=== PATIENT | female | born 1955 | race African-American/Black ===

== ENCOUNTER 2019-09-19 18:47 | Inpatient (IN) | payer OTHER, MEDICAID ==
[~2019-09-19] VITALS: Ht 170.2 cm; Wt 114.4 kg
[~2019-09-19 18:47] MED LIST: ASPI-404 PO; ATOR40TA52 PO; BENA40TA7 PO; CARV6.2551 PO; FURO20TA3 PO; GABA250S2 PO; INSDRIP IV; INSLANTI SC; LEVO50TA7 PO
[2019-09-19 19:46] LABS: Basophils # (auto) 0.1 10 ^3/uL (0-0.2); Basophils % (auto) 1.1 % (0.0-2.0); Eosinophils # (auto) 0.3 10 ^3/uL (0-0.8); Hematocrit 41.2 % (36.0-46.0); Hemoglobin 13.2 g/dL (12.2-16.2); Lymphocytes # (auto) 1.6 10 ^3/uL (0.4-5.4); Lymphocytes % (auto) 18.1 % (10.0-50.0); Mean Corpuscular Hemoglobin 28.4 pg (28.0-32.0); Mean Corpuscular Hgb Conc. 32.1 g/dL (32.0-36.0); Mean Corpuscular Volume 88.5 fL (80.0-100.0); Monocytes # (auto) 0.4 10 ^3/uL (0-1.3); Monocytes % (auto) 4.3 % (0.0-12.0); Neutrophils # (auto) 6.5 10 ^3/uL (1.6-8.6); Neutrophils % (auto) 73.5 % (37.0-80.0); Platelet Count (auto) 215 10^3/uL (140-450); Red Blood Cells 4.65 10^6/uL (4.0-5.20); White Blood Cell 8.9 10^3/uL (4.4-10.8)
[2019-09-19 19:59] LABS: Alanine Aminotransferase 25 U/L (13-56); Anion Gap 7 (5-15); Aspartate Aminotransferase 18 U/L (15-37); BUN/Creatinine Ratio 20.3; Blood Urea Nitrogen 32 mg/dL (7-18); Calcium 9.5 mg/dL (8.5-10.1); Carbon Dioxide 25 mmol/L (21-32); Chloride 105 mmol/L (98-107); GFR African American 42 mL/min; GFR Non-African American 35 mL/min; Glucose 299 mg/dL (74-106); Potassium 4.4 mmol/L (3.5-5.1); Sodium 137 mmol/L (136-145)
[2019-09-19] MEDS ORDERED: cloNIDine HCL 0.1 MG TAB PO ONE (20:00)
[2019-09-19 20:12] LABS: Alkaline Phosphatase 186 U/L (45-117); Bilirubin, Total 0.4 mg/dL (0.2-1.0); Total Protein 7.9 g/dL (6.4-8.2)
[2019-09-19 20:50] LABS: INR 0.97 (0.9-1.15); Partial Thromboplastin Time 27.3 sec (23.64-32.05)
[2019-09-19] MEDS ORDERED: hydrALAZINE HCL 20 MG/ML VL ONE (20:55)
[2019-09-19] MEDS ORDERED: hydrALAZINE HCL 20 MG/ML VL IV ONE (21:00)
[2019-09-19] MEDS ORDERED: ONDANSETRON HCL 4 MG/2 ML VIAL IV ONE (21:30)
[2019-09-19] MEDS ORDERED: dilTIAZem 25 MG/5 ML VIAL IV ONE (21:45)
[2019-09-19] MEDS ORDERED: DEXTROSE (50%) 50ML SYRG IV PRN (22:45)
[2019-09-19] MEDS ORDERED: TEMAZEPAM 15 MG CAP PO PRN (22:45)
[2019-09-19] MEDS ORDERED: ONDANSETRON HCL 4 MG/2 ML VIAL IV PRN (22:45)
[2019-09-19] MEDS ORDERED: FUROSEMIDE 40 MG/4 ML VIAL IV ONE (22:45)
[2019-09-19] MEDS ORDERED: cloNIDine HCL 0.1 MG TAB PO PRN (22:45)
[2019-09-19] MEDS ORDERED: ACETAMINOPHEN 325 MG TAB PO PRN (22:45)
[2019-09-19] MEDS ORDERED: NITROGLYCERIN 0.4 MG SL TAB SL PRN (23:00)
[2019-09-19] MEDS ORDERED: MORPHINE SULF INJ 2 MG/ML SYRINGE 1ML IV PRN (23:00)
[2019-09-20] VITALS (74 sets, daily range): BP systolic 93–180; BP diastolic 54–98
[2019-09-20] MEDS: ACCU-CHEK COMFORT CURVE STRIP VI SCH ×4 (00:18→18:29)
[2019-09-20] MEDS: InsuLIN REG 1unit/0.01ml Soln (100units/ml) SC SCH ×4 (00:24→18:33)
[2019-09-20] MEDS ORDERED: dilTIAZem 125mg/125ml BAG KIT 125 ML IV SCH (00:45)
[2019-09-20] MEDS: FUROSEMIDE 40 MG TAB PO SCH ×2 (06:11→18:32)
[2019-09-20] MEDS ORDERED: LEVOTHYROXINE SODIUM 50 MCG TAB PO SCH (07:00)
[2019-09-20] MEDS ORDERED: NORT25CA PO (08:12)
[2019-09-20] MEDS ORDERED: POTA10TA51 PO (08:12)
[2019-09-20] MEDS ORDERED: FURO20TA3 PO ×2 (08:12→15:24)
[2019-09-20] MEDS ORDERED: ATOR40TA52 PO (08:12)
[2019-09-20] MEDS ORDERED: BENA40TA7 PO ×2 (08:12→13:38)
[2019-09-20] MEDS ORDERED: PANTOPRAZOLE 40 MG TAB PO SCH (10:00)
[2019-09-20] MEDS ORDERED: ASPirin 81 mg TAB PO SCH (10:00)
[2019-09-20] MEDS ORDERED: CARVEDILOL 12.5 MG TAB PO SCH (10:00)
[2019-09-20] MEDS ORDERED: BENAZEPRIL HCL 10 MG TAB PO SCH (10:00)
[2019-09-20] MEDS ORDERED: GABA300C11 GT (13:38)
[2019-09-20] MEDS ORDERED: CLO01T PO (15:24)
[2019-09-20] MEDS ORDERED: CAR125T PO (15:24)
[2019-09-20] MEDS ORDERED: ATORVASTATIN 20 MG TAB PO SCH (22:00)
== END 2019-09-20 19:10 | disposition home health service (06) | DRG 305 ==
LOC: ER 18:47 → EDBD 18:47 → TELE-WESTW 18:48 → ICU WEST 09-20 01:31
PROVIDERS: ADMIT Nurse Practitioner; ATTEND Internal Medicine
DX: I16.0 Hypertensive urgency (principal); I69.354 Hemiplegia and hemiparesis following cerebral infarction affecting left non-dominant side; N18.3 Chronic kidney disease, stage 3 (moderate); I13.0 Hypertensive heart and chronic kidney disease with heart failure and stage 1 through stage 4 chronic kidney disease, or unspecified chronic kidney disease; E11.40 Type 2 diabetes mellitus with diabetic neuropathy, unspecified; E11.22 Type 2 diabetes mellitus with diabetic chronic kidney disease; E78.5 Hyperlipidemia, unspecified; I50.9 Heart failure, unspecified; E03.9 Hypothyroidism, unspecified; Z82.3 Family history of stroke; Z90.710 Acquired absence of both cervix and uterus
CPT/HCPCS: 36415; 71045; 80053; 82962; 83880; 84443; 84484; 85025; 85610; 85730; 87081; 96374; 96375; G0378; J1815; J2405

== ENCOUNTER 2019-10-23 13:01 | Emergency (ER) | payer OTHER, MEDICAID ==
[~2019-10-23] VITALS: Ht 165.1 cm; Wt 136.1 kg
[~2019-10-23 13:01] MED LIST changes: +CAR125T PO; -CARV6.2551 PO; +CLO01T PO; -GABA250S2 PO; +GABA300C11 GT; +NORT25CA PO; +POTA10TA51 PO
[2019-10-23] MEDS ORDERED: SODIUM CHLORIDE 0.9% 1,000 ML IV ONE ×2 (13:04)
[2019-10-23 14:17] LABS: Basophils # (auto) 0.1 10 ^3/uL (0-0.2); Basophils % (auto) 0.8 % (0.0-2.0); Eosinophils # (auto) 0.3 10 ^3/uL (0-0.8); Eosinophils % (auto) 3.1 % (0.0-7.0); Hematocrit 37.6 % (36.0-46.0); Hemoglobin 11.9 g/dL (12.2-16.2); Lymphocytes # (auto) 1.8 10 ^3/uL (0.4-5.4); Lymphocytes % (auto) 21.5 % (10.0-50.0); Mean Corpuscular Hemoglobin 28.3 pg (28.0-32.0); Mean Corpuscular Hgb Conc. 31.7 g/dL (32.0-36.0); Mean Corpuscular Volume 89.2 fL (80.0-100.0); Monocytes # (auto) 0.4 10 ^3/uL (0-1.3); Monocytes % (auto) 5.1 % (0.0-12.0); Neutrophils # (auto) 5.7 10 ^3/uL (1.6-8.6); Neutrophils % (auto) 69.5 % (37.0-80.0); Platelet Count (auto) 235 10^3/uL (140-450); Red Blood Cells 4.21 10^6/uL (4.0-5.20); Red Cell Distribution Width 14.7 % (11.8-14.3); White Blood Cell 8.2 10^3/uL (4.4-10.8)
[2019-10-23 14:39] LABS: Alanine Aminotransferase 14 U/L (13-56); Albumin 2.6 g/dL (3.4-5.0); Anion Gap 9 (5-15); Aspartate Aminotransferase 13 U/L (15-37); BUN/Creatinine Ratio 16.8; Blood Urea Nitrogen 30 mg/dL (7-18); Carbon Dioxide 26 mmol/L (21-32); Chloride 104 mmol/L (98-107); GFR African American 36 mL/min; GFR Non-African American 30 mL/min; Glucose 172 mg/dL (74-106); Sodium 139 mmol/L (136-145)
[2019-10-23 14:43] LABS: Alkaline Phosphatase 160 U/L (45-117); Bilirubin, Total 0.5 mg/dL (0.2-1.0)
[2019-10-23] MEDS ORDERED: cloNIDine HCL 0.1 MG TAB ONE (15:50)
[2019-10-23] MEDS ORDERED: cloNIDine HCL 0.1 MG TAB PO ONE (16:00)
--- NOTE | 2019-10-24 10:00 | NUR ---
Regarding social service for transportation via [email or web address]. 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 Per Sherrie with [facility] the next available time [employer] [phone] is able to picked edge sewing machine operator patient is between 11:00-13:00. Informed ER nurse.
[2019-10-24 10:01] VITALS: BP 139/76
== END 2019-10-24 11:04 | disposition home or self-care (01) ==
LOC: ER 13:01 → EDBD 13:01 → ER 10-24 11:04
DX: N39.0 Urinary tract infection, site not specified (principal); I10 Essential (primary) hypertension; E44.0 Moderate protein-calorie malnutrition; Z68.42 Body mass index [BMI] 45.0-49.9, adult; I11.0 Hypertensive heart disease with heart failure; I50.9 Heart failure, unspecified; E11.9 Type 2 diabetes mellitus without complications; Z87.440 Personal history of urinary (tract) infections; Z79.899 Other long term (current) drug therapy; Z86.73 Personal history of transient ischemic attack (TIA), and cerebral infarction without residual deficits; Z88.8 Allergy status to other drugs, medicaments and biological substances
CPT/HCPCS: 36415; 51702; 71045; 74176; 80053; 84484; 85025; 93005; 99285; J7030

== ENCOUNTER 2020-01-11 10:45 | Inpatient (IN) | payer OTHER, MEDICAID ==
[~2020-01-11] VITALS: Ht 170.2 cm; Wt 120.2 kg
[~2020-01-11 10:45] MED LIST changes: -ASPI-404 PO; +ASPI-543 PO
[2020-01-11] MEDS ORDERED: FUROSEMIDE 40 MG/4 ML VIAL IV ONE (11:00)
[2020-01-11] MEDS ORDERED: ONDANSETRON HCL 4 MG/2 ML VIAL IV ONE (11:00)
[2020-01-11 11:28] LABS: Basophils # (auto) 0.1 10 ^3/uL (0-0.2); Basophils % (auto) 0.6 % (0.0-2.0); Eosinophils # (auto) 0.4 10 ^3/uL (0-0.8); Eosinophils % (auto) 2.9 % (0.0-7.0); Hematocrit 39.6 % (36.0-46.0); Hemoglobin 12.4 g/dL (12.2-16.2); Lymphocytes # (auto) 1.7 10 ^3/uL (0.4-5.4); Lymphocytes % (auto) 11.7 % (10.0-50.0); Mean Corpuscular Hemoglobin 28.9 pg (28.0-32.0); Mean Corpuscular Hgb Conc. 31.2 g/dL (32.0-36.0); Mean Corpuscular Volume 92.6 fL (80.0-100.0); Monocytes # (auto) 0.5 10 ^3/uL (0-1.3); Monocytes % (auto) 3.4 % (0.0-12.0); Neutrophils % (auto) 81.4 % (37.0-80.0); Nucleated Red Blood Cells % 0.2 %; Platelet Count (auto) 228 10^3/uL (140-450); Red Blood Cells 4.28 10^6/uL (4.0-5.20); Red Cell Distribution Width 15.6 % (11.8-14.3); White Blood Cell 14.7 10^3/uL (4.4-10.8)
[2020-01-11] MEDS ORDERED: levoFLOXacin 500MG 100 ML IV ONE (11:30)
[2020-01-11 11:49] LABS: Albumin 2.7 g/dL (3.4-5.0); Anion Gap 3 (5-15); Blood Urea Nitrogen 38 mg/dL (7-18); Calcium 8.8 mg/dL (8.5-10.1); Carbon Dioxide 25 mmol/L (21-32); Chloride 109 mmol/L (98-107); Glucose 302 mg/dL (74-106); Potassium 4.6 mmol/L (3.5-5.1); Sodium 137 mmol/L (136-145)
[2020-01-11 11:55] LABS: Alanine Aminotransferase 19 U/L (13-56); Alkaline Phosphatase 183 U/L (45-117); Aspartate Aminotransferase 14 U/L (15-37); BUN/Creatinine Ratio 21.3; Bilirubin, Total 0.4 mg/dL (0.2-1.0); GFR African American 37 mL/min; GFR Non-African American 30 mL/min; Total Protein 7.1 g/dL (6.4-8.2)
[2020-01-11] MEDS ORDERED: MORPHINE SULF INJ 2 MG/ML SYRINGE 1ML IV PRN ×2 (13:15→14:15)
[2020-01-11] MEDS ORDERED: NITROGLYCERIN 0.4 MG SL TAB SL PRN (13:15)
[2020-01-11] MEDS ORDERED: TEMAZEPAM 15 MG CAP PO PRN (14:15)
[2020-01-11] MEDS ORDERED: traMADol HCL 50 MG TAB PO PRN (14:15)
[2020-01-11] MEDS ORDERED: DEXTROSE (50%) 50ML SYRG IV PRN (14:15)
[2020-01-11] MEDS ORDERED: LACTULOSE 20Gm/30ML SOLN PO PRN (14:15)
[2020-01-11] MEDS ORDERED: PROMETHAZINE HCL 25 MG/ML 1ML IV PRN (14:15)
[2020-01-11] MEDS ORDERED: ACETAMINOPHEN 500 MG TAB PO PRN ×2 (14:15)
[2020-01-11] MEDS: ACCU-CHEK COMFORT CURVE STRIP VI SCH ×2 (16:00→20:39)
[2020-01-11] MEDS ORDERED: POTASSIUM CHL 20 Meq TABLET PO SCH (16:15)
[2020-01-11] MEDS: InsuLIN REG 1unit/0.01ml Soln (100units/ml) SC SCH ×2 (16:38→20:41)
[2020-01-11 18:37] VITALS: BP 159/76
[2020-01-11] MEDS: LABETALOL HCL 5 MG/ML 4ML SYRINGE IV PRN (19:48)
[2020-01-11 22:00] VITALS: BP 184/106
[2020-01-11] MEDS: INSULIN LANTUS (GLARGINE) 1 /0.01ml (100units/ml) SC SCH (22:00)
[2020-01-11] MEDS ORDERED: BUDESONIDE (INHALATION) 180 MCG IH IN SCH (22:00)
[2020-01-11] MEDS ORDERED: CLINDAMYCIN 600MG IV 50 ML IV SCH (22:00)
[2020-01-11] MEDS ORDERED: ALBUTEROL SULF HFA 90MCG INH 200DOSE IN SCH (22:00)
[2020-01-11] MEDS: FUROSEMIDE 40 MG/4 ML VIAL IV SCH (22:05)
[2020-01-11] MEDS: SODIUM CHLOR 0.9% PF (SALINE LOCK) 10ML VIAL/SYR IV SCH (22:05)
[2020-01-11] MEDS: CARVEDILOL 12.5 MG TAB PO SCH (22:06)
[2020-01-11] MEDS: GABAPENTIN 300 MG CAP PO SCH (22:06)
[2020-01-11] MEDS: ATORVASTATIN 20 MG TAB PO SCH (22:06)
[2020-01-11] MEDS: NORTRIPTYLINE HCL 25 MG CAP PO SCH (22:07)
[2020-01-11 23:05] VITALS: BP 164/96
[2020-01-12] MEDS: ACCU-CHEK COMFORT CURVE STRIP VI SCH ×6 (00:03→19:41)
[2020-01-12] MEDS: InsuLIN REG 1unit/0.01ml Soln (100units/ml) SC SCH ×6 (03:39→19:42)
[2020-01-12] MEDS: LABETALOL HCL 5 MG/ML 4ML SYRINGE IV PRN ×2 (04:21→12:37)
[2020-01-12 05:00] VITALS: BP 156/85
[2020-01-12 05:23] VITALS: BP 142/80
[2020-01-12] MEDS: GABAPENTIN 300 MG CAP PO SCH ×4 (06:00→21:30)
[2020-01-12] MEDS: SODIUM CHLOR 0.9% PF (SALINE LOCK) 10ML VIAL/SYR IV SCH ×3 (06:20→21:30)
[2020-01-12] MEDS: FUROSEMIDE 40 MG/4 ML VIAL IV SCH (06:21)
[2020-01-12] MEDS: LEVOTHYROXINE SODIUM 50 MCG TAB PO SCH (06:25)
[2020-01-12 07:17] LABS: Basophils # (auto) 0.1 10 ^3/uL (0-0.2); Basophils % (auto) 0.6 % (0.0-2.0); Eosinophils # (auto) 0.4 10 ^3/uL (0-0.8); Eosinophils % (auto) 3.8 % (0.0-7.0); Hematocrit 32.1 % (36.0-46.0); Hemoglobin 10.7 g/dL (12.2-16.2); Mean Corpuscular Hemoglobin 29.5 pg (28.0-32.0); Mean Corpuscular Hgb Conc. 33.1 g/dL (32.0-36.0); Mean Corpuscular Volume 89.1 fL (80.0-100.0); Monocytes # (auto) 0.5 10 ^3/uL (0-1.3); Monocytes % (auto) 5.5 % (0.0-12.0); Neutrophils # (auto) 6.3 10 ^3/uL (1.6-8.6); Neutrophils % (auto) 68.1 % (37.0-80.0); Nucleated Red Blood Cells % 0.1 %; Platelet Count (auto) 207 10^3/uL (140-450); Red Blood Cells 3.61 10^6/uL (4.0-5.20); Red Cell Distribution Width 15.5 % (11.8-14.3); White Blood Cell 9.2 10^3/uL (4.4-10.8)
[2020-01-12 07:35] LABS: Albumin 2.4 g/dL (3.4-5.0); Calcium 8.7 mg/dL (8.5-10.1); Potassium 4.3 mmol/L (3.5-5.1)
[2020-01-12 07:45] LABS: BUN/Creatinine Ratio 20.6; Bilirubin, Total 0.4 mg/dL (0.2-1.0); Total Protein 6.1 g/dL (6.4-8.2)
[2020-01-12 09:00] VITALS: BP 120/74
[2020-01-12] MEDS: NITROGLYCERIN 0.2MG/HR TOPICAL PATCH TD SCH (10:00)
[2020-01-12] MEDS ORDERED: levoFLOXacin 500MG 100 ML IV SCH (10:00)
[2020-01-12] MEDS ORDERED: ZINC SULFATE 220mg CAP or TAB PO SCH (10:00)
[2020-01-12] MEDS ORDERED: FUROSEMIDE 40 MG/4 ML VIAL IV SCH (10:00)
[2020-01-12] MEDS ORDERED: CHOLECALCIFEROL (VITD3) 2,000 UNIT CAP PO SCH (10:00)
[2020-01-12] MEDS ORDERED: ASCORBIC ACID 1,000 MG TAB PO SCH (10:00)
[2020-01-12] MEDS: ENOXAPARIN SOD 40 MG/0.4 ML SYRINGE SC SCH (10:41)
[2020-01-12] MEDS: BENAZEPRIL HCL 10 MG TAB PO SCH (10:41)
[2020-01-12] MEDS: POTASSIUM CHL 20 Meq TABLET PO SCH (10:41)
[2020-01-12] MEDS: ASPirin 81 mg TAB PO SCH (10:42)
[2020-01-12] MEDS: CARVEDILOL 12.5 MG TAB PO SCH ×2 (10:42→21:52)
[2020-01-12 13:00] VITALS: BP 163/67
[2020-01-12] MEDS ORDERED: LEVO500T21 PO (15:28)
[2020-01-12] MEDS ORDERED: FURO20TA3 PO (15:28)
[2020-01-12] MEDS ORDERED: POTA10TA51 PO (15:28)
[2020-01-12 17:00] VITALS: BP 150/88
[2020-01-12] MEDS: FUROSEMIDE 40 MG TAB PO SCH (18:24)
[2020-01-12] MEDS: ATORVASTATIN 20 MG TAB PO SCH (21:30)
[2020-01-12] MEDS: NORTRIPTYLINE HCL 25 MG CAP PO SCH (21:30)
[2020-01-12] MEDS: INSULIN LANTUS (GLARGINE) 1 /0.01ml (100units/ml) SC SCH (21:52)
[2020-01-12 22:00] VITALS: BP 159/82
[2020-01-13] MEDS: ACCU-CHEK COMFORT CURVE STRIP VI SCH ×6 (00:16→23:42)
[2020-01-13] MEDS: InsuLIN REG 1unit/0.01ml Soln (100units/ml) SC SCH ×6 (00:17→20:00)
[2020-01-13 05:00] VITALS: BP 140/71
[2020-01-13] MEDS: GABAPENTIN 300 MG CAP PO SCH ×3 (05:40→23:43)
[2020-01-13] MEDS: SODIUM CHLOR 0.9% PF (SALINE LOCK) 10ML VIAL/SYR IV SCH ×3 (05:40→23:43)
[2020-01-13] MEDS: FUROSEMIDE 40 MG TAB PO SCH ×2 (05:40→18:06)
[2020-01-13] MEDS: LEVOTHYROXINE SODIUM 50 MCG TAB PO SCH (05:41)
[2020-01-13 08:06] LABS: Basophils # (auto) 0.1 10 ^3/uL (0-0.2); Basophils % (auto) 0.9 % (0.0-2.0); Eosinophils # (auto) 0.3 10 ^3/uL (0-0.8); Eosinophils % (auto) 4.6 % (0.0-7.0); Hematocrit 31.3 % (36.0-46.0); Hemoglobin 10.2 g/dL (12.2-16.2); Lymphocytes # (auto) 2.1 10 ^3/uL (0.4-5.4); Lymphocytes % (auto) 27.1 % (10.0-50.0); Mean Corpuscular Hemoglobin 29.3 pg (28.0-32.0); Mean Corpuscular Hgb Conc. 32.5 g/dL (32.0-36.0); Mean Corpuscular Volume 90.1 fL (80.0-100.0); Monocytes # (auto) 0.4 10 ^3/uL (0-1.3); Monocytes % (auto) 5.4 % (0.0-12.0); Neutrophils # (auto) 4.7 10 ^3/uL (1.6-8.6); Nucleated Red Blood Cells % 0.1 %; Platelet Count (auto) 200 10^3/uL (140-450); Red Blood Cells 3.47 10^6/uL (4.0-5.20); White Blood Cell 7.6 10^3/uL (4.4-10.8)
[2020-01-13 08:27] LABS: Potassium 4.1 mmol/L (3.5-5.1)
[2020-01-13 08:30] VITALS: BP 160/83
[2020-01-13 09:00] VITALS: BP 134/60
[2020-01-13] MEDS ORDERED: levoFLOXacin 500 MG TAB PO SCH (10:00)
[2020-01-13 10:09] LABS: Urine Amorphous Crystal FEW /hpf (None Seen); Urine Bacteria MANY /hpf (None Seen); Urine Blood 1+ /uL (Negative); Urine Mucus FEW (None Seen); Urine Specific Gravity 1.013 (1.001-1.035); Urine WBC 543 /hpf (0 - 5); Urine WBC Clumps PRESENT /hpf (None Seen)
[2020-01-13] MEDS: NITROGLYCERIN 0.2MG/HR TOPICAL PATCH TD SCH (10:41)
[2020-01-13] MEDS: BENAZEPRIL HCL 10 MG TAB PO SCH (10:41)
[2020-01-13] MEDS: POTASSIUM CHL 20 Meq TABLET PO SCH (10:42)
[2020-01-13] MEDS: ASPirin 81 mg TAB PO SCH (10:42)
[2020-01-13] MEDS: CARVEDILOL 12.5 MG TAB PO SCH ×2 (10:42→23:42)
[2020-01-13] MEDS: ENOXAPARIN SOD 40 MG/0.4 ML SYRINGE SC SCH (10:46)
[2020-01-13] MEDS: LABETALOL HCL 5 MG/ML 4ML SYRINGE IV PRN (12:27)
[2020-01-13 13:00] VITALS: BP 160/83
[2020-01-13 16:27] VITALS: BP 144/79
[2020-01-13 21:58] VITALS: BP 138/76
[2020-01-13] MEDS: INSULIN LANTUS (GLARGINE) 1 /0.01ml (100units/ml) SC SCH (22:00)
[2020-01-13] MEDS: ATORVASTATIN 20 MG TAB PO SCH (23:43)
[2020-01-13] MEDS: NORTRIPTYLINE HCL 25 MG CAP PO SCH (23:43)
[2020-01-14] MEDS: ACCU-CHEK COMFORT CURVE STRIP VI SCH ×5 (00:09→20:00)
[2020-01-14] MEDS: InsuLIN REG 1unit/0.01ml Soln (100units/ml) SC SCH ×6 (00:10→20:00)
[2020-01-14 05:03] VITALS: BP 114/60
[2020-01-14] MEDS: FUROSEMIDE 40 MG TAB PO SCH ×2 (06:32→18:39)
[2020-01-14] MEDS: GABAPENTIN 300 MG CAP PO SCH ×3 (06:32→22:35)
[2020-01-14] MEDS: LEVOTHYROXINE SODIUM 50 MCG TAB PO SCH (06:33)
[2020-01-14] MEDS: SODIUM CHLOR 0.9% PF (SALINE LOCK) 10ML VIAL/SYR IV SCH ×3 (06:33→22:31)
[2020-01-14 07:28] LABS: Basophils # (auto) 0 10 ^3/uL (0-0.2); Basophils % (auto) 0.7 % (0.0-2.0); Eosinophils # (auto) 0.4 10 ^3/uL (0-0.8); Eosinophils % (auto) 5.4 % (0.0-7.0); Hematocrit 31.6 % (36.0-46.0); Hemoglobin 9.9 g/dL (12.2-16.2); Lymphocytes # (auto) 1.9 10 ^3/uL (0.4-5.4); Lymphocytes % (auto) 28.7 % (10.0-50.0); Mean Corpuscular Hgb Conc. 31.4 g/dL (32.0-36.0); Mean Corpuscular Volume 89.4 fL (80.0-100.0); Monocytes # (auto) 0.4 10 ^3/uL (0-1.3); Monocytes % (auto) 6.2 % (0.0-12.0); Neutrophils # (auto) 3.8 10 ^3/uL (1.6-8.6); Nucleated Red Blood Cells % 0.1 %; Platelet Count (auto) 195 10^3/uL (140-450); Red Blood Cells 3.53 10^6/uL (4.0-5.20); Red Cell Distribution Width 15.1 % (11.8-14.3); White Blood Cell 6.5 10^3/uL (4.4-10.8)
[2020-01-14 07:47] LABS: Potassium 4.1 mmol/L (3.5-5.1)
[2020-01-14 07:54] LABS: BUN/Creatinine Ratio 18.9; Calcium 8.6 mg/dL (8.5-10.1)
[2020-01-14 08:00] VITALS: BP 132/69
[2020-01-14] MEDS ORDERED: ENOXAPARIN SOD 30 MG/0.3 ML SYRINGE SC SCH (10:00)
[2020-01-14] MEDS: ASPirin 81 mg TAB PO SCH (10:28)
[2020-01-14] MEDS: POTASSIUM CHL 20 Meq TABLET PO SCH (10:31)
[2020-01-14] MEDS: CARVEDILOL 12.5 MG TAB PO SCH ×2 (10:31→22:33)
[2020-01-14] MEDS: levoFLOXacin 250 MG TAB PO SCH (10:31)
[2020-01-14] MEDS: BENAZEPRIL HCL 10 MG TAB PO SCH (10:32)
[2020-01-14] MEDS: NITROGLYCERIN 0.2MG/HR TOPICAL PATCH TD SCH (10:33)
[2020-01-14 12:00] VITALS: BP 154/84
[2020-01-14 17:00] VITALS: BP 129/74
[2020-01-14 22:00] VITALS: BP 143/70
[2020-01-14] MEDS: INSULIN LANTUS (GLARGINE) 1 /0.01ml (100units/ml) SC SCH (22:00)
[2020-01-14] MEDS: ATORVASTATIN 20 MG TAB PO SCH (22:33)
[2020-01-14] MEDS: NORTRIPTYLINE HCL 25 MG CAP PO SCH (22:34)
[2020-01-15] MEDS: InsuLIN REG 1unit/0.01ml Soln (100units/ml) SC SCH ×6 (04:00→20:00)
[2020-01-15] MEDS: ACCU-CHEK COMFORT CURVE STRIP VI SCH ×6 (04:20→20:00)
[2020-01-15 05:00] VITALS: BP 119/64
[2020-01-15] MEDS: SODIUM CHLOR 0.9% PF (SALINE LOCK) 10ML VIAL/SYR IV SCH ×3 (05:40→22:49)
[2020-01-15] MEDS: LEVOTHYROXINE SODIUM 50 MCG TAB PO SCH (05:54)
[2020-01-15] MEDS: GABAPENTIN 300 MG CAP PO SCH ×3 (05:54→22:51)
[2020-01-15] MEDS: FUROSEMIDE 40 MG TAB PO SCH (05:54)
[2020-01-15] MEDS: ASPirin 81 mg TAB PO SCH (08:34)
[2020-01-15] MEDS: POTASSIUM CHL 20 Meq TABLET PO SCH (08:35)
[2020-01-15] MEDS: CARVEDILOL 12.5 MG TAB PO SCH ×2 (08:35→22:50)
[2020-01-15] MEDS: levoFLOXacin 250 MG TAB PO SCH (08:35)
[2020-01-15] MEDS: BENAZEPRIL HCL 10 MG TAB PO SCH (08:36)
[2020-01-15] MEDS: NITROGLYCERIN 0.2MG/HR TOPICAL PATCH TD SCH (08:41)
[2020-01-15 09:00] VITALS: BP 131/76
[2020-01-15 13:00] VITALS: BP 141/79
[2020-01-15] MEDS ORDERED: SODIUM CHLORIDE 0.9% 1,000 ML IV SCH (14:15)
[2020-01-15] MEDS ORDERED: PANTOPRAZOLE 40 MG/10 ML VIAL INJ IV ONE (14:30)
[2020-01-15] MEDS ORDERED: NITR-52 PO (15:51)
[2020-01-15] MEDS ORDERED: NITROFURANTOIN 100 mg CAP PO SCH (16:00)
[2020-01-15 16:38] VITALS: BP 164/100
[2020-01-15 16:43] LABS: Basophils # (auto) 0.1 10 ^3/uL (0-0.2); Basophils % (auto) 0.8 % (0.0-2.0); Eosinophils # (auto) 0.4 10 ^3/uL (0-0.8); Eosinophils % (auto) 4.7 % (0.0-7.0); Hematocrit 31.1 % (36.0-46.0); Lymphocytes # (auto) 1.6 10 ^3/uL (0.4-5.4); Lymphocytes % (auto) 20.1 % (10.0-50.0); Mean Corpuscular Hemoglobin 28.7 pg (28.0-32.0); Mean Corpuscular Hgb Conc. 32.1 g/dL (32.0-36.0); Mean Corpuscular Volume 89.5 fL (80.0-100.0); Monocytes # (auto) 0.5 10 ^3/uL (0-1.3); Monocytes % (auto) 5.8 % (0.0-12.0); Neutrophils # (auto) 5.4 10 ^3/uL (1.6-8.6); Neutrophils % (auto) 68.6 % (37.0-80.0); Nucleated Red Blood Cells % 0.1 %; Platelet Count (auto) 200 10^3/uL (140-450); Red Blood Cells 3.47 10^6/uL (4.0-5.20); Red Cell Distribution Width 15.2 % (11.8-14.3); White Blood Cell 7.9 10^3/uL (4.4-10.8)
[2020-01-15 16:58] LABS: Calcium 8.6 mg/dL (8.5-10.1); Potassium 4.3 mmol/L (3.5-5.1)
[2020-01-15 17:00] LABS: BUN/Creatinine Ratio 20.1
[2020-01-15] MEDS ORDERED: ERTAPENEM SOD INJ 1 GM in SODIUM CHL 0.9% 50 ML IV ONE (18:00)
[2020-01-15] MEDS: INSULIN LANTUS (GLARGINE) 1 /0.01ml (100units/ml) SC SCH (22:00)
[2020-01-15] MEDS: ATORVASTATIN 20 MG TAB PO SCH (22:51)
[2020-01-15] MEDS: NORTRIPTYLINE HCL 25 MG CAP PO SCH (22:51)
[2020-01-15 23:21] VITALS: BP 166/96
[2020-01-16] MEDS: ACCU-CHEK COMFORT CURVE STRIP VI SCH ×5 (00:08→15:58)
[2020-01-16] MEDS: InsuLIN REG 1unit/0.01ml Soln (100units/ml) SC SCH ×5 (04:00→16:02)
[2020-01-16] MEDS: SODIUM CHLOR 0.9% PF (SALINE LOCK) 10ML VIAL/SYR IV SCH ×2 (06:58→16:02)
[2020-01-16] MEDS: GABAPENTIN 300 MG CAP PO SCH ×2 (06:58→16:02)
[2020-01-16] MEDS: LEVOTHYROXINE SODIUM 50 MCG TAB PO SCH (06:59)
[2020-01-16 09:02] VITALS: BP 127/68
[2020-01-16] MEDS ORDERED: PANTOPRAZOLE 40 MG TAB PO SCH (10:00)
[2020-01-16] MEDS: NITROGLYCERIN 0.2MG/HR TOPICAL PATCH TD SCH (10:21)
[2020-01-16] MEDS: BENAZEPRIL HCL 10 MG TAB PO SCH (10:21)
[2020-01-16] MEDS: CARVEDILOL 12.5 MG TAB PO SCH (10:21)
[2020-01-16] MEDS ORDERED: ERTAPENEM SOD INJ 0.5 GM in SODIUM CHL 0.9% 50 ML IV ONE (13:00)
[2020-01-16 14:33] VITALS: BP 130/75
[2020-01-16 16:55] VITALS: BP 163/87
[2020-01-17] MEDS ORDERED: ERTAPENEM SOD INJ 0.5 GM in SODIUM CHL 0.9% 50 ML IV SCH (17:00)
== END 2020-01-16 19:15 | disposition home health service (06) | DRG 291 ==
LOC: EDBD 10:45 → EDUNIT# 10:45 → ER 10:45 → TELE-EAST 10:46 → TELE-CENTR 01-12 04:35
PROVIDERS: ADMIT Internal Medicine; ATTEND Internal Medicine
DX: I13.0 Hypertensive heart and chronic kidney disease with heart failure and stage 1 through stage 4 chronic kidney disease, or unspecified chronic kidney disease (principal); J96.01 Acute respiratory failure with hypoxia; I50.33 Acute on chronic diastolic (congestive) heart failure; Z68.41 Body mass index [BMI] 40.0-44.9, adult; I69.354 Hemiplegia and hemiparesis following cerebral infarction affecting left non-dominant side; N39.0 Urinary tract infection, site not specified; D64.9 Anemia, unspecified; E66.01 Morbid (severe) obesity due to excess calories; E78.5 Hyperlipidemia, unspecified; N18.3 Chronic kidney disease, stage 3 (moderate); Z20.828 Contact with and (suspected) exposure to other viral communicable diseases; E11.22 Type 2 diabetes mellitus with diabetic chronic kidney disease; B96.20 Unspecified Escherichia coli [E. coli] as the cause of diseases classified elsewhere; E11.65 Type 2 diabetes mellitus with hyperglycemia; Z83.3 Family history of diabetes mellitus; Z82.3 Family history of stroke; Z90.710 Acquired absence of both cervix and uterus; Z99.3 Dependence on wheelchair; Z87.440 Personal history of urinary (tract) infections; Z88.8 Allergy status to other drugs, medicaments and biological substances; Z74.01 Bed confinement status; Z79.899 Other long term (current) drug therapy
CPT/HCPCS: 36415; 36600; 71045; 78582; 80048; 80053; 81001; 82270; 82550; 82805; 82962; 83036; 83605; 83880; 84443; 84484; 85025; 85379; 87040; 87086; 87088; 87186; 87426; 93005; 93306; 93970; 97110; 97163; 97530; 99291; C9113; G0378; J1335; J1815; J1956; J2405; J3490

== ENCOUNTER 2020-02-12 21:50 | Inpatient (IN) | payer OTHER, MEDICAID ==
[~2020-02-12] VITALS: Ht 170.2 cm; Wt 116.7 kg
[~2020-02-12 21:50] MED LIST changes: -CLO01T PO
[2020-02-12] MEDS ORDERED: FUROSEMIDE 20 MG/2 ML VIAL IV ONE (22:15)
[2020-02-12 22:43] LABS: Basophils # (auto) 0.1 10 ^3/uL (0-0.2); Eosinophils # (auto) 0.4 10 ^3/uL (0-0.8); Eosinophils % (auto) 3.2 % (0.0-7.0); Hematocrit 40.1 % (36.0-46.0); Hemoglobin 12.7 g/dL (12.2-16.2); Lymphocytes # (auto) 2.1 10 ^3/uL (0.4-5.4); Lymphocytes % (auto) 17.9 % (10.0-50.0); Mean Corpuscular Hgb Conc. 31.7 g/dL (32.0-36.0); Mean Corpuscular Volume 91.5 fL (80.0-100.0); Monocytes # (auto) 0.4 10 ^3/uL (0-1.3); Monocytes % (auto) 3.9 % (0.0-12.0); Neutrophils # (auto) 8.6 10 ^3/uL (1.6-8.6); Platelet Count (auto) 246 10^3/uL (140-450); Red Blood Cells 4.38 10^6/uL (4.0-5.20); Red Cell Distribution Width 15.4 % (11.8-14.3); White Blood Cell 11.6 10^3/uL (4.4-10.8)
[2020-02-12 23:01] LABS: Alanine Aminotransferase 32 U/L (13-56); Albumin 2.6 g/dL (3.4-5.0); Anion Gap 8 (5-15); Aspartate Aminotransferase 22 U/L (15-37); BUN/Creatinine Ratio 18.4; Blood Urea Nitrogen 42 mg/dL (7-18); Calcium 8.9 mg/dL (8.5-10.1); Carbon Dioxide 22 mmol/L (21-32); Chloride 104 mmol/L (98-107); GFR African American 28 mL/min; GFR Non-African American 23 mL/min; Glucose 302 mg/dL (74-106); Potassium 4.6 mmol/L (3.5-5.1); Sodium 134 mmol/L (136-145)
[2020-02-12 23:08] LABS: Alkaline Phosphatase 194 U/L (45-117); Bilirubin, Total 0.2 mg/dL (0.2-1.0); Total Protein 7.3 g/dL (6.4-8.2)
[2020-02-12 23:11] LABS: Urine Bacteria FEW /hpf (None Seen); Urine Blood TRACE /uL (Negative); Urine Specific Gravity 1.011 (1.001-1.035); Urine WBC 1 /hpf (0 - 5)
[2020-02-12 23:20] LABS: Lactic Acid w/Reflex 2.2 mmol/L (0.4-2.0)
[2020-02-12 23:23] LABS: INR 0.96 (0.9-1.15); Partial Thromboplastin Time 23.9 sec (23.0-31.2)
--- NOTE | 2020-02-13 06:05 | NUR ---
Respiratory note: PT FOUND RESTING COMFORTABLY ON 2L O2 SATTING 98%. BREATH SOUNDS ARE CLEAR. PT IN NO RESPIRATORY DISTRESS AT THIS TIME. Addendum: 02/13/20 at 0747 by FREYA VILLALTA RT RT Amended: Links added.
[2020-02-13] MEDS ORDERED: DEXTROSE (50%) 50ML SYRG IV PRN (07:00)
[2020-02-13] MEDS ORDERED: MORPHINE SULF INJ 2 MG/ML SYRINGE 1ML IV PRN (07:00)
[2020-02-13] MEDS ORDERED: ACETAMINOPHEN 325 MG TAB PO PRN (07:00)
[2020-02-13] MEDS ORDERED: NITROGLYCERIN 0.4 MG SL TAB SL PRN (07:00)
[2020-02-13] MEDS ORDERED: ONDANSETRON HCL 4 MG/2 ML VIAL IV PRN (07:00)
[2020-02-13] MEDS ORDERED: TEMAZEPAM 15 MG CAP PO PRN (07:00)
[2020-02-13 07:30] LABS: Magnesium 2.2 mg/dL (1.6-2.6)
[2020-02-13 07:39] LABS: CRP High Sensitivity 1.32 mg/dL (< 0.3)
[2020-02-13 09:42] VITALS: BP 176/101
[2020-02-13] MEDS: LEVOTHYROXINE SODIUM 50 MCG TAB PO SCH (09:55)
[2020-02-13] MEDS: CARVEDILOL 12.5 MG TAB PO SCH ×2 (09:56→21:46)
[2020-02-13] MEDS: ASPirin 81 mg TAB PO SCH (09:56)
[2020-02-13] MEDS ORDERED: ASCORBIC ACID 1,000 MG TAB PO SCH (10:00)
[2020-02-13] MEDS ORDERED: DOXYCYCLINE 100MG/250ML 250 ML IV SCH (10:00)
[2020-02-13] MEDS ORDERED: DexAMETHasone SOD PHOS 10MG/1ML VIAL INJ IV SCH (10:00)
[2020-02-13] MEDS ORDERED: ZINC SULFATE 220mg CAP or TAB PO SCH (10:00)
[2020-02-13] MEDS ORDERED: CHOLECALCIFEROL (VITD3) 2,000 UNIT CAP PO SCH (10:00)
[2020-02-13] MEDS ORDERED: hydrALAZINE HCL 20 MG/ML VL IV PRN (11:30)
[2020-02-13 11:49] LABS: Basophils # (auto) 0.1 10 ^3/uL (0-0.2); Eosinophils # (auto) 0.2 10 ^3/uL (0-0.8); Eosinophils % (auto) 1.8 % (0.0-7.0); Hematocrit 36.3 % (36.0-46.0); Hemoglobin 11.6 g/dL (12.2-16.2); Lymphocytes # (auto) 1.5 10 ^3/uL (0.4-5.4); Lymphocytes % (auto) 15.6 % (10.0-50.0); Mean Corpuscular Hemoglobin 29.6 pg (28.0-32.0); Mean Corpuscular Volume 92.4 fL (80.0-100.0); Monocytes # (auto) 0.5 10 ^3/uL (0-1.3); Monocytes % (auto) 5.4 % (0.0-12.0); Neutrophils # (auto) 7.2 10 ^3/uL (1.6-8.6); Neutrophils % (auto) 76.2 % (37.0-80.0); Platelet Count (auto) 213 10^3/uL (140-450); Red Blood Cells 3.92 10^6/uL (4.0-5.20); Red Cell Distribution Width 15.8 % (11.8-14.3); White Blood Cell 9.5 10^3/uL (4.4-10.8)
[2020-02-13 11:54] LABS: BUN/Creatinine Ratio 19.5; Calcium 8.5 mg/dL (8.5-10.1); Potassium 4.9 mmol/L (3.5-5.1)
[2020-02-13] MEDS: ACCU-CHEK COMFORT CURVE STRIP VI SCH ×2 (13:59→18:25)
[2020-02-13] MEDS ORDERED: ALBUTEROL SULF HFA 90MCG INH 200DOSE IN SCH (14:00)
[2020-02-13] MEDS: InsuLIN REG 1unit/0.01ml Soln (100units/ml) SC SCH ×2 (14:11→18:25)
[2020-02-13] MEDS: METOPROLOL TARTRATE 1MG/1ML-5ML VIAL IV PRN (14:11)
--- NOTE | 2020-02-13 15:10 | NUR ---
Telemetry admit from ER ARIELOLYA admitted to Telemetry unit after SBAR received. Patient oriented to Nanette garay RN, unit, room, bed, and unit policies regarding patient care and visiting hours. Patient now on continuous telemetry monitoring, tele box #75 and telemetry reading on arrival to unit is SINUS RHYTHM IN THE 90'S. Patient placed on bedside oxygen, weighed by bedscale and encouraged to call if they need something. All questions and concerns addressed, patient verbalized understanding.
[2020-02-13] MEDS: FUROSEMIDE 40 MG/4 ML VIAL IV SCH (16:47)
[2020-02-13] MEDS ORDERED: FUROSEMIDE 20 MG TAB PO SCH (18:00)
--- NOTE | 2020-02-13 19:18 | NUR ---
Opening Shift Note Assumed care of patient, awake, alert and oriented x4, on 2L of oxygen via NC with even and unlabored respirations, no S/S of distress/SOB or pain. Bed in lowest locked position, side rails up x2, and call light within reach. Instructed on POC and to call for assist PRN, will continue to monitor for changes Q1hr and PRN.
[2020-02-13] MEDS: ATORVASTATIN 20 MG TAB PO SCH (21:46)
[2020-02-13 22:00] VITALS: BP 142/83
[2020-02-14] VITALS (8 sets, daily range): BP systolic 107–188; BP diastolic 57–107
[2020-02-14] MEDS: InsuLIN REG 1unit/0.01ml Soln (100units/ml) SC SCH ×5 (00:17→23:44)
[2020-02-14] MEDS: ACCU-CHEK COMFORT CURVE STRIP VI SCH ×5 (00:17→23:44)
[2020-02-14] MEDS: LEVOTHYROXINE SODIUM 50 MCG TAB PO SCH (06:35)
--- NOTE | 2020-02-14 07:30 | NUR ---
RECEIVED REPORT FROM NIGHT NURSE. PATIENT RESTING IN BED, NO DISTRESS NOTED. PATIENT SATING 99% ON ROOM AIR. DENIES PAIN OR SOB AT THIS TIME. WILL CONTINUE TO MONITOR.
--- NOTE | 2020-02-14 10:30 | NUR ---
PATIENT OFF UNIT, TAKEN DOWN FOR VQ SCAN BY BED.
--- NOTE | 2020-02-14 11:00 | NUR ---
WOUND CARE NOTE: WOUND CARE TEAM IS MONITORING PATIENT FOR SKIN INTEGRITY D/T LOW OREN SCORE 12. PATIENT ADMITTED TO [facility] WITH DIAGNOSIS OF PNA. SHE IS WOUND FREE AT THIS TIME. PATIENT MAY BE DISCHARGING HOME THIS PM, PER BEDSIDE NURSE. IF PATIENT STAYS, THE FOLLOWING RECOMMENDATIONS APPLY: FREQUENT TURN SCHEDULE Q 2 HOURS, PRN CONDITION PERMITS, WITH PRESSURE REDISTRIBUTION USING PILLOWS/WEDGES, BID/PRN APPLICATION WITH MOISTURE BARRIER CREAM, OPTIFOAM GENTLE SACRAL DRESSING, SKIN/WOUND CARE PLAN, DIETARY CONSULT FOR LOW OREN, CONTINUED MONITORING BY WOUND CARE TEAM.
[2020-02-14] MEDS: ASPirin 81 mg TAB PO SCH (11:27)
[2020-02-14] MEDS: FUROSEMIDE 40 MG/4 ML VIAL IV SCH (11:27)
[2020-02-14] MEDS: CARVEDILOL 12.5 MG TAB PO SCH ×2 (11:27→19:02)
--- NOTE | 2020-02-14 11:28 | NUR ---
Assessment Patient is a 64-year-old female who is alert and oriented. Prior to admission patient lived home with family and functioned with assistance. Per patient her and caregivers helps her with her ADL's. Patient informed me she has three caregivers Nat, Erika and Joseph who come daily. Per patient she will return home to her prior living arrangements post discharge and will need [facility] transportation to be arranged. Patient informed me she has a wheelchair for home use. Advised patient there is a social service consult for home health safety evaluation. Informed patient clinical information will be faxed to [facility]. Patient informed me her PCP is Dr Abarca. Informed patient she has a right to participate in all discharge planning. Patient verbalized understanding and agreed to discharge plan. Per Abigail with [facility] patient has been accepted and service to start within 24-48hrs upon d/c day. Addendum: 02/14/20 at 1131 by MARYANN HOOD Amended: Links added.
--- NOTE | 2020-02-14 14:00 | NUR ---
Mansfield catheter dc'd Order to discontinue mansfield catheter. Mansfield dc'd with clean technique following deflation of balloon. Patient tolerated well with no complaints of pain. Continue care.
--- NOTE | 2020-02-14 14:21 | NUR ---
DISCHARGE PLANNING SPOKE WITH MARYANN RN MIDWIFE. PATIENT WILL NEED TRANSPORTATION BY [facility]. EXPECTED DISCHARGE LATER TODAY.
[2020-02-14] MEDS ORDERED: FURO1TAB31 PO (14:38)
[2020-02-14] MEDS ORDERED: LEVO500T21 PO (14:39)
[2020-02-14] MEDS ORDERED: DOXY-338 PO (14:40)
[2020-02-14] MEDS ORDERED: DOXYCYCLINE 100 MG TAB/CAP PO ONE (14:45)
--- NOTE | 2020-02-14 14:57 | NUR ---
SPOKE WITH DR. RODRIGUEZ. PATIENT IS CLEARED FOR DISCHARGE FROM A CARDIAC STANDPOINT.
--- NOTE | 2020-02-14 14:57 | NUR ---
PAGED DR. LÓPEZ FOR DISCHARGE PULMONARY CLEARANCE. WILL WAIT FOR CALL BACK.
--- NOTE | 2020-02-14 16:37 | NUR ---
Bedside nurse advised me per doctor patient will d/c today. Faxed transportation form request to [facility]. Per Mojgan with [facility] transportation has been arranged with [employer] via [employer] with a 8pm bean picker time.
--- NOTE | 2020-02-14 17:12 | NUR ---
PAGED DR. Hayes AN TO INFORM HIM OF POSITIVE MRSA RESULT. WILL WAIT FOR CALL BACK TO PROCEED WITH DISCHARGE.
[2020-02-14] MEDS: METOPROLOL TARTRATE 1MG/1ML-5ML VIAL IV PRN (17:25)
--- NOTE | 2020-02-14 17:55 | NUR ---
ATTEMPTED TO RE-PAGE DR. LÓPEZ FOR CLEARANCE FOR DISCHARGE. PER PBX, HIS EXCHANGE NUMBER IS NOT WORKING, WILL NOTIFY DR. Hayes AN.
--- NOTE | 2020-02-14 18:04 | NUR ---
PAGED DR. Hayes AN REGARDING DISCHARGE. WILL WAIT FOR CALL BACK.
[2020-02-14] MEDS ORDERED: MUPI2OIN2 EX (18:10)
--- NOTE | 2020-02-14 18:11 | NUR ---
SPOKE WITH DR. LÓPEZ, OBTAINED PULMONARY CLEARANCE FOR DISCHARGE.
--- NOTE | 2020-02-14 18:12 | NUR ---
SPOKE WITH DR. Hayes AN. UPDATED HIM ON DISCHARGE PLANNING/ CLEARANCE. PATIENT IS CLEARED FOR DISCHARGE AND TRANSPORTATION WILL HOME CARE COORDINATOR THE PATIENT AT 1999.
--- NOTE | 2020-02-14 18:46 | NUR ---
BLOOD PRESSURE REASSESSMENT 182/111 AFTER GIVING 2.5MG METOPROLOL IV. WILL NOTIFY DR. Hayes AN.
--- NOTE | 2020-02-14 18:50 | NUR ---
PAGED DR. Hayse AN REGARDING ELEVATED BLOOD PRESSURE.
--- NOTE | 2020-02-14 18:53 | NUR ---
SPOKE WITH DR. Hayes AN. ORDERS RECEIVED, WILL CARRY OUT AND ENDORSE DISCHARGE TO NIGHT NURSE.
[2020-02-14] MEDS ORDERED: cloNIDine HCL 0.1 MG TAB PO ONE (19:00)
--- NOTE | 2020-02-14 19:30 | NUR ---
per pharmacy hydralazine is "back ordered" not available
--- NOTE | 2020-02-14 19:30 | NUR ---
Opening Shift Note Assumed care of patient, awake and alert. No S/S of distress/SOB or pain. blood pressure checked 177/106 b/p rechecked b/p 188/106, heart rate 100bpm. Patient was given medication for blood pressure by marina rn. will notify md Ritter to clarify if patient is cleared for discharge as blood pressure continues to be elevated. Transportation is here to transport patient home. Instructed on POC and to call for assist PRN, will continue to monitor for changes Q1hr and PRN. bed in low position and call light within reach.
--- NOTE | 2020-02-14 19:40 | NUR ---
1939 left message to MD Leda Ritter covering doctor. now answer
--- NOTE | 2020-02-14 19:53 | NUR ---
toña Ritter spoke with MD mckenzie for Hayes Ritter . MD wise notified of situation per MD he will have Hayes Ritter call me back.
--- NOTE | 2020-02-14 20:20 | NUR ---
Informed transportation if they can wait as we are waiting for md to call back. b/p rechecked 177/107
--- NOTE | 2020-02-14 20:20 | NUR ---
left message to MD bhupinder Ritter covering . no answer.
--- NOTE | 2020-02-14 20:22 | NUR ---
transportation seen leaving. followed transportation and ask where are they going. per transportation " we can not wait" informed transportation if they are able to come back later if patient is okay to be discharged per transportation " no we can come back tomorrow". Transportation left.
--- NOTE | 2020-02-14 20:24 | NUR ---
notified charged rn transportation left. no call back from
--- NOTE | 2020-02-14 20:31 | NUR ---
MD jonah Ritter, called back per MD Alexis give clonidine 0.1mg po times one. orders read back and verified by .
--- NOTE | 2020-02-14 20:33 | NUR ---
spoke with MD Leda Ritter informed md patient blood pressure 188/106, rechecked 177/106, and reached 177/107 and informed md transportation left.per md " The patient did not receive her blood pressure medication that is why her blood pressure is high, orders were given to send the patient home i will notify house painting instructor." informed MD blood pressure was high and clarification is needed to send patient home with elevated blood pressure.informed i will attempt to call transportation to come back. no further orders received by .
--- NOTE | 2020-02-14 20:47 | NUR ---
spoke with Cheryl from [employer] from transportation. per cheryl he is not able to set up appointment for pickling grader. per cheryl " [facility] needs to be called for authorization"
--- NOTE | 2020-02-14 20:55 | NUR ---
Notified md Leda mcduffie covering MD Alexis, per MD Alexis he will notify MD Hayes Mcduffie that patient transportation is not available.
[2020-02-14] MEDS ORDERED: BENAZEPRIL HCL 10 MG TAB PO SCH (21:00)
--- NOTE | 2020-02-14 21:00 | NUR ---
JUAN RAMON UNABLE TO CALL SERVICE HOURS 8AM-5PM
[2020-02-14] MEDS: ATORVASTATIN 20 MG TAB PO SCH (21:38)
[2020-02-14] MEDS: DOXYCYCLINE 100 MG TAB/CAP PO SCH (21:40)
--- NOTE | 2020-02-14 22:40 | NUR ---
Notified patient Sulaiman phone number [phone] of patient discharge held. Patient Caroline stated it is okay to notify . left message to caregiver Josselyn no answer.
--- NOTE | 2020-02-14 22:50 | NUR ---
Notified extension service specialist in charge i am not able to located [facility] number. per extension service specialist in chargedouglas downey MD. Addendum: 02/15/20 at 0108 by KENNEDY SEAMAN RN RN correct time 2054
[2020-02-15 05:00] VITALS: BP 138/80
[2020-02-15] MEDS: InsuLIN REG 1unit/0.01ml Soln (100units/ml) SC SCH ×2 (06:18→13:20)
[2020-02-15] MEDS: ACCU-CHEK COMFORT CURVE STRIP VI SCH ×2 (06:18→12:00)
[2020-02-15] MEDS: LEVOTHYROXINE SODIUM 50 MCG TAB PO SCH (06:19)
--- NOTE | 2020-02-15 07:30 | NUR ---
Opening Shift Note Assumed care of patient, awake, alert and oriented x4, on room air with even and unlabored respirations, no S/S of distress/SOB or pain. Bed in lowest locked position, side rails up x2, and call light within reach. Instructed on POC and to call for assist PRN, will continue to monitor for changes Q1hr and PRN.
--- NOTE | 2020-02-15 07:31 | NUR ---
REPORT GIVEN TO DAYSHIFT RN PATIENT DENIES SOB DISTRESS OR PAIN. IV IS INTACT AND PATENT.
[2020-02-15] MEDS ORDERED: BENAZEPRIL HCL 10 MG TAB PO SCH (10:00)
[2020-02-15] MEDS: ASPirin 81 mg TAB PO SCH (11:08)
[2020-02-15] MEDS: CARVEDILOL 12.5 MG TAB PO SCH (11:09)
[2020-02-15] MEDS: DOXYCYCLINE 100 MG TAB/CAP PO SCH (11:09)
[2020-02-15] MEDS: FUROSEMIDE 40 MG/4 ML VIAL IV SCH (11:09)
--- NOTE | 2020-02-15 15:38 | NUR ---
D/C Planning [employer] will transport patient between 2-4 pm . Informed RN Fior.
--- NOTE | 2020-02-15 16:30 | NUR ---
DISCHARGE Discharge instructions given as ordered. Encourage to follow up with PMD as instructed. All questions and concerns addressed. Patient verbalized understanding.IV removed with catheter intact, pressure dressing applied. Telemetry unit returned to ICU. Patient transported home by transportation team with all personal belongings. No distress noted at time of departure.
== END 2020-02-15 16:30 | disposition home health service (06) | DRG 291 ==
LOC: EDBD 21:50 → EDUNIT# 21:50 → ER 21:53 → TELE 21:54 → TELE-WESTW 02-13 15:21
PROVIDERS: ADMIT Nurse Practitioner; ATTEND Internal Medicine
PROC: 5A09357 Assistance with Respiratory Ventilation, Less than 24 Consecutive Hours, Continuous Positive Airway Pressure (ICD-10-PCS; principal; 2020-02-12)
DX: I13.0 Hypertensive heart and chronic kidney disease with heart failure and stage 1 through stage 4 chronic kidney disease, or unspecified chronic kidney disease (principal); J18.9 Pneumonia, unspecified organism; J96.21 Acute and chronic respiratory failure with hypoxia; J44.1 Chronic obstructive pulmonary disease with (acute) exacerbation; Z68.41 Body mass index [BMI] 40.0-44.9, adult; N17.9 Acute kidney failure, unspecified; N18.4 Chronic kidney disease, stage 4 (severe); J44.0 Chronic obstructive pulmonary disease with (acute) lower respiratory infection; E11.22 Type 2 diabetes mellitus with diabetic chronic kidney disease; I50.9 Heart failure, unspecified; E03.9 Hypothyroidism, unspecified; E78.5 Hyperlipidemia, unspecified; D72.829 Elevated white blood cell count, unspecified; E66.01 Morbid (severe) obesity due to excess calories; E11.40 Type 2 diabetes mellitus with diabetic neuropathy, unspecified; Z83.3 Family history of diabetes mellitus; Z82.3 Family history of stroke; Z90.710 Acquired absence of both cervix and uterus; Z86.73 Personal history of transient ischemic attack (TIA), and cerebral infarction without residual deficits; A49.02 Methicillin resistant Staphylococcus aureus infection, unspecified site; Z20.828 Contact with and (suspected) exposure to other viral communicable diseases
CPT/HCPCS: 36415; 71045; 78582; 80048; 80053; 81001; 82728; 82962; 83605; 83615; 83735; 83880; 84443; 84484; 85025; 85379; 85610; 85730; 86141; 87040; 87081; 87426; 93005; 93970; 94660; 96365; 96375; G0378; J1100; J1815; J3490

== ENCOUNTER 2020-07-27 13:46 | Inpatient (IN) | payer OTHER, MEDICAID ==
[~2020-07-27] VITALS: Ht 170.2 cm; Wt 148.0 kg
[~2020-07-27 13:46] MED LIST changes: -BENA40TA7 PO; +BENA40TA8 PO; +DOXY-338 PO; +FURO1TAB31 PO; -FURO20TA3 PO; +MUPI2OIN2 EX
[2020-07-27] MEDS ORDERED: ASPirin 81 mg TAB PO ONE (14:30)
[2020-07-27] MEDS ORDERED: FUROSEMIDE 40 MG/4 ML VIAL IV ONE (14:30)
[2020-07-27 16:27] LABS: Basophils # (auto) 0.1 10 ^3/uL (0-0.2); Basophils % (auto) 1.3 % (0.0-2.0); Eosinophils # (auto) 0.4 10 ^3/uL (0-0.8); Eosinophils % (auto) 4.4 % (0.0-7.0); Hematocrit 34.1 % (36.0-46.0); Lymphocytes # (auto) 0.7 10 ^3/uL (0.4-5.4); Lymphocytes % (auto) 9.3 % (10.0-50.0); Mean Corpuscular Hgb Conc. 32.2 g/dL (32.0-36.0); Mean Corpuscular Volume 83.8 fL (80.0-100.0); Monocytes # (auto) 0.5 10 ^3/uL (0-1.3); Monocytes % (auto) 5.8 % (0.0-12.0); Neutrophils # (auto) 6.3 10 ^3/uL (1.6-8.6); Neutrophils % (auto) 79.2 % (37.0-80.0); Platelet Count (auto) 230 10^3/uL (140-450); Red Blood Cells 4.07 10^6/uL (4.0-5.20); Red Cell Distribution Width 17.9 % (11.8-14.3); White Blood Cell 7.9 10^3/uL (4.4-10.8)
[2020-07-27 16:39] LABS: INR 1.08 (0.9-1.15); Partial Thromboplastin Time 24.5 sec (23.0-31.2)
[2020-07-27 16:42] LABS: Albumin 2.9 g/dL (3.4-5.0); Calcium 8.9 mg/dL (8.5-10.1); Potassium 4.2 mmol/L (3.5-5.1)
[2020-07-27 16:44] LABS: BUN/Creatinine Ratio 21.2
[2020-07-27 16:48] LABS: Bilirubin, Total 0.6 mg/dL (0.2-1.0); Total Protein 7.2 g/dL (6.4-8.2)
[2020-07-27] MEDS ORDERED: ACETAMINOPHEN 500 MG TAB PO PRN (17:15)
[2020-07-27] MEDS ORDERED: IPRATROPIUM BROM 0.5 MG/2.5ML INH SOL NEB PRN (17:15)
[2020-07-27] MEDS ORDERED: ALBUTEROL SULF 2.5 MG/0.5ML(0.5%) NEB SOLN NEB PRN (17:15)
[2020-07-27] MEDS ORDERED: DEXTROSE (50%) 50ML SYRG IV PRN (17:15)
[2020-07-27] MEDS ORDERED: CARVEDILOL 3.125 MG TAB PO ONE (17:15)
[2020-07-27] MEDS ORDERED: ONDANSETRON HCL 4 MG/2 ML VIAL IV PRN (17:15)
[2020-07-27] MEDS ORDERED: NITROGLYCERIN 0.4 MG SL TAB SL PRN (17:15)
[2020-07-27] MEDS ORDERED: HYDROcodone-ACET 5/325MG TAB PO PRN (17:15)
[2020-07-27] MEDS ORDERED: MORPHINE SULF INJ 2 MG/ML SYRINGE 1ML IV PRN ×2 (17:15)
[2020-07-27 18:15] LABS: Urine Bacteria FEW /hpf (None Seen); Urine Blood 1+ /uL (Negative); Urine Specific Gravity 1.012 (1.001-1.035); Urine WBC 60 /hpf (0 - 5); Urine WBC Clumps PRESENT /hpf (None Seen)
[2020-07-27 19:04] VITALS: BP 179/115
[2020-07-27 21:02] VITALS: BP 163/110
[2020-07-27 22:00] VITALS: BP 162/107
[2020-07-27] MEDS: hydrALAZINE HCL 25 MG TAB PO SCH (22:27)
[2020-07-27] MEDS: CARVEDILOL 3.125 MG TAB PO SCH (22:27)
[2020-07-27] MEDS: ACCU-CHEK COMFORT CURVE STRIP VI SCH (22:28)
[2020-07-27] MEDS: InsuLIN REG 1unit/0.01ml Soln (100units/ml) SC SCH (22:31)
[2020-07-27] MEDS: INSULIN LANTUS (GLARGINE) 1 /0.01ml (100units/ml) SC SCH (22:32)
[2020-07-27 23:49] VITALS: BP 162/100
[2020-07-28 05:03] VITALS: BP 133/84
[2020-07-28] MEDS: LEVOTHYROXINE SODIUM 50 MCG TAB PO SCH (06:00)
[2020-07-28] MEDS: InsuLIN REG 1unit/0.01ml Soln (100units/ml) SC SCH ×4 (06:00→22:00)
[2020-07-28] MEDS: ACCU-CHEK COMFORT CURVE STRIP VI SCH ×4 (06:00→22:17)
[2020-07-28] MEDS: hydrALAZINE HCL 25 MG TAB PO SCH ×3 (06:00→22:17)
[2020-07-28 08:00] VITALS: BP 162/100
[2020-07-28 09:00] VITALS: BP 111/66
[2020-07-28 09:12] LABS: Lymphocytes # (auto) 0.9 10 ^3/uL (0.4-5.4); Monocytes # (auto) 0.4 10 ^3/uL (0-1.3); Monocytes % (auto) 6.3 % (0.0-12.0)
[2020-07-28 09:13] LABS: Basophils # (auto) 0.1 10 ^3/uL (0-0.2); Basophils % (auto) 1.1 % (0.0-2.0); Eosinophils # (auto) 0.4 10 ^3/uL (0-0.8); Hematocrit 31.5 % (36.0-46.0); Hemoglobin 10.1 g/dL (12.2-16.2); Lymphocytes % (auto) 14.7 % (10.0-50.0); Mean Corpuscular Hemoglobin 26.6 pg (28.0-32.0); Mean Corpuscular Hgb Conc. 32.1 g/dL (32.0-36.0); Mean Corpuscular Volume 82.8 fL (80.0-100.0); Neutrophils # (auto) 4.4 10 ^3/uL (1.6-8.6); Neutrophils % (auto) 70.9 % (37.0-80.0); Nucleated Red Blood Cells % 0.1 %; Platelet Count (auto) 213 10^3/uL (140-450); Red Cell Distribution Width 18.2 % (11.8-14.3); White Blood Cell 6.2 10^3/uL (4.4-10.8)
[2020-07-28 09:31] LABS: BUN/Creatinine Ratio 21.8; Calcium 8.7 mg/dL (8.5-10.1); Potassium 4.3 mmol/L (3.5-5.1)
[2020-07-28] MEDS ORDERED: FUROSEMIDE 40 MG/4 ML VIAL IV SCH (10:00)
[2020-07-28] MEDS: ASPirin-EC 81 mg tab PO SCH (11:05)
[2020-07-28] MEDS: CARVEDILOL 3.125 MG TAB PO SCH ×2 (11:05→22:16)
[2020-07-28] MEDS: ENOXAPARIN SOD 40 MG/0.4 ML SYRINGE SC SCH (11:06)
[2020-07-28] MEDS: metOLazone 5 MG TAB PO SCH (11:06)
[2020-07-28] MEDS ORDERED: cefTRIAXone 1GM/50ML D5W 50 ML IV ONE (12:30)
[2020-07-28 13:00] VITALS: BP 133/80
[2020-07-28 16:59] VITALS: BP 133/88
[2020-07-28] MEDS: FUROSEMIDE 40 MG/4 ML VIAL IV SCH (18:35)
[2020-07-28] MEDS: INSULIN LANTUS (GLARGINE) 1 /0.01ml (100units/ml) SC SCH (21:19)
[2020-07-28 22:00] VITALS: BP 150/92
[2020-07-29 04:59] VITALS: BP 135/84
[2020-07-29] MEDS: hydrALAZINE HCL 25 MG TAB PO SCH ×2 (06:12→16:38)
[2020-07-29] MEDS: FUROSEMIDE 40 MG/4 ML VIAL IV SCH (06:12)
[2020-07-29] MEDS: LEVOTHYROXINE SODIUM 50 MCG TAB PO SCH (06:12)
[2020-07-29] MEDS: InsuLIN REG 1unit/0.01ml Soln (100units/ml) SC SCH ×2 (06:13→12:17)
[2020-07-29] MEDS: ACCU-CHEK COMFORT CURVE STRIP VI SCH ×2 (06:13→12:16)
[2020-07-29 07:57] LABS: BUN/Creatinine Ratio 20.3; Calcium 8.6 mg/dL (8.5-10.1); Potassium 4.1 mmol/L (3.5-5.1)
[2020-07-29 08:42] VITALS: BP 131/81
[2020-07-29] MEDS ORDERED: cefTRIAXone 1GM/50ML D5W 50 ML IV SCH (09:00)
[2020-07-29] MEDS: CARVEDILOL 3.125 MG TAB PO SCH (10:02)
[2020-07-29] MEDS: ASPirin-EC 81 mg tab PO SCH (10:03)
[2020-07-29] MEDS: ENOXAPARIN SOD 40 MG/0.4 ML SYRINGE SC SCH (10:03)
[2020-07-29] MEDS: metOLazone 5 MG TAB PO SCH (10:03)
[2020-07-29] MEDS ORDERED: SULF400T11 PO (10:13)
[2020-07-29 12:47] VITALS: BP 145/77
[2020-07-29 17:00] VITALS: BP 133/88
== END 2020-07-29 18:42 | disposition home or self-care (01) | DRG 291 ==
LOC: ER 13:46 → EDBD 13:46 → TELE 13:47 → TELE-EAST 21:00 → TELE-CENTR 07-28 03:50
PROVIDERS: ADMIT Nurse Practitioner Acute Care; ATTEND Internal Medicine Geriatric Medicine
DX: I13.0 Hypertensive heart and chronic kidney disease with heart failure and stage 1 through stage 4 chronic kidney disease, or unspecified chronic kidney disease (principal); J96.01 Acute respiratory failure with hypoxia; I50.43 Acute on chronic combined systolic (congestive) and diastolic (congestive) heart failure; Z68.43 Body mass index [BMI] 50.0-59.9, adult; J98.11 Atelectasis; N39.0 Urinary tract infection, site not specified; Z20.822 Contact with and (suspected) exposure to COVID-19; N18.32 Chronic kidney disease, stage 3b; Z74.01 Bed confinement status; E66.01 Morbid (severe) obesity due to excess calories; E11.22 Type 2 diabetes mellitus with diabetic chronic kidney disease; E11.21 Type 2 diabetes mellitus with diabetic nephropathy; A49.02 Methicillin resistant Staphylococcus aureus infection, unspecified site; E88.09 Other disorders of plasma-protein metabolism, not elsewhere classified; J44.9 Chronic obstructive pulmonary disease, unspecified; T50.2X5A Adverse effect of carbonic-anhydrase inhibitors, benzothiadiazides and other diuretics, initial encounter; Y92.89 Other specified places as the place of occurrence of the external cause; Z79.899 Other long term (current) drug therapy; Z79.4 Long term (current) use of insulin; Z82.3 Family history of stroke; Z82.49 Family history of ischemic heart disease and other diseases of the circulatory system; Z83.3 Family history of diabetes mellitus; Z86.73 Personal history of transient ischemic attack (TIA), and cerebral infarction without residual deficits; Z87.440 Personal history of urinary (tract) infections; Z87.01 Personal history of pneumonia (recurrent); Z90.710 Acquired absence of both cervix and uterus
CPT/HCPCS: 36415; 51702; 71045; 74176; 76775; 80048; 80053; 81001; 82962; 83880; 84484; 85025; 85379; 85610; 85730; 87081; 87086; 87088; 87186; 87426; 87804; 93005; 93970; 94640; 96374; 99291; G0378; J0696; J1815; J2405; J7042

== ENCOUNTER 2020-08-18 19:58 | Inpatient (IN) | payer OTHER, MEDICAID ==
[~2020-08-18] VITALS: Ht 170.2 cm; Wt 136.3 kg
[~2020-08-18 19:58] MED LIST changes: -DOXY-338 PO; +SULF400T11 PO
[2020-08-18] MEDS ORDERED: FUROSEMIDE 40 MG/4 ML VIAL IV ONE (20:15)
[2020-08-18 22:13] LABS: Basophils # (auto) 0.1 10 ^3/uL (0-0.2); Lymphocytes # (auto) 0.9 10 ^3/uL (0.4-5.4); Mean Corpuscular Hemoglobin 26.2 pg (28.0-32.0); Monocytes # (auto) 0.3 10 ^3/uL (0-1.3); Red Blood Cells 4.58 10^6/uL (4.0-5.20)
[2020-08-18 22:15] LABS: Eosinophils # (auto) 0.3 10 ^3/uL (0-0.8); Hematocrit 37.8 % (36.0-46.0); Lymphocytes % (auto) 10.9 % (10.0-50.0); Mean Corpuscular Hgb Conc. 31.8 g/dL (32.0-36.0); Mean Corpuscular Volume 82.5 fL (80.0-100.0); Monocytes % (auto) 3.3 % (0.0-12.0); Neutrophils % (auto) 81.8 % (37.0-80.0); Nucleated Red Blood Cells % 0.3 %; Platelet Count (auto) 250 10^3/uL (140-450); Red Cell Distribution Width 17.4 % (11.8-14.3); White Blood Cell 8.6 10^3/uL (4.4-10.8)
[2020-08-18 22:25] LABS: Albumin 3.2 g/dL (3.4-5.0); Anion Gap 11 (5-15); Blood Urea Nitrogen 46 mg/dL (7-18); Calcium 9.2 mg/dL (8.5-10.1); Carbon Dioxide 24 mmol/L (21-32); Chloride 102 mmol/L (98-107); Glucose 172 mg/dL (74-106); Potassium 3.7 mmol/L (3.5-5.1); Sodium 137 mmol/L (136-145)
[2020-08-18 22:27] LABS: BUN/Creatinine Ratio 22.3; GFR African American 31 mL/min; GFR Non-African American 26 mL/min
[2020-08-18 22:36] LABS: Alanine Aminotransferase 24 U/L (13-56); Alkaline Phosphatase 197 U/L (45-117); Aspartate Aminotransferase 21 U/L (15-37); Bilirubin, Total 0.6 mg/dL (0.2-1.0); Total Protein 7.9 g/dL (6.4-8.2)
[2020-08-18] MEDS ORDERED: FUROSEMIDE 20 MG/2 ML VIAL IV ONE (23:45)
[2020-08-19] VITALS (8 sets, daily range): BP systolic 115–159; BP diastolic 40–93
[2020-08-19] MEDS ORDERED: MORPHINE SULF INJ 2 MG/ML SYRINGE 1ML IV PRN (01:00)
[2020-08-19] MEDS ORDERED: NITROGLYCERIN 0.4 MG SL TAB SL PRN (01:00)
[2020-08-19] MEDS ORDERED: DEXTROSE (50%) 50ML SYRG IV PRN (01:00)
[2020-08-19] MEDS ORDERED: ACETAMINOPHEN 325 MG TAB PO PRN (01:00)
[2020-08-19] MEDS ORDERED: TEMAZEPAM 15 MG CAP PO PRN (01:00)
[2020-08-19] MEDS ORDERED: ALBUTEROL SULF 2.5 MG/0.5ML(0.5%) NEB SOLN NEB PRN (01:00)
[2020-08-19 02:57] LABS: Urine Bacteria FEW /hpf (None Seen); Urine Blood TRACE /uL (Negative); Urine Specific Gravity 1.006 (1.001-1.035); Urine WBC 5 /hpf (0 - 5)
[2020-08-19] MEDS: InsuLIN REG 1unit/0.01ml Soln (100units/ml) SC SCH ×3 (05:57→17:43)
[2020-08-19] MEDS: FUROSEMIDE 20 MG/2 ML VIAL IV SCH ×2 (05:57→17:43)
[2020-08-19] MEDS: ACCU-CHEK COMFORT CURVE STRIP VI SCH ×3 (05:57→17:43)
[2020-08-19] MEDS: LEVOTHYROXINE SODIUM 50 MCG TAB PO SCH (06:12)
[2020-08-19] MEDS: ASPirin 81 mg TAB PO SCH (09:27)
[2020-08-19] MEDS: CARVEDILOL 12.5 MG TAB PO SCH ×2 (09:27→22:31)
[2020-08-19] MEDS: cefTRIAXone 1GM/50ML D5W 50 ML IV SCH (09:27)
[2020-08-19] MEDS: BENAZEPRIL HCL 10 MG TAB PO SCH (09:28)
[2020-08-19] MEDS: PANTOPRAZOLE 40 MG TAB PO SCH (09:29)
[2020-08-19] MEDS: ONDANSETRON HCL 4 MG/2 ML VIAL IV PRN ×2 (10:03→20:29)
[2020-08-19] MEDS ORDERED: BENA40TA8 PO (11:15)
[2020-08-19] MEDS ORDERED: GABA300C11 PO (11:18)
[2020-08-19] MEDS ORDERED: ADENOSINE 114 MG in GIVE UN-DILUTED 0 ML IV STA (13:17)
[2020-08-19] MEDS ORDERED: OPTISON 3ml Vial for INJ IV ONE (13:27)
[2020-08-19] MEDS ORDERED: ATORVASTATIN 20 MG TAB PO SCH (22:00)
[2020-08-19] MEDS: MUPIROCIN 2% OINT 15gm or 22gm EACHNOSTRI SCH (22:30)
[2020-08-20] MEDS: InsuLIN REG 1unit/0.01ml Soln (100units/ml) SC SCH ×4 (00:01→18:53)
[2020-08-20] MEDS: ACCU-CHEK COMFORT CURVE STRIP VI SCH ×4 (00:01→18:52)
[2020-08-20 05:00] VITALS: BP 120/92
[2020-08-20] MEDS: FUROSEMIDE 20 MG/2 ML VIAL IV SCH ×2 (06:34→18:00)
[2020-08-20] MEDS: LEVOTHYROXINE SODIUM 50 MCG TAB PO SCH (06:35)
[2020-08-20 06:50] LABS: Hematocrit 31.6 % (36.0-46.0); Hemoglobin 10.3 g/dL (12.2-16.2); Mean Corpuscular Hemoglobin 26.5 pg (28.0-32.0); Mean Corpuscular Hgb Conc. 32.6 g/dL (32.0-36.0); Mean Corpuscular Volume 81.4 fL (80.0-100.0); Platelet Count (auto) 212 10^3/uL (140-450); Red Blood Cells 3.89 10^6/uL (4.0-5.20); Red Cell Distribution Width 17.7 % (11.8-14.3); White Blood Cell 10.4 10^3/uL (4.4-10.8)
[2020-08-20 06:56] LABS: Basophils % (manual) 0 (0.0-2.0); Blast Cells 0; Metamyelocytes % 0; Myelocytes % 0; Promyelocytes % 0; Reactive Lymphocytes 0
[2020-08-20 08:15] LABS: Band Neutrophils % (manual) 5; Eosinophils % (manual) 6 (0-7); Lymphocytes % (manual) 18 (10.0-50.0); Monocytes % (manual) 2 (0-12)
[2020-08-20 09:00] VITALS: BP 118/72
[2020-08-20] MEDS: cefTRIAXone 1GM/50ML D5W 50 ML IV SCH (09:00)
[2020-08-20 09:15] LABS: Anion Gap 8 (5-15); BUN/Creatinine Ratio 22.4; Blood Urea Nitrogen 51 mg/dL (7-18); Calcium 9.2 mg/dL (8.5-10.1); Carbon Dioxide 25 mmol/L (21-32); Chloride 104 mmol/L (98-107); GFR African American 27 mL/min; GFR Non-African American 23 mL/min; Glucose 147 mg/dL (74-106); Potassium 4.4 mmol/L (3.5-5.1); Sodium 137 mmol/L (136-145)
[2020-08-20] MEDS: MUPIROCIN 2% OINT 15gm or 22gm EACHNOSTRI SCH (09:59)
[2020-08-20] MEDS: ASPirin 81 mg TAB PO SCH (09:59)
[2020-08-20] MEDS: PANTOPRAZOLE 40 MG TAB PO SCH (10:00)
[2020-08-20] MEDS: BENAZEPRIL HCL 10 MG TAB PO SCH (10:00)
[2020-08-20] MEDS ORDERED: ENOXAPARIN SOD 150 MG/1 ML SYRINGE SC SCH (10:00)
[2020-08-20] MEDS: CARVEDILOL 12.5 MG TAB PO SCH (10:00)
[2020-08-20] MEDS ORDERED: ENOXAPARIN SOD 40 MG/0.4 ML SYRINGE SC SCH (10:00)
[2020-08-20 13:00] VITALS: BP 130/81
[2020-08-20] MEDS ORDERED: CAR125T PO (16:31)
[2020-08-20] MEDS ORDERED: FURO1TAB31 PO (16:31)
[2020-08-20] MEDS ORDERED: ATOR40TA52 PO (16:31)
[2020-08-20] MEDS ORDERED: ASPI-543 PO (16:31)
[2020-08-20 17:00] VITALS: BP_SYST 112; BP_SYST 144; BP_DIAS 68; BP_DIAS 82
== END 2020-08-20 19:26 | disposition home health service (06) | DRG 291 ==
LOC: EDBD 19:58 → ER 19:58 → TELE 08-19 00:59 → TELE-WESTW 08-19 03:20
PROVIDERS: ADMIT Nurse Practitioner; ATTEND Internal Medicine
DX: I13.0 Hypertensive heart and chronic kidney disease with heart failure and stage 1 through stage 4 chronic kidney disease, or unspecified chronic kidney disease (principal); I50.33 Acute on chronic diastolic (congestive) heart failure; E44.0 Moderate protein-calorie malnutrition; Z68.42 Body mass index [BMI] 45.0-49.9, adult; N18.4 Chronic kidney disease, stage 4 (severe); Z20.822 Contact with and (suspected) exposure to COVID-19; E66.01 Morbid (severe) obesity due to excess calories; E11.22 Type 2 diabetes mellitus with diabetic chronic kidney disease; Z88.8 Allergy status to other drugs, medicaments and biological substances; E78.00 Pure hypercholesterolemia, unspecified; E78.5 Hyperlipidemia, unspecified; I50.82 Biventricular heart failure; Z79.899 Other long term (current) drug therapy; Z79.82 Long term (current) use of aspirin; Z79.4 Long term (current) use of insulin; Z82.3 Family history of stroke; Z82.49 Family history of ischemic heart disease and other diseases of the circulatory system; Z83.3 Family history of diabetes mellitus; Z90.710 Acquired absence of both cervix and uterus; Z86.73 Personal history of transient ischemic attack (TIA), and cerebral infarction without residual deficits
CPT/HCPCS: 36415; 36600; 71045; 78452; 80048; 80053; 81001; 82805; 82962; 83605; 83880; 84484; 85007; 85025; 85027; 85379; 87040; 87081; 87426; 93005; 93017; 96365; 96375; 96376; G0378; J0153; J0696; J1815; J2405; Q9956

== ENCOUNTER 2020-10-16 20:09 | Inpatient (IN) | payer OTHER, MEDICAID ==
[~2020-10-16] VITALS: Ht 167.6 cm; Wt 112.1 kg
[~2020-10-16 20:09] MED LIST changes: -GABA300C11 GT; +GABA300C11 PO; -MUPI2OIN2 EX; -SULF400T11 PO
[2020-10-16 20:56] LABS: Hemoglobin 10.6 g/dL (12.2-16.2); Mean Corpuscular Hgb Conc. 31.7 g/dL (32.0-36.0); Red Cell Distribution Width 19.7 % (11.8-14.3)
[2020-10-16 20:58] LABS: Hematocrit 33.4 % (36.0-46.0); Mean Corpuscular Hemoglobin 26.6 pg (28.0-32.0); Mean Corpuscular Volume 83.8 fL (80.0-100.0); Red Blood Cells 3.98 10^6/uL (4.0-5.20); White Blood Cell 25.3 10^3/uL (4.4-10.8)
[2020-10-16 21:05] LABS: Basophils % (manual) 0 (0.0-2.0); Blast Cells 0; Eosinophils % (manual) 0 (0-7); Metamyelocytes % 0; Myelocytes % 0; Promyelocytes % 0; Reactive Lymphocytes 0
[2020-10-16 21:11] LABS: Albumin 2.8 g/dL (3.4-5.0); Anion Gap 11 (5-15); Blood Urea Nitrogen 73 mg/dL (7-18); Calcium 9.3 mg/dL (8.5-10.1); Carbon Dioxide 26 mmol/L (21-32); Chloride 96 mmol/L (98-107); Glucose 284 mg/dL (74-106); Sodium 133 mmol/L (136-145)
[2020-10-16 21:19] LABS: Alanine Aminotransferase 27 U/L (13-56); Alkaline Phosphatase 130 U/L (45-117); Aspartate Aminotransferase 24 U/L (15-37); Bilirubin, Total 1.3 mg/dL (0.2-1.0); GFR African American 19 mL/min; GFR Non-African American 16 mL/min; Total Protein 7.5 g/dL (6.4-8.2)
[2020-10-16 21:35] LABS: Band Neutrophils % (manual) 8; Lymphocytes % (manual) 2 (10.0-50.0); Monocytes % (manual) 2 (0-12)
[2020-10-16] MEDS ORDERED: ACETAMINOPHEN 500 MG TAB PO ONE (22:30)
[2020-10-16 22:31] LABS: INR 1.28 (0.9-1.15); Partial Thromboplastin Time 30.6 sec (23.0-31.2)
[2020-10-16] MEDS ORDERED: PIPERACILLIN-TAZO 4.5GM 100 ML IV ONE (22:45)
[2020-10-16] MEDS ORDERED: VANCOMYCIN PER PHARMACY 0 MG IV SCH (22:45)
[2020-10-16] MEDS ORDERED: VANCOMYCIN 1GM/250ML 250 ML IV ONE (23:00)
[2020-10-17] MEDS ORDERED: DOCUSATE SOD 100 MG CAP PO PRN (07:45)
[2020-10-17] MEDS ORDERED: MORPHINE SULF INJ 2 MG/ML SYRINGE 1ML IV PRN (07:45)
[2020-10-17] MEDS ORDERED: NITROGLYCERIN 0.4 MG SL TAB SL PRN (07:45)
[2020-10-17] MEDS ORDERED: HYDROcodone-ACET 5/325MG TAB PO PRN (07:45)
[2020-10-17] MEDS ORDERED: DEXTROSE (50%) 50ML SYRG IV PRN (07:45)
[2020-10-17] MEDS ORDERED: VANCOMYCIN PER PHARMACY 0 MG IV SCH (07:45)
[2020-10-17 08:10] LABS: Basophils # (auto) 0 10 ^3/uL (0-0.2); Basophils % (auto) 0.2 % (0.0-2.0); Eosinophils # (auto) 0 10 ^3/uL (0-0.8); Eosinophils % (auto) 0.2 % (0.0-7.0); Hematocrit 32.2 % (36.0-46.0); Hemoglobin 10.5 g/dL (12.2-16.2); Lymphocytes # (auto) 0.5 10 ^3/uL (0.4-5.4); Lymphocytes % (auto) 2.5 % (10.0-50.0); Mean Corpuscular Hemoglobin 27.4 pg (28.0-32.0); Mean Corpuscular Hgb Conc. 32.5 g/dL (32.0-36.0); Mean Corpuscular Volume 84.2 fL (80.0-100.0); Monocytes # (auto) 0.9 10 ^3/uL (0-1.3); Monocytes % (auto) 4.7 % (0.0-12.0); Neutrophils # (auto) 16.9 10 ^3/uL (1.6-8.6); Neutrophils % (auto) 92.4 % (37.0-80.0); Red Blood Cells 3.82 10^6/uL (4.0-5.20); Red Cell Distribution Width 20.1 % (11.8-14.3); White Blood Cell 18.3 10^3/uL (4.4-10.8)
[2020-10-17 08:22] LABS: Albumin 2.6 g/dL (3.4-5.0); Calcium 9.1 mg/dL (8.5-10.1); Potassium 4.2 mmol/L (3.5-5.1)
[2020-10-17 08:26] LABS: BUN/Creatinine Ratio 21.4; Bilirubin, Total 1.3 mg/dL (0.2-1.0); Total Protein 7.1 g/dL (6.4-8.2)
[2020-10-17 09:25] VITALS: BP 133/76
[2020-10-17] MEDS: ZINC SULFATE 220mg CAP or TAB PO SCH (11:42)
[2020-10-17] MEDS: cefTRIAXone 1GM/50ML D5W 50 ML IV SCH (11:42)
[2020-10-17] MEDS: FAMOTIDINE (10MG/ML) 2ML VL IV SCH (11:42)
[2020-10-17] MEDS: ASCORBIC ACID 500 MG TAB PO SCH (11:43)
[2020-10-17] MEDS: MULTIPLE VITAMIN TAB PO SCH (11:43)
[2020-10-17] MEDS: HEPARIN SODIUM (PORCINE) 5000 UNITS/ML 1ML VIAL SC SCH ×2 (11:44→22:00)
[2020-10-17] MEDS: ACCU-CHEK COMFORT CURVE STRIP VI SCH ×3 (12:02→22:00)
[2020-10-17] MEDS: InsuLIN REG 1unit/0.01ml Soln (100units/ml) SC SCH ×3 (12:03→22:00)
[2020-10-17 12:30] VITALS: BP 127/77
[2020-10-17 16:52] VITALS: BP 147/89
[2020-10-17 19:58] LABS: Folate (Folic Acid) 12.11 ng/mL (5.38-24)
[2020-10-17 22:00] VITALS: BP 135/80
[2020-10-18] MEDS: ATORVASTATIN 20 MG TAB PO SCH ×2 (00:07→22:42)
[2020-10-18] MEDS: ASCORBIC ACID 500 MG TAB PO SCH ×3 (00:08→22:43)
[2020-10-18 05:00] VITALS: BP 126/58
[2020-10-18] MEDS: InsuLIN REG 1unit/0.01ml Soln (100units/ml) SC SCH ×4 (06:28→23:11)
[2020-10-18] MEDS: ACCU-CHEK COMFORT CURVE STRIP VI SCH ×4 (06:29→22:43)
[2020-10-18 07:54] LABS: Basophils # (auto) 0.1 10 ^3/uL (0-0.2); Basophils % (auto) 0.5 % (0.0-2.0); Eosinophils # (auto) 0.1 10 ^3/uL (0-0.8); Eosinophils % (auto) 0.8 % (0.0-7.0); Hematocrit 29.3 % (36.0-46.0); Hemoglobin 9.5 g/dL (12.2-16.2); Lymphocytes # (auto) 0.6 10 ^3/uL (0.4-5.4); Lymphocytes % (auto) 4.8 % (10.0-50.0); Mean Corpuscular Hemoglobin 27.1 pg (28.0-32.0); Mean Corpuscular Hgb Conc. 32.6 g/dL (32.0-36.0); Mean Corpuscular Volume 83.1 fL (80.0-100.0); Monocytes # (auto) 0.6 10 ^3/uL (0-1.3); Monocytes % (auto) 5.3 % (0.0-12.0); Neutrophils # (auto) 10.7 10 ^3/uL (1.6-8.6); Neutrophils % (auto) 88.6 % (37.0-80.0); Nucleated Red Blood Cells % 0.1 %; Red Blood Cells 3.52 10^6/uL (4.0-5.20); Red Cell Distribution Width 19.9 % (11.8-14.3)
[2020-10-18 08:07] LABS: Albumin 2.3 g/dL (3.4-5.0); Calcium 8.7 mg/dL (8.5-10.1); Potassium 3.3 mmol/L (3.5-5.1)
[2020-10-18 08:11] LABS: BUN/Creatinine Ratio 24.2; Bilirubin, Total 1.2 mg/dL (0.2-1.0); Total Protein 6.8 g/dL (6.4-8.2)
[2020-10-18 08:55] VITALS: BP 114/64
[2020-10-18] MEDS: ASPirin 81 mg TAB PO SCH (10:00)
[2020-10-18] MEDS: FAMOTIDINE (10MG/ML) 2ML VL IV SCH (10:00)
[2020-10-18] MEDS: MULTIPLE VITAMIN TAB PO SCH (10:00)
[2020-10-18] MEDS: cefTRIAXone 1GM/50ML D5W 50 ML IV SCH (10:00)
[2020-10-18] MEDS: ZINC SULFATE 220mg CAP or TAB PO SCH (10:00)
[2020-10-18] MEDS: HEPARIN SODIUM (PORCINE) 5000 UNITS/ML 1ML VIAL SC SCH ×2 (10:05→22:55)
[2020-10-18 11:53] LABS: Urine Bacteria FEW /hpf (None Seen); Urine Blood 3+ /uL (Negative); Urine Specific Gravity 1.011 (1.001-1.035); Urine WBC 193 /hpf (0 - 5)
[2020-10-18 12:55] VITALS: BP 116/59
[2020-10-18 16:55] VITALS: BP 128/74
[2020-10-18 22:00] VITALS: BP 140/85
[2020-10-19 05:00] VITALS: BP 121/62
[2020-10-19] MEDS: ACCU-CHEK COMFORT CURVE STRIP VI SCH ×4 (06:00→21:04)
[2020-10-19] MEDS: InsuLIN REG 1unit/0.01ml Soln (100units/ml) SC SCH ×5 (06:13→21:30)
[2020-10-19 06:14] LABS: Albumin 2.2 g/dL (3.4-5.0); Calcium 8.6 mg/dL (8.5-10.1); Potassium 3.1 mmol/L (3.5-5.1)
[2020-10-19 06:19] LABS: Bilirubin, Total 0.8 mg/dL (0.2-1.0); Total Protein 6.7 g/dL (6.4-8.2)
[2020-10-19 09:00] VITALS: BP 148/68
[2020-10-19] MEDS: cefTRIAXone 1GM/50ML D5W 50 ML IV SCH (09:01)
[2020-10-19] MEDS: ZINC SULFATE 220mg CAP or TAB PO SCH (09:02)
[2020-10-19] MEDS: MULTIPLE VITAMIN TAB PO SCH (09:02)
[2020-10-19] MEDS: FAMOTIDINE (10MG/ML) 2ML VL IV SCH (09:02)
[2020-10-19] MEDS: ASPirin 81 mg TAB PO SCH (09:02)
[2020-10-19] MEDS: ASCORBIC ACID 500 MG TAB PO SCH ×2 (09:02→21:03)
[2020-10-19] MEDS: ACETAMINOPHEN 325 MG TAB PO PRN (09:31)
[2020-10-19] MEDS ORDERED: POTASSIUM CHL 20 Meq TABLET PO ONE (10:00)
[2020-10-19] MEDS ORDERED: levoFLOXacin 500MG 100 ML IV SCH (10:00)
[2020-10-19] MEDS: HEPARIN SODIUM (PORCINE) 5000 UNITS/ML 1ML VIAL SC SCH ×2 (10:39→21:03)
[2020-10-19] MEDS: ALBUMIN 25% 50 ML IV SCH (10:49)
[2020-10-19] MEDS: FUROSEMIDE 40 MG/4 ML VIAL IV SCH (11:56)
[2020-10-19 13:00] VITALS: BP 129/64
[2020-10-19] MEDS: ONDANSETRON HCL 4 MG/2 ML VIAL IV PRN (13:25)
[2020-10-19 17:09] VITALS: BP 124/62
[2020-10-19] MEDS: ATORVASTATIN 20 MG TAB PO SCH (21:03)
[2020-10-19 22:00] VITALS: BP 137/81
[2020-10-20 05:00] VITALS: BP 122/63
[2020-10-20 06:17] LABS: Basophils # (auto) 0 10 ^3/uL (0-0.2); Basophils % (auto) 0.5 % (0.0-2.0); Eosinophils # (auto) 0.3 10 ^3/uL (0-0.8); Eosinophils % (auto) 3.9 % (0.0-7.0); Hematocrit 27.7 % (36.0-46.0); Hemoglobin 9.3 g/dL (12.2-16.2); Lymphocytes # (auto) 0.8 10 ^3/uL (0.4-5.4); Lymphocytes % (auto) 11.3 % (10.0-50.0); Mean Corpuscular Hemoglobin 27.7 pg (28.0-32.0); Mean Corpuscular Hgb Conc. 33.5 g/dL (32.0-36.0); Mean Corpuscular Volume 82.6 fL (80.0-100.0); Monocytes # (auto) 0.6 10 ^3/uL (0-1.3); Monocytes % (auto) 8.7 % (0.0-12.0); Neutrophils # (auto) 5.3 10 ^3/uL (1.6-8.6); Neutrophils % (auto) 75.6 % (37.0-80.0); Red Blood Cells 3.35 10^6/uL (4.0-5.20)
[2020-10-20 06:19] LABS: Red Cell Distribution Width 20.1 % (11.8-14.3)
[2020-10-20 06:28] LABS: Albumin 2.3 g/dL (3.4-5.0); BUN/Creatinine Ratio 27.3; Calcium 8.6 mg/dL (8.5-10.1); Magnesium 2.2 mg/dL (1.6-2.6); Potassium 3.6 mmol/L (3.5-5.1)
[2020-10-20] MEDS: ACCU-CHEK COMFORT CURVE STRIP VI SCH ×4 (06:50→21:26)
[2020-10-20] MEDS: InsuLIN REG 1unit/0.01ml Soln (100units/ml) SC SCH ×4 (06:51→21:29)
[2020-10-20 08:45] VITALS: BP 143/77
[2020-10-20] MEDS: FAMOTIDINE (10MG/ML) 2ML VL IV SCH (09:36)
[2020-10-20] MEDS: ZINC SULFATE 220mg CAP or TAB PO SCH (09:36)
[2020-10-20] MEDS: ASPirin 81 mg TAB PO SCH (09:36)
[2020-10-20] MEDS: ALBUMIN 25% 50 ML IV SCH (09:36)
[2020-10-20] MEDS: ASCORBIC ACID 500 MG TAB PO SCH ×2 (09:36→21:26)
[2020-10-20] MEDS: MULTIPLE VITAMIN TAB PO SCH (09:36)
[2020-10-20] MEDS: cefTRIAXone 1GM/50ML D5W 50 ML IV SCH (09:36)
[2020-10-20] MEDS: ONDANSETRON HCL 4 MG/2 ML VIAL IV PRN (09:57)
[2020-10-20] MEDS: HEPARIN SODIUM (PORCINE) 5000 UNITS/ML 1ML VIAL SC SCH ×2 (09:57→21:28)
[2020-10-20] MEDS: FUROSEMIDE 40 MG/4 ML VIAL IV SCH (11:34)
[2020-10-20 12:47] VITALS: BP 139/75
[2020-10-20 17:00] VITALS: BP 129/64
[2020-10-20] MEDS: ATORVASTATIN 20 MG TAB PO SCH (21:26)
[2020-10-20 22:00] VITALS: BP 126/72
[2020-10-21] MEDS: ACCU-CHEK COMFORT CURVE STRIP VI SCH ×4 (07:39→22:54)
[2020-10-21] MEDS: InsuLIN REG 1unit/0.01ml Soln (100units/ml) SC SCH ×4 (07:39→22:55)
[2020-10-21 09:00] VITALS: BP 123/78
[2020-10-21] MEDS ORDERED: FUROSEMIDE 40 MG TAB PO SCH (10:00)
[2020-10-21] MEDS ORDERED: HEPARIN SODIUM (PORCINE) 5000 UNITS/ML 1ML VIAL ONE (10:01)
[2020-10-21] MEDS: cefTRIAXone 1GM/50ML D5W 50 ML IV SCH (10:12)
[2020-10-21] MEDS: HEPARIN SODIUM (PORCINE) 5000 UNITS/ML 1ML VIAL SC SCH ×2 (10:14→22:54)
[2020-10-21] MEDS: ZINC SULFATE 220mg CAP or TAB PO SCH (10:14)
[2020-10-21] MEDS: MULTIPLE VITAMIN TAB PO SCH (10:14)
[2020-10-21] MEDS: ASPirin 81 mg TAB PO SCH (10:14)
[2020-10-21] MEDS: FAMOTIDINE (10MG/ML) 2ML VL IV SCH (10:14)
[2020-10-21] MEDS: ASCORBIC ACID 500 MG TAB PO SCH ×2 (10:16→22:53)
[2020-10-21 11:31] LABS: Eosinophils # (auto) 0.2 10 ^3/uL (0-0.8); Hemoglobin 10.7 g/dL (12.2-16.2); Lymphocytes # (auto) 0.8 10 ^3/uL (0.4-5.4); Red Cell Distribution Width 19.9 % (11.8-14.3); White Blood Cell 7.6 10^3/uL (4.4-10.8)
[2020-10-21 11:33] LABS: Basophils # (auto) 0.1 10 ^3/uL (0-0.2); Basophils % (auto) 0.7 % (0.0-2.0); Eosinophils % (auto) 2.3 % (0.0-7.0); Hematocrit 32.6 % (36.0-46.0); Lymphocytes % (auto) 10.2 % (10.0-50.0); Mean Corpuscular Hgb Conc. 32.8 g/dL (32.0-36.0); Mean Corpuscular Volume 82.5 fL (80.0-100.0); Monocytes # (auto) 0.7 10 ^3/uL (0-1.3); Monocytes % (auto) 9.2 % (0.0-12.0); Neutrophils # (auto) 5.9 10 ^3/uL (1.6-8.6); Neutrophils % (auto) 77.6 % (37.0-80.0); Red Blood Cells 3.95 10^6/uL (4.0-5.20)
[2020-10-21 12:24] LABS: Potassium 3.6 mmol/L (3.5-5.1)
[2020-10-21 12:28] LABS: BUN/Creatinine Ratio 27.2; Calcium 9.3 mg/dL (8.5-10.1); Magnesium 2.1 mg/dL (1.6-2.6)
[2020-10-21 16:59] VITALS: BP 152/77
[2020-10-21 22:00] VITALS: BP 160/111
[2020-10-21] MEDS: ATORVASTATIN 20 MG TAB PO SCH (22:53)
[2020-10-22 05:00] VITALS: BP 148/70
[2020-10-22] MEDS: ACCU-CHEK COMFORT CURVE STRIP VI SCH ×4 (06:13→22:34)
[2020-10-22] MEDS: InsuLIN REG 1unit/0.01ml Soln (100units/ml) SC SCH ×4 (06:13→23:02)
[2020-10-22 07:15] LABS: Basophils # (auto) 0.1 10 ^3/uL (0-0.2); Basophils % (auto) 0.6 % (0.0-2.0); Eosinophils # (auto) 0.4 10 ^3/uL (0-0.8); Hematocrit 31.8 % (36.0-46.0); Hemoglobin 10.7 g/dL (12.2-16.2); Lymphocytes # (auto) 1.3 10 ^3/uL (0.4-5.4); Lymphocytes % (auto) 15.2 % (10.0-50.0); Mean Corpuscular Hemoglobin 27.9 pg (28.0-32.0); Mean Corpuscular Hgb Conc. 33.7 g/dL (32.0-36.0); Mean Corpuscular Volume 82.7 fL (80.0-100.0); Monocytes # (auto) 0.8 10 ^3/uL (0-1.3); Monocytes % (auto) 8.6 % (0.0-12.0); Neutrophils # (auto) 6.3 10 ^3/uL (1.6-8.6); Neutrophils % (auto) 71.6 % (37.0-80.0); Red Blood Cells 3.84 10^6/uL (4.0-5.20); Red Cell Distribution Width 20.2 % (11.8-14.3); White Blood Cell 8.8 10^3/uL (4.4-10.8)
[2020-10-22 07:35] LABS: Potassium 3.4 mmol/L (3.5-5.1)
[2020-10-22 07:43] LABS: BUN/Creatinine Ratio 27.2; Calcium 9.8 mg/dL (8.5-10.1)
[2020-10-22 09:00] VITALS: BP 150/84
[2020-10-22] MEDS ORDERED: POTASSIUM EFFERVESENT TAB 25 MEQ GT ONE (10:00)
[2020-10-22] MEDS: ASCORBIC ACID 500 MG TAB PO SCH ×2 (10:20→22:32)
[2020-10-22] MEDS: ZINC SULFATE 220mg CAP or TAB PO SCH (10:20)
[2020-10-22] MEDS: ASPirin 81 mg TAB PO SCH (10:20)
[2020-10-22] MEDS: MULTIPLE VITAMIN TAB PO SCH (10:20)
[2020-10-22] MEDS: HEPARIN SODIUM (PORCINE) 5000 UNITS/ML 1ML VIAL SC SCH ×2 (10:21→22:33)
[2020-10-22] MEDS: FUROSEMIDE 40 MG TAB PO SCH (10:38)
[2020-10-22 13:00] VITALS: BP 152/84
[2020-10-22] MEDS: FAMOTIDINE (10MG/ML) 2ML VL IV SCH (13:58)
[2020-10-22] MEDS: CEFTRIAXONE SODIUM 2 GM in D5W 5% 50 ML IV SCH (13:58)
[2020-10-22 17:24] VITALS: BP 169/85
[2020-10-22 22:00] VITALS: BP 147/72
[2020-10-22] MEDS: ATORVASTATIN 20 MG TAB PO SCH (22:32)
[2020-10-23] MEDS: ONDANSETRON HCL 4 MG/2 ML VIAL IV PRN (03:30)
[2020-10-23 05:00] VITALS: BP 157/88
[2020-10-23 05:47] LABS: BUN/Creatinine Ratio 26.2; Calcium 9.4 mg/dL (8.5-10.1); Potassium 3.7 mmol/L (3.5-5.1)
[2020-10-23] MEDS: ACCU-CHEK COMFORT CURVE STRIP VI SCH ×4 (06:18→21:37)
[2020-10-23] MEDS: InsuLIN REG 1unit/0.01ml Soln (100units/ml) SC SCH ×4 (06:18→21:36)
[2020-10-23 09:00] VITALS: BP 118/68
[2020-10-23] MEDS: ASPirin 81 mg TAB PO SCH (09:47)
[2020-10-23] MEDS: CEFTRIAXONE SODIUM 2 GM in D5W 5% 50 ML IV SCH (09:48)
[2020-10-23] MEDS: FAMOTIDINE (10MG/ML) 2ML VL IV SCH (09:48)
[2020-10-23] MEDS: HEPARIN SODIUM (PORCINE) 5000 UNITS/ML 1ML VIAL SC SCH ×2 (09:57→21:26)
[2020-10-23] MEDS: FUROSEMIDE 40 MG TAB PO SCH (10:32)
[2020-10-23 13:00] VITALS: BP 153/93
[2020-10-23 16:30] VITALS: BP 153/65
[2020-10-23] MEDS: ATORVASTATIN 20 MG TAB PO SCH (21:27)
[2020-10-23 22:00] VITALS: BP 132/80
[2020-10-23] MEDS: ACETAMINOPHEN 325 MG TAB PO PRN (23:19)
[2020-10-24 05:00] VITALS: BP 107/66
[2020-10-24] MEDS: ACCU-CHEK COMFORT CURVE STRIP VI SCH ×4 (06:11→22:29)
[2020-10-24] MEDS: InsuLIN REG 1unit/0.01ml Soln (100units/ml) SC SCH ×4 (06:11→22:32)
[2020-10-24 07:05] LABS: Albumin 2.6 g/dL (3.4-5.0); Calcium 9.2 mg/dL (8.5-10.1)
[2020-10-24 07:09] LABS: BUN/Creatinine Ratio 25.2; Bilirubin, Total 0.5 mg/dL (0.2-1.0); Total Protein 7.2 g/dL (6.4-8.2)
[2020-10-24 09:00] VITALS: BP 133/88
[2020-10-24] MEDS: CEFTRIAXONE SODIUM 2 GM in D5W 5% 50 ML IV SCH (09:15)
[2020-10-24] MEDS: ASPirin 81 mg TAB PO SCH (09:15)
[2020-10-24] MEDS: FAMOTIDINE (10MG/ML) 2ML VL IV SCH (09:15)
[2020-10-24] MEDS: HEPARIN SODIUM (PORCINE) 5000 UNITS/ML 1ML VIAL SC SCH ×2 (09:22→21:48)
[2020-10-24] MEDS: D5W/SOD CHLO 0.9% 1,000 ML IV SCH (10:30)
[2020-10-24 13:00] VITALS: BP 139/79
[2020-10-24 16:30] VITALS: BP 142/76
[2020-10-24] MEDS: ATORVASTATIN 20 MG TAB PO SCH (21:44)
[2020-10-24 22:00] VITALS: BP 147/101
[2020-10-25] MEDS: D5W/SOD CHLO 0.9% 1,000 ML IV SCH ×2 (01:37→03:59)
[2020-10-25 05:39] VITALS: BP 105/73
[2020-10-25] MEDS: ACCU-CHEK COMFORT CURVE STRIP VI SCH ×2 (06:33→10:53)
[2020-10-25] MEDS: InsuLIN REG 1unit/0.01ml Soln (100units/ml) SC SCH ×2 (06:41→11:30)
[2020-10-25 09:00] VITALS: BP 135/67
[2020-10-25] MEDS: CEFTRIAXONE SODIUM 2 GM in D5W 5% 50 ML IV SCH (10:00)
[2020-10-25] MEDS: FAMOTIDINE (10MG/ML) 2ML VL IV SCH (10:00)
[2020-10-25] MEDS: HEPARIN SODIUM (PORCINE) 5000 UNITS/ML 1ML VIAL SC SCH (10:00)
[2020-10-25 10:08] VITALS: BP 118/68
[2020-10-25 10:26] LABS: Basophils # (auto) 0.1 10 ^3/uL (0-0.2); Basophils % (auto) 0.6 % (0.0-2.0); Eosinophils # (auto) 0.3 10 ^3/uL (0-0.8); Eosinophils % (auto) 3.4 % (0.0-7.0); Hematocrit 32.9 % (36.0-46.0); Hemoglobin 11.1 g/dL (12.2-16.2); Lymphocytes # (auto) 1.2 10 ^3/uL (0.4-5.4); Mean Corpuscular Hemoglobin 28.1 pg (28.0-32.0); Mean Corpuscular Hgb Conc. 33.7 g/dL (32.0-36.0); Mean Corpuscular Volume 83.3 fL (80.0-100.0); Monocytes # (auto) 0.5 10 ^3/uL (0-1.3); Neutrophils # (auto) 6.8 10 ^3/uL (1.6-8.6); Red Blood Cells 3.95 10^6/uL (4.0-5.20); Red Cell Distribution Width 19.7 % (11.8-14.3); White Blood Cell 8.9 10^3/uL (4.4-10.8)
[2020-10-25 10:33] LABS: BUN/Creatinine Ratio 24.3; Calcium 9.5 mg/dL (8.5-10.1); Potassium 3.6 mmol/L (3.5-5.1)
[2020-10-25] MEDS: ASPirin 81 mg TAB PO SCH (10:52)
== END 2020-10-25 15:20 | disposition home health service (06) | DRG 871 ==
LOC: EDBD 20:09 → ER 20:09 → EDUNIT# 20:09 → TELE 10-17 07:31 → TELE-WESTW 10-17 09:51
PROVIDERS: ADMIT Nurse Practitioner Family; ATTEND Internal Medicine
DX: A41.51 Sepsis due to Escherichia coli [E. coli] (principal); I50.43 Acute on chronic combined systolic (congestive) and diastolic (congestive) heart failure; J96.21 Acute and chronic respiratory failure with hypoxia; J18.9 Pneumonia, unspecified organism; G93.41 Metabolic encephalopathy; N17.9 Acute kidney failure, unspecified; I69.354 Hemiplegia and hemiparesis following cerebral infarction affecting left non-dominant side; N39.0 Urinary tract infection, site not specified; E87.1 Hypo-osmolality and hyponatremia; Z68.42 Body mass index [BMI] 45.0-49.9, adult; I13.2 Hypertensive heart and chronic kidney disease with heart failure and with stage 5 chronic kidney disease, or end stage renal disease; J44.0 Chronic obstructive pulmonary disease with (acute) lower respiratory infection; J44.1 Chronic obstructive pulmonary disease with (acute) exacerbation; J98.11 Atelectasis; N18.5 Chronic kidney disease, stage 5; E03.9 Hypothyroidism, unspecified; Z88.8 Allergy status to other drugs, medicaments and biological substances; Z20.822 Contact with and (suspected) exposure to COVID-19; B96.20 Unspecified Escherichia coli [E. coli] as the cause of diseases classified elsewhere; B96.89 Other specified bacterial agents as the cause of diseases classified elsewhere; E11.22 Type 2 diabetes mellitus with diabetic chronic kidney disease; E11.65 Type 2 diabetes mellitus with hyperglycemia; E66.01 Morbid (severe) obesity due to excess calories; E78.5 Hyperlipidemia, unspecified; E87.6 Hypokalemia; E88.09 Other disorders of plasma-protein metabolism, not elsewhere classified; F02.80 Dementia in other diseases classified elsewhere, unspecified severity, without behavioral disturbance, psychotic disturbance, mood disturbance, and anxiety; F17.200 Nicotine dependence, unspecified, uncomplicated; G30.9 Alzheimer's disease, unspecified; I07.1 Rheumatic tricuspid insufficiency; I27.20 Pulmonary hypertension, unspecified; I65.21 Occlusion and stenosis of right carotid artery; K80.20 Calculus of gallbladder without cholecystitis without obstruction; R65.20 Severe sepsis without septic shock; Z74.01 Bed confinement status; Z79.4 Long term (current) use of insulin; Z79.82 Long term (current) use of aspirin; Z79.899 Other long term (current) drug therapy; Z82.3 Family history of stroke; Z82.49 Family history of ischemic heart disease and other diseases of the circulatory system; Z83.3 Family history of diabetes mellitus; Z87.440 Personal history of urinary (tract) infections; Z90.710 Acquired absence of both cervix and uterus
CPT/HCPCS: 36415; 70450; 70551; 71045; 74181; 76700; 80048; 80053; 80061; 80202; 81001; 82040; 82140; 82607; 82746; 82962; 83036; 83605; 83690; 83735; 83880; 84484; 85025; 85379; 85610; 85730; 87040; 87077; 87081; 87086; 87186; 87426; 93005; 93306; 93886; 93970; 95819; 96365; 96367; 97110; G0378; J0696; J1815; J2405; J2543; J3490; J7042; J7060

== ENCOUNTER 2021-02-20 22:47 | Inpatient (IN) | payer OTHER, MEDICAID ==
[~2021-02-20] VITALS: Ht 170.2 cm; Wt 122.5 kg
[2021-02-20 23:51] LABS: Basophils # (auto) 0.3 10 ^3/uL (0-0.2); Basophils % (auto) 3.2 % (0.0-2.0); Eosinophils # (auto) 0.6 10 ^3/uL (0-0.8); Eosinophils % (auto) 6.4 % (0.0-7.0); Hematocrit 37.1 % (36.0-46.0); Hemoglobin 12.5 g/dL (12.2-16.2); Lymphocytes # (auto) 0.5 10 ^3/uL (0.4-5.4); Lymphocytes % (auto) 5.7 % (10.0-50.0); Mean Corpuscular Hemoglobin 30.6 pg (28.0-32.0); Mean Corpuscular Hgb Conc. 33.7 g/dL (32.0-36.0); Mean Corpuscular Volume 90.8 fL (80.0-100.0); Monocytes # (auto) 0.5 10 ^3/uL (0-1.3); Monocytes % (auto) 4.8 % (0.0-12.0); Neutrophils # (auto) 7.5 10 ^3/uL (1.6-8.6); Neutrophils % (auto) 79.9 % (37.0-80.0); Red Blood Cells 4.08 10^6/uL (4.0-5.20); Red Cell Distribution Width 14.4 % (11.8-14.3); White Blood Cell 9.3 10^3/uL (4.4-10.8)
[2021-02-21 00:01] LABS: Anion Gap 10 (5-15); Calcium 9.7 mg/dL (8.5-10.1); Carbon Dioxide 25 mmol/L (21-32); Chloride 103 mmol/L (98-107); Glucose 197 mg/dL (74-106); Potassium 3.7 mmol/L (3.5-5.1); Sodium 138 mmol/L (136-145)
[2021-02-21 00:04] LABS: Alanine Aminotransferase 19 U/L (13-56); Aspartate Aminotransferase 12 U/L (15-37); GFR African American 18 mL/min; GFR Non-African American 15 mL/min
[2021-02-21 00:05] LABS: BUN/Creatinine Ratio 29.4; Blood Urea Nitrogen 96 mg/dL (7-18)
[2021-02-21 00:10] LABS: Alkaline Phosphatase 161 U/L (45-117); Bilirubin, Total 0.3 mg/dL (0.2-1.0); Total Protein 8.1 g/dL (6.4-8.2)
[2021-02-21] MEDS ORDERED: KETOROLAC TROMETH 30 MG/ML 1ML VIAL IV ONE (02:45)
[2021-02-21 03:36] LABS: Urine Bacteria MOD /hpf (None Seen); Urine Blood TRACE /uL (Negative); Urine Mucus FEW (None Seen); Urine Specific Gravity 1.009 (1.001-1.035); Urine WBC 97 /hpf (0 - 5); Urine WBC Clumps PRESENT /hpf (None Seen)
[2021-02-21] MEDS: LABETALOL HCL 5 MG/ML 4ML SYRINGE IV ONE ×2 (03:47→04:13)
[2021-02-21] MEDS ORDERED: hydrALAZINE HCL 20 MG/ML VL IV ONE (06:00)
[2021-02-21] MEDS ORDERED: hydrALAZINE HCL 20 MG/ML VL IV PRN (06:30)
[2021-02-21] MEDS ORDERED: ONDANSETRON HCL 4 MG/2 ML VIAL IV ONE (06:45)
[2021-02-21] MEDS ORDERED: DEXTROSE (50%) 50ML SYRG IV PRN (07:15)
[2021-02-21] MEDS ORDERED: MORPHINE SULFATE INJECTION 2 MG/ML SYRG IV PRN (07:15)
[2021-02-21] MEDS ORDERED: guaiFENesin-DM 100/10mg/5ml SYR PO PRN (07:15)
[2021-02-21] MEDS ORDERED: DOCUSATE SOD 100 MG CAP PO PRN (07:15)
[2021-02-21] MEDS ORDERED: NITROGLYCERIN 0.4 MG SL TAB SL PRN (07:15)
[2021-02-21] MEDS ORDERED: MORPHINE SULF PF 2 MG/2 ML SYRG IV PRN (07:15)
[2021-02-21 08:08] LABS: Basophils # (auto) 0.1 10 ^3/uL (0-0.2); Eosinophils # (auto) 0.3 10 ^3/uL (0-0.8); Eosinophils % (auto) 3.4 % (0.0-7.0); Hemoglobin 12.5 g/dL (12.2-16.2); Lymphocytes # (auto) 1.6 10 ^3/uL (0.4-5.4); Lymphocytes % (auto) 16.3 % (10.0-50.0); Mean Corpuscular Hemoglobin 30.3 pg (28.0-32.0); Mean Corpuscular Hgb Conc. 32.9 g/dL (32.0-36.0); Mean Corpuscular Volume 92.2 fL (80.0-100.0); Monocytes # (auto) 0.5 10 ^3/uL (0-1.3); Monocytes % (auto) 5.1 % (0.0-12.0); Neutrophils # (auto) 7.4 10 ^3/uL (1.6-8.6); Neutrophils % (auto) 74.2 % (37.0-80.0); Nucleated Red Blood Cells % 0.1 %; Red Blood Cells 4.13 10^6/uL (4.0-5.20); Red Cell Distribution Width 14.1 % (11.8-14.3)
[2021-02-21 08:13] LABS: Potassium 3.8 mmol/L (3.5-5.1)
[2021-02-21 08:20] LABS: Albumin 3.1 g/dL (3.4-5.0); BUN/Creatinine Ratio 31.9; Bilirubin, Total 0.3 mg/dL (0.2-1.0); Calcium 9.9 mg/dL (8.5-10.1); Total Protein 7.7 g/dL (6.4-8.2)
[2021-02-21] MEDS: cefTRIAXone 1GM/50ML D5W 50 ML IV SCH (08:35)
[2021-02-21] MEDS: SODIUM CHLORIDE 0.9% 1,000 ML IV SCH ×2 (08:35→23:31)
[2021-02-21] MEDS: FUROSEMIDE 40 MG/4 ML VIAL IV SCH (08:36)
[2021-02-21] MEDS: HEPARIN SODIUM (PORCINE) 5000 UNITS/ML 1ML VIAL SC SCH ×2 (08:37→23:23)
[2021-02-21] MEDS: ASPirin 81 mg TAB PO SCH (09:19)
[2021-02-21] MEDS: ZINC SULFATE 220mg CAP or TAB PO SCH (09:19)
[2021-02-21] MEDS: CARVEDILOL 12.5 MG TAB PO SCH ×2 (09:20→23:14)
[2021-02-21] MEDS: MULTIPLE VITAMIN TAB PO SCH (09:20)
[2021-02-21] MEDS: ASCORBIC ACID 500 MG TAB PO SCH ×2 (09:21→23:09)
[2021-02-21] MEDS: amLODIPine BESYLATE 5 MG TAB PO SCH (09:21)
[2021-02-21] MEDS: InsuLIN REG 1unit/0.01ml Soln (100units/ml) SC SCH ×3 (11:23→23:27)
[2021-02-21] MEDS: ACCU-CHEK COMFORT CURVE STRIP VI SCH ×3 (11:27→23:29)
[2021-02-21 21:01] VITALS: BP 131/67
[2021-02-21] MEDS ORDERED: ATORVASTATIN 20 MG TAB PO SCH (22:00)
[2021-02-22 05:00] VITALS: BP 124/64
[2021-02-22] MEDS: InsuLIN REG 1unit/0.01ml Soln (100units/ml) SC SCH ×4 (06:19→22:25)
[2021-02-22] MEDS: ACCU-CHEK COMFORT CURVE STRIP VI SCH ×4 (07:00→22:28)
[2021-02-22 09:00] VITALS: BP 143/75
[2021-02-22] MEDS: cefTRIAXone 1GM/50ML D5W 50 ML IV SCH (11:19)
[2021-02-22] MEDS: ZINC SULFATE 220mg CAP or TAB PO SCH (11:19)
[2021-02-22] MEDS: ASCORBIC ACID 500 MG TAB PO SCH (11:19)
[2021-02-22] MEDS: MULTIPLE VITAMIN TAB PO SCH (11:19)
[2021-02-22] MEDS: FUROSEMIDE 40 MG/4 ML VIAL IV SCH (11:19)
[2021-02-22] MEDS: ASPirin 81 mg TAB PO SCH (11:19)
[2021-02-22] MEDS: amLODIPine BESYLATE 5 MG TAB PO SCH (11:20)
[2021-02-22] MEDS: CARVEDILOL 12.5 MG TAB PO SCH ×2 (11:20→22:27)
[2021-02-22] MEDS: HEPARIN SODIUM (PORCINE) 5000 UNITS/ML 1ML VIAL SC SCH ×2 (11:33→22:28)
[2021-02-22 12:25] LABS: Basophils # (auto) 0.1 10 ^3/uL (0-0.2); Basophils % (auto) 0.8 % (0.0-2.0); Eosinophils # (auto) 0.3 10 ^3/uL (0-0.8); Eosinophils % (auto) 3.2 % (0.0-7.0); Hematocrit 34.8 % (36.0-46.0); Hemoglobin 11.4 g/dL (12.2-16.2); Lymphocytes # (auto) 1.2 10 ^3/uL (0.4-5.4); Mean Corpuscular Hemoglobin 30.3 pg (28.0-32.0); Mean Corpuscular Hgb Conc. 32.7 g/dL (32.0-36.0); Mean Corpuscular Volume 92.5 fL (80.0-100.0); Monocytes # (auto) 0.3 10 ^3/uL (0-1.3); Neutrophils # (auto) 6.6 10 ^3/uL (1.6-8.6); Red Blood Cells 3.76 10^6/uL (4.0-5.20); Red Cell Distribution Width 14.5 % (11.8-14.3); White Blood Cell 8.5 10^3/uL (4.4-10.8)
[2021-02-22 12:42] LABS: Calcium 9.4 mg/dL (8.5-10.1); Potassium 3.8 mmol/L (3.5-5.1)
[2021-02-22 12:47] LABS: BUN/Creatinine Ratio 31.4; Bilirubin, Total 0.4 mg/dL (0.2-1.0); Total Protein 7.4 g/dL (6.4-8.2)
[2021-02-22 13:04] VITALS: BP 155/94
[2021-02-22] MEDS: LEVOTHYROXINE SODIUM 50 MCG TAB PO SCH (14:02)
[2021-02-22] MEDS: SODIUM CHLORIDE 0.9% 1,000 ML IV SCH (16:35)
[2021-02-22] MEDS ORDERED: CARV6.25 PO (18:45)
[2021-02-22] MEDS ORDERED: METO2.5T PO (18:45)
[2021-02-22 22:00] VITALS: BP 147/88
[2021-02-22] MEDS: ATORVASTATIN 20 MG TAB PO SCH (22:27)
[2021-02-23] MEDS: ONDANSETRON HCL 4 MG/2 ML VIAL IV PRN ×2 (00:35→06:39)
[2021-02-23] MEDS: HYDROcodone-ACET 5/325MG TAB PO PRN (00:41)
[2021-02-23] MEDS: ACETAMINOPHEN 325 MG TAB PO PRN (01:16)
[2021-02-23] MEDS: CALCIUM CARB 500 MG CHEW TAB PO SCH ×3 (01:16→22:27)
[2021-02-23 04:48] VITALS: BP 110/63
[2021-02-23 06:10] LABS: Basophils # (auto) 0 10 ^3/uL (0-0.2); Basophils % (auto) 0.3 % (0.0-2.0); Eosinophils # (auto) 0.3 10 ^3/uL (0-0.8); Eosinophils % (auto) 3.2 % (0.0-7.0); Hematocrit 33.2 % (36.0-46.0); Hemoglobin 10.9 g/dL (12.2-16.2); Lymphocytes # (auto) 1.1 10 ^3/uL (0.4-5.4); Lymphocytes % (auto) 13.2 % (10.0-50.0); Mean Corpuscular Hemoglobin 30.2 pg (28.0-32.0); Mean Corpuscular Hgb Conc. 32.7 g/dL (32.0-36.0); Mean Corpuscular Volume 92.3 fL (80.0-100.0); Monocytes # (auto) 0.4 10 ^3/uL (0-1.3); Monocytes % (auto) 4.7 % (0.0-12.0); Neutrophils # (auto) 6.8 10 ^3/uL (1.6-8.6); Neutrophils % (auto) 78.6 % (37.0-80.0); Red Cell Distribution Width 14.4 % (11.8-14.3); White Blood Cell 8.7 10^3/uL (4.4-10.8)
[2021-02-23 06:20] LABS: BUN/Creatinine Ratio 30.6; Potassium 3.5 mmol/L (3.5-5.1)
[2021-02-23] MEDS: ACCU-CHEK COMFORT CURVE STRIP VI SCH ×4 (06:40→22:27)
[2021-02-23] MEDS: LEVOTHYROXINE SODIUM 50 MCG TAB PO SCH (06:45)
[2021-02-23] MEDS: InsuLIN REG 1unit/0.01ml Soln (100units/ml) SC SCH ×4 (06:47→22:31)
[2021-02-23 09:00] VITALS: BP 95/59
[2021-02-23] MEDS: cefTRIAXone 1GM/50ML D5W 50 ML IV SCH (09:00)
[2021-02-23] MEDS: SODIUM CHLORIDE 0.9% 1,000 ML IV SCH (09:15)
[2021-02-23] MEDS: FUROSEMIDE 40 MG TAB PO SCH (10:00)
[2021-02-23] MEDS: HEPARIN SODIUM (PORCINE) 5000 UNITS/ML 1ML VIAL SC SCH ×2 (10:00→22:30)
[2021-02-23] MEDS: CARVEDILOL 12.5 MG TAB PO SCH ×2 (10:00→22:27)
[2021-02-23] MEDS: MULTIPLE VITAMIN TAB PO SCH (10:00)
[2021-02-23] MEDS: amLODIPine BESYLATE 5 MG TAB PO SCH (10:00)
[2021-02-23] MEDS: ASPirin 81 mg TAB PO SCH (10:00)
[2021-02-23 13:00] VITALS: BP 149/75
[2021-02-23 17:00] VITALS: BP 137/84
[2021-02-23] MEDS ORDERED: LEVO250T69 PO (18:43)
[2021-02-23] MEDS ORDERED: DOCU-94 PO (18:43)
[2021-02-23 22:00] VITALS: BP 131/95
[2021-02-23] MEDS: ATORVASTATIN 20 MG TAB PO SCH (22:25)
[2021-02-24] MEDS: ACETAMINOPHEN 325 MG TAB PO PRN (00:27)
[2021-02-24] MEDS: SODIUM CHLORIDE 0.9% 1,000 ML IV SCH (01:55)
[2021-02-24 05:00] VITALS: BP 101/63
[2021-02-24 06:06] LABS: Basophils # (auto) 0 10 ^3/uL (0-0.2); Basophils % (auto) 0.6 % (0.0-2.0); Eosinophils # (auto) 0.2 10 ^3/uL (0-0.8); Eosinophils % (auto) 3.3 % (0.0-7.0); Lymphocytes % (auto) 14.3 % (10.0-50.0); Mean Corpuscular Hemoglobin 30.1 pg (28.0-32.0); Mean Corpuscular Hgb Conc. 33.3 g/dL (32.0-36.0); Mean Corpuscular Volume 90.5 fL (80.0-100.0); Monocytes # (auto) 0.5 10 ^3/uL (0-1.3); Monocytes % (auto) 7.1 % (0.0-12.0); Neutrophils # (auto) 5.3 10 ^3/uL (1.6-8.6); Neutrophils % (auto) 74.7 % (37.0-80.0); Red Blood Cells 3.65 10^6/uL (4.0-5.20); Red Cell Distribution Width 14.3 % (11.8-14.3)
[2021-02-24 06:29] LABS: BUN/Creatinine Ratio 28.8; Potassium 3.2 mmol/L (3.5-5.1)
[2021-02-24] MEDS: LEVOTHYROXINE SODIUM 50 MCG TAB PO SCH (06:51)
[2021-02-24] MEDS: InsuLIN REG 1unit/0.01ml Soln (100units/ml) SC SCH ×2 (07:01→11:30)
[2021-02-24] MEDS: ONDANSETRON HCL 4 MG/2 ML VIAL IV PRN (08:15)
[2021-02-24 08:44] VITALS: BP 139/77
[2021-02-24] MEDS: cefTRIAXone 1GM/50ML D5W 50 ML IV SCH (09:00)
[2021-02-24] MEDS: HYDROcodone-ACET 5/325MG TAB PO PRN (09:20)
[2021-02-24] MEDS: FUROSEMIDE 40 MG TAB PO SCH (10:00)
[2021-02-24] MEDS: HEPARIN SODIUM (PORCINE) 5000 UNITS/ML 1ML VIAL SC SCH (10:00)
[2021-02-24] MEDS: CARVEDILOL 12.5 MG TAB PO SCH (10:00)
[2021-02-24] MEDS: ASPirin 81 mg TAB PO SCH (10:00)
[2021-02-24] MEDS: MULTIPLE VITAMIN TAB PO SCH (10:00)
[2021-02-24] MEDS: amLODIPine BESYLATE 5 MG TAB PO SCH (10:00)
[2021-02-24] MEDS: CALCIUM CARB 500 MG CHEW TAB PO SCH (10:00)
[2021-02-24] MEDS: ACCU-CHEK COMFORT CURVE STRIP VI SCH (11:30)
[2021-02-24 13:37] VITALS: BP 139/77
== END 2021-02-24 14:20 | disposition home health service (06) | DRG 313 ==
LOC: EDBD 22:47 → ER 22:47 → TELE 02-21 07:08 → TELE-WESTW 02-21 21:40
PROVIDERS: ADMIT Nurse Practitioner Family; ATTEND Internal Medicine
PROC: 05HD33Z Insertion of Infusion Device into Right Cephalic Vein, Percutaneous Approach (ICD-10-PCS; principal; 2021-02-21)
PROC: B54MZZA Ultrasonography of Right Upper Extremity Veins, Guidance (ICD-10-PCS; 2021-02-21)
DX: R07.89 Other chest pain (principal); N39.0 Urinary tract infection, site not specified; N17.9 Acute kidney failure, unspecified; I13.0 Hypertensive heart and chronic kidney disease with heart failure and stage 1 through stage 4 chronic kidney disease, or unspecified chronic kidney disease; N18.4 Chronic kidney disease, stage 4 (severe); I69.359 Hemiplegia and hemiparesis following cerebral infarction affecting unspecified side; I50.9 Heart failure, unspecified; R07.9 Chest pain, unspecified; E88.09 Other disorders of plasma-protein metabolism, not elsewhere classified; R41.0 Disorientation, unspecified; E11.65 Type 2 diabetes mellitus with hyperglycemia; K59.00 Constipation, unspecified; E66.01 Morbid (severe) obesity due to excess calories; E03.9 Hypothyroidism, unspecified; E11.22 Type 2 diabetes mellitus with diabetic chronic kidney disease; E78.00 Pure hypercholesterolemia, unspecified; I27.20 Pulmonary hypertension, unspecified; E78.5 Hyperlipidemia, unspecified; Z90.710 Acquired absence of both cervix and uterus; Z88.8 Allergy status to other drugs, medicaments and biological substances; Z68.39 Body mass index [BMI] 39.0-39.9, adult; Z74.01 Bed confinement status; Z82.3 Family history of stroke; Z82.49 Family history of ischemic heart disease and other diseases of the circulatory system; Z83.3 Family history of diabetes mellitus; I69.398 Other sequelae of cerebral infarction
CPT/HCPCS: 36415; 70450; 70551; 71045; 74176; 80048; 80053; 81001; 82962; 83036; 83880; 84484; 85025; 87086; 87088; 87186; 87426; 93005; 96365; 96375; 97110; 97530; G0378; J0696; J1815; J1885; J2405; J3490

== ENCOUNTER 2021-05-03 02:14 | Emergency (ER) | payer OTHER, MEDICAID ==
[~2021-05-03] VITALS: Ht 152.4 cm; Wt 113.4 kg
[~2021-05-03 02:14] MED LIST changes: +DOCU-94 PO; +LEVO250T69 PO; +METO2.5T PO
[2021-05-03] MEDS ORDERED: CLINDAMYCIN 600 MG/4 ML VL IM ONE (04:30)
[2021-05-03] MEDS ORDERED: CLINDAMYCIN HCL 150 MG CAP PO ONE (04:45)
[2021-05-03 07:56] VITALS: BP 143/90
== END 2021-05-03 14:03 | disposition home or self-care (01) ==
LOC: EDUNIT# 02:14 → EDBD 02:14 → ER 02:16
DX: T83.9XXA Unspecified complication of genitourinary prosthetic device, implant and graft, initial encounter (principal); N39.0 Urinary tract infection, site not specified; E66.9 Obesity, unspecified; E11.22 Type 2 diabetes mellitus with diabetic chronic kidney disease; N18.9 Chronic kidney disease, unspecified; I10 Essential (primary) hypertension; Z90.710 Acquired absence of both cervix and uterus; Z68.42 Body mass index [BMI] 45.0-49.9, adult; Z86.73 Personal history of transient ischemic attack (TIA), and cerebral infarction without residual deficits
CPT/HCPCS: 51702

== ENCOUNTER 2021-05-29 20:21 | Emergency (ER) | payer OTHER, MEDICAID ==
[~2021-05-29] VITALS: Ht 157.5 cm; Wt 83.9 kg
[2021-05-30 04:29] LABS: Basophils # (auto) 0.1 10 ^3/uL (0-0.2); Basophils % (auto) 0.6 % (0.0-2.0); Eosinophils # (auto) 0.2 10 ^3/uL (0-0.8); Eosinophils % (auto) 2.2 % (0.0-7.0); Hematocrit 38.2 % (36.0-46.0); Hemoglobin 12.3 g/dL (12.2-16.2); Lymphocytes # (auto) 1.7 10 ^3/uL (0.4-5.4); Lymphocytes % (auto) 17.8 % (10.0-50.0); Mean Corpuscular Hemoglobin 30.3 pg (28.0-32.0); Mean Corpuscular Hgb Conc. 32.2 g/dL (32.0-36.0); Mean Corpuscular Volume 94.1 fL (80.0-100.0); Monocytes # (auto) 0.5 10 ^3/uL (0-1.3); Monocytes % (auto) 4.9 % (0.0-12.0); Neutrophils % (auto) 74.5 % (37.0-80.0); Red Blood Cells 4.06 10^6/uL (4.0-5.20); White Blood Cell 9.4 10^3/uL (4.4-10.8)
[2021-05-30 04:33] LABS: Albumin 3.3 g/dL (3.4-5.0); Potassium 4.2 mmol/L (3.5-5.1)
[2021-05-30 04:38] LABS: BUN/Creatinine Ratio 23.7; Bilirubin, Total 0.3 mg/dL (0.2-1.0)
[2021-05-30] MEDS ORDERED: SODIUM CHLORIDE 0.9% 500 ML IVB ONE (09:00)
[2021-05-30] MEDS ORDERED: SODIUM CHLORIDE 0.9% 1,000 ML IV ONE (09:00)
[2021-05-30 10:12] LABS: Amphetamine Screen, Urine NEGATIVE (NEGATIVE); Barbiturate Scree,Urine NEGATIVE (NEGATIVE); Benzodiazephine Screen, Urine NEGATIVE (NEGATIVE); Cannabinoid Screen, Urine NEGATIVE (NEGATIVE); Cocaine Screen, Urine NEGATIVE (NEGATIVE); Opiate Scree,Urine NEGATIVE (NEGATIVE); Phencyclidine Screen, Urine NEGATIVE (NEGATIVE)
[2021-05-30 10:46] LABS: Urine Bacteria MANY /hpf (None Seen); Urine Blood 3+ /uL (Negative); Urine Budding Yeast LOADED /hpf (None Seen); Urine Mucus FEW (None Seen); Urine Specific Gravity 1.015 (1.001-1.035); Urine WBC 300 /hpf (0 - 5); Urine WBC Clumps PRESENT /hpf (None Seen)
[2021-05-30] MEDS ORDERED: cefTRIAXone 1GM/50ML D5W 50 ML IV ONE (12:15)
[2021-05-30 13:00] LABS: Magnesium 2.2 mg/dL (1.6-2.6)
[2021-05-30 13:17] LABS: Blood Alcohol < 3.0 mg/dL (0-5)
[2021-05-30] MEDS ORDERED: FLEET MINERAL OIL ENEMA 133 ML PR ONE (16:45)
[2021-05-31] MEDS ORDERED: ACETAMINOPHEN 325 MG TAB PO ONE (03:15)
[2021-05-31 09:55] VITALS: BP 147/73
== END 2021-05-31 09:56 | disposition home or self-care (01) ==
LOC: EDBD 20:21 → EDUNIT# 20:21 → ER 20:25
DX: K59.00 Constipation, unspecified (principal); I13.0 Hypertensive heart and chronic kidney disease with heart failure and stage 1 through stage 4 chronic kidney disease, or unspecified chronic kidney disease; E11.22 Type 2 diabetes mellitus with diabetic chronic kidney disease; N18.9 Chronic kidney disease, unspecified; I50.9 Heart failure, unspecified; E78.5 Hyperlipidemia, unspecified; Z79.4 Long term (current) use of insulin; Z79.82 Long term (current) use of aspirin; Z79.899 Other long term (current) drug therapy; Z88.0 Allergy status to penicillin; Z88.8 Allergy status to other drugs, medicaments and biological substances; Z20.822 Contact with and (suspected) exposure to COVID-19
CPT/HCPCS: 36415; 70450; 71045; 74176; 80053; 80307; 80320; 81001; 82962; 83735; 84443; 84484; 85025; 87040; 87086; 87426; 93005; 96361; 96365; 99285; J0696

== ENCOUNTER 2021-08-07 02:02 | Inpatient (IN) | payer OTHER, MEDICAID ==
[~2021-08-07] VITALS: Ht 170.2 cm; Wt 136.5 kg
[2021-08-07 03:34] LABS: Albumin 2.6 g/dL (3.4-5.0); Calcium 8.8 mg/dL (8.5-10.1); Magnesium 1.9 mg/dL (1.6-2.6); Potassium 3.4 mmol/L (3.5-5.1)
[2021-08-07 03:39] LABS: Bilirubin, Total 0.3 mg/dL (0.2-1.0); Total Protein 6.1 g/dL (6.4-8.2)
[2021-08-07] MEDS ORDERED: hydrALAZINE HCL 20 MG/ML VL IV ONE (05:00)
[2021-08-07] MEDS ORDERED: ONDANSETRON HCL 4 MG/2 ML VIAL ONE (05:32)
[2021-08-07] MEDS ORDERED: ONDANSETRON HCL 4 MG/2 ML VIAL IV ONE ×2 (05:45)
[2021-08-07 07:11] LABS: Basophils # (auto) 0.2 10 ^3/uL (0-0.2); Basophils % (auto) 1.9 % (0.0-2.0); Eosinophils # (auto) 0.2 10 ^3/uL (0-0.8); Eosinophils % (auto) 2.6 % (0.0-7.0); Hematocrit 30.6 % (36.0-46.0); Hemoglobin 10.2 g/dL (12.2-16.2); Lymphocytes # (auto) 0.8 10 ^3/uL (0.4-5.4); Lymphocytes % (auto) 9.4 % (10.0-50.0); Mean Corpuscular Hemoglobin 30.7 pg (28.0-32.0); Mean Corpuscular Hgb Conc. 33.2 g/dL (32.0-36.0); Mean Corpuscular Volume 92.4 fL (80.0-100.0); Monocytes # (auto) 0.4 10 ^3/uL (0-1.3); Monocytes % (auto) 4.5 % (0.0-12.0); Neutrophils % (auto) 81.6 % (37.0-80.0); Nucleated Red Blood Cells % 0.1 %; Red Blood Cells 3.31 10^6/uL (4.0-5.20); Red Cell Distribution Width 14.7 % (11.8-14.3); White Blood Cell 8.6 10^3/uL (4.4-10.8)
[2021-08-07 07:32] LABS: INR 1.01 (0.9-1.15); Partial Thromboplastin Time 25.1 sec (23.6-33.0)
[2021-08-07] MEDS ORDERED: MORPHINE SULFATE INJECTION 2 MG/ML SYRG IV PRN (08:45)
[2021-08-07] MEDS ORDERED: DOCUSATE SOD 100 MG CAP PO PRN (08:45)
[2021-08-07] MEDS ORDERED: DEXTROSE (50%) 50ML SYRG IV PRN (08:45)
[2021-08-07] MEDS ORDERED: PROMETHAZINE HCL 25 MG/ML 1ML IV PRN (08:45)
[2021-08-07] MEDS ORDERED: NITROGLYCERIN 0.4 MG SL TAB SL PRN (08:45)
[2021-08-07] MEDS ORDERED: FUROSEMIDE 20 MG/2 ML VIAL IV SCH (10:00)
[2021-08-07] MEDS: IPRATROPIUM BROM 0.5 MG/2.5ML INH SOL NEB SCH ×3 (10:29→14:00)
[2021-08-07] MEDS: ALBUTEROL SULF 2.5 MG/0.5ML(0.5%) NEB SOLN NEB SCH ×3 (10:29→14:00)
[2021-08-07] MEDS: BUDESONIDE (INHALATION) 0.5 MG/2 ML NEB NEB SCH ×3 (10:30→19:15)
[2021-08-07] MEDS: ENOXAPARIN SOD 40 MG/0.4 ML SYRINGE SC SCH (11:06)
[2021-08-07] MEDS: CARVEDILOL 12.5 MG TAB PO SCH ×2 (11:07→21:55)
[2021-08-07] MEDS: ASPirin-EC 81 mg tab PO SCH (11:07)
[2021-08-07] MEDS: ACCU-CHEK COMFORT CURVE STRIP VI SCH ×3 (12:09→21:56)
[2021-08-07] MEDS: InsuLIN REG 1unit/0.01ml Soln (100units/ml) SC SCH ×3 (12:39→22:01)
[2021-08-07 12:40] VITALS: BP 164/99
[2021-08-07] MEDS: GABAPENTIN 300 MG CAP PO SCH ×3 (14:00→18:00)
[2021-08-07 16:48] VITALS: BP 143/78
[2021-08-07] MEDS ORDERED: NIFEdipine ER 30 MG TAB PO ONE (17:30)
[2021-08-07] MEDS: ALBUTEROL SULF 2.5 MG/0.5ML(0.5%) NEB SOLN NEB PRN (19:15)
[2021-08-07] MEDS: IPRATROPIUM BROM 0.5 MG/2.5ML INH SOL NEB PRN (19:15)
[2021-08-07 20:00] VITALS: BP 143/69
[2021-08-07] MEDS: FUROSEMIDE 20 MG/2 ML VIAL IV SCH (21:54)
[2021-08-07] MEDS: ATORVASTATIN 20 MG TAB PO SCH (21:55)
[2021-08-07] MEDS: INSULIN LANTUS (GLARGINE) 1 /0.01ml (100units/ml) SC SCH (21:56)
[2021-08-07] MEDS: NORTRIPTYLINE HCL 25 MG CAP PO SCH (21:56)
[2021-08-07 22:00] VITALS: BP 143/69
[2021-08-08 05:00] VITALS: BP 140/78
[2021-08-08 06:20] LABS: Basophils # (auto) 0 10 ^3/uL (0-0.2); Basophils % (auto) 0.6 % (0.0-2.0); Eosinophils # (auto) 0.3 10 ^3/uL (0-0.8); Eosinophils % (auto) 3.8 % (0.0-7.0); Hematocrit 27.2 % (36.0-46.0); Hemoglobin 9.3 g/dL (12.2-16.2); Lymphocytes # (auto) 0.9 10 ^3/uL (0.4-5.4); Lymphocytes % (auto) 12.8 % (10.0-50.0); Mean Corpuscular Hemoglobin 31.6 pg (28.0-32.0); Mean Corpuscular Hgb Conc. 34.1 g/dL (32.0-36.0); Mean Corpuscular Volume 92.9 fL (80.0-100.0); Monocytes # (auto) 0.3 10 ^3/uL (0-1.3); Monocytes % (auto) 4.8 % (0.0-12.0); Neutrophils # (auto) 5.6 10 ^3/uL (1.6-8.6); Nucleated Red Blood Cells % 0.2 %; Red Blood Cells 2.93 10^6/uL (4.0-5.20); Red Cell Distribution Width 14.4 % (11.8-14.3); White Blood Cell 7.1 10^3/uL (4.4-10.8)
[2021-08-08] MEDS: ACCU-CHEK COMFORT CURVE STRIP VI SCH ×4 (06:25→23:56)
[2021-08-08] MEDS: LEVOTHYROXINE SODIUM 50 MCG TAB PO SCH (06:25)
[2021-08-08] MEDS: InsuLIN REG 1unit/0.01ml Soln (100units/ml) SC SCH ×4 (06:28→23:57)
[2021-08-08] MEDS: ACETAMINOPHEN 325 MG TAB PO PRN (06:32)
[2021-08-08 06:40] LABS: Calcium 8.8 mg/dL (8.5-10.1); Potassium 3.7 mmol/L (3.5-5.1)
[2021-08-08 06:41] LABS: BUN/Creatinine Ratio 13.3
[2021-08-08] MEDS: ALBUTEROL SULF 2.5 MG/0.5ML(0.5%) NEB SOLN NEB PRN ×2 (06:54→21:55)
[2021-08-08] MEDS: IPRATROPIUM BROM 0.5 MG/2.5ML INH SOL NEB PRN ×2 (06:54→21:55)
[2021-08-08] MEDS: BUDESONIDE (INHALATION) 0.5 MG/2 ML NEB NEB SCH ×2 (06:58→21:55)
[2021-08-08 09:00] VITALS: BP 131/72
[2021-08-08] MEDS: FUROSEMIDE 20 MG/2 ML VIAL IV SCH ×2 (09:40→23:54)
[2021-08-08] MEDS: NIFEdipine ER 30 MG TAB PO SCH (09:41)
[2021-08-08] MEDS: ENOXAPARIN SOD 40 MG/0.4 ML SYRINGE SC SCH (09:41)
[2021-08-08] MEDS: CARVEDILOL 12.5 MG TAB PO SCH ×2 (09:41→23:55)
[2021-08-08] MEDS: ASPirin-EC 81 mg tab PO SCH (09:41)
[2021-08-08 13:00] VITALS: BP 135/75
[2021-08-08 16:00] VITALS: BP 165/84
[2021-08-08] MEDS: GABAPENTIN 300 MG CAP PO SCH (17:54)
[2021-08-08 20:15] VITALS: BP 143/69
[2021-08-08 23:45] VITALS: BP 167/80
[2021-08-08] MEDS: NORTRIPTYLINE HCL 25 MG CAP PO SCH (23:55)
[2021-08-08] MEDS: ATORVASTATIN 20 MG TAB PO SCH (23:55)
[2021-08-09] MEDS: INSULIN LANTUS (GLARGINE) 1 /0.01ml (100units/ml) SC SCH ×2 (00:03→22:35)
[2021-08-09] MEDS: ALBUTEROL SULF 2.5 MG/0.5ML(0.5%) NEB SOLN NEB PRN ×3 (03:05→21:49)
[2021-08-09] MEDS: IPRATROPIUM BROM 0.5 MG/2.5ML INH SOL NEB PRN ×3 (03:06→21:49)
[2021-08-09 05:00] VITALS: BP 167/82
[2021-08-09] MEDS: LEVOTHYROXINE SODIUM 50 MCG TAB PO SCH (05:52)
[2021-08-09] MEDS: ACCU-CHEK COMFORT CURVE STRIP VI SCH ×4 (05:52→22:14)
[2021-08-09] MEDS: InsuLIN REG 1unit/0.01ml Soln (100units/ml) SC SCH ×4 (05:53→22:36)
[2021-08-09] MEDS: BUDESONIDE (INHALATION) 0.5 MG/2 ML NEB NEB SCH ×2 (06:43→21:49)
[2021-08-09 09:21] VITALS: BP 170/105
[2021-08-09] MEDS: CARVEDILOL 12.5 MG TAB PO SCH ×2 (10:58→22:12)
[2021-08-09] MEDS: FUROSEMIDE 20 MG/2 ML VIAL IV SCH ×2 (10:58→22:12)
[2021-08-09] MEDS: NIFEdipine ER 30 MG TAB PO SCH (10:59)
[2021-08-09] MEDS: ENOXAPARIN SOD 40 MG/0.4 ML SYRINGE SC SCH (10:59)
[2021-08-09] MEDS: ASPirin-EC 81 mg tab PO SCH (10:59)
[2021-08-09 11:50] LABS: BUN/Creatinine Ratio 15.6; Calcium 9.1 mg/dL (8.5-10.1); Potassium 3.9 mmol/L (3.5-5.1)
[2021-08-09 12:35] VITALS: BP 170/93
[2021-08-09 16:54] VITALS: BP 146/73
[2021-08-09] MEDS: MINOXIDIL 2.5 MG TAB PO SCH (18:00)
[2021-08-09] MEDS: GABAPENTIN 300 MG CAP PO SCH (19:56)
[2021-08-09 22:00] VITALS: BP 159/70
[2021-08-09] MEDS: ACETAMINOPHEN 325 MG TAB PO PRN (22:13)
[2021-08-09] MEDS: NORTRIPTYLINE HCL 25 MG CAP PO SCH (22:13)
[2021-08-09] MEDS: ATORVASTATIN 20 MG TAB PO SCH (22:13)
[2021-08-10 05:00] VITALS: BP 134/67
[2021-08-10 06:16] LABS: Potassium 3.4 mmol/L (3.5-5.1)
[2021-08-10] MEDS: InsuLIN REG 1unit/0.01ml Soln (100units/ml) SC SCH ×4 (06:27→21:32)
[2021-08-10] MEDS: ACCU-CHEK COMFORT CURVE STRIP VI SCH ×4 (06:27→21:40)
[2021-08-10] MEDS: LEVOTHYROXINE SODIUM 50 MCG TAB PO SCH (06:29)
[2021-08-10 09:00] VITALS: BP 139/79
[2021-08-10 09:05] VITALS: BP 134/67
[2021-08-10] MEDS ORDERED: NIFEdipine ER 30 MG TAB PO SCH (10:00)
[2021-08-10] MEDS: ALBUTEROL SULF 2.5 MG/0.5ML(0.5%) NEB SOLN NEB PRN (10:04)
[2021-08-10] MEDS: IPRATROPIUM BROM 0.5 MG/2.5ML INH SOL NEB PRN (10:04)
[2021-08-10] MEDS: BUDESONIDE (INHALATION) 0.5 MG/2 ML NEB NEB SCH ×2 (10:04→19:10)
[2021-08-10] MEDS: FUROSEMIDE 20 MG/2 ML VIAL IV SCH (12:59)
[2021-08-10 13:00] VITALS: BP 153/85
[2021-08-10] MEDS: ASPirin-EC 81 mg tab PO SCH (13:01)
[2021-08-10] MEDS: CARVEDILOL 12.5 MG TAB PO SCH ×4 (13:02→22:43)
[2021-08-10] MEDS: ENOXAPARIN SOD 40 MG/0.4 ML SYRINGE SC SCH (13:02)
[2021-08-10 16:48] VITALS: BP 159/89
[2021-08-10] MEDS: GABAPENTIN 300 MG CAP PO SCH (18:00)
[2021-08-10] MEDS: MINOXIDIL 2.5 MG TAB PO SCH (18:17)
[2021-08-10] MEDS: ATORVASTATIN 20 MG TAB PO SCH (21:15)
[2021-08-10] MEDS: NORTRIPTYLINE HCL 25 MG CAP PO SCH (21:20)
[2021-08-10] MEDS: INSULIN LANTUS (GLARGINE) 1 /0.01ml (100units/ml) SC SCH (21:32)
[2021-08-10 21:57] VITALS: BP 125/51
[2021-08-11 05:00] VITALS: BP 128/57
[2021-08-11] MEDS: LEVOTHYROXINE SODIUM 50 MCG TAB PO SCH (06:12)
[2021-08-11] MEDS: InsuLIN REG 1unit/0.01ml Soln (100units/ml) SC SCH ×2 (06:19→11:18)
[2021-08-11] MEDS: ACCU-CHEK COMFORT CURVE STRIP VI SCH ×2 (06:20→11:30)
[2021-08-11] MEDS: IPRATROPIUM BROM 0.5 MG/2.5ML INH SOL NEB PRN (06:25)
[2021-08-11] MEDS: BUDESONIDE (INHALATION) 0.5 MG/2 ML NEB NEB SCH (06:25)
[2021-08-11] MEDS: ALBUTEROL SULF 2.5 MG/0.5ML(0.5%) NEB SOLN NEB PRN ×2 (06:25→15:36)
[2021-08-11 09:00] VITALS: BP 128/56
[2021-08-11] MEDS: ASPirin-EC 81 mg tab PO SCH (09:55)
[2021-08-11] MEDS: ENOXAPARIN SOD 40 MG/0.4 ML SYRINGE SC SCH (09:56)
[2021-08-11 12:00] VITALS: BP 135/58
[2021-08-11] MEDS ORDERED: POTA10TA51 PO (12:56)
[2021-08-11] MEDS ORDERED: FURO1TAB31 PO (12:56)
[2021-08-11 13:30] VITALS: BP 135/58
== END 2021-08-11 14:30 | disposition home or self-care (01) | DRG 291 ==
LOC: EDBD 02:02 → ER 02:02 → TELE 08:36 → TELE-WESTW 10:31
PROVIDERS: ADMIT Hospitalist; ATTEND Hospitalist
PROC: 05HC33Z Insertion of Infusion Device into Left Basilic Vein, Percutaneous Approach (ICD-10-PCS; principal; 2021-08-07)
PROC: B54NZZA Ultrasonography of Left Upper Extremity Veins, Guidance (ICD-10-PCS; 2021-08-07)
DX: I13.0 Hypertensive heart and chronic kidney disease with heart failure and stage 1 through stage 4 chronic kidney disease, or unspecified chronic kidney disease (principal); I50.33 Acute on chronic diastolic (congestive) heart failure; J96.00 Acute respiratory failure, unspecified whether with hypoxia or hypercapnia; J44.1 Chronic obstructive pulmonary disease with (acute) exacerbation; N17.9 Acute kidney failure, unspecified; J98.11 Atelectasis; Z68.41 Body mass index [BMI] 40.0-44.9, adult; E11.22 Type 2 diabetes mellitus with diabetic chronic kidney disease; E66.01 Morbid (severe) obesity due to excess calories; I25.10 Atherosclerotic heart disease of native coronary artery without angina pectoris; T50.2X5A Adverse effect of carbonic-anhydrase inhibitors, benzothiadiazides and other diuretics, initial encounter; N18.9 Chronic kidney disease, unspecified; I27.20 Pulmonary hypertension, unspecified; Z79.51 Long term (current) use of inhaled steroids; Z82.3 Family history of stroke; Z82.49 Family history of ischemic heart disease and other diseases of the circulatory system; Z83.3 Family history of diabetes mellitus; Z90.710 Acquired absence of both cervix and uterus; Y92.89 Other specified places as the place of occurrence of the external cause; Z88.0 Allergy status to penicillin; Z88.8 Allergy status to other drugs, medicaments and biological substances
CPT/HCPCS: 36415; 70450; 71045; 78582; 80048; 80053; 82962; 83735; 83880; 84484; 85025; 85379; 85610; 85730; 93005; 93306; 93970; 94640; 96374; 96375; 97163; G0378; J1815; J2405

== ENCOUNTER 2021-08-19 11:20 | Inpatient (IN) | payer OTHER, MEDICAID ==
[~2021-08-19] VITALS: Ht 170.2 cm; Wt 119.7 kg
[2021-08-19] MEDS ORDERED: LABETALOL HCL 5 MG/ML 4ML SYRINGE IV ONE (13:15)
[2021-08-19 13:22] LABS: Basophils # (auto) 0.1 10 ^3/uL (0-0.2); Basophils % (auto) 0.9 % (0.0-2.0); Eosinophils # (auto) 0.3 10 ^3/uL (0-0.8); Eosinophils % (auto) 2.9 % (0.0-7.0); Hematocrit 35.5 % (36.0-46.0); Hemoglobin 11.9 g/dL (12.2-16.2); Lymphocytes # (auto) 0.8 10 ^3/uL (0.4-5.4); Lymphocytes % (auto) 8.8 % (10.0-50.0); Mean Corpuscular Hemoglobin 31.1 pg (28.0-32.0); Mean Corpuscular Hgb Conc. 33.6 g/dL (32.0-36.0); Mean Corpuscular Volume 92.7 fL (80.0-100.0); Monocytes # (auto) 0.3 10 ^3/uL (0-1.3); Monocytes % (auto) 3.1 % (0.0-12.0); Neutrophils # (auto) 8.1 10 ^3/uL (1.6-8.6); Neutrophils % (auto) 84.3 % (37.0-80.0); Red Blood Cells 3.83 10^6/uL (4.0-5.20); Red Cell Distribution Width 14.6 % (11.8-14.3); White Blood Cell 9.6 10^3/uL (4.4-10.8)
[2021-08-19] MEDS ORDERED: FUROSEMIDE 40 MG/4 ML VIAL IV ONE (13:30)
[2021-08-19 13:49] LABS: Albumin 3.1 g/dL (3.4-5.0); BUN/Creatinine Ratio 14.7; Calcium 9.4 mg/dL (8.5-10.1); Potassium 3.7 mmol/L (3.5-5.1)
[2021-08-19 13:51] LABS: Bilirubin, Total 0.3 mg/dL (0.2-1.0); Total Protein 7.4 g/dL (6.4-8.2)
[2021-08-19] MEDS ORDERED: hydrALAZINE HCL 20 MG/ML VL IV ONE (16:15)
[2021-08-19] MEDS ORDERED: ACETAMINOPHEN 325 MG TAB PO PRN (17:00)
[2021-08-19] MEDS ORDERED: DEXTROSE (50%) 50ML SYRG IV PRN (17:00)
[2021-08-19] MEDS ORDERED: ONDANSETRON HCL 4 MG/2 ML VIAL IV ONE (17:00)
[2021-08-19] MEDS ORDERED: MORPHINE SULFATE INJECTION 2 MG/ML SYRG IV PRN ×2 (17:00)
[2021-08-19] MEDS ORDERED: NITROGLYCERIN 0.4 MG SL TAB SL PRN (17:00)
[2021-08-19] MEDS ORDERED: NITROGLYCERIN 50MG/250ML 250 ML IV SCH (17:00)
[2021-08-19 17:18] LABS: Urine Bacteria MANY /hpf (None Seen); Urine Blood Negative /uL (Negative); Urine Specific Gravity 1.008 (1.001-1.035); Urine WBC 103 /hpf (0 - 5); Urine WBC Clumps PRESENT /hpf (None Seen)
[2021-08-19] MEDS: InsuLIN REG 1unit/0.01ml Soln (100units/ml) SC SCH ×2 (17:29→21:33)
[2021-08-19] MEDS: ACCU-CHEK COMFORT CURVE STRIP VI SCH ×2 (17:29→21:26)
[2021-08-19] MEDS ORDERED: ALBUTEROL SULF 2.5 MG/0.5ML(0.5%) NEB SOLN NEB PRN (18:30)
[2021-08-19] MEDS ORDERED: levoFLOXacin 500MG 100 ML IV ONE ×2 (18:30)
[2021-08-19] MEDS ORDERED: hydrALAZINE HCL 20 MG/ML VL IV PRN (18:30)
[2021-08-19] MEDS: amLODIPine BESYLATE 5 MG TAB PO SCH (19:54)
[2021-08-19] MEDS: BUMETANIDE 2.5mg/10ml (0.25 mg/ml) INJ IV SCH (21:21)
[2021-08-19] MEDS: POTASSIUM CHL 10 Meq TABLET PO SCH (21:26)
[2021-08-19] MEDS: CARVEDILOL 12.5 MG TAB PO SCH (21:26)
[2021-08-20] VITALS (62 sets, daily range): BP systolic 122–165; BP diastolic 56–89
[2021-08-20] MEDS: ONDANSETRON HCL 4 MG/2 ML VIAL IV PRN ×4 (01:02→17:21)
[2021-08-20] MEDS: POTASSIUM CHL 10 Meq TABLET PO SCH ×3 (06:00→22:48)
[2021-08-20] MEDS: InsuLIN REG 1unit/0.01ml Soln (100units/ml) SC SCH ×4 (06:15→22:00)
[2021-08-20] MEDS: ACCU-CHEK COMFORT CURVE STRIP VI SCH ×4 (06:15→22:49)
[2021-08-20] MEDS: BUMETANIDE 2.5mg/10ml (0.25 mg/ml) INJ IV SCH ×3 (06:15→22:47)
[2021-08-20 09:57] LABS: Basophils # (auto) 0.1 10 ^3/uL (0-0.2); Basophils % (auto) 0.9 % (0.0-2.0); Eosinophils # (auto) 0.1 10 ^3/uL (0-0.8); Eosinophils % (auto) 0.7 % (0.0-7.0); Hematocrit 29.3 % (36.0-46.0); Hemoglobin 9.9 g/dL (12.2-16.2); Lymphocytes # (auto) 0.9 10 ^3/uL (0.4-5.4); Lymphocytes % (auto) 10.7 % (10.0-50.0); Mean Corpuscular Hemoglobin 30.9 pg (28.0-32.0); Mean Corpuscular Hgb Conc. 33.6 g/dL (32.0-36.0); Monocytes # (auto) 0.4 10 ^3/uL (0-1.3); Monocytes % (auto) 4.1 % (0.0-12.0); Neutrophils # (auto) 7.4 10 ^3/uL (1.6-8.6); Neutrophils % (auto) 83.6 % (37.0-80.0); Nucleated Red Blood Cells % 0.1 %; Red Blood Cells 3.19 10^6/uL (4.0-5.20); Red Cell Distribution Width 14.6 % (11.8-14.3); White Blood Cell 8.8 10^3/uL (4.4-10.8)
[2021-08-20] MEDS: levoFLOXacin 250MG 50 ML IV SCH (10:16)
[2021-08-20] MEDS: ENOXAPARIN SOD 40 MG/0.4 ML SYRINGE SC SCH (10:17)
[2021-08-20] MEDS: amLODIPine BESYLATE 5 MG TAB PO SCH (10:17)
[2021-08-20] MEDS: CARVEDILOL 12.5 MG TAB PO SCH ×2 (10:18→22:48)
[2021-08-20 10:43] LABS: Potassium 4.1 mmol/L (3.5-5.1)
[2021-08-20 10:49] LABS: Albumin 2.6 g/dL (3.4-5.0); BUN/Creatinine Ratio 14.8; Bilirubin, Total 0.4 mg/dL (0.2-1.0); Calcium 9.1 mg/dL (8.5-10.1); Total Protein 6.3 g/dL (6.4-8.2)
[2021-08-20] MEDS: PANTOPRAZOLE 40 MG/10 ML VIAL INJ IV SCH ×2 (11:34→22:47)
[2021-08-20] MEDS: MUPIROCIN 2% OINT 15gm or 22gm EACHNOSTRI SCH (22:46)
[2021-08-21] VITALS (11 sets, daily range): BP systolic 135–160; BP diastolic 61–83
[2021-08-21] MEDS: ONDANSETRON HCL 4 MG/2 ML VIAL IV PRN ×3 (04:16→14:15)
[2021-08-21] MEDS: ACCU-CHEK COMFORT CURVE STRIP VI SCH ×3 (05:57→17:00)
[2021-08-21] MEDS: BUMETANIDE 2.5mg/10ml (0.25 mg/ml) INJ IV SCH ×2 (05:57→13:45)
[2021-08-21] MEDS: POTASSIUM CHL 10 Meq TABLET PO SCH ×2 (05:57→13:45)
[2021-08-21] MEDS: InsuLIN REG 1unit/0.01ml Soln (100units/ml) SC SCH ×3 (06:51→17:00)
[2021-08-21] MEDS ORDERED: POLYETHYLENE GLYCOL 17 GM PWDR PO ONE (07:15)
[2021-08-21] MEDS ORDERED: LACTULOSE 20Gm/30ML SOLN PO PRN (07:15)
[2021-08-21] MEDS ORDERED: FLEET MINERAL OIL ENEMA 133 ML PR ONE (07:15)
[2021-08-21] MEDS: DOCUSATE SOD 100 MG CAP PO SCH ×2 (07:46→13:45)
[2021-08-21 09:02] LABS: BUN/Creatinine Ratio 14.3; Calcium 9.1 mg/dL (8.5-10.1); Potassium 3.7 mmol/L (3.5-5.1)
[2021-08-21] MEDS: ENOXAPARIN SOD 40 MG/0.4 ML SYRINGE SC SCH (09:59)
[2021-08-21] MEDS: levoFLOXacin 250MG 50 ML IV SCH (10:00)
[2021-08-21] MEDS: amLODIPine BESYLATE 5 MG TAB PO SCH (10:00)
[2021-08-21] MEDS: CARVEDILOL 12.5 MG TAB PO SCH (10:01)
[2021-08-21] MEDS: PANTOPRAZOLE 40 MG/10 ML VIAL INJ IV SCH (10:11)
[2021-08-21] MEDS: MUPIROCIN 2% OINT 15gm or 22gm EACHNOSTRI SCH (10:11)
[2021-08-21] MEDS ORDERED: METOCLOPRAMIDE HCL 5MG/ml INJ 2ml VIAL IV PRN (11:45)
[2021-08-21 12:12] LABS: INR 1.1 (0.9-1.15)
[2021-08-22] MEDS ORDERED: POLYETHYLENE GLYCOL 17 GM PWDR PO PRN (07:15)
== END 2021-08-21 21:00 | DRG 392 ==
LOC: EDBD 11:20 → ER 11:20 → EDUNIT# 11:20 → TELE 16:56 → ICU CENTRL 08-20 02:40
PROVIDERS: ADMIT Hospitalist; ATTEND Hospitalist
PROC: 05HB33Z Insertion of Infusion Device into Right Basilic Vein, Percutaneous Approach (ICD-10-PCS; principal; 2021-08-20)
PROC: B54MZZA Ultrasonography of Right Upper Extremity Veins, Guidance (ICD-10-PCS; 2021-08-20)
DX: K59.00 Constipation, unspecified (principal); I13.0 Hypertensive heart and chronic kidney disease with heart failure and stage 1 through stage 4 chronic kidney disease, or unspecified chronic kidney disease; I50.22 Chronic systolic (congestive) heart failure; N39.0 Urinary tract infection, site not specified; Z68.41 Body mass index [BMI] 40.0-44.9, adult; I42.9 Cardiomyopathy, unspecified; K21.9 Gastro-esophageal reflux disease without esophagitis; E66.01 Morbid (severe) obesity due to excess calories; E11.22 Type 2 diabetes mellitus with diabetic chronic kidney disease; E78.5 Hyperlipidemia, unspecified; J44.9 Chronic obstructive pulmonary disease, unspecified; R19.00 Intra-abdominal and pelvic swelling, mass and lump, unspecified site; E03.9 Hypothyroidism, unspecified; F32.9 Major depressive disorder, single episode, unspecified; Z20.822 Contact with and (suspected) exposure to COVID-19; Z82.49 Family history of ischemic heart disease and other diseases of the circulatory system; Z83.3 Family history of diabetes mellitus; Z90.710 Acquired absence of both cervix and uterus; Z82.3 Family history of stroke; Z86.73 Personal history of transient ischemic attack (TIA), and cerebral infarction without residual deficits; Z91.14 Patient's other noncompliance with medication regimen; Z88.0 Allergy status to penicillin; Z88.8 Allergy status to other drugs, medicaments and biological substances; N18.30 Chronic kidney disease, stage 3 unspecified
CPT/HCPCS: 36415; 71045; 74176; 76705; 80048; 80053; 81001; 82962; 83735; 83880; 84484; 85025; 85610; 85730; 87081; 87086; 87088; 87186; 93005; 96374; 96375; 97163; 99291; C9113; G0378; J1815; J1956; J2405; J3490

== ENCOUNTER 2021-08-23 22:05 | Emergency (ER) | payer OTHER, MEDICAID ==
[~2021-08-23] VITALS: Ht 170.2 cm; Wt 136.1 kg
[2021-08-23 23:21] LABS: Basophils # (auto) 0.1 10 ^3/uL (0-0.2); Basophils % (auto) 1.3 % (0.0-2.0); Eosinophils # (auto) 0.3 10 ^3/uL (0-0.8); Eosinophils % (auto) 4.7 % (0.0-7.0); Hematocrit 30.1 % (36.0-46.0); Hemoglobin 9.9 g/dL (12.2-16.2); Lymphocytes # (auto) 1.3 10 ^3/uL (0.4-5.4); Lymphocytes % (auto) 17.3 % (10.0-50.0); Mean Corpuscular Hemoglobin 30.9 pg (28.0-32.0); Mean Corpuscular Volume 93.4 fL (80.0-100.0); Monocytes # (auto) 0.6 10 ^3/uL (0-1.3); Monocytes % (auto) 7.7 % (0.0-12.0); Neutrophils # (auto) 5.1 10 ^3/uL (1.6-8.6); Nucleated Red Blood Cells % 0.1 %; Red Blood Cells 3.22 10^6/uL (4.0-5.20); Red Cell Distribution Width 14.3 % (11.8-14.3); White Blood Cell 7.3 10^3/uL (4.4-10.8)
[2021-08-23 23:38] LABS: Calcium 8.8 mg/dL (8.5-10.1); Potassium 3.9 mmol/L (3.5-5.1)
[2021-08-23 23:42] LABS: Albumin 2.6 g/dL (3.4-5.0); BUN/Creatinine Ratio 12.1
[2021-08-23 23:45] LABS: Bilirubin, Total 0.4 mg/dL (0.2-1.0)
[2021-08-24] MEDS ORDERED: FLEET MINERAL OIL ENEMA 133 ML PR ONE (08:15)
[2021-08-24] MEDS ORDERED: ONDANSETRON HCL 4 MG/2 ML VIAL IV ONE (09:15)
[2021-08-24] MEDS ORDERED: metroNIDAZOLE 500MG/100ML 100 ML IV ONE (09:30)
[2021-08-26 01:59] VITALS: BP 128/85
[2021-08-26] MEDS ORDERED: ACETAMINOPHEN 325 MG TAB PO ONE (06:15)
== END 2021-08-26 18:46 | disposition hospice, inpatient (51) ==
LOC: EDUNIT# 22:05 → EDSEX 22:05 → EDBD 22:05 → ER 22:07
DX: R07.89 Other chest pain (principal); I13.0 Hypertensive heart and chronic kidney disease with heart failure and stage 1 through stage 4 chronic kidney disease, or unspecified chronic kidney disease; E11.22 Type 2 diabetes mellitus with diabetic chronic kidney disease; N18.9 Chronic kidney disease, unspecified; I50.9 Heart failure, unspecified; E78.5 Hyperlipidemia, unspecified; Z86.73 Personal history of transient ischemic attack (TIA), and cerebral infarction without residual deficits; Z90.710 Acquired absence of both cervix and uterus; Z79.4 Long term (current) use of insulin; Z79.2 Long term (current) use of antibiotics; Z79.899 Other long term (current) drug therapy; Z88.0 Allergy status to penicillin; Z88.8 Allergy status to other drugs, medicaments and biological substances
CPT/HCPCS: 36415; 71045; 80053; 83880; 84484; 85025; 93005; 96365; 96375; 97163; 99285; J2405; J3490

== ENCOUNTER 2021-09-06 11:43 | Emergency (ER) | payer OTHER, MEDICAID ==
[~2021-09-06] VITALS: Ht 160 cm; Wt 136.1 kg
[2021-09-06] MEDS ORDERED: KETOROLAC TROMETH 30 MG/ML 1ML VIAL IV ONE (12:45)
[2021-09-06] MEDS ORDERED: SODIUM CHLORIDE 0.9% 1,000 ML IVB ONE (12:45)
[2021-09-06] MEDS ORDERED: ONDANSETRON HCL 4 MG/2 ML VIAL IV ONE (12:45)
[2021-09-06 13:20] LABS: Basophils # (auto) 0.1 10 ^3/uL (0-0.2); Eosinophils # (auto) 0.3 10 ^3/uL (0-0.8); Eosinophils % (auto) 3.9 % (0.0-7.0); Hematocrit 32.7 % (36.0-46.0); Hemoglobin 10.8 g/dL (12.2-16.2); Lymphocytes # (auto) 0.9 10 ^3/uL (0.4-5.4); Lymphocytes % (auto) 12.3 % (10.0-50.0); Mean Corpuscular Hemoglobin 30.7 pg (28.0-32.0); Monocytes # (auto) 0.4 10 ^3/uL (0-1.3); Monocytes % (auto) 4.7 % (0.0-12.0); Neutrophils % (auto) 78.1 % (37.0-80.0); Red Blood Cells 3.51 10^6/uL (4.0-5.20); Red Cell Distribution Width 14.4 % (11.8-14.3); White Blood Cell 7.6 10^3/uL (4.4-10.8)
[2021-09-06 13:31] LABS: Albumin 2.8 g/dL (3.4-5.0); BUN/Creatinine Ratio 13.6; Calcium 9.5 mg/dL (8.5-10.1); INR 0.98 (0.9-1.15); Magnesium 2.2 mg/dL (1.6-2.6); Partial Thromboplastin Time 23.4 sec (23.6-33.0); Potassium 3.4 mmol/L (3.5-5.1)
[2021-09-06 13:33] LABS: Bilirubin, Total 0.4 mg/dL (0.2-1.0); Total Protein 6.7 g/dL (6.4-8.2)
[2021-09-06] MEDS ORDERED: DOCU-94 PO (15:50)
[2021-09-06] MEDS ORDERED: DICY10CA PO (15:50)
[2021-09-07] MEDS ORDERED: ACETAMINOPHEN 325 MG TAB PO ONE (05:00)
[2021-09-07 16:40] VITALS: BP 159/74
== END 2021-09-07 16:50 | disposition home or self-care (01) ==
LOC: ER 11:43 → EDBD 11:43 → ER 09-07 16:45
DX: K80.20 Calculus of gallbladder without cholecystitis without obstruction (principal); R11.0 Nausea; K59.00 Constipation, unspecified; I13.0 Hypertensive heart and chronic kidney disease with heart failure and stage 1 through stage 4 chronic kidney disease, or unspecified chronic kidney disease; E11.22 Type 2 diabetes mellitus with diabetic chronic kidney disease; N18.9 Chronic kidney disease, unspecified; I50.9 Heart failure, unspecified; E78.5 Hyperlipidemia, unspecified; E03.9 Hypothyroidism, unspecified; Z86.73 Personal history of transient ischemic attack (TIA), and cerebral infarction without residual deficits; Z90.710 Acquired absence of both cervix and uterus; Z79.4 Long term (current) use of insulin; Z79.82 Long term (current) use of aspirin; Z79.899 Other long term (current) drug therapy; Z88.0 Allergy status to penicillin; Z88.8 Allergy status to other drugs, medicaments and biological substances
CPT/HCPCS: 36415; 74176; 80053; 82150; 83605; 83690; 83735; 84484; 85025; 85610; 85730; 93005

== ENCOUNTER 2021-10-03 20:00 | Emergency (ER) | payer OTHER, MEDICAID ==
[~2021-10-03] VITALS: Ht 170.2 cm; Wt 136.1 kg
[~2021-10-03 20:00] MED LIST changes: +DICY10CA PO
[2021-10-03] MEDS ORDERED: ACETAMINOPHEN 325 MG TAB PO ONE (22:00)
[2021-10-04 00:55] LABS: Albumin 2.7 g/dL (3.4-5.0); BUN/Creatinine Ratio 11.7; Calcium 8.6 mg/dL (8.5-10.1); Potassium 3.3 mmol/L (3.5-5.1)
[2021-10-04 00:58] LABS: Bilirubin, Total 0.2 mg/dL (0.2-1.0); Total Protein 6.6 g/dL (6.4-8.2)
[2021-10-04 01:05] LABS: Basophils # (auto) 0.1 10 ^3/uL (0-0.2); Basophils % (auto) 1.3 % (0.0-2.0); Eosinophils # (auto) 0.3 10 ^3/uL (0-0.8); Hematocrit 30.9 % (36.0-46.0); Hemoglobin 10.1 g/dL (12.2-16.2); Lymphocytes # (auto) 1.3 10 ^3/uL (0.4-5.4); Lymphocytes % (auto) 16.4 % (10.0-50.0); Mean Corpuscular Hemoglobin 29.7 pg (28.0-32.0); Mean Corpuscular Hgb Conc. 32.8 g/dL (32.0-36.0); Mean Corpuscular Volume 90.4 fL (80.0-100.0); Monocytes # (auto) 0.4 10 ^3/uL (0-1.3); Monocytes % (auto) 5.1 % (0.0-12.0); Neutrophils # (auto) 5.9 10 ^3/uL (1.6-8.6); Neutrophils % (auto) 73.2 % (37.0-80.0); Nucleated Red Blood Cells % 0.1 %; Red Blood Cells 3.42 10^6/uL (4.0-5.20); Red Cell Distribution Width 14.5 % (11.8-14.3)
[2021-10-04 15:00] VITALS: BP 164/74
== END 2021-10-04 16:36 | disposition home or self-care (01) ==
LOC: ER 20:00 → EDBD 20:00 → ER 10-04 16:36
DX: R00.2 Palpitations (principal); I13.0 Hypertensive heart and chronic kidney disease with heart failure and stage 1 through stage 4 chronic kidney disease, or unspecified chronic kidney disease; E11.22 Type 2 diabetes mellitus with diabetic chronic kidney disease; N18.9 Chronic kidney disease, unspecified; I50.9 Heart failure, unspecified; E78.5 Hyperlipidemia, unspecified; Z90.89 Acquired absence of other organs; Z90.710 Acquired absence of both cervix and uterus; Z79.4 Long term (current) use of insulin; Z79.899 Other long term (current) drug therapy; Z20.822 Contact with and (suspected) exposure to COVID-19; Z88.0 Allergy status to penicillin; Z88.8 Allergy status to other drugs, medicaments and biological substances
CPT/HCPCS: 36415; 71045; 80053; 83880; 84484; 85025; 93005

== ENCOUNTER 2021-10-16 23:20 | Inpatient (IN) | payer OTHER, MEDICAID ==
[~2021-10-16] VITALS: Ht 172.7 cm; Wt 135.6 kg
[2021-10-17 02:06] LABS: Basophils # (auto) 0.1 10 ^3/uL (0-0.2); Basophils % (auto) 1.2 % (0.0-2.0); Eosinophils # (auto) 0.3 10 ^3/uL (0-0.8); Eosinophils % (auto) 3.3 % (0.0-7.0); Hemoglobin 10.7 g/dL (12.2-16.2); Lymphocytes # (auto) 1.3 10 ^3/uL (0.4-5.4); Lymphocytes % (auto) 14.3 % (10.0-50.0); Mean Corpuscular Hemoglobin 29.3 pg (28.0-32.0); Mean Corpuscular Hgb Conc. 32.6 g/dL (32.0-36.0); Monocytes # (auto) 0.4 10 ^3/uL (0-1.3); Monocytes % (auto) 4.5 % (0.0-12.0); Neutrophils # (auto) 6.7 10 ^3/uL (1.6-8.6); Neutrophils % (auto) 76.7 % (37.0-80.0); Red Blood Cells 3.66 10^6/uL (4.0-5.20); Red Cell Distribution Width 14.5 % (11.8-14.3); White Blood Cell 8.7 10^3/uL (4.4-10.8)
[2021-10-17 02:21] LABS: Albumin 2.8 g/dL (3.4-5.0); Calcium 8.9 mg/dL (8.5-10.1); Potassium 3.1 mmol/L (3.5-5.1)
[2021-10-17 02:23] LABS: BUN/Creatinine Ratio 11.8
[2021-10-17 02:26] LABS: Bilirubin, Total 0.3 mg/dL (0.2-1.0); Total Protein 6.6 g/dL (6.4-8.2)
[2021-10-17] MEDS ORDERED: FUROSEMIDE 100 MG/10ML VIAL IV ONE (07:00)
[2021-10-17] MEDS: FUROSEMIDE 40 MG/4 ML VIAL IV SCH (10:00)
[2021-10-17 10:43] LABS: Alanine Aminotransferase 11 U/L (13-56); Albumin 2.3 g/dL (3.4-5.0); Anion Gap 10 (5-15); Aspartate Aminotransferase 17 U/L (15-37); BUN/Creatinine Ratio 12.4; Basophils # (auto) 0.1 10 ^3/uL (0-0.2); Blood Urea Nitrogen 28 mg/dL (7-18); Calcium 8.7 mg/dL (8.5-10.1); Carbon Dioxide 16 mmol/L (21-32); Chloride 115 mmol/L (98-107); Eosinophils # (auto) 0.3 10 ^3/uL (0-0.8); Eosinophils % (auto) 3.7 % (0.0-7.0); GFR African American 28 mL/min; GFR Non-African American 23 mL/min; Glucose 194 mg/dL (74-106); Hematocrit 33.5 % (36.0-46.0); Hemoglobin 10.5 g/dL (12.2-16.2); Lymphocytes # (auto) 1.1 10 ^3/uL (0.4-5.4); Lymphocytes % (auto) 13.4 % (10.0-50.0); Mean Corpuscular Hemoglobin 29.6 pg (28.0-32.0); Mean Corpuscular Hgb Conc. 31.2 g/dL (32.0-36.0); Mean Corpuscular Volume 94.8 fL (80.0-100.0); Monocytes # (auto) 0.4 10 ^3/uL (0-1.3); Monocytes % (auto) 5.3 % (0.0-12.0); Neutrophils # (auto) 6.2 10 ^3/uL (1.6-8.6); Neutrophils % (auto) 76.6 % (37.0-80.0); Nucleated Red Blood Cells % 0.2 %; Potassium 3.5 mmol/L (3.5-5.1); Red Blood Cells 3.53 10^6/uL (4.0-5.20); Red Cell Distribution Width 15.3 % (11.8-14.3); Sodium 141 mmol/L (136-145); White Blood Cell 8.1 10^3/uL (4.4-10.8)
[2021-10-17] MEDS ORDERED: NITROGLYCERIN 0.4 MG SL TAB SL PRN (10:45)
[2021-10-17] MEDS ORDERED: MORPHINE SULFATE INJ 2 MG/ml SYRG IV PRN (10:45)
[2021-10-17 10:46] LABS: Alkaline Phosphatase 137 U/L (45-117); Bilirubin, Total 0.4 mg/dL (0.2-1.0); Total Protein 6.2 g/dL (6.4-8.2)
[2021-10-17] MEDS: CARVEDILOL 12.5 MG TAB PO SCH ×2 (11:15→21:30)
[2021-10-17] MEDS: ASPirin 81 mg TAB PO SCH (11:15)
[2021-10-17] MEDS ORDERED: DEXTROSE (50%) 50ML SYRG IV PRN (12:00)
[2021-10-17 13:00] VITALS: BP 146/97
[2021-10-17] MEDS ORDERED: ACCU-CHEK COMFORT CURVE STRIP VI ONE ×2 (13:15→14:00)
[2021-10-17] MEDS: metOLazone 5 MG TAB PO SCH (13:49)
[2021-10-17 17:00] VITALS: BP 169/88
[2021-10-17] MEDS ORDERED: InsuLIN REG 1unit/0.01ml Soln (100units/ml) SC SCH (17:00)
[2021-10-17] MEDS: InsuLIN REG 1unit/0.01ml Soln (100units/ml) SC SCH ×2 (17:00→22:43)
[2021-10-17] MEDS: hydrALAZINE HCL 20 MG/ML VL IV PRN ×2 (17:21→23:32)
[2021-10-17] MEDS: ACCU-CHEK COMFORT CURVE STRIP VI SCH ×2 (19:24→22:05)
[2021-10-17] MEDS: ATORVASTATIN 20 MG TAB PO SCH (21:31)
[2021-10-17 22:27] VITALS: BP 160/84
[2021-10-17] MEDS: INSULIN LANTUS (GLARGINE) 1 /0.01ml (100units/ml) SC SCH (22:43)
[2021-10-17] MEDS: ACETAMINOPHEN 325 MG TAB PO PRN (23:30)
[2021-10-18 01:30] VITALS: BP 148/79
[2021-10-18 05:25] VITALS: BP 134/74
[2021-10-18] MEDS: LEVOTHYROXINE SODIUM 50 MCG TAB PO SCH (06:37)
[2021-10-18] MEDS: InsuLIN REG 1unit/0.01ml Soln (100units/ml) SC SCH ×4 (06:38→21:27)
[2021-10-18] MEDS: ACCU-CHEK COMFORT CURVE STRIP VI SCH ×4 (06:38→21:45)
[2021-10-18 09:00] VITALS: BP 132/61
[2021-10-18] MEDS: ASPirin 81 mg TAB PO SCH (09:50)
[2021-10-18] MEDS: FUROSEMIDE 40 MG/4 ML VIAL IV SCH (09:50)
[2021-10-18] MEDS: CARVEDILOL 12.5 MG TAB PO SCH ×2 (09:50→21:23)
[2021-10-18] MEDS: ENALAPRIL MALEATE 2.5 MG TAB PO SCH ×2 (09:51→21:23)
[2021-10-18] MEDS: metOLazone 5 MG TAB PO SCH (09:51)
[2021-10-18] MEDS: ONDANSETRON HCL 4 MG/2 ML VIAL IV PRN ×2 (10:28→19:16)
[2021-10-18 10:32] LABS: Urine Amorphous Crystal FEW /hpf (None Seen); Urine Bacteria FEW /hpf (None Seen); Urine Blood Negative /uL (Negative); Urine Hyaline Cast FEW /lpf (0 - 2); Urine Specific Gravity 1.015 (1.001-1.035); Urine WBC 28 /hpf (0 - 5)
[2021-10-18 11:10] LABS: Protein, Urine 538.1 mg/dL (0.0-11.9)
[2021-10-18 12:30] VITALS: BP 153/74
[2021-10-18 14:32] LABS: BUN/Creatinine Ratio 13.6; Calcium 8.7 mg/dL (8.5-10.1); Potassium 3.5 mmol/L (3.5-5.1)
[2021-10-18 17:00] VITALS: BP 146/64
[2021-10-18] MEDS: DOCUSATE SOD 100 MG CAP PO PRN (21:20)
[2021-10-18] MEDS: ATORVASTATIN 20 MG TAB PO SCH (21:21)
[2021-10-18] MEDS: INSULIN LANTUS (GLARGINE) 1 /0.01ml (100units/ml) SC SCH (21:45)
[2021-10-18 22:00] VITALS: BP 135/67
[2021-10-19 05:00] VITALS: BP 115/52
[2021-10-19 06:09] LABS: Calcium 8.2 mg/dL (8.5-10.1); Potassium 3.3 mmol/L (3.5-5.1)
[2021-10-19 06:12] LABS: BUN/Creatinine Ratio 13.6
[2021-10-19] MEDS: LEVOTHYROXINE SODIUM 50 MCG TAB PO SCH (06:50)
[2021-10-19] MEDS: ACCU-CHEK COMFORT CURVE STRIP VI SCH ×4 (06:50→21:44)
[2021-10-19] MEDS: InsuLIN REG 1unit/0.01ml Soln (100units/ml) SC SCH ×4 (06:50→21:41)
[2021-10-19 09:00] VITALS: BP 131/81
[2021-10-19] MEDS: metOLazone 5 MG TAB PO SCH (10:58)
[2021-10-19] MEDS: CARVEDILOL 12.5 MG TAB PO SCH ×2 (10:59→21:42)
[2021-10-19] MEDS: ASPirin 81 mg TAB PO SCH (10:59)
[2021-10-19] MEDS: ENALAPRIL MALEATE 2.5 MG TAB PO SCH ×2 (11:00→21:43)
[2021-10-19] MEDS: FUROSEMIDE 40 MG/4 ML VIAL IV SCH (11:01)
[2021-10-19 12:00] VITALS: BP 134/87
[2021-10-19 17:51] VITALS: BP 165/88
[2021-10-19] MEDS: INSULIN LANTUS (GLARGINE) 1 /0.01ml (100units/ml) SC SCH (21:40)
[2021-10-19] MEDS: ATORVASTATIN 20 MG TAB PO SCH (21:42)
[2021-10-19 22:00] VITALS: BP 134/58
[2021-10-19] MEDS ORDERED: FUROSEMIDE 40 MG/4 ML VIAL IV SCH (22:00)
[2021-10-20 04:00] VITALS: BP 155/74
[2021-10-20 05:37] LABS: Basophils # (auto) 0.1 10 ^3/uL (0-0.2); Basophils % (auto) 1.1 % (0.0-2.0); Eosinophils # (auto) 0.3 10 ^3/uL (0-0.8); Eosinophils % (auto) 4.3 % (0.0-7.0); Hematocrit 27.5 % (36.0-46.0); Lymphocytes # (auto) 1.4 10 ^3/uL (0.4-5.4); Mean Corpuscular Hemoglobin 29.7 pg (28.0-32.0); Mean Corpuscular Hgb Conc. 32.8 g/dL (32.0-36.0); Mean Corpuscular Volume 90.5 fL (80.0-100.0); Monocytes # (auto) 0.5 10 ^3/uL (0-1.3); Monocytes % (auto) 6.6 % (0.0-12.0); Neutrophils # (auto) 4.8 10 ^3/uL (1.6-8.6); Nucleated Red Blood Cells % 0.1 %; Red Blood Cells 3.04 10^6/uL (4.0-5.20); Red Cell Distribution Width 14.9 % (11.8-14.3); White Blood Cell 7.1 10^3/uL (4.4-10.8)
[2021-10-20 05:42] LABS: Calcium 8.6 mg/dL (8.5-10.1); Magnesium 2.2 mg/dL (1.6-2.6); Potassium 3.3 mmol/L (3.5-5.1)
[2021-10-20 05:48] LABS: BUN/Creatinine Ratio 13.1
[2021-10-20] MEDS: InsuLIN REG 1unit/0.01ml Soln (100units/ml) SC SCH ×4 (05:52→22:00)
[2021-10-20] MEDS: LEVOTHYROXINE SODIUM 50 MCG TAB PO SCH (05:55)
[2021-10-20] MEDS: ACCU-CHEK COMFORT CURVE STRIP VI SCH ×4 (05:55→22:29)
[2021-10-20] MEDS: ONDANSETRON HCL 4 MG/2 ML VIAL IV PRN ×3 (08:25→22:23)
[2021-10-20 09:00] VITALS: BP 141/57
[2021-10-20] MEDS ORDERED: ENALAPRIL MALEATE 10 MG TAB PO SCH (10:00)
[2021-10-20] MEDS: ASPirin 81 mg TAB PO SCH (10:17)
[2021-10-20] MEDS: FUROSEMIDE 40 MG/4 ML VIAL IV SCH (10:17)
[2021-10-20] MEDS: metOLazone 5 MG TAB PO SCH (10:18)
[2021-10-20] MEDS: CARVEDILOL 12.5 MG TAB PO SCH ×2 (10:19→21:56)
[2021-10-20 13:00] VITALS: BP 149/77
[2021-10-20] MEDS ORDERED: POTASSIUM CHL 20 Meq TABLET PO ONE (13:30)
[2021-10-20 17:00] VITALS: BP 151/71
[2021-10-20] MEDS: ATORVASTATIN 20 MG TAB PO SCH (21:56)
[2021-10-20] MEDS: hydrALAZINE HCL 25 MG TAB PO SCH (21:57)
[2021-10-20 22:00] VITALS: BP 155/76
[2021-10-20] MEDS: INSULIN LANTUS (GLARGINE) 1 /0.01ml (100units/ml) SC SCH (22:00)
[2021-10-20] MEDS: ACETAMINOPHEN 325 MG TAB PO PRN (22:44)
[2021-10-21 05:00] VITALS: BP 132/55
[2021-10-21] MEDS: InsuLIN REG 1unit/0.01ml Soln (100units/ml) SC SCH ×4 (06:18→22:04)
[2021-10-21] MEDS: ACCU-CHEK COMFORT CURVE STRIP VI SCH ×4 (06:19→22:05)
[2021-10-21] MEDS: LEVOTHYROXINE SODIUM 50 MCG TAB PO SCH (06:26)
[2021-10-21 08:00] VITALS: BP 130/58
[2021-10-21 08:06] LABS: Calcium 8.6 mg/dL (8.5-10.1); Potassium 3.6 mmol/L (3.5-5.1)
[2021-10-21 08:08] LABS: BUN/Creatinine Ratio 15.1
[2021-10-21] MEDS: ASPirin 81 mg TAB PO SCH (10:52)
[2021-10-21] MEDS: FUROSEMIDE 40 MG/4 ML VIAL IV SCH (10:52)
[2021-10-21] MEDS: CARVEDILOL 12.5 MG TAB PO SCH ×2 (10:53→22:14)
[2021-10-21] MEDS: hydrALAZINE HCL 25 MG TAB PO SCH ×2 (10:53→22:05)
[2021-10-21] MEDS ORDERED: SODIUM CHLORIDE 0.9% 500 ML IV ONE (11:30)
[2021-10-21] MEDS ORDERED: ALBUMIN 25% 100 ML IV ONE (11:30)
[2021-10-21 12:00] VITALS: BP 152/75
[2021-10-21] MEDS: ACETAMINOPHEN 325 MG TAB PO PRN ×2 (14:44→23:12)
[2021-10-21 16:00] VITALS: BP 130/58
[2021-10-21 22:00] VITALS: BP 149/59
[2021-10-21] MEDS: INSULIN LANTUS (GLARGINE) 1 /0.01ml (100units/ml) SC SCH (22:03)
[2021-10-21] MEDS: ONDANSETRON HCL 4 MG/2 ML VIAL IV PRN (22:04)
[2021-10-21] MEDS: ATORVASTATIN 20 MG TAB PO SCH (22:04)
[2021-10-22 05:00] VITALS: BP 177/77
[2021-10-22] MEDS: DOCUSATE SOD 100 MG CAP PO PRN (06:34)
[2021-10-22] MEDS: LEVOTHYROXINE SODIUM 50 MCG TAB PO SCH (06:34)
[2021-10-22] MEDS: InsuLIN REG 1unit/0.01ml Soln (100units/ml) SC SCH ×4 (06:36→22:00)
[2021-10-22] MEDS: ACCU-CHEK COMFORT CURVE STRIP VI SCH ×4 (06:40→22:15)
[2021-10-22 08:00] VITALS: BP 143/73
[2021-10-22] MEDS: ASPirin 81 mg TAB PO SCH (09:29)
[2021-10-22] MEDS: hydrALAZINE HCL 25 MG TAB PO SCH ×2 (09:30→22:12)
[2021-10-22 11:14] LABS: BUN/Creatinine Ratio 15.5; Calcium 8.8 mg/dL (8.5-10.1); Potassium 3.6 mmol/L (3.5-5.1)
[2021-10-22 12:00] VITALS: BP 146/66
[2021-10-22] MEDS: CARVEDILOL 12.5 MG TAB PO SCH ×2 (13:02→22:13)
[2021-10-22] MEDS: ACETAMINOPHEN 325 MG TAB PO PRN (13:48)
[2021-10-22 16:00] VITALS: BP 149/70
[2021-10-22] MEDS: ONDANSETRON HCL 4 MG/2 ML VIAL IV PRN (17:06)
[2021-10-22 22:00] VITALS: BP 177/80
[2021-10-22] MEDS: INSULIN LANTUS (GLARGINE) 1 /0.01ml (100units/ml) SC SCH (22:00)
[2021-10-22] MEDS: ATORVASTATIN 20 MG TAB PO SCH (22:13)
[2021-10-23] MEDS: InsuLIN REG 1unit/0.01ml Soln (100units/ml) SC SCH ×4 (04:35→22:00)
[2021-10-23] MEDS: ACCU-CHEK COMFORT CURVE STRIP VI SCH ×4 (04:36→21:50)
[2021-10-23] MEDS: LEVOTHYROXINE SODIUM 50 MCG TAB PO SCH (04:43)
[2021-10-23] MEDS: hydrALAZINE HCL 20 MG/ML VL IV PRN (04:44)
[2021-10-23 04:59] VITALS: BP 169/64
[2021-10-23] MEDS: DOCUSATE SOD 100 MG CAP PO PRN (07:00)
[2021-10-23 08:00] VITALS: BP 134/83
[2021-10-23] MEDS: ASPirin 81 mg TAB PO SCH (10:07)
[2021-10-23] MEDS: hydrALAZINE HCL 25 MG TAB PO SCH ×3 (10:12→21:49)
[2021-10-23] MEDS: CARVEDILOL 12.5 MG TAB PO SCH ×2 (10:14→21:50)
[2021-10-23 12:00] VITALS: BP 139/54
[2021-10-23] MEDS ORDERED: FUROSEMIDE 40 MG/4 ML VIAL IV ONE (13:00)
[2021-10-23] MEDS ORDERED: LACTULOSE 20Gm/30ML SOLN PO ONE (13:00)
[2021-10-23 14:22] LABS: BUN/Creatinine Ratio 18.5; Calcium 8.5 mg/dL (8.5-10.1); Potassium 3.6 mmol/L (3.5-5.1)
[2021-10-23 16:00] VITALS: BP 152/61
[2021-10-23] MEDS: LACTULOSE 20Gm/30ML SOLN PO SCH (21:49)
[2021-10-23] MEDS: ATORVASTATIN 20 MG TAB PO SCH (21:50)
[2021-10-23] MEDS: INSULIN LANTUS (GLARGINE) 1 /0.01ml (100units/ml) SC SCH (21:55)
[2021-10-24] MEDS: ONDANSETRON HCL 4 MG/2 ML VIAL IV PRN ×3 (00:50→14:04)
[2021-10-24 05:00] VITALS: BP 158/70
[2021-10-24] MEDS: hydrALAZINE HCL 25 MG TAB PO SCH ×3 (06:00→22:00)
[2021-10-24] MEDS: LEVOTHYROXINE SODIUM 50 MCG TAB PO SCH (06:37)
[2021-10-24] MEDS: ACCU-CHEK COMFORT CURVE STRIP VI SCH ×4 (06:37→22:00)
[2021-10-24] MEDS: InsuLIN REG 1unit/0.01ml Soln (100units/ml) SC SCH ×4 (06:38→22:00)
[2021-10-24 09:00] VITALS: BP 136/62
[2021-10-24] MEDS: ACETAMINOPHEN 325 MG TAB PO PRN ×3 (11:04→18:14)
[2021-10-24] MEDS: ASPirin 81 mg TAB PO SCH (11:04)
[2021-10-24] MEDS: FUROSEMIDE 40 MG/4 ML VIAL IV SCH (11:04)
[2021-10-24] MEDS: CARVEDILOL 12.5 MG TAB PO SCH ×2 (11:05→22:00)
[2021-10-24] MEDS: LACTULOSE 20Gm/30ML SOLN PO SCH ×2 (11:07→22:00)
[2021-10-24] MEDS ORDERED: PANTOPRAZOLE 40 MG/10 ML VIAL INJ IV ONE (11:45)
[2021-10-24] MEDS ORDERED: CALCIUM CARB 500 MG CHEW TAB PO PRN (11:45)
[2021-10-24] MEDS ORDERED: FLUCONAZOLE 100 MG TAB PO ONE (11:45)
[2021-10-24 11:54] LABS: BUN/Creatinine Ratio 17.1
[2021-10-24 13:00] VITALS: BP 140/68
[2021-10-24 17:00] VITALS: BP 127/58
[2021-10-24 22:00] VITALS: BP 123/54
[2021-10-24] MEDS: ATORVASTATIN 20 MG TAB PO SCH (22:00)
[2021-10-24] MEDS: INSULIN LANTUS (GLARGINE) 1 /0.01ml (100units/ml) SC SCH (22:00)
[2021-10-25] MEDS: ACETAMINOPHEN 325 MG TAB PO PRN ×2 (02:36→12:19)
[2021-10-25 05:58] VITALS: BP 134/61
[2021-10-25] MEDS: InsuLIN REG 1unit/0.01ml Soln (100units/ml) SC SCH ×4 (06:09→22:06)
[2021-10-25] MEDS: hydrALAZINE HCL 25 MG TAB PO SCH ×3 (06:09→22:06)
[2021-10-25] MEDS: LEVOTHYROXINE SODIUM 50 MCG TAB PO SCH (06:09)
[2021-10-25] MEDS: ACCU-CHEK COMFORT CURVE STRIP VI SCH ×4 (06:09→21:54)
[2021-10-25 09:00] VITALS: BP 147/70
[2021-10-25] MEDS: LACTULOSE 20Gm/30ML SOLN PO SCH ×2 (10:00→21:53)
[2021-10-25] MEDS: ASPirin 81 mg TAB PO SCH (10:19)
[2021-10-25] MEDS: FUROSEMIDE 40 MG/4 ML VIAL IV SCH (10:19)
[2021-10-25] MEDS: PANTOPRAZOLE 40 MG/10 ML VIAL INJ IV SCH (10:19)
[2021-10-25] MEDS: CARVEDILOL 12.5 MG TAB PO SCH ×2 (10:20→22:09)
[2021-10-25] MEDS: FLUCONAZOLE 100 MG TAB PO SCH (10:20)
[2021-10-25 13:00] VITALS: BP 150/69
[2021-10-25 17:00] VITALS: BP 145/59
[2021-10-25] MEDS: ONDANSETRON HCL 4 MG/2 ML VIAL IV PRN (20:10)
[2021-10-25] MEDS: ATORVASTATIN 20 MG TAB PO SCH (21:54)
[2021-10-25 22:00] VITALS: BP 137/63
[2021-10-25] MEDS: INSULIN LANTUS (GLARGINE) 1 /0.01ml (100units/ml) SC SCH (22:05)
[2021-10-26 05:00] VITALS: BP 136/57
[2021-10-26] MEDS: hydrALAZINE HCL 25 MG TAB PO SCH ×3 (05:30→22:00)
[2021-10-26] MEDS: LEVOTHYROXINE SODIUM 50 MCG TAB PO SCH (06:28)
[2021-10-26] MEDS: InsuLIN REG 1unit/0.01ml Soln (100units/ml) SC SCH ×4 (06:28→22:00)
[2021-10-26] MEDS: ACCU-CHEK COMFORT CURVE STRIP VI SCH ×4 (06:28→22:00)
[2021-10-26] MEDS: FLUCONAZOLE 100 MG TAB PO SCH (08:54)
[2021-10-26] MEDS: PANTOPRAZOLE 40 MG/10 ML VIAL INJ IV SCH (08:54)
[2021-10-26] MEDS: LACTULOSE 20Gm/30ML SOLN PO SCH ×2 (08:54→22:00)
[2021-10-26] MEDS: ACETAMINOPHEN 325 MG TAB PO PRN ×3 (08:55→21:23)
[2021-10-26] MEDS: ASPirin 81 mg TAB PO SCH (08:55)
[2021-10-26] MEDS: FUROSEMIDE 40 MG/4 ML VIAL IV SCH ×2 (08:56→18:00)
[2021-10-26 09:00] VITALS: BP 117/54
[2021-10-26] MEDS: CARVEDILOL 12.5 MG TAB PO SCH ×2 (10:00→22:00)
[2021-10-26] MEDS ORDERED: FUROSEMIDE 20 MG/2 ML VIAL IV ONE (10:30)
[2021-10-26 11:42] LABS: Basophils # (auto) 0 10 ^3/uL (0-0.2); Basophils % (auto) 0.6 % (0.0-2.0); Eosinophils # (auto) 0.1 10 ^3/uL (0-0.8); Eosinophils % (auto) 1.9 % (0.0-7.0); Hemoglobin 9.3 g/dL (12.2-16.2); Lymphocytes # (auto) 0.9 10 ^3/uL (0.4-5.4); Lymphocytes % (auto) 29.1 % (10.0-50.0); Mean Corpuscular Hemoglobin 29.2 pg (28.0-32.0); Mean Corpuscular Hgb Conc. 32.2 g/dL (32.0-36.0); Mean Corpuscular Volume 90.7 fL (80.0-100.0); Monocytes # (auto) 0.4 10 ^3/uL (0-1.3); Monocytes % (auto) 13.6 % (0.0-12.0); Neutrophils # (auto) 1.7 10 ^3/uL (1.6-8.6); Neutrophils % (auto) 54.8 % (37.0-80.0); Nucleated Red Blood Cells % 0.1 %; Red Cell Distribution Width 14.8 % (11.8-14.3); White Blood Cell 3.1 10^3/uL (4.4-10.8)
[2021-10-26 11:56] LABS: Albumin 2.7 g/dL (3.4-5.0); Calcium 8.1 mg/dL (8.5-10.1); Potassium 3.2 mmol/L (3.5-5.1)
[2021-10-26 11:58] LABS: BUN/Creatinine Ratio 16.3; Bilirubin, Total 0.2 mg/dL (0.2-1.0); Total Protein 5.9 g/dL (6.4-8.2)
[2021-10-26 12:07] LABS: Urine Bacteria MANY /hpf (None Seen); Urine Blood Negative /uL (Negative); Urine Specific Gravity 1.015 (1.001-1.035); Urine WBC 379 /hpf (0 - 5); Urine WBC Clumps PRESENT /hpf (None Seen)
[2021-10-26 13:37] VITALS: BP 130/60
[2021-10-26 14:04] VITALS: BP 138/66
[2021-10-26 17:00] VITALS: BP 129/59
[2021-10-26] MEDS ORDERED: FUROSEMIDE 20 MG/2 ML VIAL IV SCH (18:00)
[2021-10-26] MEDS: INSULIN LANTUS (GLARGINE) 1 /0.01ml (100units/ml) SC SCH (22:00)
[2021-10-26] MEDS: ATORVASTATIN 20 MG TAB PO SCH (22:00)
[2021-10-27 00:13] VITALS: BP 127/67
[2021-10-27] MEDS: ACETAMINOPHEN 325 MG TAB PO PRN (03:48)
[2021-10-27 04:48] VITALS: BP 122/56
[2021-10-27] MEDS: FUROSEMIDE 40 MG/4 ML VIAL IV SCH ×2 (06:03→19:48)
[2021-10-27] MEDS: hydrALAZINE HCL 25 MG TAB PO SCH ×3 (06:03→21:40)
[2021-10-27] MEDS: LEVOTHYROXINE SODIUM 50 MCG TAB PO SCH (06:03)
[2021-10-27] MEDS: ACCU-CHEK COMFORT CURVE STRIP VI SCH ×4 (06:04→21:42)
[2021-10-27] MEDS: InsuLIN REG 1unit/0.01ml Soln (100units/ml) SC SCH ×4 (06:04→21:57)
[2021-10-27 06:12] LABS: Basophils # (auto) 0 10 ^3/uL (0-0.2); Basophils % (auto) 0.6 % (0.0-2.0); Eosinophils # (auto) 0.1 10 ^3/uL (0-0.8); Eosinophils % (auto) 3.5 % (0.0-7.0); Hematocrit 27.4 % (36.0-46.0); Hemoglobin 9.1 g/dL (12.2-16.2); Lymphocytes % (auto) 32.2 % (10.0-50.0); Mean Corpuscular Hemoglobin 29.9 pg (28.0-32.0); Mean Corpuscular Hgb Conc. 33.3 g/dL (32.0-36.0); Mean Corpuscular Volume 89.9 fL (80.0-100.0); Monocytes # (auto) 0.4 10 ^3/uL (0-1.3); Monocytes % (auto) 13.2 % (0.0-12.0); Neutrophils # (auto) 1.6 10 ^3/uL (1.6-8.6); Neutrophils % (auto) 50.5 % (37.0-80.0); Nucleated Red Blood Cells % 0.1 %; Red Blood Cells 3.04 10^6/uL (4.0-5.20); Red Cell Distribution Width 14.8 % (11.8-14.3); White Blood Cell 3.1 10^3/uL (4.4-10.8)
[2021-10-27 06:30] LABS: BUN/Creatinine Ratio 16.7; Calcium 8.1 mg/dL (8.5-10.1); Potassium 3.1 mmol/L (3.5-5.1)
[2021-10-27 09:00] VITALS: BP 131/68
[2021-10-27] MEDS: ASPirin 81 mg TAB PO SCH (10:43)
[2021-10-27] MEDS: LACTULOSE 20Gm/30ML SOLN PO SCH ×2 (10:44→21:45)
[2021-10-27] MEDS: FLUCONAZOLE 100 MG TAB PO SCH (10:45)
[2021-10-27] MEDS: PANTOPRAZOLE 40 MG TAB PO SCH (10:45)
[2021-10-27] MEDS: CARVEDILOL 12.5 MG TAB PO SCH ×2 (10:45→21:41)
[2021-10-27] MEDS ORDERED: POTASSIUM CHL 20 Meq TABLET PO ONE ×2 (12:00→14:15)
[2021-10-27 13:00] VITALS: BP 155/71
[2021-10-27 17:00] VITALS: BP 144/64
[2021-10-27] MEDS: METOCLOPRAMIDE HCL 10 MG TAB PO SCH ×2 (19:47→21:42)
[2021-10-27] MEDS: ATORVASTATIN 20 MG TAB PO SCH (21:40)
[2021-10-27] MEDS: INSULIN LANTUS (GLARGINE) 1 /0.01ml (100units/ml) SC SCH (21:56)
[2021-10-28 02:11] VITALS: BP 113/62
[2021-10-28] MEDS: hydrALAZINE HCL 25 MG TAB PO SCH ×3 (05:41→21:59)
[2021-10-28] MEDS: FUROSEMIDE 40 MG/4 ML VIAL IV SCH ×2 (05:41→17:45)
[2021-10-28 05:56] VITALS: BP 135/67
[2021-10-28 05:59] LABS: BUN/Creatinine Ratio 18.2; Calcium 8.4 mg/dL (8.5-10.1)
[2021-10-28] MEDS: ACCU-CHEK COMFORT CURVE STRIP VI SCH ×4 (06:50→22:00)
[2021-10-28] MEDS: LEVOTHYROXINE SODIUM 50 MCG TAB PO SCH (06:50)
[2021-10-28] MEDS: METOCLOPRAMIDE HCL 10 MG TAB PO SCH ×4 (06:50→21:59)
[2021-10-28] MEDS: InsuLIN REG 1unit/0.01ml Soln (100units/ml) SC SCH ×4 (06:51→22:00)
[2021-10-28 09:19] VITALS: BP 126/57
[2021-10-28] MEDS: LACTULOSE 20Gm/30ML SOLN PO SCH ×2 (10:00→22:05)
[2021-10-28] MEDS: ASPirin 81 mg TAB PO SCH (10:19)
[2021-10-28] MEDS: CARVEDILOL 12.5 MG TAB PO SCH ×2 (10:21→22:00)
[2021-10-28] MEDS: FLUCONAZOLE 100 MG TAB PO SCH (10:21)
[2021-10-28] MEDS: PANTOPRAZOLE 40 MG TAB PO SCH (10:22)
[2021-10-28 13:00] VITALS: BP 132/53
[2021-10-28] MEDS: ACETAMINOPHEN 325 MG TAB PO PRN (14:39)
[2021-10-28 17:04] VITALS: BP 143/64
[2021-10-28] MEDS: ATORVASTATIN 20 MG TAB PO SCH (21:59)
[2021-10-28 22:00] VITALS: BP 135/71
[2021-10-28] MEDS: INSULIN LANTUS (GLARGINE) 1 /0.01ml (100units/ml) SC SCH (22:10)
[2021-10-29] MEDS: ACETAMINOPHEN 325 MG TAB PO PRN (04:21)
[2021-10-29 05:00] VITALS: BP 133/68
[2021-10-29] MEDS: FUROSEMIDE 40 MG/4 ML VIAL IV SCH (06:22)
[2021-10-29] MEDS: METOCLOPRAMIDE HCL 10 MG TAB PO SCH ×2 (06:23→12:24)
[2021-10-29] MEDS: LEVOTHYROXINE SODIUM 50 MCG TAB PO SCH (06:23)
[2021-10-29] MEDS: hydrALAZINE HCL 25 MG TAB PO SCH ×2 (06:23→13:23)
[2021-10-29] MEDS: ACCU-CHEK COMFORT CURVE STRIP VI SCH ×2 (06:24→11:30)
[2021-10-29] MEDS: InsuLIN REG 1unit/0.01ml Soln (100units/ml) SC SCH ×2 (06:24→11:30)
[2021-10-29 09:00] VITALS: BP 134/76
[2021-10-29] MEDS: LACTULOSE 20Gm/30ML SOLN PO SCH (10:00)
[2021-10-29] MEDS: ASPirin 81 mg TAB PO SCH (10:21)
[2021-10-29] MEDS: CARVEDILOL 12.5 MG TAB PO SCH (10:22)
[2021-10-29] MEDS: FLUCONAZOLE 100 MG TAB PO SCH (10:22)
[2021-10-29] MEDS: PANTOPRAZOLE 40 MG TAB PO SCH (10:23)
[2021-10-29 12:45] VITALS: BP 134/76
== END 2021-10-29 13:30 | disposition hospice, inpatient (51) | DRG 291 ==
LOC: ER 23:20 → EDUNIT# 23:20 → EDBD 23:20 → TELE 10-17 10:40 → ER 10-17 11:40 → TELE-EAST 10-17 11:50
PROVIDERS: ADMIT Internal Medicine; ATTEND Internal Medicine
PROC: 05H933Z Insertion of Infusion Device into Right Brachial Vein, Percutaneous Approach (ICD-10-PCS; principal; 2021-10-17)
PROC: B54MZZA Ultrasonography of Right Upper Extremity Veins, Guidance (ICD-10-PCS; 2021-10-17)
DX: I13.0 Hypertensive heart and chronic kidney disease with heart failure and stage 1 through stage 4 chronic kidney disease, or unspecified chronic kidney disease (principal); I50.43 Acute on chronic combined systolic (congestive) and diastolic (congestive) heart failure; N17.0 Acute kidney failure with tubular necrosis; J96.21 Acute and chronic respiratory failure with hypoxia; J98.11 Atelectasis; Z68.42 Body mass index [BMI] 45.0-49.9, adult; Z20.822 Contact with and (suspected) exposure to COVID-19; I16.0 Hypertensive urgency; E11.22 Type 2 diabetes mellitus with diabetic chronic kidney disease; E66.01 Morbid (severe) obesity due to excess calories; E78.5 Hyperlipidemia, unspecified; E88.09 Other disorders of plasma-protein metabolism, not elsewhere classified; B37.9 Candidiasis, unspecified; D64.9 Anemia, unspecified; E03.9 Hypothyroidism, unspecified; D63.8 Anemia in other chronic diseases classified elsewhere; E11.43 Type 2 diabetes mellitus with diabetic autonomic (poly)neuropathy; E87.6 Hypokalemia; K31.84 Gastroparesis; Z90.710 Acquired absence of both cervix and uterus; Z86.73 Personal history of transient ischemic attack (TIA), and cerebral infarction without residual deficits; Z82.49 Family history of ischemic heart disease and other diseases of the circulatory system; Z88.0 Allergy status to penicillin; Z88.8 Allergy status to other drugs, medicaments and biological substances; Z74.01 Bed confinement status; Z79.4 Long term (current) use of insulin; N18.32 Chronic kidney disease, stage 3b; E11.65 Type 2 diabetes mellitus with hyperglycemia
CPT/HCPCS: 36415; 71045; 74176; 76775; 80048; 80053; 81001; 82570; 82962; 83036; 83735; 83880; 84156; 84484; 85025; 87086; 93005; 93970; 96374; 97110; 97163; 97530; C9113; G0378; J1815; J2405; P9047

== ENCOUNTER 2021-11-17 13:51 | Inpatient (IN) | payer OTHER, MEDICAID ==
[~2021-11-17] VITALS: Ht 167.6 cm; Wt 116.0 kg
[2021-11-17] MEDS: InsuLIN REG 1unit/0.01ml Soln (100units/ml) SC SCH
[2021-11-17] MEDS: ACCU-CHEK COMFORT CURVE STRIP VI SCH
[2021-11-17 15:03] LABS: Alanine Aminotransferase 17 U/L (13-56); Albumin 2.9 g/dL (3.4-5.0); Anion Gap 9 (5-15); Aspartate Aminotransferase 12 U/L (15-37); BUN/Creatinine Ratio 16.9; Blood Urea Nitrogen 45 mg/dL (7-18); Calcium 8.8 mg/dL (8.5-10.1); Carbon Dioxide 20 mmol/L (21-32); Chloride 111 mmol/L (98-107); GFR African American 23 mL/min; GFR Non-African American 19 mL/min; Glucose 218 mg/dL (74-106); Sodium 140 mmol/L (136-145)
[2021-11-17 15:06] LABS: Alkaline Phosphatase 149 U/L (45-117); Bilirubin, Total 0.2 mg/dL (0.2-1.0); Total Protein 6.5 g/dL (6.4-8.2)
[2021-11-17] MEDS ORDERED: cefTRIAXone 1GM/50ML D5W 50 ML IV ONE (15:15)
[2021-11-17 16:00] LABS: Basophils # (auto) 0 10 ^3/uL (0-0.2); Basophils % (auto) 0.7 % (0.0-2.0); Eosinophils # (auto) 0.2 10 ^3/uL (0-0.8); Eosinophils % (auto) 3.3 % (0.0-7.0); Hematocrit 32.8 % (36.0-46.0); Hemoglobin 10.5 g/dL (12.2-16.2); Lymphocytes % (auto) 16.3 % (10.0-50.0); Mean Corpuscular Hemoglobin 28.2 pg (28.0-32.0); Mean Corpuscular Volume 88.3 fL (80.0-100.0); Monocytes # (auto) 0.4 10 ^3/uL (0-1.3); Monocytes % (auto) 6.1 % (0.0-12.0); Neutrophils # (auto) 4.6 10 ^3/uL (1.6-8.6); Neutrophils % (auto) 73.6 % (37.0-80.0); Red Blood Cells 3.72 10^6/uL (4.0-5.20); Red Cell Distribution Width 15.1 % (11.8-14.3); White Blood Cell 6.2 10^3/uL (4.4-10.8)
[2021-11-17 17:22] LABS: Urine Amorphous Crystal MOD /hpf (None Seen); Urine Bacteria MANY /hpf (None Seen); Urine Blood Negative /uL (Negative); Urine Mucus FEW (None Seen); Urine Specific Gravity 1.011 (1.001-1.035); Urine WBC 32 /hpf (0 - 5)
[2021-11-17] MEDS ORDERED: DEXTROSE (50%) 50ML SYRG IV PRN (21:45)
[2021-11-17] MEDS ORDERED: ONDANSETRON HCL 4 MG/2 ML VIAL IV PRN (21:45)
[2021-11-17] MEDS ORDERED: ACETAMINOPHEN 325 MG TAB PO PRN (21:45)
[2021-11-17] MEDS ORDERED: HYDROcodone-ACET 5/325MG TAB PO PRN (21:45)
[2021-11-17] MEDS: ATORVASTATIN 20 MG TAB PO SCH (23:00)
[2021-11-17] MEDS: DOCUSATE SOD 100 MG CAP PO SCH (23:00)
[2021-11-17] MEDS: GABAPENTIN 300 MG CAP PO SCH (23:11)
[2021-11-17] MEDS: CARVEDILOL 12.5 MG TAB PO SCH (23:13)
[2021-11-18 04:05] VITALS: BP 115/67
[2021-11-18 04:58] VITALS: BP 115/67
[2021-11-18] MEDS: GABAPENTIN 300 MG CAP PO SCH (06:00)
[2021-11-18] MEDS: FUROSEMIDE 40 MG TAB PO SCH ×2 (06:00→17:28)
[2021-11-18] MEDS: LEVOTHYROXINE SODIUM 50 MCG TAB PO SCH (06:26)
[2021-11-18] MEDS: ACCU-CHEK COMFORT CURVE STRIP VI SCH ×4 (06:27→22:06)
[2021-11-18] MEDS: InsuLIN REG 1unit/0.01ml Soln (100units/ml) SC SCH ×4 (06:41→21:58)
[2021-11-18 07:39] LABS: Basophils # (auto) 0.1 10 ^3/uL (0-0.2); Eosinophils # (auto) 0.2 10 ^3/uL (0-0.8); Eosinophils % (auto) 3.6 % (0.0-7.0); Hematocrit 31.6 % (36.0-46.0); Hemoglobin 10.1 g/dL (12.2-16.2); Lymphocytes # (auto) 0.9 10 ^3/uL (0.4-5.4); Lymphocytes % (auto) 13.3 % (10.0-50.0); Mean Corpuscular Hemoglobin 28.6 pg (28.0-32.0); Mean Corpuscular Volume 89.4 fL (80.0-100.0); Monocytes # (auto) 0.7 10 ^3/uL (0-1.3); Monocytes % (auto) 9.8 % (0.0-12.0); Neutrophils # (auto) 4.8 10 ^3/uL (1.6-8.6); Neutrophils % (auto) 72.3 % (37.0-80.0); Red Blood Cells 3.54 10^6/uL (4.0-5.20); Red Cell Distribution Width 15.1 % (11.8-14.3); White Blood Cell 6.7 10^3/uL (4.4-10.8)
[2021-11-18 08:04] LABS: Albumin 2.7 g/dL (3.4-5.0); Calcium 8.9 mg/dL (8.5-10.1); Potassium 3.7 mmol/L (3.5-5.1)
[2021-11-18 08:08] LABS: BUN/Creatinine Ratio 16.3; Bilirubin, Total 0.3 mg/dL (0.2-1.0); Total Protein 6.5 g/dL (6.4-8.2)
[2021-11-18 09:00] VITALS: BP 129/66
[2021-11-18] MEDS ORDERED: PANTOPRAZOLE 40 MG TAB PO SCH (10:00)
[2021-11-18] MEDS: DOCUSATE SOD 100 MG CAP PO SCH ×2 (10:00→21:59)
[2021-11-18] MEDS: cefTRIAXone 1GM/50ML D5W 50 ML IV SCH (10:10)
[2021-11-18] MEDS: ASPirin 81 mg TAB PO SCH (10:10)
[2021-11-18] MEDS: CARVEDILOL 12.5 MG TAB PO SCH ×2 (10:11→21:58)
[2021-11-18] MEDS: POTASSIUM CHL 10 Meq TABLET PO SCH (10:11)
[2021-11-18 13:00] VITALS: BP 137/80
[2021-11-18] MEDS ORDERED: PANTOPRAZOLE 40 MG TAB PO ONE (15:00)
[2021-11-18 17:00] VITALS: BP 140/51
[2021-11-18] MEDS: METOCLOPRAMIDE HCL 10 MG TAB PO SCH ×2 (17:25→21:58)
[2021-11-18 21:00] VITALS: BP 177/84
[2021-11-18] MEDS: ATORVASTATIN 20 MG TAB PO SCH (21:59)
[2021-11-19 05:00] VITALS: BP 125/63
[2021-11-19 06:39] LABS: BUN/Creatinine Ratio 18.8; Calcium 8.8 mg/dL (8.5-10.1); Potassium 3.9 mmol/L (3.5-5.1)
[2021-11-19] MEDS: METOCLOPRAMIDE HCL 10 MG TAB PO SCH ×3 (06:43→17:07)
[2021-11-19] MEDS: FUROSEMIDE 40 MG TAB PO SCH ×2 (06:43→17:08)
[2021-11-19] MEDS: LEVOTHYROXINE SODIUM 50 MCG TAB PO SCH (06:44)
[2021-11-19] MEDS: InsuLIN REG 1unit/0.01ml Soln (100units/ml) SC SCH ×3 (06:50→17:08)
[2021-11-19] MEDS: ACCU-CHEK COMFORT CURVE STRIP VI SCH ×3 (06:50→17:07)
[2021-11-19 08:56] VITALS: BP 119/50
[2021-11-19] MEDS: DOCUSATE SOD 100 MG CAP PO SCH (09:05)
[2021-11-19] MEDS: cefTRIAXone 1GM/50ML D5W 50 ML IV SCH (09:05)
[2021-11-19] MEDS: ASPirin 81 mg TAB PO SCH (09:05)
[2021-11-19] MEDS: CARVEDILOL 12.5 MG TAB PO SCH (09:06)
[2021-11-19] MEDS: POTASSIUM CHL 10 Meq TABLET PO SCH (09:06)
[2021-11-19] MEDS ORDERED: PANTOPRAZOLE 40 MG TAB PO SCH (10:00)
[2021-11-19] MEDS ORDERED: CEFU500T43 PO (10:45)
[2021-11-19] MEDS ORDERED: PANT40T PO (10:45)
[2021-11-19] MEDS ORDERED: METO-517 PO (10:45)
[2021-11-19 12:35] VITALS: BP 150/74
[2021-11-19 16:53] VITALS: BP 164/77
== END 2021-11-19 19:12 | disposition hospice, home (50) | DRG 73 ==
LOC: EDBD 13:51 → ER 13:51 → OVERFLOW 21:33 → WEST WING 11-18 02:17
PROVIDERS: ADMIT Nurse Practitioner; ATTEND Internal Medicine
DX: E11.43 Type 2 diabetes mellitus with diabetic autonomic (poly)neuropathy (principal); I50.43 Acute on chronic combined systolic (congestive) and diastolic (congestive) heart failure; N39.0 Urinary tract infection, site not specified; I13.0 Hypertensive heart and chronic kidney disease with heart failure and stage 1 through stage 4 chronic kidney disease, or unspecified chronic kidney disease; J96.10 Chronic respiratory failure, unspecified whether with hypoxia or hypercapnia; Z68.41 Body mass index [BMI] 40.0-44.9, adult; E44.0 Moderate protein-calorie malnutrition; K31.84 Gastroparesis; D63.8 Anemia in other chronic diseases classified elsewhere; K59.00 Constipation, unspecified; N18.32 Chronic kidney disease, stage 3b; E11.22 Type 2 diabetes mellitus with diabetic chronic kidney disease; Z20.822 Contact with and (suspected) exposure to COVID-19; K80.20 Calculus of gallbladder without cholecystitis without obstruction; E66.01 Morbid (severe) obesity due to excess calories; E78.5 Hyperlipidemia, unspecified; Z86.73 Personal history of transient ischemic attack (TIA), and cerebral infarction without residual deficits; Z88.0 Allergy status to penicillin; Z88.8 Allergy status to other drugs, medicaments and biological substances; Z79.899 Other long term (current) drug therapy; Z82.3 Family history of stroke; Z82.49 Family history of ischemic heart disease and other diseases of the circulatory system; Z83.3 Family history of diabetes mellitus; Z90.710 Acquired absence of both cervix and uterus; B96.4 Proteus (mirabilis) (morganii) as the cause of diseases classified elsewhere
CPT/HCPCS: 36415; 71045; 74176; 76705; 80048; 80053; 81001; 82962; 83880; 84484; 85025; 87081; 87086; 87088; 87186; 93005; 96365; G0378; J0696; J1815

== ENCOUNTER 2021-11-24 18:45 | Inpatient (IN) | payer OTHER, MEDICAID ==
[~2021-11-24] VITALS: Ht 170.2 cm; Wt 116.0 kg
[~2021-11-24 18:45] MED LIST changes: +CEFU500T43 PO; +METO-517 PO; +PANT40T PO
[2021-11-24] MEDS ORDERED: MORPHINE SULFATE 4 MG/ML SYR/VIAL IV ONE (19:00)
[2021-11-24] MEDS ORDERED: ONDANSETRON HCL 4 MG/2 ML VIAL IV ONE (19:00)
[2021-11-24] MEDS ORDERED: SODIUM CHLORIDE 0.9% 500 ML IVB ONE (19:00)
[2021-11-24 19:31] LABS: Basophils # (auto) 0.1 10 ^3/uL (0-0.2); Basophils % (auto) 0.8 % (0.0-2.0); Eosinophils # (auto) 0.3 10 ^3/uL (0-0.8); Eosinophils % (auto) 3.9 % (0.0-7.0); Hematocrit 31.6 % (36.0-46.0); Hemoglobin 10.1 g/dL (12.2-16.2); Lymphocytes # (auto) 1.3 10 ^3/uL (0.4-5.4); Mean Corpuscular Hgb Conc. 31.9 g/dL (32.0-36.0); Mean Corpuscular Volume 87.6 fL (80.0-100.0); Monocytes # (auto) 0.5 10 ^3/uL (0-1.3); Monocytes % (auto) 6.4 % (0.0-12.0); Neutrophils # (auto) 4.9 10 ^3/uL (1.6-8.6); Neutrophils % (auto) 69.9 % (37.0-80.0); Nucleated Red Blood Cells % 0.1 %; Red Blood Cells 3.61 10^6/uL (4.0-5.20); Red Cell Distribution Width 15.5 % (11.8-14.3); White Blood Cell 7.1 10^3/uL (4.4-10.8)
[2021-11-24 19:52] LABS: Albumin 2.7 g/dL (3.4-5.0); BUN/Creatinine Ratio 17.8; Calcium 8.7 mg/dL (8.5-10.1); Potassium 4.1 mmol/L (3.5-5.1)
[2021-11-24 19:55] LABS: Bilirubin, Total 0.2 mg/dL (0.2-1.0); Total Protein 6.6 g/dL (6.4-8.2)
[2021-11-24] MEDS ORDERED: cloNIDine HCL 0.1 MG TAB PO ONE (21:15)
[2021-11-24 23:06] LABS: Urine Bacteria MANY /hpf (None Seen); Urine Blood Negative /uL (Negative); Urine WBC 18 /hpf (0 - 5)
[2021-11-25] MEDS ORDERED: ACETAMINOPHEN 325 MG TAB PO PRN (03:15)
[2021-11-25] MEDS ORDERED: MORPHINE SULFATE INJ 2 MG/ml SYRG IV PRN (03:15)
[2021-11-25] MEDS ORDERED: ONDANSETRON HCL 4 MG/2 ML VIAL IV PRN (03:15)
[2021-11-25] MEDS ORDERED: DEXTROSE (50%) 50ML SYRG IV PRN (03:15)
[2021-11-25] MEDS ORDERED: HYDROcodone-ACET 5/325MG TAB PO PRN (03:15)
[2021-11-25] MEDS: LEVOTHYROXINE SODIUM 50 MCG TAB PO SCH (06:58)
[2021-11-25] MEDS: GABAPENTIN 300 MG CAP PO SCH ×3 (06:58→21:31)
[2021-11-25] MEDS: FUROSEMIDE 40 MG TAB PO SCH ×2 (06:58→17:40)
[2021-11-25] MEDS: ACCU-CHEK COMFORT CURVE STRIP VI SCH ×4 (07:00→21:24)
[2021-11-25] MEDS: InsuLIN REG 1unit/0.01ml Soln (100units/ml) SC SCH ×4 (07:08→21:23)
[2021-11-25] MEDS: cefTRIAXone 1GM/50ML D5W 50 ML IV SCH (09:00)
[2021-11-25 09:28] VITALS: BP_SYST 127; BP_SYST 128; BP_DIAS 62; BP_DIAS 87
[2021-11-25 09:35] VITALS: BP 127/62
[2021-11-25] MEDS: PANTOPRAZOLE 40 MG TAB PO SCH (11:11)
[2021-11-25] MEDS: CARVEDILOL 12.5 MG TAB PO SCH ×2 (11:11→21:31)
[2021-11-25 13:00] VITALS: BP 129/87
[2021-11-25 17:00] VITALS: BP 124/61
[2021-11-25] MEDS: METOCLOPRAMIDE HCL 10 MG TAB PO SCH ×2 (17:37→21:31)
[2021-11-25] MEDS: ATORVASTATIN 20 MG TAB PO SCH (21:31)
[2021-11-26] VITALS (7 sets, daily range): BP systolic 102–173; BP diastolic 41–77
[2021-11-26] MEDS: LEVOTHYROXINE SODIUM 50 MCG TAB PO SCH (05:49)
[2021-11-26] MEDS: METOCLOPRAMIDE HCL 10 MG TAB PO SCH ×4 (05:49→21:32)
[2021-11-26] MEDS: InsuLIN REG 1unit/0.01ml Soln (100units/ml) SC SCH ×4 (05:50→22:25)
[2021-11-26] MEDS: FUROSEMIDE 40 MG TAB PO SCH ×2 (05:50→17:55)
[2021-11-26] MEDS: GABAPENTIN 300 MG CAP PO SCH ×3 (05:50→21:33)
[2021-11-26] MEDS: ACCU-CHEK COMFORT CURVE STRIP VI SCH ×4 (05:50→22:00)
[2021-11-26 06:34] LABS: Basophils # (auto) 0.1 10 ^3/uL (0-0.2); Basophils % (auto) 0.9 % (0.0-2.0); Eosinophils # (auto) 0.2 10 ^3/uL (0-0.8); Eosinophils % (auto) 3.7 % (0.0-7.0); Hematocrit 29.3 % (36.0-46.0); Hemoglobin 9.6 g/dL (12.2-16.2); Lymphocytes % (auto) 16.9 % (10.0-50.0); Mean Corpuscular Hemoglobin 28.7 pg (28.0-32.0); Mean Corpuscular Hgb Conc. 32.6 g/dL (32.0-36.0); Monocytes # (auto) 0.4 10 ^3/uL (0-1.3); Monocytes % (auto) 5.9 % (0.0-12.0); Neutrophils # (auto) 4.5 10 ^3/uL (1.6-8.6); Neutrophils % (auto) 72.6 % (37.0-80.0); Nucleated Red Blood Cells % 0.1 %; Red Blood Cells 3.33 10^6/uL (4.0-5.20); Red Cell Distribution Width 15.4 % (11.8-14.3); White Blood Cell 6.2 10^3/uL (4.4-10.8)
[2021-11-26 06:37] LABS: Albumin 2.4 g/dL (3.4-5.0); Calcium 8.7 mg/dL (8.5-10.1)
[2021-11-26 06:40] LABS: BUN/Creatinine Ratio 18.8; Bilirubin, Total 0.2 mg/dL (0.2-1.0)
[2021-11-26] MEDS: cefTRIAXone 1GM/50ML D5W 50 ML IV SCH (08:46)
[2021-11-26] MEDS: CARVEDILOL 12.5 MG TAB PO SCH ×2 (10:00→21:31)
[2021-11-26] MEDS: PANTOPRAZOLE 40 MG TAB PO SCH (10:01)
[2021-11-26] MEDS ORDERED: TRAM50TA2 PO (10:38)
[2021-11-26] MEDS ORDERED: CARV12.544 PO (10:38)
[2021-11-26] MEDS ORDERED: POTA-220 PO (10:38)
[2021-11-26] MEDS ORDERED: FURO80TA3 PO (10:38)
[2021-11-26] MEDS ORDERED: BENA40TA8 PO (10:39)
[2021-11-26] MEDS: ATORVASTATIN 20 MG TAB PO SCH (21:32)
[2021-11-27 05:00] VITALS: BP 172/75
[2021-11-27] MEDS: ACCU-CHEK COMFORT CURVE STRIP VI SCH ×3 (07:00→17:02)
[2021-11-27] MEDS: METOCLOPRAMIDE HCL 10 MG TAB PO SCH ×3 (07:17→17:14)
[2021-11-27] MEDS: GABAPENTIN 300 MG CAP PO SCH ×2 (07:17→13:25)
[2021-11-27] MEDS: FUROSEMIDE 40 MG TAB PO SCH ×2 (07:19→17:33)
[2021-11-27] MEDS: LEVOTHYROXINE SODIUM 50 MCG TAB PO SCH (07:20)
[2021-11-27] MEDS: InsuLIN REG 1unit/0.01ml Soln (100units/ml) SC SCH ×3 (07:30→17:18)
[2021-11-27 09:00] VITALS: BP 165/76
[2021-11-27] MEDS: PANTOPRAZOLE 40 MG TAB PO SCH (09:19)
[2021-11-27] MEDS: cefTRIAXone 1GM/50ML D5W 50 ML IV SCH (09:19)
[2021-11-27] MEDS: CARVEDILOL 12.5 MG TAB PO SCH (10:20)
[2021-11-27 13:00] VITALS: BP 117/49
[2021-11-27] MEDS ORDERED: METO-517 PO (15:24)
[2021-11-27 17:00] VITALS: BP 156/63
[2021-11-27 18:04] VITALS: BP 156/63
== END 2021-11-27 18:45 | disposition home health service (06) | DRG 73 ==
LOC: EDBD 18:45 → ER 18:45 → OVERFLOW 11-25 03:07 → WEST WING 11-25 08:28
PROVIDERS: ADMIT Nurse Practitioner; ATTEND Internal Medicine
DX: E11.43 Type 2 diabetes mellitus with diabetic autonomic (poly)neuropathy (principal); I50.43 Acute on chronic combined systolic (congestive) and diastolic (congestive) heart failure; I13.0 Hypertensive heart and chronic kidney disease with heart failure and stage 1 through stage 4 chronic kidney disease, or unspecified chronic kidney disease; J96.10 Chronic respiratory failure, unspecified whether with hypoxia or hypercapnia; N39.0 Urinary tract infection, site not specified; Z68.41 Body mass index [BMI] 40.0-44.9, adult; K82.8 Other specified diseases of gallbladder; E11.22 Type 2 diabetes mellitus with diabetic chronic kidney disease; E66.01 Morbid (severe) obesity due to excess calories; E78.5 Hyperlipidemia, unspecified; N18.32 Chronic kidney disease, stage 3b; Z20.822 Contact with and (suspected) exposure to COVID-19; K31.84 Gastroparesis; D64.9 Anemia, unspecified; Z82.49 Family history of ischemic heart disease and other diseases of the circulatory system; Z83.3 Family history of diabetes mellitus; Z86.73 Personal history of transient ischemic attack (TIA), and cerebral infarction without residual deficits; Z90.710 Acquired absence of both cervix and uterus; Z88.0 Allergy status to penicillin; Z88.8 Allergy status to other drugs, medicaments and biological substances; Z82.3 Family history of stroke
CPT/HCPCS: 36415; 76705; 78226; 80053; 81001; 82150; 82962; 83690; 85025; 87086; 87088; 87186; 93005; G0378; J0696; J1815

== ENCOUNTER 2022-02-16 12:45 | Emergency (ER) | payer OTHER, MEDICAID ==
[~2022-02-16] VITALS: Ht 162.6 cm; Wt 136.0 kg
[~2022-02-16 12:45] MED LIST changes: -CAR125T PO; +CARV12.544 PO; -CEFU500T43 PO; -FURO1TAB31 PO; +FURO80TA3 PO; -LEVO250T69 PO; +POTA-220 PO; -POTA10TA51 PO; +TRAM50TA2 PO
[2022-02-16 13:00] VITALS: BP 130/97
[2022-02-16 14:01] LABS: Basophils # (auto) 0.1 10 ^3/uL (0-0.2); Basophils % (auto) 0.9 % (0.0-2.0); Eosinophils # (auto) 0.2 10 ^3/uL (0-0.8); Eosinophils % (auto) 2.9 % (0.0-7.0); Hematocrit 31.6 % (36.0-46.0); Hemoglobin 10.2 g/dL (12.2-16.2); Lymphocytes # (auto) 0.9 10 ^3/uL (0.4-5.4); Lymphocytes % (auto) 13.1 % (10.0-50.0); Mean Corpuscular Hemoglobin 29.3 pg (28.0-32.0); Mean Corpuscular Hgb Conc. 32.2 g/dL (32.0-36.0); Mean Corpuscular Volume 91.1 fL (80.0-100.0); Monocytes # (auto) 0.3 10 ^3/uL (0-1.3); Monocytes % (auto) 4.9 % (0.0-12.0); Neutrophils # (auto) 5.4 10 ^3/uL (1.6-8.6); Neutrophils % (auto) 78.2 % (37.0-80.0); Nucleated Red Blood Cells % 0.1 %; Red Blood Cells 3.47 10^6/uL (4.0-5.20); Red Cell Distribution Width 15.7 % (11.8-14.3); White Blood Cell 6.9 10^3/uL (4.4-10.8)
[2022-02-16 14:21] LABS: Albumin 2.9 g/dL (3.4-5.0); Calcium 8.9 mg/dL (8.5-10.1); Potassium 4.3 mmol/L (3.5-5.1)
[2022-02-16 14:27] LABS: BUN/Creatinine Ratio 19.4; Bilirubin, Total 0.3 mg/dL (0.2-1.0); Total Protein 6.2 g/dL (6.4-8.2)
== END 2022-02-16 15:19 | disposition home or self-care (01) ==
LOC: EDBD 12:45 → ER 12:45
DX: M54.2 Cervicalgia (principal); R07.89 Other chest pain; M79.18 Myalgia, other site; E11.22 Type 2 diabetes mellitus with diabetic chronic kidney disease; I13.0 Hypertensive heart and chronic kidney disease with heart failure and stage 1 through stage 4 chronic kidney disease, or unspecified chronic kidney disease; N18.9 Chronic kidney disease, unspecified; I50.9 Heart failure, unspecified; E78.5 Hyperlipidemia, unspecified; Z90.710 Acquired absence of both cervix and uterus; Z86.73 Personal history of transient ischemic attack (TIA), and cerebral infarction without residual deficits; Z88.0 Allergy status to penicillin; Z88.8 Allergy status to other drugs, medicaments and biological substances
CPT/HCPCS: 36415; 80053; 83735; 85025; 93005

== ENCOUNTER 2022-04-02 09:34 | Inpatient (IN) | payer OTHER, MEDICAID ==
[~2022-04-02] VITALS: Ht 170.2 cm; Wt 132.5 kg
[2022-04-02] MEDS ORDERED: IPRATROPIUM BROM 0.5 MG/2.5ML INH SOL HHN ONE (09:45)
[2022-04-02] MEDS ORDERED: methylPREDNISolone SOD SUCC 125 MG/2 ML VL IV ONE (09:45)
[2022-04-02] MEDS ORDERED: ALBUTEROL SULF 2.5 MG/0.5ML(0.5%) NEB SOLN HHN ONE (09:45)
[2022-04-02 10:25] LABS: Basophils # (auto) 0.1 10 ^3/uL (0-0.2); Basophils % (auto) 0.7 % (0.0-2.0); Eosinophils # (auto) 0.2 10 ^3/uL (0-0.8); Eosinophils % (auto) 2.8 % (0.0-7.0); Hematocrit 32.3 % (36.0-46.0); Hemoglobin 10.6 g/dL (12.2-16.2); Lymphocytes # (auto) 0.9 10 ^3/uL (0.4-5.4); Lymphocytes % (auto) 11.4 % (10.0-50.0); Mean Corpuscular Hemoglobin 30.3 pg (28.0-32.0); Mean Corpuscular Hgb Conc. 32.8 g/dL (32.0-36.0); Mean Corpuscular Volume 92.4 fL (80.0-100.0); Monocytes # (auto) 0.3 10 ^3/uL (0-1.3); Monocytes % (auto) 4.2 % (0.0-12.0); Neutrophils # (auto) 6.4 10 ^3/uL (1.6-8.6); Neutrophils % (auto) 80.9 % (37.0-80.0); Nucleated Red Blood Cells % 0.1 %; Red Blood Cells 3.49 10^6/uL (4.0-5.20); Red Cell Distribution Width 14.8 % (11.8-14.3); White Blood Cell 7.9 10^3/uL (4.4-10.8)
[2022-04-02 11:05] LABS: Albumin 2.8 g/dL (3.4-5.0); BUN/Creatinine Ratio 18.6; Bilirubin, Total 0.2 mg/dL (0.2-1.0); Calcium 8.9 mg/dL (8.5-10.1); Magnesium 2.3 mg/dL (1.6-2.6); Potassium 4.1 mmol/L (3.5-5.1); Total Protein 6.2 g/dL (6.4-8.2)
[2022-04-02] MEDS ORDERED: FUROSEMIDE 40 MG/4 ML VIAL IV ONE (11:45)
[2022-04-02] MEDS ORDERED: NITROGLYCERIN 0.4 MG SL TAB SL PRN (12:00)
[2022-04-02] MEDS ORDERED: MORPHINE SULFATE INJ 2 MG/ml SYRG IV PRN (12:00)
[2022-04-02 12:25] LABS: INR 0.97 (0.9-1.15)
[2022-04-02] MEDS ORDERED: AZITHROMYCIN 500MG/ 250ML 250 ML IV SCH (12:30)
[2022-04-02 12:40] VITALS: BP 200/93
[2022-04-02 13:22] LABS: Urine Bacteria MOD /hpf (None Seen); Urine Blood TRACE /uL (Negative); Urine WBC 38 /hpf (0 - 5); Urine WBC Clumps PRESENT /hpf (None Seen)
[2022-04-02] MEDS: ALBUTEROL SULF 2.5 MG/0.5ML(0.5%) NEB SOLN NEB SCH ×3 (14:00→22:07)
[2022-04-02] MEDS ORDERED: levoFLOXacin 500MG 100 ML IV ONE (14:00)
[2022-04-02] MEDS: methylPREDNISolone SOD SUCC 40 MG/ML VL IV SCH ×2 (16:26→22:47)
[2022-04-02] MEDS: hydrALAZINE HCL 20 MG/ML VL IV PRN (16:27)
[2022-04-02] MEDS ORDERED: ATORVASTATIN 20 MG TAB PO SCH (22:00)
[2022-04-02 22:30] VITALS: BP 176/106
[2022-04-02] MEDS: CARVEDILOL 12.5 MG TAB PO SCH (22:47)
[2022-04-03] MEDS: hydrALAZINE HCL 20 MG/ML VL IV PRN (00:25)
[2022-04-03] MEDS ORDERED: INSULIN LANTUS (GLARGINE) 1 /0.01ml (100units/ml) SC ONE (01:30)
[2022-04-03] MEDS ORDERED: DEXTROSE (50%) 50ML SYRG IV PRN (01:30)
[2022-04-03] MEDS: ACETAMINOPHEN 325 MG TAB PO PRN ×2 (02:00→09:37)
[2022-04-03] MEDS: ALBUTEROL SULF 2.5 MG/0.5ML(0.5%) NEB SOLN NEB SCH ×4 (02:39→15:44)
[2022-04-03 04:42] VITALS: BP 160/81
[2022-04-03] MEDS: methylPREDNISolone SOD SUCC 40 MG/ML VL IV SCH ×2 (06:11→14:03)
[2022-04-03] MEDS: ACCU-CHEK COMFORT CURVE STRIP VI SCH ×3 (06:12→17:28)
[2022-04-03] MEDS: InsuLIN REG 1unit/0.01ml Soln (100units/ml) SC SCH ×3 (06:13→17:44)
[2022-04-03] MEDS ORDERED: LEVO500T31 PO (06:15)
[2022-04-03] MEDS ORDERED: METH4PAK PO (06:15)
[2022-04-03 06:46] LABS: Basophils # (auto) 0 10 ^3/uL (0-0.2); Basophils % (auto) 0.3 % (0.0-2.0); Eosinophils # (auto) 0 10 ^3/uL (0-0.8); Hematocrit 31.7 % (36.0-46.0); Hemoglobin 10.3 g/dL (12.2-16.2); Lymphocytes # (auto) 0.5 10 ^3/uL (0.4-5.4); Mean Corpuscular Hemoglobin 29.7 pg (28.0-32.0); Mean Corpuscular Hgb Conc. 32.6 g/dL (32.0-36.0); Monocytes # (auto) 0.1 10 ^3/uL (0-1.3); Neutrophils # (auto) 7.6 10 ^3/uL (1.6-8.6); Neutrophils % (auto) 92.7 % (37.0-80.0); Red Blood Cells 3.48 10^6/uL (4.0-5.20); Red Cell Distribution Width 14.4 % (11.8-14.3); White Blood Cell 8.2 10^3/uL (4.4-10.8)
[2022-04-03 07:03] LABS: Potassium 4.2 mmol/L (3.5-5.1)
[2022-04-03 07:04] LABS: BUN/Creatinine Ratio 19.8
[2022-04-03 08:00] VITALS: BP 140/93
[2022-04-03 09:00] VITALS: BP 140/93
[2022-04-03] MEDS: CARVEDILOL 12.5 MG TAB PO SCH (09:38)
[2022-04-03] MEDS ORDERED: PANTOPRAZOLE 40 MG TAB PO SCH (10:00)
[2022-04-03] MEDS ORDERED: levoFLOXacin 250MG 50 ML IV SCH (10:00)
[2022-04-03] MEDS ORDERED: BENAZEPRIL HCL 10 MG TAB PO SCH (10:00)
[2022-04-03] MEDS ORDERED: LEVOTHYROXINE SODIUM 50 MCG TAB PO SCH (10:00)
[2022-04-03] MEDS ORDERED: ASPirin-EC 81 mg tab PO SCH (10:00)
[2022-04-03 12:11] VITALS: BP 155/80
[2022-04-03 13:00] VITALS: BP 155/80
[2022-04-03 17:00] VITALS: BP 114/60
[2022-04-03] MEDS ORDERED: INSULIN LANTUS (GLARGINE) 1 /0.01ml (100units/ml) SC SCH (22:00)
== END 2022-04-03 18:41 | disposition home health service (06) | DRG 189 ==
LOC: ER 09:34 → EDBD 09:34 → TELE 11:55 → TELE-WESTW 21:19
PROVIDERS: ADMIT Internal Medicine; ATTEND Internal Medicine
DX: J96.01 Acute respiratory failure with hypoxia (principal); J44.1 Chronic obstructive pulmonary disease with (acute) exacerbation; I13.0 Hypertensive heart and chronic kidney disease with heart failure and stage 1 through stage 4 chronic kidney disease, or unspecified chronic kidney disease; E11.22 Type 2 diabetes mellitus with diabetic chronic kidney disease; N18.9 Chronic kidney disease, unspecified; I50.9 Heart failure, unspecified; Z20.822 Contact with and (suspected) exposure to COVID-19; Z88.0 Allergy status to penicillin; Z86.73 Personal history of transient ischemic attack (TIA), and cerebral infarction without residual deficits; Z90.710 Acquired absence of both cervix and uterus; Z88.8 Allergy status to other drugs, medicaments and biological substances; Z79.4 Long term (current) use of insulin
CPT/HCPCS: 36415; 36600; 71045; 71250; 80048; 80053; 81001; 82805; 82962; 83605; 83735; 83880; 84484; 85025; 85379; 85610; 87040; 87426; 87804; 93005; 93970; 94640; 96365; 96367; 96375; 99291; G0378; J1815; J1956

== ENCOUNTER 2022-04-05 15:09 | Emergency (ER) | payer OTHER, MEDICAID ==
[~2022-04-05] VITALS: Ht 165.1 cm; Wt 136.3 kg
[~2022-04-05 15:09] MED LIST changes: +LEVO500T31 PO; +METH4PAK PO
[2022-04-05] MEDS ORDERED: IOHEXOL 350 MG/ML 100ML IJ ONE (16:08)
[2022-04-05 17:09] LABS: Basophils # (auto) 0 10 ^3/uL (0-0.2); Basophils % (auto) 0.2 % (0.0-2.0); Eosinophils # (auto) 0.2 10 ^3/uL (0-0.8); Hematocrit 36.8 % (36.0-46.0); Hemoglobin 11.7 g/dL (12.2-16.2); Lymphocytes # (auto) 0.8 10 ^3/uL (0.4-5.4); Lymphocytes % (auto) 11.8 % (10.0-50.0); Mean Corpuscular Hemoglobin 28.9 pg (28.0-32.0); Mean Corpuscular Hgb Conc. 31.8 g/dL (32.0-36.0); Mean Corpuscular Volume 91.1 fL (80.0-100.0); Monocytes # (auto) 0.3 10 ^3/uL (0-1.3); Monocytes % (auto) 5.2 % (0.0-12.0); Neutrophils # (auto) 5.1 10 ^3/uL (1.6-8.6); Neutrophils % (auto) 79.8 % (37.0-80.0); Red Blood Cells 4.05 10^6/uL (4.0-5.20); Red Cell Distribution Width 14.5 % (11.8-14.3); White Blood Cell 6.4 10^3/uL (4.4-10.8)
[2022-04-05 17:30] LABS: Albumin 2.7 g/dL (3.4-5.0); BUN/Creatinine Ratio 19.5; Calcium 8.6 mg/dL (8.5-10.1); Potassium 4.1 mmol/L (3.5-5.1)
[2022-04-05 17:33] LABS: Bilirubin, Total 0.2 mg/dL (0.2-1.0); Total Protein 5.8 g/dL (6.4-8.2)
[2022-04-06] MEDS ORDERED: ONDANSETRON HCL 4 MG/2 ML VIAL IV ONE (03:30)
[2022-04-06 10:56] VITALS: BP 163/79
== END 2022-04-06 11:48 | disposition home or self-care (01) ==
LOC: ER 15:09 → EDBD 15:09 → ER 04-06 11:48
DX: R53.1 Weakness (principal); I50.9 Heart failure, unspecified; J44.9 Chronic obstructive pulmonary disease, unspecified; E11.9 Type 2 diabetes mellitus without complications; E78.5 Hyperlipidemia, unspecified; I10 Essential (primary) hypertension; Z86.73 Personal history of transient ischemic attack (TIA), and cerebral infarction without residual deficits; Z98.890 Other specified postprocedural states; Z90.710 Acquired absence of both cervix and uterus; Z20.822 Contact with and (suspected) exposure to COVID-19
CPT/HCPCS: 36415; 71045; 80053; 83605; 83880; 84484; 85025; 87040; 87426; 93005; 96374; 99285; J2405; Q9967

== ENCOUNTER 2022-05-10 08:11 | Inpatient (IN) | payer OTHER, MEDICAID ==
[~2022-05-10] VITALS: Ht 165.1 cm; Wt 121.9 kg
[2022-05-10 08:59] LABS: Basophils # (auto) 0 10 ^3/uL (0-0.2); Basophils % (auto) 0.6 % (0.0-2.0); Eosinophils # (auto) 0.2 10 ^3/uL (0-0.8); Eosinophils % (auto) 2.8 % (0.0-7.0); Hematocrit 29.7 % (36.0-46.0); Hemoglobin 9.8 g/dL (12.2-16.2); Lymphocytes # (auto) 1.1 10 ^3/uL (0.4-5.4); Lymphocytes % (auto) 16.5 % (10.0-50.0); Mean Corpuscular Hemoglobin 29.8 pg (28.0-32.0); Mean Corpuscular Hgb Conc. 33.1 g/dL (32.0-36.0); Monocytes # (auto) 0.4 10 ^3/uL (0-1.3); Monocytes % (auto) 5.7 % (0.0-12.0); Neutrophils % (auto) 74.4 % (37.0-80.0); Nucleated Red Blood Cells % 0.1 %; Red Cell Distribution Width 13.4 % (11.8-14.3); White Blood Cell 6.7 10^3/uL (4.4-10.8)
[2022-05-10 09:14] LABS: Albumin 3.1 g/dL (3.4-5.0); Calcium 9.2 mg/dL (8.5-10.1); Potassium 3.6 mmol/L (3.5-5.1)
[2022-05-10 09:17] LABS: BUN/Creatinine Ratio 21.8; Bilirubin, Total 0.4 mg/dL (0.2-1.0)
[2022-05-10] MEDS ORDERED: DOCUSATE SOD 100 MG CAP PO PRN ×2 (20:30→20:45)
[2022-05-10] MEDS ORDERED: HYDROcodone-ACET 5/325MG TAB PO PRN (20:30)
[2022-05-10] MEDS ORDERED: ONDANSETRON HCL 4 MG/2 ML VIAL IV PRN (20:30)
[2022-05-10] MEDS ORDERED: ACETAMINOPHEN 325 MG TAB PO PRN (20:30)
[2022-05-10] MEDS ORDERED: ALBUTEROL SULF 2.5 MG/0.5ML(0.5%) NEB SOLN NEB PRN (20:45)
[2022-05-10 20:46] VITALS: BP 133/94
[2022-05-10] MEDS ORDERED: PATIENTS OWN MEDICATION (Atorvastatin Calcium 40 MG) PO SCH (22:00)
[2022-05-10] MEDS ORDERED: SODIUM CHLOR 0.9% PF (SALINE LOCK) 10ML VIAL/SYR IV SCH (22:00)
[2022-05-10] MEDS ORDERED: CARVEDILOL 12.5 MG TAB PO SCH (22:00)
[2022-05-10] MEDS ORDERED: FUROSEMIDE 40 MG/4 ML VIAL IV SCH (22:00)
[2022-05-10 22:16] LABS: Urine Bacteria MOD /hpf (None Seen); Urine Blood TRACE /uL (Negative); Urine Mucus FEW (None Seen); Urine WBC 34 /hpf (0 - 5)
[2022-05-10] MEDS ORDERED: hydrALAZINE HCL 20 MG/ML VL IV PRN ×2 (22:45→23:15)
[2022-05-10] MEDS ORDERED: NITROGLYCERIN 0.4 MG SL TAB SL PRN (23:45)
[2022-05-10] MEDS: DICYCLOMINE HCL 10 MG CAP PO SCH (23:56)
[2022-05-11] MEDS ORDERED: ERTAPENEM 1 GM IV SCH
[2022-05-11] MEDS: NORTRIPTYLINE HCL 25 MG CAP PO SCH ×2 (00:27→22:00)
[2022-05-11] MEDS: ACETAMINOPHEN 325 MG TAB PO PRN (01:19)
[2022-05-11] MEDS ORDERED: cloNIDine HCL 0.1 MG TAB PO ONE (05:30)
[2022-05-11] MEDS: DICYCLOMINE HCL 10 MG CAP PO SCH ×3 (05:45→22:31)
[2022-05-11] MEDS: INSULIN LANTUS (GLARGINE) 1 /0.01ml (100units/ml) SC SCH ×3 (06:39→22:33)
[2022-05-11] MEDS: InsuLIN REG 1unit/0.01ml Soln (100units/ml) SC SCH (06:47)
[2022-05-11] MEDS ORDERED: INSULIN DRIP IV SCH (07:00)
[2022-05-11] MEDS ORDERED: [UNRECOGNIZED DRUG - OTHER] IV SCH (07:00)
[2022-05-11] MEDS: PANTOPRAZOLE 40 MG TAB PO SCH (09:49)
[2022-05-11] MEDS: HEPARIN SODIUM (PORCINE) 5000 UNITS/ML 1ML VIAL SC SCH ×2 (09:49→22:34)
[2022-05-11] MEDS: ASPirin-EC 81 mg tab PO SCH (09:50)
[2022-05-11] MEDS: LEVOTHYROXINE SODIUM 50 MCG TAB PO SCH (09:50)
[2022-05-11] MEDS: CARVEDILOL 12.5 MG TAB PO SCH ×2 (09:53→22:32)
[2022-05-11] MEDS: ERTAPENEM SOD INJ 0.5 GM in SODIUM CHL 0.9% 50 ML IV SCH (09:53)
[2022-05-11] MEDS: NIFEdipine ER 30 MG TAB PO SCH (09:59)
[2022-05-11] MEDS ORDERED: SODIUM CHLORIDE 0.9% 1,000 ML IV SCH (10:00)
[2022-05-11 10:05] LABS: Potassium 3.3 mmol/L (3.5-5.1)
[2022-05-11 10:08] LABS: Basophils # (auto) 0 10 ^3/uL (0-0.2); Basophils % (auto) 0.4 % (0.0-2.0); Eosinophils # (auto) 0.1 10 ^3/uL (0-0.8); Eosinophils % (auto) 1.4 % (0.0-7.0); Hematocrit 31.8 % (36.0-46.0); Hemoglobin 10.4 g/dL (12.2-16.2); Lymphocytes # (auto) 0.8 10 ^3/uL (0.4-5.4); Lymphocytes % (auto) 10.1 % (10.0-50.0); Mean Corpuscular Hemoglobin 29.6 pg (28.0-32.0); Mean Corpuscular Hgb Conc. 32.7 g/dL (32.0-36.0); Mean Corpuscular Volume 90.5 fL (80.0-100.0); Monocytes # (auto) 0.5 10 ^3/uL (0-1.3); Monocytes % (auto) 5.7 % (0.0-12.0); Neutrophils # (auto) 6.7 10 ^3/uL (1.6-8.6); Neutrophils % (auto) 82.4 % (37.0-80.0); Nucleated Red Blood Cells % 0.1 %; Red Blood Cells 3.51 10^6/uL (4.0-5.20); Red Cell Distribution Width 13.7 % (11.8-14.3); White Blood Cell 8.2 10^3/uL (4.4-10.8)
[2022-05-11 10:19] LABS: BUN/Creatinine Ratio 20.8; Calcium 9.3 mg/dL (8.5-10.1)
[2022-05-11] MEDS: SODIUM CHLORIDE 0.9% 1,000 ML IV SCH ×2 (12:00→22:37)
[2022-05-11] MEDS ORDERED: CILO100T PO (14:07)
[2022-05-11 22:00] VITALS: BP 133/63
[2022-05-11] MEDS: ATORVASTATIN 20 MG TAB PO SCH (22:31)
[2022-05-12] MEDS: SODIUM CHLORIDE 0.9% 1,000 ML IV SCH ×3 (04:00→18:41)
[2022-05-12 05:00] VITALS: BP 142/63
[2022-05-12] MEDS: DICYCLOMINE HCL 10 MG CAP PO SCH ×3 (06:13→22:08)
[2022-05-12] MEDS: InsuLIN REG 1unit/0.01ml Soln (100units/ml) SC SCH (06:15)
[2022-05-12 08:55] LABS: Basophils # (auto) 0.1 10 ^3/uL (0-0.2); Basophils % (auto) 1.2 % (0.0-2.0); Eosinophils # (auto) 0.2 10 ^3/uL (0-0.8); Eosinophils % (auto) 2.5 % (0.0-7.0); Hemoglobin 9.2 g/dL (12.2-16.2); Lymphocytes # (auto) 1.4 10 ^3/uL (0.4-5.4); Mean Corpuscular Hemoglobin 29.6 pg (28.0-32.0); Mean Corpuscular Hgb Conc. 32.9 g/dL (32.0-36.0); Monocytes # (auto) 0.4 10 ^3/uL (0-1.3); Monocytes % (auto) 6.6 % (0.0-12.0); Neutrophils # (auto) 4.6 10 ^3/uL (1.6-8.6); Neutrophils % (auto) 68.7 % (37.0-80.0); Red Blood Cells 3.11 10^6/uL (4.0-5.20); White Blood Cell 6.7 10^3/uL (4.4-10.8)
[2022-05-12 09:00] VITALS: BP 129/63
[2022-05-12 09:13] LABS: Calcium 8.1 mg/dL (8.5-10.1); Potassium 3.1 mmol/L (3.5-5.1)
[2022-05-12] MEDS: ASPirin-EC 81 mg tab PO SCH (11:45)
[2022-05-12] MEDS: NIFEdipine ER 30 MG TAB PO SCH (11:46)
[2022-05-12] MEDS: LEVOTHYROXINE SODIUM 50 MCG TAB PO SCH (11:46)
[2022-05-12] MEDS: ACETAMINOPHEN 325 MG TAB PO PRN (11:47)
[2022-05-12] MEDS: CARVEDILOL 12.5 MG TAB PO SCH ×2 (11:48→22:08)
[2022-05-12] MEDS: PANTOPRAZOLE 40 MG TAB PO SCH (11:48)
[2022-05-12] MEDS: HEPARIN SODIUM (PORCINE) 5000 UNITS/ML 1ML VIAL SC SCH ×2 (11:59→22:12)
[2022-05-12] MEDS ORDERED: ONDANSETRON HCL 4 MG/2 ML VIAL IV PRN (12:30)
[2022-05-12] MEDS ORDERED: POTASSIUM CHL 20MEQ/100ML 100 ML IV ONE (12:30)
[2022-05-12] MEDS: ERTAPENEM SOD INJ 0.5 GM in SODIUM CHL 0.9% 50 ML IV SCH (12:39)
[2022-05-12 21:55] VITALS: BP 122/57
[2022-05-12] MEDS: ATORVASTATIN 20 MG TAB PO SCH (22:08)
[2022-05-12] MEDS: NORTRIPTYLINE HCL 25 MG CAP PO SCH (22:09)
[2022-05-12] MEDS: INSULIN LANTUS (GLARGINE) 1 /0.01ml (100units/ml) SC SCH (22:12)
[2022-05-13] MEDS: SODIUM CHLORIDE 0.9% 1,000 ML IV SCH ×2 (02:48→12:00)
[2022-05-13 05:00] VITALS: BP 134/55
[2022-05-13] MEDS: DICYCLOMINE HCL 10 MG CAP PO SCH ×2 (05:37→14:00)
[2022-05-13] MEDS: InsuLIN REG 1unit/0.01ml Soln (100units/ml) SC SCH (06:08)
[2022-05-13 06:13] LABS: Basophils # (auto) 0 10 ^3/uL (0-0.2); Basophils % (auto) 0.6 % (0.0-2.0); Eosinophils # (auto) 0.2 10 ^3/uL (0-0.8); Hematocrit 26.9 % (36.0-46.0); Hemoglobin 8.9 g/dL (12.2-16.2); Lymphocytes # (auto) 1.4 10 ^3/uL (0.4-5.4); Lymphocytes % (auto) 20.5 % (10.0-50.0); Mean Corpuscular Hemoglobin 30.9 pg (28.0-32.0); Mean Corpuscular Hgb Conc. 33.2 g/dL (32.0-36.0); Mean Corpuscular Volume 93.2 fL (80.0-100.0); Monocytes # (auto) 0.4 10 ^3/uL (0-1.3); Monocytes % (auto) 5.9 % (0.0-12.0); Neutrophils # (auto) 4.7 10 ^3/uL (1.6-8.6); Nucleated Red Blood Cells % 0.1 %; Red Blood Cells 2.88 10^6/uL (4.0-5.20); Red Cell Distribution Width 13.6 % (11.8-14.3); White Blood Cell 6.7 10^3/uL (4.4-10.8)
[2022-05-13 06:25] LABS: BUN/Creatinine Ratio 20.7; Calcium 8.1 mg/dL (8.5-10.1)
[2022-05-13 09:00] VITALS: BP 113/61
[2022-05-13] MEDS: ERTAPENEM SOD INJ 0.5 GM in SODIUM CHL 0.9% 50 ML IV SCH (09:44)
[2022-05-13] MEDS: NIFEdipine ER 30 MG TAB PO SCH (09:44)
[2022-05-13] MEDS: LEVOTHYROXINE SODIUM 50 MCG TAB PO SCH (09:45)
[2022-05-13] MEDS: PANTOPRAZOLE 40 MG TAB PO SCH (09:45)
[2022-05-13] MEDS: CARVEDILOL 12.5 MG TAB PO SCH (09:45)
[2022-05-13] MEDS: ASPirin-EC 81 mg tab PO SCH (09:45)
[2022-05-13] MEDS: HEPARIN SODIUM (PORCINE) 5000 UNITS/ML 1ML VIAL SC SCH (09:46)
[2022-05-13 13:00] VITALS: BP 124/57
== END 2022-05-13 15:14 | disposition home health service (06) | DRG 683 ==
LOC: EDBD 08:11 → ER 08:11 → OVERFLOW 23:31 → EAST 05-11 13:10 → OBSVTOIN 05-13 08:18
PROVIDERS: ADMIT Hospitalist; ATTEND Hospitalist
PROC: 05HD33Z Insertion of Infusion Device into Right Cephalic Vein, Percutaneous Approach (ICD-10-PCS; principal; 2022-05-11)
PROC: B54MZZA Ultrasonography of Right Upper Extremity Veins, Guidance (ICD-10-PCS; 2022-05-11)
DX: N17.0 Acute kidney failure with tubular necrosis (principal); I13.0 Hypertensive heart and chronic kidney disease with heart failure and stage 1 through stage 4 chronic kidney disease, or unspecified chronic kidney disease; N39.0 Urinary tract infection, site not specified; Z68.41 Body mass index [BMI] 40.0-44.9, adult; N18.4 Chronic kidney disease, stage 4 (severe); E11.22 Type 2 diabetes mellitus with diabetic chronic kidney disease; D63.1 Anemia in chronic kidney disease; E11.65 Type 2 diabetes mellitus with hyperglycemia; J44.9 Chronic obstructive pulmonary disease, unspecified; Z20.822 Contact with and (suspected) exposure to COVID-19; I50.9 Heart failure, unspecified; E87.6 Hypokalemia; R80.9 Proteinuria, unspecified; E66.01 Morbid (severe) obesity due to excess calories; N20.0 Calculus of kidney; Z88.0 Allergy status to penicillin; Z88.8 Allergy status to other drugs, medicaments and biological substances; Z99.3 Dependence on wheelchair; Z79.899 Other long term (current) drug therapy; Z82.3 Family history of stroke; Z82.49 Family history of ischemic heart disease and other diseases of the circulatory system; Z83.3 Family history of diabetes mellitus; Z90.710 Acquired absence of both cervix and uterus; Z86.73 Personal history of transient ischemic attack (TIA), and cerebral infarction without residual deficits; Z79.4 Long term (current) use of insulin
CPT/HCPCS: 36415; 71045; 76775; 80048; 80053; 81001; 82570; 82962; 83690; 83880; 83970; 84100; 84156; 84300; 84484; 85025; 87086; 87426; 93005; 93306; 96361; 96374; G0378; J1335; J1815; J2405; J3480

== ENCOUNTER 2022-06-28 11:41 | Observation (INO) | payer OTHER, MEDICAID ==
[~2022-06-28] VITALS: Ht 167.6 cm; Wt 158.7 kg
[~2022-06-28 11:41] MED LIST changes: +CILO100T PO; -FURO80TA3 PO; -LEVO500T31 PO; -METH4PAK PO; -METO-517 PO; -METO2.5T PO; -NORT25CA PO; -POTA-220 PO
[2022-06-28] MEDS ORDERED: MORPHINE SULFATE 4 MG/ML SYR/VIAL IV ONE (11:45)
[2022-06-28] MEDS ORDERED: ONDANSETRON HCL 4 MG/2 ML VIAL IV ONE (11:45)
[2022-06-28 12:06] LABS: Basophils # (auto) 0.1 10 ^3/uL (0-0.2); Basophils % (auto) 1.4 % (0.0-2.0); Eosinophils # (auto) 0.3 10 ^3/uL (0-0.8); Hematocrit 29.6 % (36.0-46.0); Hemoglobin 9.9 g/dL (12.2-16.2); Lymphocytes # (auto) 0.9 10 ^3/uL (0.4-5.4); Lymphocytes % (auto) 14.4 % (10.0-50.0); Mean Corpuscular Hemoglobin 30.7 pg (28.0-32.0); Mean Corpuscular Hgb Conc. 33.4 g/dL (32.0-36.0); Monocytes # (auto) 0.3 10 ^3/uL (0-1.3); Neutrophils # (auto) 4.9 10 ^3/uL (1.6-8.6); Neutrophils % (auto) 75.2 % (37.0-80.0); Nucleated Red Blood Cells % 0.1 %; Red Blood Cells 3.22 10^6/uL (4.0-5.20); Red Cell Distribution Width 15.4 % (11.8-14.3); White Blood Cell 6.5 10^3/uL (4.4-10.8)
[2022-06-28 12:25] LABS: Albumin 2.7 g/dL (3.4-5.0); BUN/Creatinine Ratio 17.6; Calcium 8.9 mg/dL (8.5-10.1); Magnesium 1.9 mg/dL (1.6-2.6); Potassium 4.8 mmol/L (3.5-5.1)
[2022-06-28 12:28] LABS: Bilirubin, Total 0.3 mg/dL (0.2-1.0); Total Protein 6.2 g/dL (6.4-8.2)
[2022-06-28 12:29] LABS: INR 0.98 (0.9-1.15); Partial Thromboplastin Time 26.9 sec (24.6-33.4)
[2022-06-28] MEDS ORDERED: ONDANSETRON HCL 4 MG/2 ML VIAL IV PRN (16:45)
[2022-06-28] MEDS ORDERED: ASPirin-EC 81 mg tab PO ONE (16:45)
[2022-06-28] MEDS ORDERED: NITROGLYCERIN 0.4 MG SL TAB SL PRN (16:45)
[2022-06-28] MEDS ORDERED: DEXTROSE (50%) 50ML SYRG IV PRN (16:45)
[2022-06-28] MEDS ORDERED: MORPHINE SULFATE INJ 2 MG/ml SYRG IV PRN ×2 (16:45)
[2022-06-28] MEDS ORDERED: DOCUSATE SOD 100 MG CAP PO PRN (17:00)
[2022-06-28] MEDS: ACCU-CHEK COMFORT CURVE STRIP VI SCH ×2 (17:32→22:40)
[2022-06-28] MEDS ORDERED: INSULIN LANTUS (GLARGINE) 1 /0.01ml (100units/ml) SC SCH (22:00)
[2022-06-28] MEDS ORDERED: InsuLIN REG 1unit/0.01ml Soln (100units/ml) SC SCH (22:00)
[2022-06-28] MEDS ORDERED: ATORVASTATIN 20 MG TAB PO SCH (22:00)
[2022-06-28] MEDS ORDERED: ENOXAPARIN SOD 40 MG/0.4 ML SYRINGE SC SCH (22:00)
[2022-06-28] MEDS: InsuLIN REG 1unit/0.01ml Soln (100units/ml) SC SCH (22:19)
[2022-06-28] MEDS: GABAPENTIN 300 MG CAP PO SCH (23:14)
[2022-06-28] MEDS: CARVEDILOL 12.5 MG TAB PO SCH (23:15)
[2022-06-29 05:02] LABS: Basophils # (auto) 0.1 10 ^3/uL (0-0.2); Basophils % (auto) 1.3 % (0.0-2.0); Eosinophils # (auto) 0.3 10 ^3/uL (0-0.8); Eosinophils % (auto) 4.4 % (0.0-7.0); Hematocrit 26.4 % (36.0-46.0); Hemoglobin 8.7 g/dL (12.2-16.2); Lymphocytes # (auto) 1.1 10 ^3/uL (0.4-5.4); Mean Corpuscular Hemoglobin 30.7 pg (28.0-32.0); Mean Corpuscular Volume 93.1 fL (80.0-100.0); Monocytes # (auto) 0.4 10 ^3/uL (0-1.3); Monocytes % (auto) 6.4 % (0.0-12.0); Neutrophils # (auto) 4.4 10 ^3/uL (1.6-8.6); Neutrophils % (auto) 70.9 % (37.0-80.0); Red Blood Cells 2.83 10^6/uL (4.0-5.20); Red Cell Distribution Width 15.1 % (11.8-14.3); White Blood Cell 6.3 10^3/uL (4.4-10.8)
[2022-06-29 05:13] LABS: BUN/Creatinine Ratio 18.7; Potassium 4.7 mmol/L (3.5-5.1)
[2022-06-29] MEDS: GABAPENTIN 300 MG CAP PO SCH ×3 (06:00→15:26)
[2022-06-29] MEDS: ACCU-CHEK COMFORT CURVE STRIP VI SCH ×2 (06:39→12:00)
[2022-06-29] MEDS: InsuLIN REG 1unit/0.01ml Soln (100units/ml) SC SCH ×2 (06:45→12:30)
[2022-06-29] MEDS ORDERED: ACETAMINOPHEN 325 MG TAB PO PRN (07:15)
[2022-06-29 07:41] LABS: % Iron Saturation 23.3 % (15-50)
[2022-06-29] MEDS ORDERED: PANTOPRAZOLE 40 MG TAB PO SCH (10:00)
[2022-06-29] MEDS ORDERED: LEVOTHYROXINE SODIUM 50 MCG TAB PO SCH (10:00)
[2022-06-29] MEDS: CARVEDILOL 12.5 MG TAB PO SCH (10:39)
[2022-06-29] MEDS ORDERED: hydrALAZINE HCL 20 MG/ML VL IV PRN (11:30)
[2022-06-29] MEDS ORDERED: OMEP20TA PO ×2 (11:51)
[2022-06-29] MEDS ORDERED: FUROSEMIDE 20 MG/2 ML VIAL IV ONE (12:00)
[2022-06-29 12:01] LABS: Basophils # (auto) 0.1 10 ^3/uL (0-0.2); Basophils % (auto) 0.9 % (0.0-2.0); Eosinophils # (auto) 0.2 10 ^3/uL (0-0.8); Eosinophils % (auto) 3.6 % (0.0-7.0); Hematocrit 28.2 % (36.0-46.0); Hemoglobin 9.2 g/dL (12.2-16.2); Lymphocytes % (auto) 14.5 % (10.0-50.0); Mean Corpuscular Hemoglobin 30.4 pg (28.0-32.0); Mean Corpuscular Hgb Conc. 32.7 g/dL (32.0-36.0); Monocytes # (auto) 0.4 10 ^3/uL (0-1.3); Monocytes % (auto) 6.1 % (0.0-12.0); Neutrophils # (auto) 5.1 10 ^3/uL (1.6-8.6); Neutrophils % (auto) 74.9 % (37.0-80.0); Nucleated Red Blood Cells % 0.1 %; Red Blood Cells 3.04 10^6/uL (4.0-5.20); Red Cell Distribution Width 15.3 % (11.8-14.3); White Blood Cell 6.9 10^3/uL (4.4-10.8)
[2022-06-29] MEDS ORDERED: BENA40TA8 PO (12:30)
[2022-06-29] MEDS ORDERED: CARV12.544 PO (12:30)
[2022-06-29 17:00] VITALS: BP 169/75
== END 2022-06-29 17:04 | disposition home or self-care (01) ==
LOC: EDBD 11:41 → ER 11:41 → TELE 16:50
PROVIDERS: ADMIT Hospitalist; ATTEND Hospitalist
DX: I21.4 Non-ST elevation (NSTEMI) myocardial infarction (principal); Z20.822 Contact with and (suspected) exposure to COVID-19; J96.20 Acute and chronic respiratory failure, unspecified whether with hypoxia or hypercapnia; I13.0 Hypertensive heart and chronic kidney disease with heart failure and stage 1 through stage 4 chronic kidney disease, or unspecified chronic kidney disease; E11.22 Type 2 diabetes mellitus with diabetic chronic kidney disease; I50.33 Acute on chronic diastolic (congestive) heart failure; N18.4 Chronic kidney disease, stage 4 (severe); D63.1 Anemia in chronic kidney disease; E78.5 Hyperlipidemia, unspecified; E11.51 Type 2 diabetes mellitus with diabetic peripheral angiopathy without gangrene; E87.8 Other disorders of electrolyte and fluid balance, not elsewhere classified; J44.9 Chronic obstructive pulmonary disease, unspecified; E66.01 Morbid (severe) obesity due to excess calories; E11.40 Type 2 diabetes mellitus with diabetic neuropathy, unspecified; I49.3 Ventricular premature depolarization; G81.94 Hemiplegia, unspecified affecting left nondominant side; I69.30 Unspecified sequelae of cerebral infarction; K21.9 Gastro-esophageal reflux disease without esophagitis; Z74.01 Bed confinement status; Z90.710 Acquired absence of both cervix and uterus; Z88.0 Allergy status to penicillin; Z79.4 Long term (current) use of insulin; Z79.899 Other long term (current) drug therapy
CPT/HCPCS: 36415; 71045; 80048; 80053; 80061; 82962; 83036; 83540; 83550; 83735; 83880; 84484; 85025; 85610; 85730; 87426; 93005; 96372; 96374; 96375; 99285; G0378; J0360; J1815; J1940; J2405

== ENCOUNTER 2022-07-01 16:29 | Emergency (ER) | payer OTHER, MEDICAID ==
[~2022-07-01] VITALS: Ht 167.6 cm; Wt 160.0 kg
[2022-07-02 08:00] VITALS: BP 173/79
== END 2022-07-02 09:50 | disposition home or self-care (01) ==
LOC: ER 16:29 → EDBD 16:29 → ER 07-02 09:50
DX: I16.0 Hypertensive urgency (principal); E11.22 Type 2 diabetes mellitus with diabetic chronic kidney disease; I13.0 Hypertensive heart and chronic kidney disease with heart failure and stage 1 through stage 4 chronic kidney disease, or unspecified chronic kidney disease; N18.9 Chronic kidney disease, unspecified; I50.89 Other heart failure; J44.9 Chronic obstructive pulmonary disease, unspecified; E78.5 Hyperlipidemia, unspecified; Z90.710 Acquired absence of both cervix and uterus; Z88.6 Allergy status to analgesic agent; Z88.0 Allergy status to penicillin

== ENCOUNTER 2022-07-31 10:55 | Observation (INO) | payer OTHER, MEDICAID ==
[~2022-07-31] VITALS: Ht 165.1 cm; Wt 158.0 kg
[2022-07-31 12:05] LABS: Basophils # (auto) 0.1 10 ^3/uL (0-0.2); Basophils % (auto) 0.7 % (0.0-2.0); Eosinophils # (auto) 0.3 10 ^3/uL (0-0.8); Eosinophils % (auto) 3.1 % (0.0-7.0); Hematocrit 30.4 % (36.0-46.0); Hemoglobin 9.9 g/dL (12.2-16.2); Lymphocytes # (auto) 0.8 10 ^3/uL (0.4-5.4); Lymphocytes % (auto) 9.5 % (10.0-50.0); Mean Corpuscular Hemoglobin 30.3 pg (28.0-32.0); Mean Corpuscular Hgb Conc. 32.4 g/dL (32.0-36.0); Mean Corpuscular Volume 93.3 fL (80.0-100.0); Monocytes # (auto) 0.4 10 ^3/uL (0-1.3); Monocytes % (auto) 4.5 % (0.0-12.0); Neutrophils # (auto) 6.9 10 ^3/uL (1.6-8.6); Neutrophils % (auto) 82.2 % (37.0-80.0); Red Blood Cells 3.26 10^6/uL (4.0-5.20); Red Cell Distribution Width 16.1 % (11.8-14.3); White Blood Cell 8.3 10^3/uL (4.4-10.8)
[2022-07-31 12:27] LABS: Calcium 8.8 mg/dL (8.5-10.1); Magnesium 2.2 mg/dL (1.6-2.6); Potassium 5.2 mmol/L (3.5-5.1)
[2022-07-31 12:29] LABS: BUN/Creatinine Ratio 16.2 (10.0-20.0); Bilirubin, Total 0.4 mg/dL (0.2-1.0); Total Protein 6.3 g/dL (6.4-8.2)
[2022-07-31 12:34] LABS: INR 1.03 (0.9-1.15); Partial Thromboplastin Time 28.7 sec (24.6-33.4)
[2022-07-31] MEDS ORDERED: MORPHINE SULFATE INJ 2 MG/ml SYRG IV PRN (14:45)
[2022-07-31] MEDS ORDERED: NITROGLYCERIN 0.4 MG SL TAB SL PRN (14:45)
[2022-07-31] MEDS ORDERED: SODIUM ZIRCONIUM CYCL 10 GM PAK PO ONE (18:30)
[2022-07-31] MEDS ORDERED: SODIUM BICARBONATE 8.4 % INJ 50ML VIAL IV ONE (18:30)
[2022-07-31] MEDS ORDERED: FUROSEMIDE 40 MG/4 ML VIAL IV ONE (18:45)
[2022-08-01] MEDS: methylPREDNISolone SOD SUCC 125 MG/2 ML VL IV SCH ×4 (01:14→23:53)
[2022-08-01] MEDS: SODIUM ZIRCONIUM CYCL 10 GM PAK PO SCH ×4 (01:15→22:41)
[2022-08-01 04:16] LABS: Urine Bacteria FEW /hpf (None Seen); Urine Blood Negative /uL (Negative); Urine Specific Gravity 1.007 (1.001-1.035); Urine WBC 11 /hpf (0 - 5)
[2022-08-01 04:35] LABS: Alcohol, Urine < 3.0 mg/dL (0-10); Amphetamine Screen, Urine NEGATIVE (NEGATIVE); Barbiturate Scree,Urine NEGATIVE (NEGATIVE); Benzodiazephine Screen, Urine NEGATIVE (NEGATIVE); Cannabinoid Screen, Urine NEGATIVE (NEGATIVE); Cocaine Screen, Urine NEGATIVE (NEGATIVE); Opiate Scree,Urine NEGATIVE (NEGATIVE); Phencyclidine Screen, Urine NEGATIVE (NEGATIVE)
[2022-08-01] MEDS: ACETAMINOPHEN 325 MG TAB PO PRN ×2 (09:00→19:55)
[2022-08-01] MEDS ORDERED: FUROSEMIDE 40 MG/4 ML VIAL IV SCH (10:00)
[2022-08-01] MEDS: ENOXAPARIN SOD 30 MG/0.3 ML SYRINGE SC SCH (11:09)
[2022-08-01] MEDS: levoFLOXacin 250MG 50 ML IV SCH (11:28)
[2022-08-01 16:17] LABS: Basophils # (auto) 0 10 ^3/uL (0-0.2); Basophils % (auto) 0.3 % (0.0-2.0); Eosinophils # (auto) 0 10 ^3/uL (0-0.8); Hematocrit 31.2 % (36.0-46.0); Hemoglobin 9.7 g/dL (12.2-16.2); Lymphocytes # (auto) 0.5 10 ^3/uL (0.4-5.4); Lymphocytes % (auto) 6.1 % (10.0-50.0); Mean Corpuscular Hemoglobin 29.9 pg (28.0-32.0); Mean Corpuscular Hgb Conc. 30.9 g/dL (32.0-36.0); Mean Corpuscular Volume 96.7 fL (80.0-100.0); Monocytes # (auto) 0 10 ^3/uL (0-1.3); Monocytes % (auto) 0.4 % (0.0-12.0); Neutrophils # (auto) 7.5 10 ^3/uL (1.6-8.6); Neutrophils % (auto) 93.2 % (37.0-80.0); Nucleated Red Blood Cells % 0.2 %; Red Blood Cells 3.23 10^6/uL (4.0-5.20); White Blood Cell 8.1 10^3/uL (4.4-10.8)
[2022-08-01 16:41] LABS: BUN/Creatinine Ratio 19.2 (10.0-20.0); Calcium 8.7 mg/dL (8.5-10.1)
[2022-08-01] MEDS: FUROSEMIDE 40 MG/4 ML VIAL IV SCH (17:40)
[2022-08-01 18:25] LABS: Phosphorus 4.2 mg/dL (2.5-4.90)
[2022-08-01] MEDS: SODIUM BICARBONATE 650 MG TAB PO SCH (22:42)
[2022-08-02] MEDS: methylPREDNISolone SOD SUCC 125 MG/2 ML VL IV SCH ×4 (00:02→22:00)
[2022-08-02] MEDS: ACETAMINOPHEN 325 MG TAB PO PRN (04:06)
[2022-08-02] MEDS: SODIUM ZIRCONIUM CYCL 10 GM PAK PO SCH ×2 (06:00→14:00)
[2022-08-02] MEDS: FUROSEMIDE 40 MG/4 ML VIAL IV SCH ×2 (06:00→18:00)
[2022-08-02] MEDS: SODIUM BICARBONATE 650 MG TAB PO SCH ×3 (06:00→22:00)
[2022-08-02] MEDS ORDERED: LIDOCAINE VISCOUS 2% 15ML UD MT ONE (08:30)
[2022-08-02 09:03] LABS: Albumin 2.9 g/dL (3.4-5.0); Potassium 4.7 mmol/L (3.5-5.1)
[2022-08-02 09:09] LABS: Bilirubin, Total 0.3 mg/dL (0.2-1.0); Total Protein 6.5 g/dL (6.4-8.2)
[2022-08-02] MEDS ORDERED: LIDOCAINE 2% JELLY 11ml (GLYDO) UR ONE (09:30)
[2022-08-02] MEDS: levoFLOXacin 250MG 50 ML IV SCH (10:00)
[2022-08-02] MEDS: ENOXAPARIN SOD 30 MG/0.3 ML SYRINGE SC SCH (10:00)
[2022-08-02 10:08] LABS: Hematocrit 28.5 % (36.0-46.0); Hemoglobin 9.2 g/dL (12.2-16.2); Mean Corpuscular Hemoglobin 30.1 pg (28.0-32.0); Mean Corpuscular Hgb Conc. 32.4 g/dL (32.0-36.0); Mean Corpuscular Volume 92.9 fL (80.0-100.0); Red Blood Cells 3.07 10^6/uL (4.0-5.20); Red Cell Distribution Width 15.6 % (11.8-14.3); White Blood Cell 7.4 10^3/uL (4.4-10.8)
[2022-08-02 10:13] LABS: Basophils % (manual) 0 (0.0-2.0); Blast Cells 0; Eosinophils % (manual) 0 (0-7); Metamyelocytes % 0; Myelocytes % 0; Promyelocytes % 0; Reactive Lymphocytes 0
[2022-08-02 11:08] LABS: Band Neutrophils % (manual) 10; Lymphocytes % (manual) 2 (10.0-50.0); Monocytes % (manual) 2 (0-12)
[2022-08-02] MEDS ORDERED: FURO1TAB33 GT (12:42)
[2022-08-02] MEDS ORDERED: LEVO500T31 PO (12:44)
[2022-08-02 18:00] VITALS: BP 161/80
== END 2022-08-03 00:34 | disposition home or self-care (01) ==
LOC: EDBD 10:55 → ER 10:55 → TELE 14:39
PROVIDERS: ADMIT Internal Medicine; ATTEND Internal Medicine
DX: J96.21 Acute and chronic respiratory failure with hypoxia (principal); Z20.822 Contact with and (suspected) exposure to COVID-19; J18.9 Pneumonia, unspecified organism; I13.2 Hypertensive heart and chronic kidney disease with heart failure and with stage 5 chronic kidney disease, or end stage renal disease; E11.22 Type 2 diabetes mellitus with diabetic chronic kidney disease; I50.9 Heart failure, unspecified; N18.5 Chronic kidney disease, stage 5; E78.5 Hyperlipidemia, unspecified; I25.10 Atherosclerotic heart disease of native coronary artery without angina pectoris; J44.0 Chronic obstructive pulmonary disease with (acute) lower respiratory infection; N17.9 Acute kidney failure, unspecified; E66.01 Morbid (severe) obesity due to excess calories; Z86.73 Personal history of transient ischemic attack (TIA), and cerebral infarction without residual deficits; Z88.0 Allergy status to penicillin; Z79.899 Other long term (current) drug therapy; Z90.710 Acquired absence of both cervix and uterus
CPT/HCPCS: 36415; 71045; 76775; 78582; 80048; 80053; 80307; 81001; 83605; 83735; 83880; 83970; 84100; 84484; 85007; 85025; 85027; 85379; 85610; 85730; 87040; 87086; 87426; 87804; 93005; 93970; 96365; 96366; 96372; 96375; 96376; 99285; A9540; A9558; G0378; J1650; J1940; J1956; J2930

== ENCOUNTER 2022-08-24 20:49 | Emergency (ER) | payer OTHER, MEDICAID ==
[~2022-08-24] VITALS: Ht 177.8 cm; Wt 131.8 kg
[~2022-08-24 20:49] MED LIST changes: +FURO1TAB33 GT; +LEVO500T31 PO
[2022-08-24 23:34] LABS: Urine Bacteria MANY /hpf (None Seen); Urine Blood Negative /uL (Negative); Urine Budding Yeast FEW /hpf (None Seen); Urine Mucus FEW (None Seen); Urine Specific Gravity 1.011 (1.001-1.035); Urine WBC 9 /hpf (0 - 5)
[2022-08-24 23:59] LABS: Eosinophils # (auto) 0.3 10 ^3/uL (0-0.8); Hemoglobin 8.3 g/dL (12.2-16.2); Mean Corpuscular Hemoglobin 30.2 pg (28.0-32.0); Monocytes # (auto) 0.4 10 ^3/uL (0-1.3); Neutrophils % (auto) 74.3 % (37.0-80.0)
[2022-08-25] LABS: Basophils # (auto) 0 10 ^3/uL (0-0.2); Basophils % (auto) 0.7 % (0.0-2.0); Eosinophils % (auto) 4.9 % (0.0-7.0); Hematocrit 26.1 % (36.0-46.0); Lymphocytes # (auto) 0.9 10 ^3/uL (0.4-5.4); Lymphocytes % (auto) 13.8 % (10.0-50.0); Mean Corpuscular Hgb Conc. 31.9 g/dL (32.0-36.0); Monocytes % (auto) 6.3 % (0.0-12.0); Neutrophils # (auto) 5.1 10 ^3/uL (1.6-8.6); Nucleated Red Blood Cells % 0.1 %; Red Blood Cells 2.75 10^6/uL (4.0-5.20); Red Cell Distribution Width 15.7 % (11.8-14.3); White Blood Cell 6.8 10^3/uL (4.4-10.8)
[2022-08-25 00:20] LABS: Albumin 2.6 g/dL (3.4-5.0); BUN/Creatinine Ratio 13.3 (10.0-20.0); Calcium 8.9 mg/dL (8.5-10.1); Potassium 4.7 mmol/L (3.5-5.1)
[2022-08-25 00:23] LABS: Bilirubin, Total 0.2 mg/dL (0.2-1.0); Total Protein 5.8 g/dL (6.4-8.2)
[2022-08-25] MEDS ORDERED: IBUPROFEN 600 MG TAB PO ONE (01:15)
[2022-08-25] MEDS ORDERED: ACETAMINOPHEN 500 MG TAB PO ONE ×2 (01:15→07:15)
[2022-08-25] MEDS ORDERED: LEVO750T8 PO (04:55)
[2022-08-25] MEDS ORDERED: cefTRIAXone 1GM/50ML D5W 50 ML IV ONE (05:00)
[2022-08-25] MEDS ORDERED: levoFLOXacin 250 MG TAB PO ONE (05:30)
[2022-08-25 14:11] VITALS: BP 165/71
== END 2022-08-25 14:32 | disposition home or self-care (01) ==
LOC: EDBD 20:49 → ER 20:49
DX: N39.0 Urinary tract infection, site not specified (principal); D64.9 Anemia, unspecified; E11.22 Type 2 diabetes mellitus with diabetic chronic kidney disease; I13.0 Hypertensive heart and chronic kidney disease with heart failure and stage 1 through stage 4 chronic kidney disease, or unspecified chronic kidney disease; N18.9 Chronic kidney disease, unspecified; I50.9 Heart failure, unspecified; E87.8 Other disorders of electrolyte and fluid balance, not elsewhere classified
CPT/HCPCS: 36415; 51702; 80053; 81001; 85025

== ENCOUNTER 2022-08-28 00:27 | Inpatient (IN) | payer OTHER, MEDICAID ==
[~2022-08-28] VITALS: Ht 165.1 cm; Wt 118.0 kg
[~2022-08-28 00:27] MED LIST changes: +LEVO750T8 PO
[2022-08-28 01:40] LABS: Basophils # (auto) 0 10 ^3/uL (0-0.2); Basophils % (auto) 0.4 % (0.0-2.0); Eosinophils # (auto) 0.4 10 ^3/uL (0-0.8); Eosinophils % (auto) 6.2 % (0.0-7.0); Hematocrit 27.5 % (36.0-46.0); Lymphocytes # (auto) 0.6 10 ^3/uL (0.4-5.4); Lymphocytes % (auto) 8.6 % (10.0-50.0); Mean Corpuscular Hemoglobin 30.7 pg (28.0-32.0); Mean Corpuscular Hgb Conc. 32.9 g/dL (32.0-36.0); Mean Corpuscular Volume 93.5 fL (80.0-100.0); Monocytes # (auto) 0.7 10 ^3/uL (0-1.3); Monocytes % (auto) 10.5 % (0.0-12.0); Neutrophils # (auto) 4.9 10 ^3/uL (1.6-8.6); Neutrophils % (auto) 74.3 % (37.0-80.0); Red Blood Cells 2.94 10^6/uL (4.0-5.20); Red Cell Distribution Width 15.4 % (11.8-14.3); White Blood Cell 6.5 10^3/uL (4.4-10.8)
[2022-08-28 01:55] LABS: INR 0.98 (0.9-1.15); Partial Thromboplastin Time 26.8 sec (24.6-33.4)
[2022-08-28 02:24] LABS: Albumin 2.7 g/dL (3.4-5.0); BUN/Creatinine Ratio 11.4 (10.0-20.0); Calcium 8.8 mg/dL (8.5-10.1); Potassium 4.7 mmol/L (3.5-5.1)
[2022-08-28 02:26] LABS: Bilirubin, Total 0.3 mg/dL (0.2-1.0); Total Protein 6.2 g/dL (6.4-8.2)
[2022-08-28] MEDS ORDERED: ONDANSETRON HCL 4 MG/2 ML VIAL IV ONE (04:45)
[2022-08-28] MEDS ORDERED: DOXYCYCLINE 100MG/250ML 250 ML IV ONE (04:45)
[2022-08-28] MEDS ORDERED: HYDROcodone-ACET 5/325MG TAB PO PRN (05:30)
[2022-08-28] MEDS ORDERED: NITROGLYCERIN 0.4 MG SL TAB SL PRN (05:30)
[2022-08-28] MEDS ORDERED: MORPHINE SULFATE INJ 2 MG/ml SYRG IV PRN ×2 (05:30)
[2022-08-28] MEDS ORDERED: DEXTROSE (50%) 50ML SYRG IV PRN (05:30)
[2022-08-28] MEDS ORDERED: DOCUSATE SOD 100 MG CAP PO PRN (05:30)
[2022-08-28] MEDS: SODIUM CHLOR 0.9% PF (SALINE LOCK) 10ML VIAL/SYR IV SCH ×3 (06:27→22:06)
[2022-08-28] MEDS: InsuLIN REG 1unit/0.01ml Soln (100units/ml) SC SCH ×4 (07:21→22:00)
[2022-08-28] MEDS: ACCU-CHEK COMFORT CURVE STRIP VI SCH ×4 (07:21→22:11)
[2022-08-28] MEDS: LEVOTHYROXINE SODIUM 50 MCG TAB PO SCH (07:22)
[2022-08-28] MEDS: ASPirin 81 mg TAB PO SCH (10:13)
[2022-08-28] MEDS: FAMOTIDINE (10MG/ML) 2ML VL IV SCH (10:13)
[2022-08-28] MEDS: CARVEDILOL 12.5 MG TAB PO SCH ×2 (10:14→22:12)
[2022-08-28] MEDS: ATORVASTATIN 20 MG TAB PO SCH (22:12)
[2022-08-28] MEDS: ACETAMINOPHEN 325 MG TAB PO PRN (23:54)
[2022-08-29 05:00] VITALS: BP 132/60
[2022-08-29 05:51] LABS: Hemoglobin 7.9 g/dL (12.2-16.2); White Blood Cell 4.6 10^3/uL (4.4-10.8)
[2022-08-29 05:54] LABS: Mean Corpuscular Hemoglobin 30.2 pg (28.0-32.0); Mean Corpuscular Hgb Conc. 31.6 g/dL (32.0-36.0); Mean Corpuscular Volume 95.5 fL (80.0-100.0); Red Blood Cells 2.61 10^6/uL (4.0-5.20); Red Cell Distribution Width 15.2 % (11.8-14.3)
[2022-08-29 06:14] LABS: Basophils % (manual) 0 (0.0-2.0); Blast Cells 0; Metamyelocytes % 0; Myelocytes % 0; Promyelocytes % 0; Reactive Lymphocytes 0
[2022-08-29 06:35] LABS: Potassium 4.9 mmol/L (3.5-5.1)
[2022-08-29 06:47] LABS: Albumin 2.4 g/dL (3.4-5.0); BUN/Creatinine Ratio 12.5 (10.0-20.0); Bilirubin, Total 0.2 mg/dL (0.2-1.0); Calcium 8.7 mg/dL (8.5-10.1); Total Protein 5.3 g/dL (6.4-8.2)
[2022-08-29] MEDS: InsuLIN REG 1unit/0.01ml Soln (100units/ml) SC SCH ×4 (06:58→22:07)
[2022-08-29] MEDS: LEVOTHYROXINE SODIUM 50 MCG TAB PO SCH (06:58)
[2022-08-29] MEDS: SODIUM CHLOR 0.9% PF (SALINE LOCK) 10ML VIAL/SYR IV SCH ×3 (06:58→22:03)
[2022-08-29] MEDS: ACCU-CHEK COMFORT CURVE STRIP VI SCH ×4 (06:59→22:06)
[2022-08-29 08:05] LABS: Band Neutrophils % (manual) 5; Eosinophils % (manual) 7 (0-7); Lymphocytes % (manual) 18 (10.0-50.0); Monocytes % (manual) 15 (0-12)
[2022-08-29 09:00] VITALS: BP 158/66
[2022-08-29] MEDS: CARVEDILOL 12.5 MG TAB PO SCH ×2 (10:49→22:06)
[2022-08-29] MEDS: FAMOTIDINE (10MG/ML) 2ML VL IV SCH (10:50)
[2022-08-29] MEDS: ASPirin 81 mg TAB PO SCH (10:50)
[2022-08-29 13:19] VITALS: BP 166/68
[2022-08-29 17:10] VITALS: BP 162/59
[2022-08-29 22:00] VITALS: BP 145/77
[2022-08-29] MEDS: ATORVASTATIN 20 MG TAB PO SCH (22:06)
[2022-08-29] MEDS: ACETAMINOPHEN 325 MG TAB PO PRN (22:25)
[2022-08-30] MEDS: ONDANSETRON HCL 4 MG/2 ML VIAL IV PRN (03:17)
[2022-08-30 05:00] VITALS: BP 150/48
[2022-08-30] MEDS: SODIUM CHLOR 0.9% PF (SALINE LOCK) 10ML VIAL/SYR IV SCH ×3 (05:22→21:32)
[2022-08-30] MEDS: ACCU-CHEK COMFORT CURVE STRIP VI SCH ×4 (07:32→21:34)
[2022-08-30] MEDS: LEVOTHYROXINE SODIUM 50 MCG TAB PO SCH (07:32)
[2022-08-30] MEDS: InsuLIN REG 1unit/0.01ml Soln (100units/ml) SC SCH ×4 (07:32→21:35)
[2022-08-30 09:00] VITALS: BP 153/71
[2022-08-30] MEDS: ACETAMINOPHEN 325 MG TAB PO PRN (09:30)
[2022-08-30] MEDS: ASPirin 81 mg TAB PO SCH (09:33)
[2022-08-30] MEDS: CARVEDILOL 12.5 MG TAB PO SCH ×2 (09:33→22:01)
[2022-08-30] MEDS: FAMOTIDINE (10MG/ML) 2ML VL IV SCH (10:29)
[2022-08-30] MEDS ORDERED: FUROSEMIDE 40 MG/4 ML VIAL IV ONE (11:15)
[2022-08-30 13:00] VITALS: BP 150/73
[2022-08-30 17:00] VITALS: BP 158/75
[2022-08-30] MEDS: FUROSEMIDE 40 MG/4 ML VIAL IV SCH (18:00)
[2022-08-30 20:00] VITALS: BP 178/72
[2022-08-30 21:30] VITALS: BP 178/72
[2022-08-30] MEDS: ATORVASTATIN 20 MG TAB PO SCH (21:33)
[2022-08-30] MEDS ORDERED: BENAZEPRIL HCL 10 MG TAB PO ONE ×2 (22:15→22:30)
[2022-08-30] MEDS ORDERED: IPRATROPIUM BROM 0.5 MG/2.5ML INH SOL NEB PRN (22:15)
[2022-08-30] MEDS ORDERED: ALBUTEROL SULF 2.5 MG/0.5ML(0.5%) NEB SOLN NEB PRN (22:15)
[2022-08-31] VITALS (7 sets, daily range): BP systolic 157–178; BP diastolic 71–77
[2022-08-31] MEDS: ACETAMINOPHEN 325 MG TAB PO PRN ×2 (00:13→20:16)
[2022-08-31] MEDS: SODIUM CHLOR 0.9% PF (SALINE LOCK) 10ML VIAL/SYR IV SCH ×3 (05:29→21:16)
[2022-08-31] MEDS: FUROSEMIDE 40 MG/4 ML VIAL IV SCH ×3 (05:42→20:15)
[2022-08-31] MEDS: LEVOTHYROXINE SODIUM 50 MCG TAB PO SCH (06:22)
[2022-08-31] MEDS: ACCU-CHEK COMFORT CURVE STRIP VI SCH ×4 (06:23→21:26)
[2022-08-31] MEDS: InsuLIN REG 1unit/0.01ml Soln (100units/ml) SC SCH ×4 (06:30→21:26)
[2022-08-31 07:00] LABS: Calcium 8.6 mg/dL (8.5-10.1); Potassium 4.4 mmol/L (3.5-5.1)
[2022-08-31 07:06] LABS: BUN/Creatinine Ratio 12.9 (10.0-20.0)
[2022-08-31 07:10] LABS: Basophils # (auto) 0 10 ^3/uL (0-0.2); Hemoglobin 8.1 g/dL (12.2-16.2); Lymphocytes # (auto) 0.8 10 ^3/uL (0.4-5.4); Lymphocytes % (auto) 18.4 % (10.0-50.0); Monocytes # (auto) 0.4 10 ^3/uL (0-1.3); Neutrophils # (auto) 2.7 10 ^3/uL (1.6-8.6); White Blood Cell 4.4 10^3/uL (4.4-10.8)
[2022-08-31 07:12] LABS: Basophils % (auto) 0.5 % (0.0-2.0); Eosinophils # (auto) 0.5 10 ^3/uL (0-0.8); Eosinophils % (auto) 10.3 % (0.0-7.0); Hematocrit 24.4 % (36.0-46.0); Mean Corpuscular Hemoglobin 30.6 pg (28.0-32.0); Mean Corpuscular Hgb Conc. 33.2 g/dL (32.0-36.0); Mean Corpuscular Volume 92.4 fL (80.0-100.0); Neutrophils % (auto) 60.8 % (37.0-80.0); Red Blood Cells 2.65 10^6/uL (4.0-5.20); Red Cell Distribution Width 14.9 % (11.8-14.3)
[2022-08-31] MEDS: FAMOTIDINE (10MG/ML) 2ML VL IV SCH (09:24)
[2022-08-31] MEDS: ASPirin 81 mg TAB PO SCH (09:25)
[2022-08-31] MEDS: BENAZEPRIL HCL 10 MG TAB PO SCH (09:25)
[2022-08-31] MEDS: CARVEDILOL 12.5 MG TAB PO SCH ×2 (09:26→21:16)
[2022-08-31] MEDS: ATORVASTATIN 20 MG TAB PO SCH (21:16)
[2022-09-01] VITALS (7 sets, daily range): BP systolic 163–188; BP diastolic 76–90
[2022-09-01] MEDS: SODIUM CHLOR 0.9% PF (SALINE LOCK) 10ML VIAL/SYR IV SCH ×3 (05:58→22:48)
[2022-09-01] MEDS: FUROSEMIDE 40 MG/4 ML VIAL IV SCH ×2 (05:58→17:22)
[2022-09-01] MEDS: ACCU-CHEK COMFORT CURVE STRIP VI SCH ×4 (06:00→22:48)
[2022-09-01] MEDS: LEVOTHYROXINE SODIUM 50 MCG TAB PO SCH (06:00)
[2022-09-01] MEDS: InsuLIN REG 1unit/0.01ml Soln (100units/ml) SC SCH ×4 (06:00→22:44)
[2022-09-01 06:16] LABS: Basophils # (auto) 0 10 ^3/uL (0-0.2); Basophils % (auto) 0.6 % (0.0-2.0); Eosinophils # (auto) 0.4 10 ^3/uL (0-0.8); Eosinophils % (auto) 8.7 % (0.0-7.0); Hematocrit 28.3 % (36.0-46.0); Hemoglobin 9.1 g/dL (12.2-16.2); Lymphocytes % (auto) 21.5 % (10.0-50.0); Mean Corpuscular Hemoglobin 30.8 pg (28.0-32.0); Mean Corpuscular Volume 96.3 fL (80.0-100.0); Monocytes # (auto) 0.4 10 ^3/uL (0-1.3); Monocytes % (auto) 9.8 % (0.0-12.0); Neutrophils # (auto) 2.7 10 ^3/uL (1.6-8.6); Neutrophils % (auto) 59.4 % (37.0-80.0); Red Blood Cells 2.94 10^6/uL (4.0-5.20); Red Cell Distribution Width 14.9 % (11.8-14.3); White Blood Cell 4.5 10^3/uL (4.4-10.8)
[2022-09-01 06:43] LABS: BUN/Creatinine Ratio 13.9 (10.0-20.0); Calcium 8.7 mg/dL (8.5-10.1); Potassium 3.9 mmol/L (3.5-5.1)
[2022-09-01] MEDS: FAMOTIDINE (10MG/ML) 2ML VL IV SCH (10:04)
[2022-09-01] MEDS: ONDANSETRON HCL 4 MG/2 ML VIAL IV PRN ×3 (10:04→13:12)
[2022-09-01] MEDS: BENAZEPRIL HCL 10 MG TAB PO SCH (10:05)
[2022-09-01] MEDS: ASPirin 81 mg TAB PO SCH (10:05)
[2022-09-01] MEDS: CARVEDILOL 12.5 MG TAB PO SCH ×2 (10:08→22:45)
[2022-09-01] MEDS: ATORVASTATIN 20 MG TAB PO SCH (22:45)
[2022-09-02] MEDS: ACETAMINOPHEN 325 MG TAB PO PRN (04:39)
[2022-09-02 05:00] VITALS: BP 142/60
[2022-09-02] MEDS: LEVOTHYROXINE SODIUM 50 MCG TAB PO SCH (06:18)
[2022-09-02] MEDS: FUROSEMIDE 40 MG/4 ML VIAL IV SCH ×2 (06:18→17:36)
[2022-09-02] MEDS: ACCU-CHEK COMFORT CURVE STRIP VI SCH ×4 (06:21→20:53)
[2022-09-02] MEDS: InsuLIN REG 1unit/0.01ml Soln (100units/ml) SC SCH ×4 (06:32→21:13)
[2022-09-02] MEDS: SODIUM CHLOR 0.9% PF (SALINE LOCK) 10ML VIAL/SYR IV SCH ×3 (06:33→20:53)
[2022-09-02 09:00] VITALS: BP 166/67
[2022-09-02] MEDS: FAMOTIDINE (10MG/ML) 2ML VL IV SCH (09:33)
[2022-09-02] MEDS: CARVEDILOL 12.5 MG TAB PO SCH ×2 (09:33→21:07)
[2022-09-02] MEDS: ASPirin 81 mg TAB PO SCH (09:33)
[2022-09-02] MEDS: BENAZEPRIL HCL 10 MG TAB PO SCH (09:34)
[2022-09-02 13:00] VITALS: BP 169/80
[2022-09-02 16:58] VITALS: BP 143/61
[2022-09-02] MEDS: ONDANSETRON HCL 4 MG/2 ML VIAL IV PRN (20:50)
[2022-09-02] MEDS: ATORVASTATIN 20 MG TAB PO SCH (20:52)
[2022-09-02 22:00] VITALS: BP 174/71
[2022-09-03 05:00] VITALS: BP_SYST 101; BP_SYST 147; BP_DIAS 54; BP_DIAS 64
[2022-09-03] MEDS: ACETAMINOPHEN 325 MG TAB PO PRN (06:17)
[2022-09-03] MEDS: LEVOTHYROXINE SODIUM 50 MCG TAB PO SCH (06:17)
[2022-09-03] MEDS: FUROSEMIDE 40 MG/4 ML VIAL IV SCH (06:19)
[2022-09-03] MEDS: ACCU-CHEK COMFORT CURVE STRIP VI SCH ×2 (06:19→11:10)
[2022-09-03] MEDS: InsuLIN REG 1unit/0.01ml Soln (100units/ml) SC SCH ×2 (06:25→11:10)
[2022-09-03] MEDS: SODIUM CHLOR 0.9% PF (SALINE LOCK) 10ML VIAL/SYR IV SCH (06:26)
[2022-09-03 07:56] VITALS: BP 147/54
[2022-09-03 09:00] VITALS: BP 164/72
[2022-09-03] MEDS: ASPirin 81 mg TAB PO SCH (09:47)
[2022-09-03] MEDS: FAMOTIDINE (10MG/ML) 2ML VL IV SCH (09:47)
[2022-09-03] MEDS: CARVEDILOL 12.5 MG TAB PO SCH (09:48)
[2022-09-03] MEDS: BENAZEPRIL HCL 10 MG TAB PO SCH (09:49)
== END 2022-09-03 12:45 | disposition hospice, home (50) | DRG 291 ==
LOC: EDBD 00:27 → ER 00:27 → TELE 05:26 → TELE-WESTW 22:24
PROVIDERS: ADMIT Nurse Practitioner Family; ATTEND Family Medicine
DX: I13.0 Hypertensive heart and chronic kidney disease with heart failure and stage 1 through stage 4 chronic kidney disease, or unspecified chronic kidney disease (principal); I50.43 Acute on chronic combined systolic (congestive) and diastolic (congestive) heart failure; N17.0 Acute kidney failure with tubular necrosis; E44.0 Moderate protein-calorie malnutrition; N39.0 Urinary tract infection, site not specified; J96.10 Chronic respiratory failure, unspecified whether with hypoxia or hypercapnia; N18.4 Chronic kidney disease, stage 4 (severe); Z68.42 Body mass index [BMI] 45.0-49.9, adult; E87.1 Hypo-osmolality and hyponatremia; I24.9 Acute ischemic heart disease, unspecified; E03.9 Hypothyroidism, unspecified; E66.01 Morbid (severe) obesity due to excess calories; D63.1 Anemia in chronic kidney disease; E11.22 Type 2 diabetes mellitus with diabetic chronic kidney disease; K21.9 Gastro-esophageal reflux disease without esophagitis; B95.62 Methicillin resistant Staphylococcus aureus infection as the cause of diseases classified elsewhere; E78.5 Hyperlipidemia, unspecified; J44.9 Chronic obstructive pulmonary disease, unspecified; Z82.3 Family history of stroke; Z82.49 Family history of ischemic heart disease and other diseases of the circulatory system; Z83.3 Family history of diabetes mellitus; Z86.73 Personal history of transient ischemic attack (TIA), and cerebral infarction without residual deficits; Z88.0 Allergy status to penicillin; Z90.710 Acquired absence of both cervix and uterus; Z99.81 Dependence on supplemental oxygen
CPT/HCPCS: 36415; 71045; 80048; 80053; 80061; 82962; 83036; 83735; 83880; 84443; 84484; 85007; 85025; 85027; 85610; 85730; 86850; 86900; 86901; 87081; 93005; 96365; G0378; J1815; J2405; J3490

== ENCOUNTER 2022-09-07 17:04 | Emergency (ER) | payer OTHER, MEDICAID ==
[~2022-09-07] VITALS: Ht 170.2 cm; Wt 181.0 kg
[2022-09-07] MEDS ORDERED: ONDANSETRON HCL 4 MG/2 ML VIAL IV ONE (17:30)
[2022-09-07] MEDS ORDERED: MORPHINE SULFATE 4 MG/ML SYR/VIAL IV ONE (17:30)
[2022-09-07] MEDS ORDERED: ASPirin 81 mg TAB PO ONE (17:30)
[2022-09-07 17:55] LABS: Basophils # (auto) 0.1 10 ^3/uL (0-0.2); Eosinophils # (auto) 0.2 10 ^3/uL (0-0.8); Eosinophils % (auto) 2.9 % (0.0-7.0); Hematocrit 28.2 % (36.0-46.0); Hemoglobin 9.3 g/dL (12.2-16.2); Lymphocytes # (auto) 0.8 10 ^3/uL (0.4-5.4); Lymphocytes % (auto) 11.4 % (10.0-50.0); Mean Corpuscular Hemoglobin 30.3 pg (28.0-32.0); Mean Corpuscular Hgb Conc. 32.8 g/dL (32.0-36.0); Mean Corpuscular Volume 92.5 fL (80.0-100.0); Monocytes # (auto) 0.4 10 ^3/uL (0-1.3); Monocytes % (auto) 6.4 % (0.0-12.0); Neutrophils # (auto) 5.2 10 ^3/uL (1.6-8.6); Neutrophils % (auto) 78.3 % (37.0-80.0); Red Blood Cells 3.05 10^6/uL (4.0-5.20); Red Cell Distribution Width 14.8 % (11.8-14.3); White Blood Cell 6.6 10^3/uL (4.4-10.8)
[2022-09-07 18:11] LABS: Albumin 2.9 g/dL (3.4-5.0); BUN/Creatinine Ratio 15.7 (10.0-20.0); Calcium 8.7 mg/dL (8.5-10.1); Magnesium 1.7 mg/dL (1.6-2.6); Potassium 4.6 mmol/L (3.5-5.1)
[2022-09-07 18:19] LABS: Bilirubin, Total 0.3 mg/dL (0.2-1.0); Total Protein 5.9 g/dL (6.4-8.2)
[2022-09-07] MEDS ORDERED: ACETAMINOPHEN 500 MG TAB PO ONE (23:00)
[2022-09-08] MEDS ORDERED: ONDANSETRON ODT 4 MG TAB PO ONE (09:15)
[2022-09-08 15:20] VITALS: BP 176/81
== END 2022-09-08 15:54 | disposition home or self-care (01) ==
LOC: EDUNIT# 17:04 → EDBD 17:04 → ER 17:04
DX: R07.89 Other chest pain (principal); E11.22 Type 2 diabetes mellitus with diabetic chronic kidney disease; I13.0 Hypertensive heart and chronic kidney disease with heart failure and stage 1 through stage 4 chronic kidney disease, or unspecified chronic kidney disease; N18.9 Chronic kidney disease, unspecified; I50.9 Heart failure, unspecified; J44.9 Chronic obstructive pulmonary disease, unspecified; E78.5 Hyperlipidemia, unspecified; Z90.710 Acquired absence of both cervix and uterus
CPT/HCPCS: 36415; 71045; 80053; 83735; 83880; 84484; 85025; 93005

== ENCOUNTER 2022-10-21 06:35 | Emergency (ER) | payer OTHER, MEDICAID ==
[~2022-10-21] VITALS: Ht 162.6 cm; Wt 159.1 kg
[~2022-10-21 06:35] MED LIST changes: +BENA40TA70 PO; -BENA40TA8 PO; +GABA-1254 PO; -GABA300C11 PO
[2022-10-21 07:55] LABS: Basophils # (auto) 0.1 10 ^3/uL (0-0.2); Basophils % (auto) 0.9 % (0.0-2.0); Eosinophils # (auto) 0.4 10 ^3/uL (0-0.8); Eosinophils % (auto) 4.4 % (0.0-7.0); Hematocrit 27.8 % (36.0-46.0); Lymphocytes # (auto) 1.1 10 ^3/uL (0.4-5.4); Lymphocytes % (auto) 13.6 % (10.0-50.0); Mean Corpuscular Hemoglobin 29.7 pg (28.0-32.0); Mean Corpuscular Hgb Conc. 32.3 g/dL (32.0-36.0); Mean Corpuscular Volume 91.9 fL (80.0-100.0); Monocytes # (auto) 0.4 10 ^3/uL (0-1.3); Monocytes % (auto) 5.6 % (0.0-12.0); Neutrophils % (auto) 75.5 % (37.0-80.0); Red Blood Cells 3.03 10^6/uL (4.0-5.20); Red Cell Distribution Width 14.8 % (11.8-14.3)
[2022-10-21 08:09] LABS: Calcium 8.4 mg/dL (8.5-10.1); Potassium 4.2 mmol/L (3.5-5.1)
[2022-10-21 08:13] LABS: BUN/Creatinine Ratio 19.3 (10.0-20.0); Bilirubin, Total 0.2 mg/dL (0.2-1.0); Total Protein 5.8 g/dL (6.4-8.2)
[2022-10-21] MEDS ORDERED: amLODIPine BESYLATE 5 MG TAB PO ONE (11:15)
[2022-10-21] MEDS ORDERED: ONDANSETRON HCL 4 MG/2 ML VIAL IV ONE (11:15)
[2022-10-21 12:01] VITALS: BP 167/98
== END 2022-10-21 13:21 | disposition home or self-care (01) ==
LOC: ER 06:35 → EDBD 06:35 → ER 13:21
DX: M54.6 Pain in thoracic spine (principal); G89.4 Chronic pain syndrome; E11.22 Type 2 diabetes mellitus with diabetic chronic kidney disease; I13.0 Hypertensive heart and chronic kidney disease with heart failure and stage 1 through stage 4 chronic kidney disease, or unspecified chronic kidney disease; N18.9 Chronic kidney disease, unspecified; I50.89 Other heart failure; E78.5 Hyperlipidemia, unspecified; Z90.710 Acquired absence of both cervix and uterus; Z88.0 Allergy status to penicillin
CPT/HCPCS: 36415; 80053; 84484; 85025; 93005; 93970; 96374; 99285; J2405

== ENCOUNTER 2022-11-18 23:39 | Inpatient (IN) | payer OTHER, MEDICAID ==
[~2022-11-18] VITALS: Ht 170.2 cm; Wt 136.5 kg
[2022-11-19 00:21] LABS: Basophils # (auto) 0.1 10 ^3/uL (0-0.2); Basophils % (auto) 0.8 % (0.0-2.0); Eosinophils # (auto) 0.3 10 ^3/uL (0-0.8); Eosinophils % (auto) 3.5 % (0.0-7.0); Hematocrit 31.4 % (36.0-46.0); Hemoglobin 10.1 g/dL (12.2-16.2); Lymphocytes # (auto) 1.2 10 ^3/uL (0.4-5.4); Lymphocytes % (auto) 12.7 % (10.0-50.0); Mean Corpuscular Hemoglobin 29.4 pg (28.0-32.0); Mean Corpuscular Volume 91.9 fL (80.0-100.0); Monocytes # (auto) 0.6 10 ^3/uL (0-1.3); Monocytes % (auto) 6.4 % (0.0-12.0); Neutrophils % (auto) 76.6 % (37.0-80.0); Red Blood Cells 3.42 10^6/uL (4.0-5.20); Red Cell Distribution Width 15.2 % (11.8-14.3); White Blood Cell 9.1 10^3/uL (4.4-10.8)
[2022-11-19] MEDS: SODIUM CHLORIDE 0.9% 1,000 ML IV ONE ×2 (00:28→01:18)
[2022-11-19 00:47] LABS: BUN/Creatinine Ratio 15.3 (10.0-20.0); Calcium 8.6 mg/dL (8.5-10.1); Potassium 4.4 mmol/L (3.5-5.1)
[2022-11-19 00:50] LABS: Bilirubin, Total 0.4 mg/dL (0.2-1.0); Total Protein 6.5 g/dL (6.4-8.2)
[2022-11-19] MEDS ORDERED: VANCOMYCIN 1GM/250ML 250 ML IV ONE (03:30)
[2022-11-19 03:58] LABS: Urine Bacteria MANY /hpf (None Seen); Urine Blood TRACE /uL (Negative); Urine Specific Gravity 1.014 (1.001-1.035); Urine WBC 47 /hpf (0 - 5); Urine WBC Clumps PRESENT /hpf (None Seen)
[2022-11-19] MEDS ORDERED: ONDANSETRON HCL 4 MG/2 ML VIAL IV ONE (04:00)
[2022-11-19] MEDS ORDERED: LABETALOL HCL 5 MG/ML 4ML SYRINGE IV ONE (04:00)
[2022-11-19] MEDS ORDERED: cefTRIAXone 1GM/50ML D5W 50 ML IV ONE (04:15)
[2022-11-19] MEDS ORDERED: SOD CHL 0.45% 1,000 ML IV ONE (06:15)
[2022-11-19] MEDS ORDERED: MORPHINE SULFATE INJ 2 MG/ml SYRG IV PRN (06:15)
[2022-11-19] MEDS ORDERED: LACTULOSE 20Gm/30ML SOLN PO ONE (06:15)
[2022-11-19] MEDS ORDERED: BISACODYL 10 MG RECT SUPP PR ONE (06:15)
[2022-11-19] MEDS ORDERED: CIPROFLOXACIN 400MG/200ML 200 ML IV ONE (06:15)
[2022-11-19] MEDS ORDERED: NITROGLYCERIN 0.4 MG SL TAB SL PRN (06:15)
[2022-11-19] MEDS ORDERED: ONDANSETRON HCL 4 MG/2 ML VIAL IV PRN (07:00)
[2022-11-19 07:06] LABS: INR 1.04 (0.9-1.15)
[2022-11-19] MEDS: DOCUSATE SOD 100 MG CAP PO SCH (10:00)
[2022-11-19] MEDS: ALBUTEROL SULF 2.5 MG/0.5ML(0.5%) NEB SOLN NEB SCH ×2 (12:00→19:28)
[2022-11-19] MEDS ORDERED: amLODIPine BESYLATE 5 MG TAB PO SCH (13:00)
[2022-11-19] MEDS: ALBUMIN 25% 100 ML IV SCH ×2 (14:47→22:17)
[2022-11-19 16:49] VITALS: BP 124/74
[2022-11-19 21:08] LABS: Protein, Urine 461.2 mg/dL (0.0-11.9)
[2022-11-19] MEDS: cloNIDine HCL 0.1 MG TAB PO SCH (22:15)
[2022-11-19 23:41] VITALS: BP 183/67
[2022-11-19] MEDS ORDERED: INSREG3 (23:49)
[2022-11-19] MEDS ORDERED: FUR20T PO (23:49)
[2022-11-19] MEDS ORDERED: INSUINJ37 SC (23:49)
[2022-11-19] MEDS ORDERED: GAB100C PO (23:49)
[2022-11-19] MEDS: hydrALAZINE HCL 20 MG/ML VL IV PRN (23:53)
[2022-11-20] MEDS: ALBUTEROL SULF 2.5 MG/0.5ML(0.5%) NEB SOLN NEB SCH ×4 (00:04→19:37)
[2022-11-20 05:00] VITALS: BP 154/69
[2022-11-20] MEDS: ALBUMIN 25% 100 ML IV SCH (05:08)
[2022-11-20 06:18] LABS: Basophils # (auto) 0.1 10 ^3/uL (0-0.2); Basophils % (auto) 0.9 % (0.0-2.0); Eosinophils # (auto) 0.3 10 ^3/uL (0-0.8); Hematocrit 26.1 % (36.0-46.0); Hemoglobin 8.6 g/dL (12.2-16.2); Lymphocytes # (auto) 0.9 10 ^3/uL (0.4-5.4); Lymphocytes % (auto) 12.5 % (10.0-50.0); Mean Corpuscular Hemoglobin 30.3 pg (28.0-32.0); Mean Corpuscular Hgb Conc. 33.1 g/dL (32.0-36.0); Mean Corpuscular Volume 91.7 fL (80.0-100.0); Monocytes # (auto) 0.4 10 ^3/uL (0-1.3); Monocytes % (auto) 5.9 % (0.0-12.0); Neutrophils # (auto) 5.4 10 ^3/uL (1.6-8.6); Neutrophils % (auto) 76.7 % (37.0-80.0); Nucleated Red Blood Cells % 0.2 %; Red Blood Cells 2.85 10^6/uL (4.0-5.20); Red Cell Distribution Width 15.4 % (11.8-14.3); White Blood Cell 7.1 10^3/uL (4.4-10.8)
[2022-11-20] MEDS: CIPROFLOXACIN 400MG/200ML 200 ML IV SCH (06:45)
[2022-11-20 06:53] LABS: Calcium 8.9 mg/dL (8.5-10.1); Potassium 4.6 mmol/L (3.5-5.1)
[2022-11-20 06:57] LABS: BUN/Creatinine Ratio 15.1 (10.0-20.0); Bilirubin, Total 0.5 mg/dL (0.2-1.0)
[2022-11-20] MEDS: METOCLOPRAMIDE HCL 5MG/ml INJ 2ml VIAL IV PRN ×2 (08:20→17:59)
[2022-11-20] MEDS: hydrALAZINE HCL 20 MG/ML VL IV PRN ×2 (08:21→19:00)
[2022-11-20 09:00] VITALS: BP 171/103
[2022-11-20] MEDS: cloNIDine HCL 0.1 MG TAB PO SCH ×2 (09:59→21:19)
[2022-11-20] MEDS: DOCUSATE SOD 100 MG CAP PO SCH (09:59)
[2022-11-20] MEDS: ACETAMINOPHEN 325 MG TAB PO PRN ×2 (11:41→17:59)
[2022-11-20] MEDS: LABETALOL HCL 5 MG/ML 4ML SYRINGE IV PRN ×2 (11:42→17:59)
[2022-11-20 12:39] VITALS: BP 163/76
[2022-11-20 16:34] VITALS: BP 161/73
[2022-11-20] MEDS: CARVEDILOL 3.125 MG TAB PO SCH (21:20)
[2022-11-20 22:00] VITALS: BP 130/72
[2022-11-21] MEDS: ALBUTEROL SULF 2.5 MG/0.5ML(0.5%) NEB SOLN NEB SCH ×4 (00:05→19:04)
[2022-11-21 05:00] VITALS: BP 163/71
[2022-11-21] MEDS ORDERED: hydrALAZINE HCL 25 MG TAB PO ONE (06:30)
[2022-11-21] MEDS: CARVEDILOL 3.125 MG TAB PO SCH ×2 (08:07→21:32)
[2022-11-21] MEDS: NIFEdipine ER 30 MG TAB PO SCH (08:08)
[2022-11-21] MEDS: cloNIDine HCL 0.1 MG TAB PO SCH ×2 (08:08→21:32)
[2022-11-21] MEDS: DOCUSATE SOD 100 MG CAP PO SCH (08:08)
[2022-11-21 08:52] VITALS: BP 171/72
[2022-11-21 11:10] LABS: Basophils # (auto) 0.1 10 ^3/uL (0-0.2); Basophils % (auto) 0.7 % (0.0-2.0); Eosinophils # (auto) 0.3 10 ^3/uL (0-0.8); Eosinophils % (auto) 3.8 % (0.0-7.0); Hematocrit 26.1 % (36.0-46.0); Hemoglobin 8.4 g/dL (12.2-16.2); Lymphocytes # (auto) 0.5 10 ^3/uL (0.4-5.4); Lymphocytes % (auto) 6.4 % (10.0-50.0); Mean Corpuscular Hemoglobin 29.6 pg (28.0-32.0); Mean Corpuscular Hgb Conc. 32.3 g/dL (32.0-36.0); Mean Corpuscular Volume 91.6 fL (80.0-100.0); Monocytes # (auto) 0.4 10 ^3/uL (0-1.3); Monocytes % (auto) 5.2 % (0.0-12.0); Neutrophils # (auto) 6.6 10 ^3/uL (1.6-8.6); Neutrophils % (auto) 83.9 % (37.0-80.0); Red Blood Cells 2.85 10^6/uL (4.0-5.20); Red Cell Distribution Width 15.6 % (11.8-14.3); White Blood Cell 7.9 10^3/uL (4.4-10.8)
[2022-11-21 11:38] LABS: BUN/Creatinine Ratio 13.8 (10.0-20.0); Calcium 8.5 mg/dL (8.5-10.1); Potassium 4.5 mmol/L (3.5-5.1)
[2022-11-21 12:37] VITALS: BP 134/62
[2022-11-21] MEDS ORDERED: POLYETHYLENE GLYCOL 17 GM PWDR PO PRN (12:45)
[2022-11-21] MEDS ORDERED: BISACODYL 5 MG EC TAB PO PRN (12:45)
[2022-11-21] MEDS ORDERED: SENNA 8.6 MG TAB PO ONE (12:45)
[2022-11-21] MEDS: CIPROFLOXACIN 400MG/200ML 200 ML IV SCH (14:57)
[2022-11-21] MEDS: METOCLOPRAMIDE HCL 5MG/ml INJ 2ml VIAL IV PRN (16:28)
[2022-11-21 16:41] VITALS: BP 159/75
[2022-11-21] MEDS: hydrALAZINE HCL 20 MG/ML VL IV PRN (18:25)
[2022-11-21] MEDS: SENNA 8.6 MG TAB PO SCH (21:31)
[2022-11-21 22:00] VITALS: BP 156/77
[2022-11-22] MEDS: ALBUTEROL SULF 2.5 MG/0.5ML(0.5%) NEB SOLN NEB SCH ×3 (00:49→12:00)
[2022-11-22] MEDS: ACETAMINOPHEN 325 MG TAB PO PRN (02:22)
[2022-11-22 05:00] VITALS: BP 140/68
[2022-11-22 08:19] VITALS: BP 136/84
[2022-11-22] MEDS: SENNA 8.6 MG TAB PO SCH (09:31)
[2022-11-22] MEDS: DOCUSATE SOD 100 MG CAP PO SCH (09:32)
[2022-11-22 10:15] VITALS: BP 136/84
[2022-11-22] MEDS: NIFEdipine ER 30 MG TAB PO SCH (10:17)
[2022-11-22] MEDS: CIPROFLOXACIN 400MG/200ML 200 ML IV SCH (10:17)
[2022-11-22] MEDS: cloNIDine HCL 0.1 MG TAB PO SCH (10:17)
[2022-11-22] MEDS: CARVEDILOL 3.125 MG TAB PO SCH (10:18)
[2022-11-22 13:00] VITALS: BP 154/69
[2022-11-22] MEDS ORDERED: CIPR-173 PO (13:09)
[2022-11-22 14:17] VITALS: BP 135/75
[2022-11-22 17:00] VITALS: BP 150/79
== END 2022-11-22 20:50 | disposition home or self-care (01) | DRG 391 ==
LOC: EDBD 23:39 → ER 23:39 → UNDOADMOB 11-19 06:26 → TELE 11-19 06:26 → TELE-WESTW 11-19 21:10 → OBSVTOIN 11-21 06:35
PROVIDERS: ADMIT Internal Medicine; ATTEND Internal Medicine
DX: K52.9 Noninfective gastroenteritis and colitis, unspecified (principal); N17.0 Acute kidney failure with tubular necrosis; I13.0 Hypertensive heart and chronic kidney disease with heart failure and stage 1 through stage 4 chronic kidney disease, or unspecified chronic kidney disease; J96.10 Chronic respiratory failure, unspecified whether with hypoxia or hypercapnia; Z68.42 Body mass index [BMI] 45.0-49.9, adult; N12 Tubulo-interstitial nephritis, not specified as acute or chronic; D63.1 Anemia in chronic kidney disease; L08.9 Local infection of the skin and subcutaneous tissue, unspecified; Z20.822 Contact with and (suspected) exposure to COVID-19; J44.9 Chronic obstructive pulmonary disease, unspecified; I25.10 Atherosclerotic heart disease of native coronary artery without angina pectoris; E11.22 Type 2 diabetes mellitus with diabetic chronic kidney disease; E66.01 Morbid (severe) obesity due to excess calories; N18.9 Chronic kidney disease, unspecified; I50.9 Heart failure, unspecified; Z74.01 Bed confinement status; Z82.3 Family history of stroke; Z82.49 Family history of ischemic heart disease and other diseases of the circulatory system; Z83.3 Family history of diabetes mellitus; Z86.73 Personal history of transient ischemic attack (TIA), and cerebral infarction without residual deficits; Z90.710 Acquired absence of both cervix and uterus; Z99.2 Dependence on renal dialysis; Z88.0 Allergy status to penicillin
CPT/HCPCS: 36415; 71045; 71250; 73620; 74176; 76705; 80048; 80053; 81001; 82570; 83690; 84156; 84300; 84484; 85025; 85610; 87077; 87086; 87088; 87186; 87205; 87426; 93005; 93970; 94640; 96361; 96365; 96375; 97163; G0378; J0696; J2405; J3490; P9047

== ENCOUNTER 2023-01-01 19:01 | Emergency (ER) | payer OTHER, MEDICAID ==
[~2023-01-01] VITALS: Ht 167.6 cm; Wt 113.6 kg
[~2023-01-01 19:01] MED LIST changes: +CIPR-173 PO; -GABA-1254 PO; +INSREG3; +INSUINJ37 SC; -LEVO500T31 PO; -LEVO750T8 PO
[2023-01-01] MEDS ORDERED: cloNIDine HCL 0.1 MG TAB PO ONE (19:45)
[2023-01-01 20:04] LABS: Basophils # (auto) 0.1 10 ^3/uL (0-0.2); Eosinophils # (auto) 0.5 10 ^3/uL (0-0.8); Eosinophils % (auto) 6.5 % (0.0-7.0); Hematocrit 30.6 % (36.0-46.0); Hemoglobin 9.5 g/dL (12.2-16.2); Lymphocytes # (auto) 0.9 10 ^3/uL (0.4-5.4); Lymphocytes % (auto) 11.1 % (10.0-50.0); Mean Corpuscular Hemoglobin 30.1 pg (28.0-32.0); Mean Corpuscular Hgb Conc. 31.2 g/dL (32.0-36.0); Mean Corpuscular Volume 96.6 fL (80.0-100.0); Monocytes # (auto) 0.5 10 ^3/uL (0-1.3); Monocytes % (auto) 5.6 % (0.0-12.0); Neutrophils # (auto) 6.3 10 ^3/uL (1.6-8.6); Neutrophils % (auto) 75.8 % (37.0-80.0); Red Blood Cells 3.17 10^6/uL (4.0-5.20); Red Cell Distribution Width 17.1 % (11.8-14.3); White Blood Cell 8.3 10^3/uL (4.4-10.8)
[2023-01-01 20:15] LABS: Albumin 3.7 g/dL (3.2-4.8); Alkaline Phosphatase 145 U/L (46-116); Anion Gap 6.4 (5-15); Aspartate Aminotransferase < 8 U/L (13-40); BUN/Creatinine Ratio 12.2 (10.0-20.0); Bilirubin, Total 0.2 mg/dL (0.2-1.0); Blood Urea Nitrogen 39 mg/dL (9-23); Calcium 8.9 mg/dL (8.5-10.1); Carbon Dioxide 18.6 mmol/L (20-30); Chloride 114 mmol/L (98-107); Glucose 156 mg/dL (74-106); Potassium 4.9 mmol/L (3.5-5.1); Sodium 139 mmol/L (136-145); Total Protein 6.2 g/dL (5.7-8.2)
[2023-01-01 20:17] LABS: Alanine Aminotransferase < 9 U/L (7-40)
[2023-01-01 20:45] VITALS: PULSE 76; RESP 18; O2SAT 95
[2023-01-01] MEDS ORDERED: LOSARTAN POTASSIUM 50 MG TAB PO ONE (22:00)
[2023-01-02] MEDS ORDERED: cefTRIAXone SOD 1,000 MG VL IM ONE (01:00)
[2023-01-02] MEDS ORDERED: cefTRIAXone 1GM/50ML D5W 50 ML IV ONE (02:30)
[2023-01-02 11:52] VITALS: BP 84/56; PULSE 83; RESP 14; TEMP 97.2; O2SAT 98
== END 2023-01-02 12:19 | disposition home or self-care (01) ==
LOC: EDUNIT# 19:01 → EDBD 19:01 → ER 19:01
DX: N39.0 Urinary tract infection, site not specified (principal); E11.22 Type 2 diabetes mellitus with diabetic chronic kidney disease; I13.0 Hypertensive heart and chronic kidney disease with heart failure and stage 1 through stage 4 chronic kidney disease, or unspecified chronic kidney disease; N18.9 Chronic kidney disease, unspecified; I50.89 Other heart failure; J44.9 Chronic obstructive pulmonary disease, unspecified; D64.9 Anemia, unspecified; Z79.82 Long term (current) use of aspirin; Z88.8 Allergy status to other drugs, medicaments and biological substances; Z86.73 Personal history of transient ischemic attack (TIA), and cerebral infarction without residual deficits; Z87.892 Personal history of anaphylaxis; Z90.49 Acquired absence of other specified parts of digestive tract
CPT/HCPCS: 36415; 74176; 80053; 83880; 84484; 85025; 96372; 99285; J0696

== ENCOUNTER 2023-01-25 06:07 | Inpatient (IN) | payer OTHER, MEDICAID ==
[~2023-01-25] VITALS: Ht 152.4 cm; Wt 159.0 kg
[2023-01-25 07:17] LABS: Basophils # (auto) 0.1 10 ^3/uL (0-0.2); Basophils % (auto) 0.9 % (0.0-2.0); Eosinophils # (auto) 0.4 10 ^3/uL (0-0.8); Hemoglobin 8.2 g/dL (12.2-16.2); Monocytes # (auto) 0.5 10 ^3/uL (0-1.3); Red Cell Distribution Width 15.7 % (11.8-14.3)
[2023-01-25 07:19] LABS: Eosinophils % (auto) 6.6 % (0.0-7.0); Hematocrit 25.7 % (36.0-46.0); Lymphocytes % (auto) 14.7 % (10.0-50.0); Mean Corpuscular Hemoglobin 30.2 pg (28.0-32.0); Mean Corpuscular Hgb Conc. 31.8 g/dL (32.0-36.0); Monocytes % (auto) 7.2 % (0.0-12.0); Neutrophils # (auto) 4.6 10 ^3/uL (1.6-8.6); Neutrophils % (auto) 70.6 % (37.0-80.0); Red Blood Cells 2.71 10^6/uL (4.0-5.20); White Blood Cell 6.5 10^3/uL (4.4-10.8)
[2023-01-25 07:32] LABS: Alanine Aminotransferase 19 U/L (7-40); Albumin 3.6 g/dL (3.2-4.8); Alkaline Phosphatase 165 U/L (46-116); Anion Gap 5 (5-15); Aspartate Aminotransferase 10 U/L (13-40); BUN/Creatinine Ratio 15.1 (10.0-20.0); Bilirubin, Total 0.2 mg/dL (0.2-1.0); Blood Urea Nitrogen 53 mg/dL (9-23); Calcium 8.7 mg/dL (8.7-10.4); Carbon Dioxide 18 mmol/L (20-30); Chloride 113 mmol/L (98-107); Glucose 132 mg/dL (74-106); Lipase 63 U/L (12-53); Sodium 136 mmol/L (136-145)
[2023-01-25 07:33] LABS: Total Protein 5.9 g/dL (5.7-8.2)
[2023-01-25 07:39] LABS: Potassium 5.7 mmol/L (3.5-5.1)
[2023-01-25 07:40] VITALS: RESP 16; O2SAT 95
[2023-01-25] MEDS ORDERED: DEXTROSE (50%) 50ML SYRG IV ONE ×2 (08:00→13:30)
[2023-01-25] MEDS ORDERED: ALBUTEROL SULF 2.5 MG/0.5ML(0.5%) NEB SOLN NEB ONE ×2 (08:00→13:30)
[2023-01-25] MEDS ORDERED: CALCIUM GLUC 1,000mg/50ml-NS 50 ML IV ONE ×2 (08:00→13:30)
[2023-01-25] MEDS ORDERED: SODIUM ZIRCONIUM CYCL 10 GM PAK PO ONE (08:00)
[2023-01-25] MEDS ORDERED: InsuLIN REG 1unit/0.01ml Soln (100units/ml) IV ONE ×2 (08:00→13:30)
[2023-01-25] MEDS ORDERED: FUROSEMIDE 20 MG/2 ML VIAL IV ONE (08:00)
[2023-01-25] MEDS ORDERED: SODIUM BICARBONATE 8.4% INJ 50ML SYRINGE IV ONE (08:00)
[2023-01-25] MEDS ORDERED: FUROSEMIDE 100 MG/10ML VIAL IV ONE ×2 (08:45→13:30)
[2023-01-25 09:32] LABS: INR 1.04 (0.9-1.15); Prothrombin Time 10.9 sec (9.3-11.8)
[2023-01-25 11:00] LABS: Urine Bacteria NONE SEEN /hpf (None Seen); Urine Blood 2+ /uL (Negative); Urine Clarity HAZY (Clear); Urine Protein, UAD 2+ (Negative); Urine Specific Gravity 1.012 (1.001-1.035); Urine Urobilinogen Normal (Negative); Urine WBC 119 /hpf (0 - 5); Urine WBC Clumps PRESENT /hpf (None Seen)
[2023-01-25 11:01] LABS: Urine Color STRAW (Yellow)
[2023-01-25] MEDS ORDERED: CEFTRIAXONE SODIUM 2 GM in D5W 5% 100 ML IV ONE (12:00)
[2023-01-25] MEDS ORDERED: MORPHINE SULFATE INJ 2 MG/ml SYRG IV ONE (12:00)
[2023-01-25] MEDS ORDERED: CEPH250C PO (12:13)
[2023-01-25] MEDS ORDERED: SODIUM CHLORIDE 0.9% 1,000 ML IV SCH (13:15)
[2023-01-25] MEDS ORDERED: SODIUM BICARBONATE 8.4 % INJ 50ML VIAL IV ONE (13:30)
[2023-01-25] MEDS: SODIUM ZIRCONIUM CYCL 10 GM PAK PO SCH ×3 (14:10→22:14)
[2023-01-25] MEDS ORDERED: SODIUM BICARBONATE 8.4% INJ 50ML SYRINGE ONE (14:19)
[2023-01-25] MEDS: hydrALAZINE HCL 20 MG/ML VL IV PRN ×2 (14:42→22:14)
[2023-01-25] MEDS: PIPERACILLIN-TAZOB 2.25GM 50 ML IV SCH ×2 (15:11→21:20)
[2023-01-25] MEDS: ACETAMINOPHEN 500 MG TAB PO PRN (15:35)
[2023-01-25 20:00] VITALS: RESP 12; O2SAT 96
[2023-01-25 23:13] VITALS: PULSE 95; RESP 16; O2SAT 99
[2023-01-26] MEDS: hydrALAZINE HCL 20 MG/ML VL IV PRN (03:28)
[2023-01-26] MEDS: PIPERACILLIN-TAZOB 2.25GM 50 ML IV SCH ×3 (03:29→15:00)
[2023-01-26 05:00] VITALS: BP 167/71; PULSE 92; RESP 17; TEMP 97.8; O2SAT 100
[2023-01-26] MEDS ORDERED: ONDANSETRON HCL 4 MG/2 ML VIAL IV PRN (05:30)
[2023-01-26] MEDS: ACETAMINOPHEN 500 MG TAB PO PRN (05:35)
[2023-01-26] MEDS: SODIUM ZIRCONIUM CYCL 10 GM PAK PO SCH ×2 (05:40→14:00)
[2023-01-26 06:51] LABS: Chloride 111 mmol/L (98-107); Potassium 4.9 mmol/L (3.5-5.1); Sodium 140 mmol/L (136-145)
[2023-01-26 06:52] LABS: Anion Gap 9 (5-15); Calcium 9.1 mg/dL (8.7-10.4); Carbon Dioxide 20 mmol/L (20-30)
[2023-01-26 06:57] LABS: BUN/Creatinine Ratio 14.6 (10.0-20.0); Blood Urea Nitrogen 52 mg/dL (9-23); Glucose 180 mg/dL (74-106)
[2023-01-26 08:30] VITALS: BP 167/73; PULSE 91; RESP 19; TEMP 98.5; O2SAT 100
[2023-01-26 13:00] VITALS: BP 168/70; PULSE 85; RESP 16; TEMP 98.2; O2SAT 100
[2023-01-26 13:50] VITALS: BP 184/88; TEMP 36.9
[2023-01-26 16:53] VITALS: BP 160/79; PULSE 87; RESP 20; TEMP 98.2; O2SAT 100
== END 2023-01-26 18:30 | disposition home health service (06) | DRG 641 ==
LOC: ER 06:07 → EDBD 06:07 → TELE 13:17 → TELE-WESTW 22:45
PROVIDERS: ADMIT Internal Medicine; ATTEND Internal Medicine
PROC: 05HB33Z Insertion of Infusion Device into Right Basilic Vein, Percutaneous Approach (ICD-10-PCS; principal; 2023-01-25)
PROC: B54MZZA Ultrasonography of Right Upper Extremity Veins, Guidance (ICD-10-PCS; 2023-01-25)
DX: E87.5 Hyperkalemia (principal); N17.9 Acute kidney failure, unspecified; N39.0 Urinary tract infection, site not specified; I13.2 Hypertensive heart and chronic kidney disease with heart failure and with stage 5 chronic kidney disease, or end stage renal disease; Z68.44 Body mass index [BMI] 60.0-69.9, adult; N18.5 Chronic kidney disease, stage 5; E87.20 Acidosis, unspecified; E66.01 Morbid (severe) obesity due to excess calories; K21.9 Gastro-esophageal reflux disease without esophagitis; I50.9 Heart failure, unspecified; E78.5 Hyperlipidemia, unspecified; E03.9 Hypothyroidism, unspecified; J44.9 Chronic obstructive pulmonary disease, unspecified; K52.89 Other specified noninfective gastroenteritis and colitis; E11.22 Type 2 diabetes mellitus with diabetic chronic kidney disease; Z79.4 Long term (current) use of insulin; Z82.3 Family history of stroke; Z82.49 Family history of ischemic heart disease and other diseases of the circulatory system; Z83.3 Family history of diabetes mellitus; Z86.73 Personal history of transient ischemic attack (TIA), and cerebral infarction without residual deficits; Z90.710 Acquired absence of both cervix and uterus; Z88.8 Allergy status to other drugs, medicaments and biological substances
CPT/HCPCS: 36415; 70450; 71045; 74176; 80048; 80053; 81001; 82962; 83690; 83880; 84132; 84484; 85025; 85610; 87040; 87086; 87088; 87186; 93005; 94640; 99291; G0378; J0696; J1815; J2405; J2543; J7060

== ENCOUNTER 2023-02-17 02:20 | Emergency (ER) | payer OTHER, MEDICAID ==
[~2023-02-17 02:20] MED LIST changes: +CEPH250C PO; -CIPR-173 PO
[2023-02-17 15:45] LABS: INR 1.04 (0.9-1.15); Partial Thromboplastin Time 24.4 SEC (24.5-34.5); Prothrombin Time 10.9 sec (9.3-11.8)
[2023-02-17 16:37] LABS: Alanine Aminotransferase < 9 U/L (7-40); Albumin 3.7 g/dL (3.2-4.8); Alkaline Phosphatase 156 U/L (46-116); Anion Gap 9 (5-15); Aspartate Aminotransferase 9 U/L (13-40); BUN/Creatinine Ratio 10.8 (10.0-20.0); Bilirubin, Total 0.2 mg/dL (0.2-1.0); Blood Urea Nitrogen 35 mg/dL (9-23); Carbon Dioxide 20 mmol/L (20-30); Chloride 112 mmol/L (98-107); Glucose 171 mg/dL (74-106); Magnesium 1.7 mg/dL (1.6-2.6); Potassium 4.6 mmol/L (3.5-5.1); Sodium 141 mmol/L (136-145); Total Protein 6.2 g/dL (5.7-8.2)
[2023-02-17 17:03] LABS: Basophils # (auto) 0.1 10 ^3/uL (0-0.2); Basophils % (auto) 0.9 % (0.0-2.0); Eosinophils # (auto) 0.3 10 ^3/uL (0-0.8); Eosinophils % (auto) 3.8 % (0.0-7.0); Hemoglobin 9.1 g/dL (12.2-16.2); Lymphocytes # (auto) 0.7 10 ^3/uL (0.4-5.4); Lymphocytes % (auto) 8.4 % (10.0-50.0); Mean Corpuscular Hgb Conc. 31.2 g/dL (32.0-36.0); Mean Corpuscular Volume 96.2 fL (80.0-100.0); Monocytes # (auto) 0.5 10 ^3/uL (0-1.3); Monocytes % (auto) 5.7 % (0.0-12.0); Neutrophils # (auto) 6.7 10 ^3/uL (1.6-8.6); Neutrophils % (auto) 81.2 % (37.0-80.0); Nucleated Red Blood Cells % 0.1 %; Red Blood Cells 3.02 10^6/uL (4.0-5.20); White Blood Cell 8.2 10^3/uL (4.4-10.8)
[2023-02-17 22:00] VITALS: BP 142/66; PULSE 88; RESP 18; TEMP 98.2; O2SAT 98
== END 2023-02-17 23:05 | disposition home or self-care (01) ==
LOC: ER 02:20
DX: I51.7 Cardiomegaly (principal); D64.9 Anemia, unspecified; N18.9 Chronic kidney disease, unspecified; R53.1 Weakness
CPT/HCPCS: 36415; 71045; 80053; 83735; 83880; 84484; 85025; 85610; 85730

== ENCOUNTER 2023-05-17 21:12 | Emergency (ER) | payer OTHER, MEDICAID ==
[~2023-05-17] VITALS: Ht 170.2 cm; Wt 115.9 kg
[2023-05-17 21:53] VITALS: PULSE 77; RESP 20; O2SAT 99
[2023-05-17 23:13] LABS: Basophils # (auto) 0.1 10 ^3/uL (0-0.2); Basophils % (auto) 0.9 % (0.0-2.0); Eosinophils # (auto) 0.4 10 ^3/uL (0-0.8); Eosinophils % (auto) 5.8 % (0.0-7.0); Hematocrit 28.9 % (36.0-46.0); Lymphocytes # (auto) 0.8 10 ^3/uL (0.4-5.4); Lymphocytes % (auto) 13.3 % (10.0-50.0); Mean Corpuscular Hemoglobin 30.9 pg (28.0-32.0); Mean Corpuscular Hgb Conc. 31.2 g/dL (32.0-36.0); Mean Corpuscular Volume 99.1 fL (80.0-100.0); Monocytes # (auto) 0.4 10 ^3/uL (0-1.3); Monocytes % (auto) 6.1 % (0.0-12.0); Neutrophils # (auto) 4.7 10 ^3/uL (1.6-8.6); Neutrophils % (auto) 73.9 % (37.0-80.0); Red Blood Cells 2.92 10^6/uL (4.0-5.20); Red Cell Distribution Width 18.1 % (11.8-14.3); White Blood Cell 6.3 10^3/uL (4.4-10.8)
[2023-05-17 23:22] LABS: Chloride 114 mmol/L (98-107); Potassium 5.3 mmol/L (3.5-5.1); Sodium 142 mmol/L (136-145)
[2023-05-17 23:25] LABS: Anion Gap 7 (5-15); Carbon Dioxide 21 mmol/L (20-30)
[2023-05-17 23:30] LABS: Alkaline Phosphatase 157 U/L (46-116); Glucose 134 mg/dL (74-106)
[2023-05-17 23:32] LABS: Alanine Aminotransferase 12 U/L (7-40); Albumin 3.4 g/dL (3.2-4.8); Aspartate Aminotransferase 21 U/L (13-40); Bilirubin, Total 0.2 mg/dL (0.2-1.0); Total Protein 5.5 g/dL (5.7-8.2)
[2023-05-17 23:36] LABS: BUN/Creatinine Ratio 12.3 (10.0-20.0); Blood Urea Nitrogen 32 mg/dL (9-23)
[2023-05-18 00:37] LABS: Urine Amorphous Crystal FEW /hpf (None Seen); Urine Bacteria MANY /hpf (None Seen); Urine Blood TRACE /uL (Negative); Urine Clarity CLOUDY (Clear); Urine Color Yellow (Yellow); Urine Mucus FEW (None Seen); Urine Protein, UAD 3+ (Negative); Urine Specific Gravity 1.016 (1.001-1.035); Urine Urobilinogen Normal (Negative); Urine WBC 199 /hpf (0 - 5); Urine WBC Clumps PRESENT /hpf (None Seen)
[2023-05-18] MEDS ORDERED: ONDANSETRON ODT 4 MG TAB PO ONE (00:45)
[2023-05-18] MEDS ORDERED: cefTRIAXone SOD 1,000 MG VL IV ONE (00:45)
[2023-05-18] MEDS ORDERED: CEPH500C PO (00:47)
[2023-05-18 07:30] VITALS: TEMP 97.8
[2023-05-18 07:40] VITALS: PULSE 63; RESP 16; O2SAT 100
[2023-05-18] MEDS ORDERED: HYDROcodone-ACET 5/325MG TAB PO ONE (11:45)
[2023-05-18] MEDS ORDERED: ONDANSETRON HCL 4 MG/2 ML VIAL IV ONE (11:45)
[2023-05-18 14:00] VITALS: BP 168/88; PULSE 82; RESP 22; O2SAT 100
== END 2023-05-18 15:06 | disposition home or self-care (01) ==
LOC: ER 21:12 → EDBD 21:12 → ER 23:54
DX: U07.1 COVID-19 (principal); M79.10 Myalgia, unspecified site; J44.9 Chronic obstructive pulmonary disease, unspecified; E11.22 Type 2 diabetes mellitus with diabetic chronic kidney disease; I13.0 Hypertensive heart and chronic kidney disease with heart failure and stage 1 through stage 4 chronic kidney disease, or unspecified chronic kidney disease; N18.9 Chronic kidney disease, unspecified; I50.89 Other heart failure; E78.5 Hyperlipidemia, unspecified; Z86.73 Personal history of transient ischemic attack (TIA), and cerebral infarction without residual deficits; Z90.710 Acquired absence of both cervix and uterus; Z88.6 Allergy status to analgesic agent
CPT/HCPCS: 36415; 71045; 80053; 81001; 83880; 84484; 93005; 96374; 96375; 99285; J0696; J2405; Q0162

== ENCOUNTER 2023-06-02 17:41 | Inpatient (IN) | payer OTHER, MEDICAID ==
[~2023-06-02] VITALS: Ht 162.6 cm; Wt 98.4 kg
[~2023-06-02 17:41] MED LIST changes: +CEPH500C PO
[2023-06-02 18:07] VITALS: PULSE 97; RESP 18; O2SAT 99
[2023-06-02 18:57] LABS: Basophils # (auto) 0 10 ^3/uL (0-0.2); Basophils % (auto) 0.1 % (0.0-2.0); Eosinophils # (auto) 0.7 10 ^3/uL (0-0.8); Eosinophils % (auto) 8.9 % (0.0-7.0); Hematocrit 29.3 % (36.0-46.0); Hemoglobin 9.1 g/dL (12.2-16.2); Lymphocytes # (auto) 0.3 10 ^3/uL (0.4-5.4); Lymphocytes % (auto) 4.1 % (10.0-50.0); Mean Corpuscular Hemoglobin 30.7 pg (28.0-32.0); Mean Corpuscular Hgb Conc. 31.1 g/dL (32.0-36.0); Mean Corpuscular Volume 98.5 fL (80.0-100.0); Monocytes # (auto) 0.4 10 ^3/uL (0-1.3); Monocytes % (auto) 4.5 % (0.0-12.0); Neutrophils # (auto) 6.6 10 ^3/uL (1.6-8.6); Neutrophils % (auto) 82.4 % (37.0-80.0); Nucleated Red Blood Cells % 0.1 %; Red Blood Cells 2.97 10^6/uL (4.0-5.20); Red Cell Distribution Width 18.2 % (11.8-14.3)
[2023-06-02 19:07] LABS: Chloride 113 mmol/L (98-107)
[2023-06-02 19:08] LABS: Carbon Dioxide 19 mmol/L (20-30)
[2023-06-02 19:13] LABS: Glucose 112 mg/dL (74-106)
[2023-06-02 19:14] LABS: Blood Urea Nitrogen 50 mg/dL (9-23)
[2023-06-02 19:28] LABS: Potassium 6.3 mmol/L (3.5-5.1)
[2023-06-02 19:32] VITALS: PULSE 75; RESP 24; O2SAT 92
[2023-06-02 19:42] LABS: Anion Gap 7 (5-15); Sodium 139 mmol/L (136-145)
[2023-06-02] MEDS: InsuLIN REG 1unit/0.01ml Soln (100units/ml) IV ONE (20:43)
[2023-06-02] MEDS: SODIUM BICARB 8.4% 50Meq/50ml SYR Vial IV ONE (20:44)
[2023-06-02] MEDS: DEXTROSE (50%) 50ML SYRG IV ONE (20:44)
[2023-06-02] MEDS: CALCIUM GLUC 1,000mg/50ml-NS 50 ML IV ONE (20:44)
[2023-06-02] MEDS: ALBUTEROL SULF 2.5 MG/0.5ML(0.5%) NEB SOLN NEB ONE (20:59)
[2023-06-02] MEDS ORDERED: NITROGLYCERIN 0.4 MG SL TAB SL PRN (23:15)
[2023-06-03] VITALS (17 sets, daily range): BP systolic 107–131; BP diastolic 44–89; PULSE 61–86; RESP 12–22; TEMP 97.4–98.4; O2SAT 96–100
[2023-06-03] MEDS: FUROSEMIDE 40 MG/4 ML VIAL IV ONE (00:06)
[2023-06-03 00:22] LABS: Urine Bacteria MANY /hpf (None Seen); Urine Blood TRACE /uL (Negative); Urine Clarity CLOUDY (Clear); Urine Color Straw (Yellow); Urine Protein, UAD 2+ (Negative); Urine Specific Gravity 1.016 (1.001-1.035); Urine Urobilinogen Normal (Negative); Urine WBC 488 /hpf (0 - 5); Urine WBC Clumps PRESENT /hpf (None Seen); Urine pH 5.5 (5.0-8.0)
[2023-06-03 00:34] LABS: COVID19 ANTIGEN SOFIA FIA NEGATIVE (NEGATIVE)
[2023-06-03] MEDS ORDERED: DEXTROSE (50%) 50ML SYRG IV PRN (03:15)
[2023-06-03] MEDS: ONDANSETRON HCL 4 MG/2 ML VIAL IV PRN ×2 (05:34→09:02)
[2023-06-03 05:59] LABS: Basophils # (auto) 0 10 ^3/uL (0-0.2); Basophils % (auto) 0.2 % (0.0-2.0); Hemoglobin 8.7 g/dL (12.2-16.2); Monocytes # (auto) 0.5 10 ^3/uL (0-1.3); Neutrophils # (auto) 5.3 10 ^3/uL (1.6-8.6); Red Blood Cells 2.83 10^6/uL (4.0-5.20)
[2023-06-03 06:01] LABS: Eosinophils # (auto) 0.8 10 ^3/uL (0-0.8); Eosinophils % (auto) 10.9 % (0.0-7.0); Hematocrit 28.3 % (36.0-46.0); Lymphocytes # (auto) 0.5 10 ^3/uL (0.4-5.4); Lymphocytes % (auto) 7.4 % (10.0-50.0); Mean Corpuscular Hemoglobin 30.8 pg (28.0-32.0); Mean Corpuscular Hgb Conc. 30.8 g/dL (32.0-36.0); Mean Corpuscular Volume 100.1 fL (80.0-100.0); Monocytes % (auto) 7.1 % (0.0-12.0); Neutrophils % (auto) 74.4 % (37.0-80.0); Red Cell Distribution Width 18.5 % (11.8-14.3); White Blood Cell 7.1 10^3/uL (4.4-10.8)
[2023-06-03 06:05] LABS: INR 1.04 (0.9-1.15); Prothrombin Time 10.9 sec (9.3-11.8)
[2023-06-03 06:09] LABS: Alanine Aminotransferase 12 U/L (7-40); Albumin 3.2 g/dL (3.2-4.8); Alkaline Phosphatase 99 U/L (46-116); Anion Gap 8 (5-15); Aspartate Aminotransferase 17 U/L (13-40); BUN/Creatinine Ratio 11.1 (10.0-20.0); Bilirubin, Total 0.2 mg/dL (0.2-1.0); Blood Urea Nitrogen 42 mg/dL (9-23); Calcium 8.8 mg/dL (8.5-10.1); Carbon Dioxide 18 mmol/L (20-30); Chloride 115 mmol/L (98-107); Glucose 96 mg/dL (74-106); Sodium 141 mmol/L (136-145); Total Protein 5.3 g/dL (5.7-8.2)
[2023-06-03 06:32] LABS: Potassium 6.2 mmol/L (3.5-5.1)
[2023-06-03] MEDS: InsuLIN REG 1unit/0.01ml Soln (100units/ml) SC SCH (06:38)
[2023-06-03] MEDS: ACCU-CHEK COMFORT CURVE STRIP VI SCH (06:39)
[2023-06-03] MEDS: IPRATROPIUM BROM 0.5 MG/2.5ML INH SOL NEB SCH (08:15)
[2023-06-03] MEDS: ALBUTEROL SULF 2.5 MG/0.5ML(0.5%) NEB SOLN NEB SCH (08:15)
[2023-06-03] MEDS: cefTRIAXone 1GM/50ML D5W 50 ML IV SCH (09:03)
[2023-06-03] MEDS: SODIUM BICARB 50mEq/50ml Vial 150 ML in D5W 5% 1,000 ML IV ONE (11:03)
[2023-06-03] MEDS: SODIUM BICARB 8.4% 50Meq/50ml SYR Vial IV STA (11:03)
[2023-06-03] MEDS: SODIUM ZIRCONIUM CYCL 10 GM PAK PO ONE ×2 (11:06→11:37)
[2023-06-03] MEDS: FUROSEMIDE 100 MG/10ML VIAL IV ONE (11:06)
[2023-06-03 11:11] LABS: Chloride 114 mmol/L (98-107); Sodium 141 mmol/L (136-145)
[2023-06-03 11:12] LABS: Anion Gap 7 (5-15); Calcium 9.1 mg/dL (8.5-10.1); Carbon Dioxide 20 mmol/L (20-30)
[2023-06-03] MEDS: InsuLIN REG 1unit/0.01ml Soln (100units/ml) IV ONE ×2 (11:13→22:30)
[2023-06-03 11:17] LABS: BUN/Creatinine Ratio 13.9 (10.0-20.0); Glucose 114 mg/dL (74-106)
[2023-06-03 11:35] LABS: Blood Urea Nitrogen 52 mg/dL (9-23); Potassium 6.2 mmol/L (3.5-5.1)
[2023-06-03] MEDS: FUROSEMIDE INJECTION 100 MG in SODIUM CHL 0.9% 100 ML IV SCH (12:24)
[2023-06-03] MEDS: SODIUM ZIRCONIUM CYCL 10 GM PAK PO SCH (13:27)
[2023-06-03 19:41] LABS: Phosphorus 4.8 mg/dL (2.4-5.1)
[2023-06-03] MEDS: CALCIUM GLUC 1,000mg/50ml-NS 50 ML IV ONE (22:30)
[2023-06-03] MEDS: metOLazone 5 MG TAB PO ONE (22:30)
[2023-06-03] MEDS: ALBUTEROL SULF 2.5 MG/0.5ML(0.5%) NEB SOLN ONE (22:33)
[2023-06-04] VITALS (14 sets, daily range): BP systolic 106–152; BP diastolic 38–94; PULSE 78–105; RESP 16–23; TEMP 98–98.5; O2SAT 99–100
[2023-06-04] MEDS: metOLazone 5 MG TAB PO SCH
[2023-06-04] MEDS: CALCIUM GLUC 1,000mg/50ml-NS 50 ML IV SCH (00:40)
[2023-06-04] MEDS: DEXTROSE (50%) 50ML SYRG IV ONE (00:40)
[2023-06-04] MEDS: InsuLIN REG 1unit/0.01ml Soln (100units/ml) IV SCH (00:45)
[2023-06-04] MEDS ORDERED: metOLazone 5 MG TAB PO SCH (10:00)
[2023-06-04] MEDS: ALBUTEROL SULF 2.5 MG/0.5ML(0.5%) NEB SOLN NEB ONE (12:06)
[2023-06-04 13:23] LABS: Basophils # (auto) 0 10 ^3/uL (0-0.2); Eosinophils # (auto) 0.7 10 ^3/uL (0-0.8); Hemoglobin 8.5 g/dL (12.2-16.2); Lymphocytes # (auto) 0.3 10 ^3/uL (0.4-5.4); Mean Corpuscular Hemoglobin 29.9 pg (28.0-32.0); Mean Corpuscular Hgb Conc. 30.6 g/dL (32.0-36.0); Mean Corpuscular Volume 97.8 fL (80.0-100.0); Monocytes # (auto) 0.5 10 ^3/uL (0-1.3); Neutrophils # (auto) 9.7 10 ^3/uL (1.6-8.6); White Blood Cell 11.3 10^3/uL (4.4-10.8)
[2023-06-04 13:25] LABS: Basophils % (auto) 0.4 % (0.0-2.0); Eosinophils % (auto) 6.2 % (0.0-7.0); Hematocrit 27.8 % (36.0-46.0); Lymphocytes % (auto) 2.9 % (10.0-50.0); Monocytes % (auto) 4.7 % (0.0-12.0); Neutrophils % (auto) 85.8 % (37.0-80.0); Red Blood Cells 2.84 10^6/uL (4.0-5.20); Red Cell Distribution Width 18.6 % (11.8-14.3)
[2023-06-04] MEDS: SODIUM BICARB 8.4% 50Meq/50ml SYR Vial IV ONE (13:34)
[2023-06-04 13:36] LABS: Chloride 113 mmol/L (98-107); Sodium 143 mmol/L (136-145)
[2023-06-04 13:37] LABS: Anion Gap 8 (5-15); Carbon Dioxide 22 mmol/L (20-30)
[2023-06-04 13:42] LABS: BUN/Creatinine Ratio 15.1 (10.0-20.0); Blood Urea Nitrogen 57 mg/dL (9-23); Glucose 111 mg/dL (74-106)
[2023-06-04 13:54] LABS: Potassium 5.8 mmol/L (3.5-5.1)
[2023-06-05] VITALS (17 sets, daily range): BP systolic 125–154; BP diastolic 68–81; PULSE 75–102; RESP 16–23; TEMP 97.4–98.3; O2SAT 100
[2023-06-05] MEDS: metOLazone 5 MG TAB PO SCH (01:01)
[2023-06-05] MEDS: diphenhdrAMINE HCL 50 MG/1 ML VL IV PRN ×2 (08:49→16:13)
[2023-06-05] MEDS: MORPHINE SULFATE INJ 2 MG/ml SYRG IV PRN (08:50)
[2023-06-05 11:32] LABS: Anion Gap 9 (5-15); Carbon Dioxide 20 mmol/L (20-30); Chloride 116 mmol/L (98-107); Sodium 145 mmol/L (136-145)
[2023-06-05 11:33] LABS: Calcium 8.1 mg/dL (8.5-10.1)
[2023-06-05 11:38] LABS: Glucose 88 mg/dL (74-106)
[2023-06-05 11:40] LABS: Blood Urea Nitrogen 46 mg/dL (9-23)
[2023-06-05 11:41] LABS: Potassium 5.6 mmol/L (3.5-5.1)
[2023-06-05 11:42] LABS: BUN/Creatinine Ratio 13.1 (10.0-20.0)
[2023-06-05] MEDS: SODIUM ZIRCONIUM CYCL 10 GM PAK PO ONE (13:19)
[2023-06-05] MEDS: SODIUM ZIRCONIUM CYCL 10 GM PAK PO SCH (13:26)
[2023-06-05] MEDS ORDERED: MORPHINE SULFATE INJ 2 MG/ml SYRG IV PRN (15:15)
[2023-06-05] MEDS: methylPREDNISolone SOD SUCC 40 MG/ML VL IV ONE (16:12)
[2023-06-05] MEDS: SODIUM BICARB 8.4% 50Meq/50ml SYR Vial IV ONE (16:12)
[2023-06-05] MEDS: ERTAPENEM SOD INJ 1 GM in SODIUM CHL 0.9% 50 ML IV ONE (21:10)
[2023-06-06] VITALS (15 sets, daily range): BP systolic 122–152; BP diastolic 67–85; PULSE 77–104; RESP 16–22; TEMP 97.5–98.3; O2SAT 95–100
[2023-06-06 06:33] LABS: Chloride 109 mmol/L (98-107); Potassium 5.1 mmol/L (3.5-5.1); Sodium 141 mmol/L (136-145)
[2023-06-06 06:34] LABS: Anion Gap 9 (5-15); Calcium 9.1 mg/dL (8.5-10.1); Carbon Dioxide 23 mmol/L (20-30)
[2023-06-06 06:39] LABS: Glucose 135 mg/dL (74-106)
[2023-06-06 08:05] LABS: BUN/Creatinine Ratio 12.6 (10.0-20.0); Blood Urea Nitrogen 46 mg/dL (9-23)
[2023-06-06 09:26] LABS: Hepatitis B Surface Antibody Negative (Negative)
[2023-06-06 09:38] LABS: Hepatitis B Surface Antigen Negative (Negative)
[2023-06-06 09:39] LABS: Basophils # (auto) 0 10 ^3/uL (0-0.2); Basophils % (auto) 0.1 % (0.0-2.0); Eosinophils # (auto) 0 10 ^3/uL (0-0.8); Eosinophils % (auto) 0.7 % (0.0-7.0); Hematocrit 30.7 % (36.0-46.0); Hemoglobin 9.1 g/dL (12.2-16.2); Lymphocytes # (auto) 0.3 10 ^3/uL (0.4-5.4); Lymphocytes % (auto) 4.3 % (10.0-50.0); Mean Corpuscular Hemoglobin 30.3 pg (28.0-32.0); Mean Corpuscular Hgb Conc. 29.8 g/dL (32.0-36.0); Mean Corpuscular Volume 101.8 fL (80.0-100.0); Monocytes # (auto) 0.1 10 ^3/uL (0-1.3); Monocytes % (auto) 1.8 % (0.0-12.0); Neutrophils # (auto) 6.6 10 ^3/uL (1.6-8.6); Neutrophils % (auto) 93.1 % (37.0-80.0); Nucleated Red Blood Cells % 0.1 %; Red Blood Cells 3.01 10^6/uL (4.0-5.20); Red Cell Distribution Width 19.1 % (11.8-14.3); White Blood Cell 7.1 10^3/uL (4.4-10.8)
[2023-06-06 09:59] LABS: Hepatitis B Core IgM Negative; Hepatitis C Antibody Negative (Negative)
[2023-06-06] MEDS: SODIUM CHL 0.9% 1000 ML BAG XX ONE (11:05)
[2023-06-06] MEDS: ERTAPENEM SOD INJ 0.5 GM in SODIUM CHL 0.9% 50 ML IV SCH (11:15)
[2023-06-06] MEDS: HYDROCORTONE 1% TOPICAL CREAM 30 GM TUBE TOP SCH (13:33)
[2023-06-06] MEDS: LORazepam 2MG/ML-1ML VIAL IV PRN (15:29)
[2023-06-07] VITALS (13 sets, daily range): BP systolic 115–151; BP diastolic 62–86; PULSE 80–94; RESP 15–23; TEMP 97.5–97.9; O2SAT 97–100
[2023-06-07] MEDS ORDERED: metOLazone 5 MG TAB ONE (00:29)
[2023-06-07 05:08] LABS: Hepatitis B Core Total Antibod Negative (Negative)
[2023-06-07 05:17] LABS: Chloride 108 mmol/L (98-107); Potassium 4.2 mmol/L (3.5-5.1); Sodium 142 mmol/L (136-145)
[2023-06-07 05:18] LABS: Anion Gap 7 (5-15); Calcium 8.7 mg/dL (8.5-10.1); Carbon Dioxide 27 mmol/L (20-30)
[2023-06-07 05:23] LABS: Glucose 109 mg/dL (74-106)
[2023-06-07 05:24] LABS: BUN/Creatinine Ratio 15.5 (10.0-20.0)
[2023-06-07 05:29] LABS: Blood Urea Nitrogen 57 mg/dL (9-23)
[2023-06-07] MEDS ORDERED: SODIUM CHL 0.9% 1000 ML BAG XX ONE (12:45)
[2023-06-07] MEDS ORDERED: HEPARIN SODIUM (PORCINE) 5000 UNITS/ML 1ML VIAL ONE (14:50)
[2023-06-07] MEDS ORDERED: LIDOCAINE 2%HCL (LOCAL ANESTH.) INJ 20ML MDV ONE (14:51)
[2023-06-07] MEDS ORDERED: MIDAZOLAM HCL 2MG/2ML 2ml VIAL (1mg/ml) ONE (15:15)
[2023-06-07] MEDS ORDERED: fentaNYL CITRATE 100 MCG/2 ML VL ONE (15:15)
[2023-06-07] MEDS ORDERED: EPOETIN ALFA-EPBX 10,000 UNIT/1ML VIAL SC ONE (21:00)
[2023-06-08] VITALS (10 sets, daily range): BP systolic 119–141; BP diastolic 56–70; PULSE 81–95; RESP 16–23; TEMP 97.5–98.4; O2SAT 95–100
[2023-06-08 05:13] LABS: Chloride 105 mmol/L (98-107); Potassium 3.7 mmol/L (3.5-5.1); Sodium 140 mmol/L (136-145)
[2023-06-08 05:14] LABS: Anion Gap 8 (5-15); Calcium 8.3 mg/dL (8.5-10.1); Carbon Dioxide 27 mmol/L (20-30)
[2023-06-08 05:19] LABS: BUN/Creatinine Ratio 13.3 (10.0-20.0); Blood Urea Nitrogen 48 mg/dL (9-23); Glucose 108 mg/dL (74-106)
[2023-06-08] MEDS: ACETAMINOPHEN 325 MG TAB PO PRN (15:36)
[2023-06-08] MEDS: MORPHINE SULFATE INJ 2 MG/ml SYRG IV PRN (17:31)
[2023-06-08] MEDS: LINEZOLID 600MG TABLET PO SCH (21:08)
[2023-06-08] MEDS ORDERED: AMOX500T92 PO (23:57)
[2023-06-09] VITALS (10 sets, daily range): BP systolic 112–144; BP diastolic 42–70; PULSE 86–98; RESP 17–20; TEMP 98.2–99.3; O2SAT 92–100
[2023-06-09 06:42] LABS: Anion Gap 8 (5-15); Carbon Dioxide 27 mmol/L (20-30); Chloride 105 mmol/L (98-107); Potassium 3.8 mmol/L (3.5-5.1); Sodium 140 mmol/L (136-145)
[2023-06-09 06:44] LABS: Calcium 8.2 mg/dL (8.7-10.4)
[2023-06-09 06:48] LABS: Blood Urea Nitrogen 40 mg/dL (9-23); Glucose 99 mg/dL (74-106)
[2023-06-09] MEDS ORDERED: SODIUM CHL 0.9% 1000 ML BAG XX ONE (10:45)
[2023-06-09] MEDS ORDERED: EPOETIN ALFA-EPBX 10,000 UNIT/1ML VIAL SC ONE (21:00)
== END 2023-06-09 18:00 | disposition home health service (06) | DRG 640 ==
LOC: EDBD 17:41 → ER 17:41 → EDUNIT# 17:41 → TELE 23:11 → TELE-EAST 06-03 03:24 → OBSVTOIN 06-04 11:43
PROVIDERS: ADMIT Internal Medicine; ATTEND Student in an Organized Health Care Education/Training Program
PROC: 0JH63XZ Insertion of Tunneled Vascular Access Device into Chest Subcutaneous Tissue and Fascia, Percutaneous Approach (ICD-10-PCS; 2023-06-07)
PROC: 02H633Z Insertion of Infusion Device into Right Atrium, Percutaneous Approach (ICD-10-PCS; 2023-06-07)
PROC: 05HD33Z Insertion of Infusion Device into Right Cephalic Vein, Percutaneous Approach (ICD-10-PCS; 2023-06-07)
PROC: B54MZZA Ultrasonography of Right Upper Extremity Veins, Guidance (ICD-10-PCS; 2023-06-07)
PROC: B548ZZA Ultrasonography of Superior Vena Cava, Guidance (ICD-10-PCS; 2023-06-07)
PROC: 5A1D70Z Performance of Urinary Filtration, Intermittent, Less than 6 Hours Per Day (ICD-10-PCS; principal; 2023-06-09)
DX: E87.5 Hyperkalemia (principal); G93.41 Metabolic encephalopathy; N18.6 End stage renal disease; I13.2 Hypertensive heart and chronic kidney disease with heart failure and with stage 5 chronic kidney disease, or end stage renal disease; N39.0 Urinary tract infection, site not specified; Z16.12 Extended spectrum beta lactamase (ESBL) resistance; Z16.21 Resistance to vancomycin; Z16.22 Resistance to vancomycin related antibiotics; Z68.43 Body mass index [BMI] 50.0-59.9, adult; I42.9 Cardiomyopathy, unspecified; Z20.822 Contact with and (suspected) exposure to COVID-19; I50.9 Heart failure, unspecified; E78.5 Hyperlipidemia, unspecified; E89.0 Postprocedural hypothyroidism; E78.00 Pure hypercholesterolemia, unspecified; E11.42 Type 2 diabetes mellitus with diabetic polyneuropathy; J44.9 Chronic obstructive pulmonary disease, unspecified; E11.22 Type 2 diabetes mellitus with diabetic chronic kidney disease; S90.821A Blister (nonthermal), right foot, initial encounter; I25.10 Atherosclerotic heart disease of native coronary artery without angina pectoris; E66.01 Morbid (severe) obesity due to excess calories; B96.20 Unspecified Escherichia coli [E. coli] as the cause of diseases classified elsewhere; B95.2 Enterococcus as the cause of diseases classified elsewhere; Z99.2 Dependence on renal dialysis; Z90.710 Acquired absence of both cervix and uterus; Z74.01 Bed confinement status; Z88.8 Allergy status to other drugs, medicaments and biological substances; Z86.73 Personal history of transient ischemic attack (TIA), and cerebral infarction without residual deficits; Z83.3 Family history of diabetes mellitus; Z82.49 Family history of ischemic heart disease and other diseases of the circulatory system; Z82.3 Family history of stroke; X58.XXXA Exposure to other specified factors, initial encounter; Y93.89 Activity, other specified; Y92.89 Other specified places as the place of occurrence of the external cause; Y99.8 Other external cause status
CPT/HCPCS: 36415; 36558; 70450; 71045; 76000; 76937; 77001; 80048; 80053; 80320; 81001; 82140; 82306; 82962; 83735; 83970; 84100; 84132; 85025; 85610; 86705; 86706; 86803; 87086; 87088; 87186; 87340; 87426; 90935; 93005; 93970; 94640; 99152; 99291; G0378; J1335; J1642; J1815; J2250; J2405

== ENCOUNTER 2023-06-25 12:58 | Inpatient (IN) | payer OTHER, MEDICAID ==
[~2023-06-25] VITALS: Ht 165.1 cm; Wt 136.0 kg
[~2023-06-25 12:58] MED LIST changes: +AMOX500T92 PO; -ASPI-543 PO; -ATOR40TA52 PO; -BENA40TA70 PO; -CARV12.544 PO; -CEPH250C PO; -CEPH500C PO; -CILO100T PO; -DICY10CA PO; -DOCU-94 PO; -FURO1TAB33 GT; -INSDRIP IV; -INSLANTI SC; -INSREG3; -INSUINJ37 SC; -LEVO50TA7 PO; -PANT40T PO; -TRAM50TA2 PO
[2023-06-25 14:24] LABS: Basophils # (auto) 0 10 ^3/uL (0-0.2); Lymphocytes # (auto) 0.3 10 ^3/uL (0.4-5.4); Neutrophils % (auto) 86.4 % (37.0-80.0); Red Cell Distribution Width 17.7 % (11.8-14.3)
[2023-06-25 14:27] LABS: Basophils % (auto) 0.3 % (0.0-2.0); Eosinophils # (auto) 0.1 10 ^3/uL (0-0.8); Eosinophils % (auto) 1.9 % (0.0-7.0); Hematocrit 30.3 % (36.0-46.0); Hemoglobin 9.2 g/dL (12.2-16.2); Lymphocytes % (auto) 3.7 % (10.0-50.0); Mean Corpuscular Hemoglobin 31.8 pg (28.0-32.0); Mean Corpuscular Hgb Conc. 30.4 g/dL (32.0-36.0); Mean Corpuscular Volume 104.5 fL (80.0-100.0); Monocytes # (auto) 0.6 10 ^3/uL (0-1.3); Monocytes % (auto) 7.7 % (0.0-12.0); Neutrophils # (auto) 6.5 10 ^3/uL (1.6-8.6); White Blood Cell 7.6 10^3/uL (4.4-10.8)
[2023-06-25 14:47] LABS: Albumin 3.2 g/dL (3.2-4.8); Alkaline Phosphatase 82 U/L (46-116); Anion Gap 9 (5-15); Aspartate Aminotransferase 19 U/L (13-40); BUN/Creatinine Ratio 8.3 (10.0-20.0); Blood Urea Nitrogen 32 mg/dL (9-23); Calcium 8.3 mg/dL (8.7-10.4); Carbon Dioxide 27 mmol/L (20-30); Chloride 105 mmol/L (98-107); Glucose 127 mg/dL (74-106); Lipase 23 U/L (12-53); Potassium 4.3 mmol/L (3.5-5.1); Sodium 141 mmol/L (136-145)
[2023-06-25 14:48] LABS: Bilirubin, Total 0.6 mg/dL (0.2-1.0); Total Protein 5.2 g/dL (5.7-8.2)
[2023-06-25 14:51] LABS: Alanine Aminotransferase < 9 U/L (7-40)
[2023-06-25 14:57] LABS: Blood Alcohol < 3.0 mg/dL (<10)
[2023-06-25 15:00] LABS: INR 1.16 (0.9-1.15); Prothrombin Time 12.1 sec (9.3-11.8)
[2023-06-25 15:18] LABS: Acetaminophen < 2.0 UG/ML (10.0-20.0)
[2023-06-25 15:20] LABS: Salicylate < 3.0 mg/dL (2.8-20.0)
[2023-06-25 15:33] LABS: Base Excess -0.2 mmol/L (-2.0-2.0)
[2023-06-25 19:20] VITALS: PULSE 88; O2SAT 100
[2023-06-25 19:37] LABS: Urine Bacteria NONE SEEN /hpf (None Seen); Urine Blood 2+ /uL (Negative); Urine Budding Yeast MANY /hpf (None Seen); Urine Clarity CLOUDY (Clear); Urine Color Yellow (Yellow); Urine Protein, UAD 3+ (Negative); Urine WBC 2251 /hpf (0 - 5); Urine WBC Clumps PRESENT /hpf (None Seen)
[2023-06-25] MEDS: PIPERACILLIN-TAZOB 2.25GM 50 ML IV ONE (19:38)
[2023-06-25 19:52] LABS: Amphetamine Screen, Urine Neg (NEGATIVE); Barbiturate Scree,Urine Neg (NEGATIVE); Benzodiazephine Screen, Urine Neg (NEGATIVE); Cocaine Screen, Urine Neg (NEGATIVE); Opiate Scree,Urine Pos (NEGATIVE); Phencyclidine Screen, Urine Neg (NEGATIVE)
[2023-06-25 19:53] LABS: Cannabinoid Screen, Urine Neg (NEGATIVE)
[2023-06-25] MEDS: ASPirin 300 MG RECTAL SUPP PR ONE (20:36)
[2023-06-25] MEDS ORDERED: cefTRIAXone 2GM/50ML D5W 50 ML IV ONE (21:15)
[2023-06-25] MEDS: cefTRIAXone 1GM/50ML D5W 100 ML IV ONE (21:21)
[2023-06-25] MEDS: cefTRIAXone 1GM/50ML D5W 50 ML IV ONE ×2 (21:25→21:40)
[2023-06-25] MEDS: NALOXONE HCL 0.4 MG/ML VIAL IV ONE (21:26)
[2023-06-26] MEDS: NALOXONE HCL 1MG/ML 2ML SYRINGE ONE (00:47)
[2023-06-26] MEDS: NALOXONE HCL 1MG/ML 2ML SYRINGE IV ONE (00:59)
[2023-06-26] MEDS ORDERED: ONDANSETRON HCL 4 MG/2 ML VIAL IV PRN (01:00)
[2023-06-26] MEDS ORDERED: NITROGLYCERIN 0.4 MG SL TAB SL PRN (01:00)
[2023-06-26] MEDS ORDERED: MEROPENEM 1GM IVPB 50 ML IV SCH (01:00)
[2023-06-26] MEDS ORDERED: MORPHINE SULFATE INJ 2 MG/ml SYRG IV PRN (01:00)
[2023-06-26 01:03] LABS: Hematocrit 25.4 % (36.0-46.0); Hemoglobin 7.9 g/dL (12.2-16.2); Mean Corpuscular Hemoglobin 31.1 pg (28.0-32.0); Mean Corpuscular Hgb Conc. 31.1 g/dL (32.0-36.0); Red Blood Cells 2.54 10^6/uL (4.0-5.20); Red Cell Distribution Width 16.7 % (11.8-14.3); White Blood Cell 7.4 10^3/uL (4.4-10.8)
[2023-06-26 01:05] LABS: Basophils % (manual) 0 (0.0-2.0); Blast Cells 0; Metamyelocytes % 0; Myelocytes % 0; Promyelocytes % 0; Reactive Lymphocytes 0
[2023-06-26] MEDS ORDERED: DEXTROSE (50%) 50ML SYRG IV PRN ×2 (01:15)
[2023-06-26] MEDS: NALOXONE HCL 0.4 MG/ML VIAL IV ONE (01:21)
[2023-06-26 01:57] LABS: Anisocytosis Slight; Band Neutrophils % (manual) 4; Eosinophils % (manual) 1 (0-7); Lymphocytes % (manual) 5 (10.0-50.0); Monocytes % (manual) 1 (0-12); Platelet Estimate Decreased
[2023-06-26 05:45] LABS: Alkaline Phosphatase 67 U/L (46-116); Anion Gap 11 (5-15); BUN/Creatinine Ratio 8.5 (10.0-20.0); Blood Urea Nitrogen 34 mg/dL (9-23); Calcium 8.3 mg/dL (8.7-10.4); Carbon Dioxide 27 mmol/L (20-30); Chloride 104 mmol/L (98-107); Glucose 129 mg/dL (74-106); Potassium 3.9 mmol/L (3.5-5.1); Sodium 142 mmol/L (136-145)
[2023-06-26 05:46] LABS: Albumin 2.9 g/dL (3.2-4.8); Aspartate Aminotransferase 22 U/L (13-40)
[2023-06-26 05:47] LABS: Bilirubin, Total 0.3 mg/dL (0.2-1.0)
[2023-06-26 05:48] LABS: Eosinophils # (auto) 0.5 10 ^3/uL (0-0.8); Hemoglobin 7.9 g/dL (12.2-16.2); Lymphocytes # (auto) 0.5 10 ^3/uL (0.4-5.4); Mean Corpuscular Hemoglobin 31.2 pg (28.0-32.0)
[2023-06-26 05:50] LABS: Basophils # (auto) 0 10 ^3/uL (0-0.2); Basophils % (auto) 0.5 % (0.0-2.0); Eosinophils % (auto) 6.3 % (0.0-7.0); Hematocrit 25.4 % (36.0-46.0); Mean Corpuscular Hgb Conc. 31.1 g/dL (32.0-36.0); Monocytes % (auto) 13.2 % (0.0-12.0); Neutrophils # (auto) 5.4 10 ^3/uL (1.6-8.6); Nucleated Red Blood Cells % 0.1 %; Red Blood Cells 2.54 10^6/uL (4.0-5.20); White Blood Cell 7.3 10^3/uL (4.4-10.8)
[2023-06-26 05:52] LABS: Alanine Aminotransferase < 9 U/L (7-40)
[2023-06-26] MEDS: InsuLIN REG 1unit/0.01ml Soln (100units/ml) SC SCH (06:00)
[2023-06-26] MEDS ORDERED: ACCU-CHEK COMFORT CURVE STRIP VI SCH (06:00)
[2023-06-26] MEDS: ACCU-CHEK COMFORT CURVE STRIP VI SCH (06:17)
[2023-06-26 07:40] VITALS: O2SAT 100
[2023-06-26] MEDS: AMPICILLIN INJ 1 GM in SODIUM CHL 0.9% 100 ML IV SCH (08:33)
[2023-06-26] MEDS ORDERED: MEROPENEM 500MG IVPB 50 ML IV SCH (10:00)
[2023-06-26] MEDS: PANTOPRAZOLE 40 MG/10 ML VIAL INJ IV SCH (11:03)
[2023-06-26] MEDS: HEPARIN SODIUM (PORCINE) 5000 UNITS/ML 1ML VIAL SC SCH (11:05)
[2023-06-26] MEDS: BUMETANIDE INJECTION 25 MG in GIVE UN-DILUTED 0 ML IV SCH (11:38)
[2023-06-26] MEDS: ASPirin 300 MG RECTAL SUPP PR SCH (11:38)
[2023-06-26] MEDS: ACETAMINOPHEN 325 MG TAB PO PRN (15:20)
[2023-06-26 19:35] VITALS: PULSE 71; RESP 11; O2SAT 98
[2023-06-26 22:00] VITALS: TEMP 97.8
[2023-06-26] MEDS: ATORVASTATIN 20 MG TAB PO SCH (22:03)
[2023-06-27 05:29] LABS: Hematocrit 27.4 % (36.0-46.0); Hemoglobin 8.6 g/dL (12.2-16.2); Mean Corpuscular Hemoglobin 31.6 pg (28.0-32.0); Mean Corpuscular Hgb Conc. 31.5 g/dL (32.0-36.0); Mean Corpuscular Volume 100.2 fL (80.0-100.0); Red Blood Cells 2.74 10^6/uL (4.0-5.20); Red Cell Distribution Width 17.5 % (11.8-14.3); White Blood Cell 6.9 10^3/uL (4.4-10.8)
[2023-06-27 05:39] LABS: Anion Gap 10 (5-15); Carbon Dioxide 27 mmol/L (20-30); Chloride 104 mmol/L (98-107); Potassium 3.9 mmol/L (3.5-5.1); Sodium 141 mmol/L (136-145)
[2023-06-27 05:41] LABS: Calcium 8.7 mg/dL (8.5-10.1)
[2023-06-27 05:45] LABS: BUN/Creatinine Ratio 8.7 (10.0-20.0); Blood Urea Nitrogen 33 mg/dL (9-23); Glucose 88 mg/dL (74-106)
[2023-06-27 05:46] LABS: Basophils % (manual) 0 (0.0-2.0); Blast Cells 0; Metamyelocytes % 0; Myelocytes % 0; Promyelocytes % 0; Reactive Lymphocytes 0
[2023-06-27 06:00] VITALS: BP 155/57
[2023-06-27 07:48] VITALS: PULSE 80; RESP 18; O2SAT 95
[2023-06-27 08:00] VITALS: PULSE 79
[2023-06-27 08:41] LABS: Band Neutrophils % (manual) 7; Eosinophils % (manual) 34 (0-7); Lymphocytes % (manual) 13 (10.0-50.0); Monocytes % (manual) 6 (0-12)
[2023-06-27 08:42] LABS: Platelet Estimate Decreased
[2023-06-27] MEDS: MICAFUNGIN SODIUM 100 MG in SODIUM CHL 0.9% 100 ML IV SCH (10:00)
[2023-06-27 11:11] LABS: Folate (Folic Acid) 8.62 ng/mL (>5.38); Free T4 (Free Thyroxine) 1.15 ng/dL (0.89-1.76)
[2023-06-27] MEDS ORDERED: FLUC200T50 PO ×2 (12:25)
== END 2023-06-27 09:30 | disposition home or self-care (01) | DRG 70 ==
LOC: EDBD 12:58 → EDSEX 12:58 → ER 12:58 → TELE 06-26 01:09
PROVIDERS: ADMIT Hospitalist; ATTEND Hospitalist
DX: G93.41 Metabolic encephalopathy (principal); N18.6 End stage renal disease; N39.0 Urinary tract infection, site not specified; I13.2 Hypertensive heart and chronic kidney disease with heart failure and with stage 5 chronic kidney disease, or end stage renal disease; Z68.43 Body mass index [BMI] 50.0-59.9, adult; E78.5 Hyperlipidemia, unspecified; I50.9 Heart failure, unspecified; I69.998 Other sequelae following unspecified cerebrovascular disease; D69.6 Thrombocytopenia, unspecified; D53.9 Nutritional anemia, unspecified; J44.9 Chronic obstructive pulmonary disease, unspecified; E11.22 Type 2 diabetes mellitus with diabetic chronic kidney disease; M48.00 Spinal stenosis, site unspecified; R44.1 Visual hallucinations; E66.01 Morbid (severe) obesity due to excess calories; Z88.0 Allergy status to penicillin; Z88.8 Allergy status to other drugs, medicaments and biological substances; Z90.710 Acquired absence of both cervix and uterus; Z99.2 Dependence on renal dialysis; Z79.899 Other long term (current) drug therapy; Z79.82 Long term (current) use of aspirin; Z74.01 Bed confinement status; Z82.49 Family history of ischemic heart disease and other diseases of the circulatory system; R79.89 Other specified abnormal findings of blood chemistry
CPT/HCPCS: 36415; 36600; 70450; 70551; 71045; 80048; 80053; 80307; 80320; 80329; 81001; 82140; 82607; 82746; 82805; 82962; 83690; 84439; 84443; 84484; 85007; 85025; 85027; 85610; 86850; 86900; 86901; 87040; 87077; 87086; 87088; 87186; 93005; 93306; 93886; 96365; 96375; 99291; C9113; G0378; J2248; J2543

== ENCOUNTER 2023-06-28 11:30 | Inpatient (IN) | payer OTHER, MEDICAID ==
[~2023-06-28] VITALS: Ht 165.1 cm; Wt 118.5 kg
[~2023-06-28 11:30] MED LIST changes: +FLUC200T50 PO
[2023-06-28 13:27] LABS: Basophils # (auto) 0.1 10 ^3/uL (0-0.2); Basophils % (auto) 1.2 % (0.0-2.0); Eosinophils # (auto) 0.4 10 ^3/uL (0-0.8); Eosinophils % (auto) 5.9 % (0.0-7.0); Hematocrit 27.6 % (36.0-46.0); Hemoglobin 8.7 g/dL (12.2-16.2); Lymphocytes # (auto) 0.7 10 ^3/uL (0.4-5.4); Lymphocytes % (auto) 11.5 % (10.0-50.0); Mean Corpuscular Hemoglobin 30.8 pg (28.0-32.0); Mean Corpuscular Hgb Conc. 31.3 g/dL (32.0-36.0); Mean Corpuscular Volume 98.2 fL (80.0-100.0); Monocytes # (auto) 0.6 10 ^3/uL (0-1.3); Monocytes % (auto) 9.9 % (0.0-12.0); Neutrophils # (auto) 4.4 10 ^3/uL (1.6-8.6); Neutrophils % (auto) 71.5 % (37.0-80.0); Nucleated Red Blood Cells % 0.3 %; Red Blood Cells 2.82 10^6/uL (4.0-5.20); Red Cell Distribution Width 17.6 % (11.8-14.3); White Blood Cell 6.2 10^3/uL (4.4-10.8)
[2023-06-28 13:29] LABS: Albumin 3.2 g/dL (3.2-4.8); Alkaline Phosphatase 78 U/L (46-116); Anion Gap 9 (5-15); Aspartate Aminotransferase 20 U/L (13-40); BUN/Creatinine Ratio 9.8 (10.0-20.0); Bilirubin, Total 0.3 mg/dL (0.2-1.0); Blood Urea Nitrogen 26 mg/dL (9-23); Calcium 8.3 mg/dL (8.5-10.1); Carbon Dioxide 28 mmol/L (20-30); Chloride 104 mmol/L (98-107); Glucose 103 mg/dL (74-106); Potassium 3.3 mmol/L (3.5-5.1); Sodium 141 mmol/L (136-145)
[2023-06-28 13:30] LABS: Total Protein 5.1 g/dL (5.7-8.2)
[2023-06-28 13:32] LABS: Alanine Aminotransferase 9 U/L (7-40)
[2023-06-28 16:00] VITALS: PULSE 84; RESP 22; O2SAT 96
[2023-06-28] MEDS ORDERED: MORPHINE SULFATE INJ 2 MG/ml SYRG IV PRN (16:00)
[2023-06-28] MEDS ORDERED: VANCOMYCIN PER PHARMACY 0 MG IV SCH (16:00)
[2023-06-28] MEDS ORDERED: hydrALAZINE HCL 20 MG/ML VL IV PRN (16:00)
[2023-06-28] MEDS ORDERED: NITROGLYCERIN 0.4 MG SL TAB SL PRN (16:00)
[2023-06-28] MEDS: VANCOMYCIN 1GM/200ML 200 ML IV ONE (16:02)
[2023-06-28] MEDS: POTASSIUM EFFERVESENT TAB 25 MEQ PO ONE (16:28)
[2023-06-28 17:03] LABS: INR 1.04 (0.9-1.15); Prothrombin Time 10.9 sec (9.3-11.8)
[2023-06-28 17:13] LABS: Magnesium 1.8 mg/dL (1.6-2.6)
[2023-06-28 17:14] LABS: Phosphorus 2.6 mg/dL (2.4-5.1)
[2023-06-28 17:14] LABS: Urine Amorphous Crystal FEW /hpf (None Seen); Urine Bacteria NONE SEEN /hpf (None Seen); Urine Blood 2+ /uL (Negative); Urine Clarity HAZY (Clear); Urine Color Yellow (Yellow); Urine Protein, UAD 2+ (Negative); Urine Specific Gravity 1.012 (1.001-1.035); Urine Urobilinogen Normal (Negative); Urine WBC 142 /hpf (0 - 5); Urine pH 5.5 (5.0-8.0)
[2023-06-28 19:32] VITALS: PULSE 84; RESP 18; O2SAT 96
[2023-06-28] MEDS: hydrALAZINE HCL 20 MG/ML VL IV PRN (20:15)
[2023-06-28] MEDS: ACETAMINOPHEN 500 MG TAB PO ONE (21:12)
[2023-06-29] VITALS (8 sets, daily range): BP systolic 148–178; BP diastolic 44–85; PULSE 68–97; RESP 17–22; TEMP 98.2–98.9; O2SAT 93–99
[2023-06-29 05:50] LABS: Basophils # (auto) 0.1 10 ^3/uL (0-0.2); Basophils % (auto) 0.9 % (0.0-2.0); Eosinophils # (auto) 0.5 10 ^3/uL (0-0.8); Eosinophils % (auto) 7.9 % (0.0-7.0); Hematocrit 29.5 % (36.0-46.0); Hemoglobin 9.7 g/dL (12.2-16.2); Lymphocytes # (auto) 0.7 10 ^3/uL (0.4-5.4); Mean Corpuscular Hemoglobin 31.4 pg (28.0-32.0); Mean Corpuscular Hgb Conc. 32.7 g/dL (32.0-36.0); Mean Corpuscular Volume 95.9 fL (80.0-100.0); Monocytes # (auto) 0.5 10 ^3/uL (0-1.3); Monocytes % (auto) 7.5 % (0.0-12.0); Neutrophils # (auto) 4.4 10 ^3/uL (1.6-8.6); Neutrophils % (auto) 71.7 % (37.0-80.0); Nucleated Red Blood Cells % 0.1 %; Red Blood Cells 3.07 10^6/uL (4.0-5.20); White Blood Cell 6.2 10^3/uL (4.4-10.8)
[2023-06-29 06:04] LABS: Albumin 3.6 g/dL (3.2-4.8); Alkaline Phosphatase 89 U/L (46-116); Anion Gap 8 (5-15); Aspartate Aminotransferase 18 U/L (13-40); BUN/Creatinine Ratio 8.3 (10.0-20.0); Bilirubin, Total 0.5 mg/dL (0.2-1.0); Blood Urea Nitrogen 13 mg/dL (9-23); Calcium 8.7 mg/dL (8.5-10.1); Carbon Dioxide 31 mmol/L (20-30); Chloride 102 mmol/L (98-107); Glucose 97 mg/dL (74-106); Potassium 3.4 mmol/L (3.5-5.1); Sodium 141 mmol/L (136-145)
[2023-06-29 06:18] LABS: Alanine Aminotransferase < 9 U/L (7-40)
[2023-06-29] MEDS: VANCOMYCIN 1GM/200ML 200 ML IV ONE (10:08)
[2023-06-29] MEDS: SODIUM CHL 0.9% 1000 ML BAG XX ONE (11:29)
[2023-06-29] MEDS: LIDOCAINE 2% (LOCAL ANESTH.) PF 5ml SDV ONE (11:30)
[2023-06-29] MEDS: LIDOCAINE 2%HCL (LOCAL ANESTH.) INJ 10ml MDV ONE (11:30)
[2023-06-29] MEDS: MEROPENEM 1GM IVPB 50 ML IV SCH (22:02)
[2023-06-29] MEDS: MUPIROCIN 2% OINT 15gm or 22gm FOR MRSA NARES EACHNOSTRI SCH (22:02)
[2023-06-29] MEDS: EPOETIN ALFA-EPBX 10,000 UNIT/1ML VIAL SC ONE (22:03)
[2023-06-30] VITALS (8 sets, daily range): BP systolic 134–170; BP diastolic 59–88; PULSE 85–90; RESP 16–20; TEMP 98.1–98.6; O2SAT 98–100
[2023-06-30 06:01] LABS: Basophils # (auto) 0 10 ^3/uL (0-0.2); Basophils % (auto) 0.6 % (0.0-2.0); Eosinophils # (auto) 0.5 10 ^3/uL (0-0.8); Eosinophils % (auto) 6.9 % (0.0-7.0); Hematocrit 31.3 % (36.0-46.0); Lymphocytes # (auto) 0.6 10 ^3/uL (0.4-5.4); Lymphocytes % (auto) 9.3 % (10.0-50.0); Mean Corpuscular Hemoglobin 31.2 pg (28.0-32.0); Mean Corpuscular Hgb Conc. 31.9 g/dL (32.0-36.0); Mean Corpuscular Volume 97.7 fL (80.0-100.0); Monocytes # (auto) 0.4 10 ^3/uL (0-1.3); Monocytes % (auto) 6.1 % (0.0-12.0); Neutrophils # (auto) 5.2 10 ^3/uL (1.6-8.6); Neutrophils % (auto) 77.1 % (37.0-80.0); Red Cell Distribution Width 17.3 % (11.8-14.3); White Blood Cell 6.8 10^3/uL (4.4-10.8)
[2023-06-30 06:18] LABS: Albumin 3.5 g/dL (3.2-4.8); Alkaline Phosphatase 88 U/L (46-116); Anion Gap 10 (5-15); Aspartate Aminotransferase 15 U/L (13-40); BUN/Creatinine Ratio 8.2 (10.0-20.0); Blood Urea Nitrogen 18 mg/dL (9-23); Calcium 9.1 mg/dL (8.5-10.1); Carbon Dioxide 28 mmol/L (20-30); Chloride 103 mmol/L (98-107); Glucose 101 mg/dL (74-106); Potassium 3.1 mmol/L (3.5-5.1); Sodium 141 mmol/L (136-145)
[2023-06-30 06:19] LABS: Bilirubin, Total 0.5 mg/dL (0.2-1.0); Total Protein 5.7 g/dL (5.7-8.2)
[2023-06-30 06:20] LABS: Alanine Aminotransferase < 9 U/L (7-40)
[2023-06-30] MEDS: ACETAMINOPHEN 325 MG TAB PO PRN (11:09)
[2023-06-30] MEDS: ERGOCALCIFEROL 50,000 UNIT(1.25MG) CAP PO SCH (13:01)
[2023-06-30] MEDS: POTASSIUM EFFERVESENT TAB 25 MEQ PO ONE (15:46)
[2023-06-30] MEDS: ONDANSETRON HCL 4 MG/2 ML VIAL IV PRN (17:46)
[2023-06-30] MEDS ORDERED: MUPIROCIN 2% OINT 15gm or 22gm FOR MRSA NARES EACHNOSTRI SCH (22:00)
[2023-07-01] VITALS (11 sets, daily range): BP systolic 124–151; BP diastolic 58–93; PULSE 82–94; RESP 11–20; TEMP 97.6–98.9; O2SAT 90–100
[2023-07-01 05:33] LABS: Basophils # (auto) 0.1 10 ^3/uL (0-0.2); Basophils % (auto) 0.8 % (0.0-2.0); Eosinophils # (auto) 0.6 10 ^3/uL (0-0.8); Eosinophils % (auto) 7.6 % (0.0-7.0); Hematocrit 29.8 % (36.0-46.0); Hemoglobin 9.3 g/dL (12.2-16.2); Lymphocytes # (auto) 0.8 10 ^3/uL (0.4-5.4); Lymphocytes % (auto) 9.1 % (10.0-50.0); Mean Corpuscular Hemoglobin 30.8 pg (28.0-32.0); Mean Corpuscular Hgb Conc. 31.2 g/dL (32.0-36.0); Monocytes # (auto) 0.5 10 ^3/uL (0-1.3); Monocytes % (auto) 6.2 % (0.0-12.0); Neutrophils # (auto) 6.5 10 ^3/uL (1.6-8.6); Neutrophils % (auto) 76.3 % (37.0-80.0); Nucleated Red Blood Cells % 0.1 %; Red Blood Cells 3.01 10^6/uL (4.0-5.20); Red Cell Distribution Width 16.9 % (11.8-14.3); White Blood Cell 8.5 10^3/uL (4.4-10.8)
[2023-07-01 05:41] LABS: Albumin 3.3 g/dL (3.2-4.8); Alkaline Phosphatase 83 U/L (46-116); Anion Gap 8 (5-15); Aspartate Aminotransferase 17 U/L (13-40); BUN/Creatinine Ratio 8.1 (10.0-20.0); Bilirubin, Total 0.4 mg/dL (0.2-1.0); Blood Urea Nitrogen 21 mg/dL (9-23); Calcium 8.9 mg/dL (8.5-10.1); Carbon Dioxide 28 mmol/L (20-30); Chloride 104 mmol/L (98-107); Glucose 99 mg/dL (74-106); Potassium 3.8 mmol/L (3.5-5.1); Sodium 140 mmol/L (136-145); Total Protein 5.7 g/dL (5.7-8.2)
[2023-07-01 06:01] LABS: Alanine Aminotransferase < 9 U/L (7-40)
[2023-07-01] MEDS: SODIUM CHL 0.9% 1000 ML BAG XX ONE (11:00)
[2023-07-01] MEDS: LIDOCAINE 2%HCL (LOCAL ANESTH.) INJ 20ML MDV ONE (13:01)
[2023-07-01] MEDS: MIDAZOLAM HCL 2MG/2ML 2ml VIAL (1mg/ml) ONE (13:23)
[2023-07-01] MEDS: fentaNYL CITRATE 100 MCG/2 ML VL ONE (14:09)
[2023-07-01] MEDS: HEPARIN SODIUM (PORCINE) 5000 UNITS/ML 1ML VIAL ONE (14:10)
[2023-07-01] MEDS: POTASSIUM EFFERVESENT TAB 25 MEQ PO ONE (17:35)
[2023-07-01] MEDS ORDERED: ERTAPENEM SOD 1 GM INJ VIAL IM SCH (18:30)
[2023-07-01] MEDS ORDERED: VANCOMYCIN PER PHARMACY 0 MG IV SCH (18:30)
[2023-07-01] MEDS ORDERED: VANCOMYCIN 1GM/200ML 200 ML IV ONE (21:00)
[2023-07-01] MEDS: ERTAPENEM SOD INJ 0.5 GM in SODIUM CHL 0.9% 50 ML IV SCH (21:12)
[2023-07-01] MEDS ORDERED: LINEZOLID 600MG TABLET PO SCH (22:00)
[2023-07-02] VITALS (8 sets, daily range): BP systolic 131–163; BP diastolic 46–84; PULSE 92–107; RESP 17–20; TEMP 98.3–98.9; O2SAT 97–99
[2023-07-02 05:25] LABS: Basophils # (auto) 0.1 10 ^3/uL (0-0.2); Basophils % (auto) 0.9 % (0.0-2.0); Eosinophils # (auto) 0.7 10 ^3/uL (0-0.8); Eosinophils % (auto) 9.2 % (0.0-7.0); Hematocrit 27.3 % (36.0-46.0); Hemoglobin 8.7 g/dL (12.2-16.2); Lymphocytes # (auto) 0.8 10 ^3/uL (0.4-5.4); Lymphocytes % (auto) 10.5 % (10.0-50.0); Mean Corpuscular Hemoglobin 30.9 pg (28.0-32.0); Mean Corpuscular Hgb Conc. 31.9 g/dL (32.0-36.0); Monocytes # (auto) 0.4 10 ^3/uL (0-1.3); Monocytes % (auto) 6.2 % (0.0-12.0); Neutrophils # (auto) 5.2 10 ^3/uL (1.6-8.6); Neutrophils % (auto) 73.2 % (37.0-80.0); Nucleated Red Blood Cells % 0.1 %; Red Blood Cells 2.81 10^6/uL (4.0-5.20); Red Cell Distribution Width 17.3 % (11.8-14.3); White Blood Cell 7.1 10^3/uL (4.4-10.8)
[2023-07-02 05:38] LABS: Albumin 3.1 g/dL (3.2-4.8); Alkaline Phosphatase 83 U/L (46-116); Anion Gap 8 (5-15); Aspartate Aminotransferase 9 U/L (13-40); BUN/Creatinine Ratio 8.7 (10.0-20.0); Blood Urea Nitrogen 24 mg/dL (9-23); Calcium 8.5 mg/dL (8.7-10.4); Carbon Dioxide 28 mmol/L (20-30); Chloride 102 mmol/L (98-107); Glucose 88 mg/dL (74-106); Potassium 3.6 mmol/L (3.5-5.1); Sodium 138 mmol/L (136-145)
[2023-07-02 05:39] LABS: Bilirubin, Total 0.3 mg/dL (0.2-1.0); Total Protein 5.3 g/dL (5.7-8.2)
[2023-07-02 06:12] LABS: Alanine Aminotransferase < 9 U/L (7-40)
[2023-07-02] MEDS: HEPARIN SODIUM (PORCINE) 5000 UNITS/ML 1ML VIAL SC SCH (10:38)
[2023-07-02] MEDS ORDERED: APIX5TAB4 PO ×2 (12:34)
[2023-07-02] MEDS: VANCOMYCIN 1GM/200ML 200 ML IV ONE (22:27)
[2023-07-03] MEDS: EPOETIN ALFA-EPBX 10,000 UNIT/1ML VIAL SC ONE (00:10)
[2023-07-03 05:00] VITALS: BP 134/58; PULSE 94; RESP 18; TEMP 98.2; O2SAT 95
[2023-07-03 08:00] VITALS: PULSE 95
[2023-07-03 09:00] VITALS: BP 152/63; PULSE 101; RESP 22; TEMP 98.4; O2SAT 93
== END 2023-07-03 12:45 | disposition home health service (06) | DRG 871 ==
LOC: ER 11:30 → EDBD 11:30 → TELE 15:54 → TELE-EAST 15:54
PROVIDERS: ADMIT Internal Medicine; ATTEND Student in an Organized Health Care Education/Training Program
PROC: 5A1D70Z Performance of Urinary Filtration, Intermittent, Less than 6 Hours Per Day (ICD-10-PCS; 2023-06-29)
PROC: 0JH63XZ Insertion of Tunneled Vascular Access Device into Chest Subcutaneous Tissue and Fascia, Percutaneous Approach (ICD-10-PCS; principal; 2023-07-01)
PROC: 02H633Z Insertion of Infusion Device into Right Atrium, Percutaneous Approach (ICD-10-PCS; 2023-07-01)
PROC: B519ZZA Fluoroscopy of Inferior Vena Cava, Guidance (ICD-10-PCS; 2023-07-01)
PROC: B548ZZA Ultrasonography of Superior Vena Cava, Guidance (ICD-10-PCS; 2023-07-01)
PROC: 5A1D70Z Performance of Urinary Filtration, Intermittent, Less than 6 Hours Per Day (ICD-10-PCS; 2023-07-02)
DX: A41.02 Sepsis due to Methicillin resistant Staphylococcus aureus (principal); G93.41 Metabolic encephalopathy; N18.6 End stage renal disease; T82.7XXA Infection and inflammatory reaction due to other cardiac and vascular devices, implants and grafts, initial encounter; I13.2 Hypertensive heart and chronic kidney disease with heart failure and with stage 5 chronic kidney disease, or end stage renal disease; Z68.41 Body mass index [BMI] 40.0-44.9, adult; I82.B11 Acute embolism and thrombosis of right subclavian vein; N39.0 Urinary tract infection, site not specified; I82.C11 Acute embolism and thrombosis of right internal jugular vein; E11.22 Type 2 diabetes mellitus with diabetic chronic kidney disease; D63.1 Anemia in chronic kidney disease; E66.01 Morbid (severe) obesity due to excess calories; F41.9 Anxiety disorder, unspecified; I25.10 Atherosclerotic heart disease of native coronary artery without angina pectoris; E55.9 Vitamin D deficiency, unspecified; I50.9 Heart failure, unspecified; E87.6 Hypokalemia; Z99.2 Dependence on renal dialysis; Z90.710 Acquired absence of both cervix and uterus; Z83.3 Family history of diabetes mellitus; Z82.49 Family history of ischemic heart disease and other diseases of the circulatory system; Z82.3 Family history of stroke; Z86.73 Personal history of transient ischemic attack (TIA), and cerebral infarction without residual deficits; Z74.01 Bed confinement status; Z79.899 Other long term (current) drug therapy
CPT/HCPCS: 36415; 36558; 71045; 76937; 77001; 80053; 80202; 81001; 82306; 83605; 83735; 83970; 84100; 85025; 85610; 87040; 87081; 87086; 87088; 87186; 90935; 93971; 99152; C1887; C1894; G0378; J1335; J1642; J2001; J2185; J2250; J2405